=== PATIENT | female | born 1990 | race Caucasian/White ===

== ENCOUNTER 2021-07-19 15:14 | Outpatient (REF) | payer OTHER, SELFPAY ==
[2021-07-19 15:45] LABS: Hematocrit 39.7 % (37.0-47.0); Hemoglobin 13.4 g/dl (12.0-16.0); Mean Corpuscular HGB Conc 33.8 g/dl (31.0-35.0); Mean Corpuscular Hemoglobin 28.8 pg (27.0-33.0); Mean Corpuscular Volume 85.4 fL (80.0-98.0); Mean Platelet Volume 9.5 fL (9.4-12.3); Platelet Count 354 X10*3/uL (160-400); Red Blood Count 4.65 X10*6/uL (4.20-5.50); Red Cell Distribution Width 12.6 % (11.0-16.0); White Blood Count 11.4 X10*3/uL (4.8-10.8)
[2021-07-19 16:05] LABS: Estimated Average Glucose 94 mg/dL; Hemoglobin A1c % 4.9 %
[2021-07-19 16:06] LABS: Alanine Aminotransferase 15 U/L (0-31); Albumin Level 4.2 g/dL (3.5-5.0); Alkaline Phosphatase 69 U/L (39-117); Anion Gap 14 (12-20); Aspartate Amino Transferase 17 U/L (5-31); Bilirubin Total 0.4 mg/dL (0.0-1.0); Blood Urea Nitrogen 8 mg/dL (9-16); Calcium 9.2 mg/dL (8.4-10.2); Carbon Dioxide 23 mmol/L (22-29); Chloride 105 mmol/L (96-108); Cholesterol 258 mg/dL; Estimated Glomerular Filt Rate > 60; Glucose Fasting 87 mg/dL (60-99); HDL Cholesterol 79 mg/dL; LDL Cholesterol Calculated 147 mg/dl; Potassium 4.4 mmol/L (3.3-5.1); Sodium 138 mmol/L (135-145); Total Protein 7.2 g/dL (6.5-8.0); Triglycerides 161 mg/dL
[2021-07-19 16:27] LABS: TSH reflex Free T4 0.73 uIU/mL (0.32-4.0)
== END 2021-07-19 15:15 | disposition home or self-care (01) ==
LOC: HO.LAB 15:14
PROVIDERS: PCP Hospitalist; Visit Provider Hospitalist
DX: Z00.00 Encounter for general adult medical examination without abnormal findings (principal); F41.8 Other specified anxiety disorders; R51.9 Headache, unspecified; R53.83 Other fatigue; R73.01 Impaired fasting glucose
CPT/HCPCS: 36415; 80053; 80061; 83036; 84443; 85027

== ENCOUNTER 2022-01-03 12:35 | Outpatient (REF) | payer OTHER, SELFPAY ==
[2022-01-03 13:29] LABS: Hematocrit 37.9 % (37.0-47.0); Hemoglobin 12.6 g/dl (12.0-16.0); Mean Corpuscular HGB Conc 33.2 g/dl (31.0-35.0); Mean Corpuscular Hemoglobin 28.8 pg (27.0-33.0); Mean Corpuscular Volume 86.5 fL (80.0-98.0); Mean Platelet Volume 9.5 fL (9.4-12.3); Platelet Count 399 X10*3/uL (160-400); Red Blood Count 4.38 X10*6/uL (4.20-5.50); Red Cell Distribution Width 13.1 % (11.0-16.0); White Blood Count 9.2 X10*3/uL (4.8-10.8)
[2022-01-03 13:42] LABS: Alanine Aminotransferase 12 U/L (0-31); Alkaline Phosphatase 75 U/L (39-117); Anion Gap 14 (12-20); Aspartate Amino Transferase 15 U/L (5-31); Bilirubin Direct < 0.2 mg/dL (0.0-0.5); Bilirubin Total 0.5 mg/dL (0.0-1.0); Blood Urea Nitrogen 7 mg/dL (9-16); Calcium 9.4 mg/dL (8.4-10.2); Carbon Dioxide 23 mmol/L (22-29); Chloride 104 mmol/L (96-108); Estimated Glomerular Filt Rate > 60; Glucose Fasting 84 mg/dL (60-99); Potassium 4.5 mmol/L (3.3-5.1); Sodium 136 mmol/L (135-145); Total Protein 6.9 g/dL (6.5-8.0)
[2022-01-03 14:03] LABS: TSH reflex Free T4 0.69 uIU/mL (0.32-4.0)
== END 2022-01-03 12:36 | disposition home or self-care (01) ==
LOC: HO.LAB 12:35
PROVIDERS: PCP Hospitalist; Visit Provider Hospitalist
DX: Z00.00 Encounter for general adult medical examination without abnormal findings (principal); R53.83 Other fatigue
CPT/HCPCS: 36415; 80053; 80076; 82248; 84443; 85027

== ENCOUNTER 2023-10-14 10:54 | Outpatient (AMB) | payer OTHER, SELFPAY ==
[2023-10-14 10:58] VITALS: BP 124/76; PULSE 87; O2SAT 97; BMI 39.0
--- NOTE | 2023-10-14 10:58 | A.OFFPC_ITS ---
Vital Signs 10/14/23 10:58 Height 5 ft 2 in Weight 213 lb 2 oz BMI 39.0 BP 124/76 Blood Pressure Location Lt brachial Position Sitting Pulse 87 Pulse Source Pulse Oximeter Pulse Oximetry (%) 97 Oxygen Delivery Method Room Air Intake Visit Reasons: Transfer of care Allergies erythromycin base [From Erythrocin] Allergy (Intermediate, Verified 10/14/23 11:36) vomits Penicillins Allergy (Verified 10/14/23 11:36) vomitting Medication List - Last Reconciled 10/14/23 by ALONZO Metcalf citalopram 20 mg PO DAILY drospirenone-ethinyl estradiol 3-0.02 mg (SAM (28)) 1 tab PO DAILY Tobacco use date assessed: 10/14/23 Dental Screening Dental Screen Date: 10/14/23 Did you have a dental visit in the last 12 months?: Yes Did you have a dental problem in the last 6 months where you did not have access to dental care?: No Was dental information given to patient?: Patient has dentist HPI HPI Comments History of Present Illness Details 33-year-old female with major depressive disorder, generalized anxiety disorder, TMJ, allergic rhinitis, frequent headaches, obesity, vertigo s/p tubal bilat Family history Mom with breast cancer Father with esophageal cancer Health maintenance Colonoscopy Mammogram Pap smear [facility] Specialists Manager Mechanical my eye doctor and Dr. Shen ENT Counselor Here today worried about dx of vertigo. Started about 5 years ago Thought related to anxiety however on meds and vertigo has not improved. She was evaluated by an eye doctor in March of 2022. It was recommended an MRI be done of the brain to rule out MS based on the eye exam. Patient has not had this performed yet. In regards to MDD and ANGELA. Feels so much better. Not gone. No longer having panic attacks. Not active w/ counselor. Would like to see one. Is taking control to help control hormonal acne. She is status post tubal ligation so no chance of . She wonders if she can come off the as she does not really like it. Would like to start on spironolactone if possible. Admits PMDD of which the as was helping. [facility] Medical History (Updated 10/14/23 @ 17:04 by Sue L O'Maicol, HUMAN RESOURCES DIRECTOR-BC) HPV (human papilloma virus) infection Intractable headache Anxiety with depression Surgical History (Updated 10/14/23 @ 11:15 by Nissa Salamanca MA) History of salpingectomy (~08/2022) History of wisdom tooth extraction Family History (Updated 10/14/23 @ 11:19 by Nissa Salamanca MA) Mother High cholesterol Breast cancer Father Alcoholism Esophageal cancer Maternal Grandfather Hypertension High cholesterol Paternal Grandfather Hypertension Social History (Updated 10/14/23 @ 11:10 by Nissa Salamanca MA) Housing: House Alcohol intake: never Patient Tobacco Use Status: Former Tobacco user e-Cigarette/Vaping Use: Never Used Second Hand Smoke Exposure: No Substance Use Type: Marijuana service: No Current occupational status: employed 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 1. Little interest or pleasure in doing things: several days 2. Feeling down, depressed, or hopeless: several days 3. Trouble falling or staying asleep, or sleeping too much: not at all 4. Feeling tired or having little energy: nearly every day 5. Poor appetite or overeating: more than half the days 6. Feeling bad about yourself - or that you are a failure or have let yourself or your family down: not at all 7. Trouble concentrating on things, such as reading the newspaper or watching television: not at all 8. Moving or speaking so slowly that other people could have noticed. Or the opposite - being so fidgety or restless that you have been moving around a lot more than usual: not at all 9. Thoughts that you would be better off or of hurting yourself in some way: not at all Total score: 7 Depression Screening Interpretation: Positive Depression Screening Follow-up: Existing condition and Community Mental Health Worker F/U Depression Screening Done: Yes 39870 - PHQ-9 Billing: Yes Source: Developed by Drs. Rehan Lynne, Nasima Crabtree, Greg Delgado and colleagues, with an educational kavita from [employer]. Thrive Questionnaire Date Thrive assessed: 10/14/23 I am a: Patient What is your living situation today?: I have a steady place to live Within the past 12 months, did the food you bought not last and you didn't have the money to get more?: Never true Within the past 12 months, did you worry whether your food would run out before you got money to buy more?: Never true Do you have trouble paying for medicines?: No Do you have trouble getting transportation to medical appointments?: No Do you have trouble paying your heating and electricity bill?: No Do you have trouble taking care of your child, family member or friend?: No Do you have trouble with day-to-day activities such as bathing, preparing meals, shopping, managing finances, etc.?: No Are you currently unemployed and looking for a job?: No Are you interested in more education?: No Please select the resources that you would like help with: None Currently or been in a relationship where the following occur: no concerns reported THRIVE Score: 0 AUDIT C Alcohol Use Questionnaire (AUDIT-C) 1. How often do you have a drink containing alcohol?: Never 2. How many drinks containing alcohol do you have on a typical day when you are drinking?: 1 or 2 3. How often do you have six or more drinks on one occasion?: Never Total Score: 0 Score Reviewed/Action Taken: Yes ANGELA-7 AMB Questionnaire ANGELA-7 Date ANGELA - 7 assessed: 10/14/23 Feeling nervous, anxious, or on edge: 1 = Several days Not being able to stop or control worryin = Nearly every day Worrying too much about different things: 3 = Nearly every day Trouble relaxin = Several days Being so restless that it is hard to sit still: 0 = Not at all Becoming easily annoyed or irritable: 0 = Not at all Feeling afraid as if something awful might happen: 2 = More than half the days Total ANGELA-7 score (0-4 normal; 5-9 mild; 10-14 moderate; 15-21 severe): 10 Source: Developed by Drs. Rehan Lynne, Nasima Crabtree, Greg Delgado and colleagues, with an educational kavita from [employer]. ANGELA-7 Assessment Billing ANGELA-7 Assessment Tool: ANGELA-7 Assessment 12785 Review of Systems Const All systems reviewed & are unremarkable except as noted in HPI and below Physical exam (Primary Care) Vital Signs: Last Vital Signs Pulse 87 10/14/23 10:58 BP 124/76 10/14/23 10:58 Pulse Ox 97 10/14/23 10:58 Oxygen Delivery Method Room Air 10/14/23 10:58 BMI result Body Mass Index 39.0 Tobacco/Smoking Status: Tobacco use Status Tobacco use date assessed 10/14/23 10/14/23 11:01 Patient Tobacco Use Status Former Tobacco user 10/14/23 11:10 e-Cigarette/Vaping Use Never Used 10/14/23 11:10 PHQ-9: PHQ-9 Score PHQ-9: Total score 7 10/14/23 11:49 Depression Screening Interpretation: Positive Depression Screening Follow-up: Existing condition and Community Mental Health Worker F/U Thrive Assessment: Date of Thrive Assessment Date Thrive assessed 10/14/23 10/14/23 11:21 Currently or been in a relationship where the following occur: no concerns reported Const Other: Awake alert NAD Sclera and conjunctiva clear bilat, PERRLA, EOMI TM intact and clear bilat MMM, pharynx WNL RRR LS CTAB Assessment and Plan Assessment & Plan (1) Vertigo: Code(s): R42 - Dizziness and giddiness (2) Photophobia of both eyes: Code(s): H53.143 - Visual discomfort, bilateral (3) Intractable headache: Comment: MRI with and without contrast of the brain ordered today as recommended by Ophthalmology. Code(s): R51.9 - Headache, unspecified Qualifiers: Headache type: unspecified Headache chronicity pattern: chronic headache Qualified Code(s): R51.9 - Headache, unspecified; G89.29 - Other chronic pain (4) MDD (major depressive disorder), recurrent episode: Comment: Currently on Celexa 20 mg however positive PHQ in GED. The plan will be to have her start Celexa 30 mg daily. As she does have a history of PMDD I have told her she can increase Celexa to 40 mg 7 days before her period and continue this through her menstrual cycle. If she does not feel her PMD D symptoms warrant this and she should just continue the Celexa 30 mg daily. Nurse navigator referral to help establish care with a counselor Code(s): F33.9 - Major depressive disorder, recurrent, unspecified Qualifiers: Major depression episode severity: moderate Qualified Code(s): F33.1 - Major depressive disorder, recurrent, moderate (5) ANGELA (generalized anxiety disorder): Comment: Maintained on Celexa which will be increased from 20 mg to 30 mg daily today Code(s): F41.1 - Generalized anxiety disorder (6) Acne: Comment: Was being managed by as. We will start her on spironolactone 12.5 mg p.o. q.day take at HS. We will check labs today. Code(s): L70.9 - Acne, unspecified Qualifiers: Acne type: acne vulgaris Qualified Code(s): L70.0 - Acne vulgaris Plan I would like to see her back in 2-3 weeks to follow-up on all the above Total time spent caring for the patient today was 60 minutes. This includes time spent before the visit reviewing the chart, time spent during the visit, and time spent after the visit on documentation This note is constructed using voice recognition software. While every effort has been made to ensure accuracy in campaign advisor, still errors may have been included Sometimes, these errors may affect the content or meaning of the given sentence . Orders: Orders Comprehensive [place]. Panel Fast Today E66.9 - Obesity, unspecified, F41.8 - Other specified anxiety disorders, R51.9 - Headache, unspecified Lipid Panel Today E66.9 - Obesity, unspecified, F41.8 - Other specified anxiety disorders, R51.9 - Headache, unspecified TSH reflex Free T4 Today E66.9 - Obesity, unspecified, F41.8 - Other specified anxiety disorders, R51.9 - Headache, unspecified Microalbumin, Random (w Creat) Today E66.9 - Obesity, unspecified, F41.8 - Other specified anxiety disorders, R51.9 - Headache, unspecified Hemoglobin A1c Today E66.9 - Obesity, unspecified, F41.8 - Other specified anxiety disorders, R51.9 - Headache, unspecified MR head/brain wo/w con Today H53.143 - Visual discomfort, bilateral, R42 - Dizziness and giddiness, R51.9 - Headache, unspecified, R53.83 - Other fatigue Vitamin D 1,25 dihydroxy Today E66.9 - Obesity, unspecified, F41.8 - Other specified anxiety disorders, R51.9 - Headache, unspecified Referrals Nurse Navigator Referral F41.8 - Other specified anxiety disorders Medications: New spironolactone 12.5 mg (1/2 x 25 mg) PO DAILY 90 days 45 tabs 0RF spironolactone 12.5 mg (1/2 x 25 mg) PO DAILY 90 days 45 tabs 0RF Changed From citalopram 20 mg PO DAILY 90 tabs 1RF To citalopram Take two 20 mg tabs p.o. by mouth daily for a total dose of 40 mg per day 40 mg (2 x 20 mg) PO DAILY 90 tabs 1RF Discontinued drospirenone-ethinyl estradiol 3-0.02 mg (SAM (28)) Discontinued Reason: Doctor's Order 1 tab PO DAILY 28 tabs 0RF Coding Level of Care Code Est Pt Level 5 (50924) Diagnoses Vertigo R42 Photophobia of both eyes H53.143 Chronic intractable headache, unspecified headache type R51.9; G89.29 Headache type: unspecified Headache chronicity pattern: chronic headache Moderate episode of recurrent major depressive disorder F33.1 Major depression episode severity: moderate ANGELA (generalized anxiety disorder) F41.1 Acne vulgaris L70.0 Acne type: acne vulgaris Additional Codes ANGELA-7 Assessment Billing - ANGELA-7 Assessment Tool: ANGELA-7 Assessment [id number] ([id number])
== END 2023-10-14 12:14 | disposition home or self-care (01) ==
PROVIDERS: PCP Hospitalist; Visit Provider Nurse Practitioner Family
DX: R42 Dizziness and giddiness (principal); F33.1 Major depressive disorder, recurrent, moderate; F41.1 Generalized anxiety disorder; H53.143 Visual discomfort, bilateral; R51.9 Headache, unspecified; G89.29 Other chronic pain; L70.0 Acne vulgaris
CPT/HCPCS: 96127; 99215

== ENCOUNTER 2023-10-14 11:56 | Outpatient (REF) | payer OTHER, SELFPAY ==
[2023-10-14 16:01] LABS: Estimated Average Glucose 100 mg/dL; Hemoglobin A1c % 5.1 % (<6.0)
[2023-10-14 16:03] LABS: Microalbum/Creatinine Ratio Ur 3.4 ug/mg cr (<30)
[2023-10-14 16:26] LABS: Alanine Aminotransferase 9 U/L (0-31); Alkaline Phosphatase 79 U/L (39-117); Anion Gap 13 (12-20); Aspartate Amino Transferase 13 U/L (5-31); Bilirubin Total 0.3 mg/dL (0.0-1.0); Blood Urea Nitrogen 8 mg/dL (9-16); Calcium 9.3 mg/dL (8.4-10.2); Carbon Dioxide 22 mmol/L (22-29); Chloride 106 mmol/L (96-108); Cholesterol 234 mg/dL (<200); Estimated Glomerular Filt Rate > 60; Glucose Fasting 91 mg/dL (60-99); HDL Cholesterol 79 mg/dL (>40); LDL Cholesterol Calculated 131 mg/dL (<100); Potassium 4.2 mmol/L (3.3-5.1); Sodium 137 mmol/L (135-145); Total Protein 7.3 g/dL (6.5-8.0); Triglycerides 121 mg/dL (<150)
[2023-10-14 16:34] LABS: TSH reflex Free T4 0.87 uIU/mL (0.32-4.0)
[2023-10-18 01:09] LABS: VITAMIN D (1,25 OH) D3 72 pg/mL; Vit D (1,25-Dihydroxy) Total 72 pg/mL (18-72); Vitamin D (1,25 OH) D2 <8 pg/mL
== END 2023-10-14 11:57 | disposition home or self-care (01) ==
LOC: HO.WFDLDS 11:56
PROVIDERS: Visit Provider Nurse Practitioner Family
DX: R51.9 Headache, unspecified (principal); E66.9 Obesity, unspecified; F41.8 Other specified anxiety disorders
CPT/HCPCS: 36415; 80053; 80061; 82043; 82570; 82652; 83036; 84443

== ENCOUNTER 2023-11-05 16:34 | Outpatient (REF) | payer OTHER, SELFPAY ==
--- NOTE | ~2023-11-05 | MR_ITS ---
EXAMINATION: MR BRAIN WITHOUT AND WITH CONTRAST CLINICAL INFORMATION: Headaches. Rule out demyelinating disease. COMPARISON: None. TECHNIQUE: Multiplanar, multisequence imaging of the brain was performed before and after the intravenous administration of 10 mL of Gadavist. FINDINGS: No diffusion abnormalities are identified to suggest an acute infarct. The ventricles are normal in size. No mass effect or midline shift is seen. No brain parenchymal signal abnormality is noted. No extra-axial fluid collections are seen. The brainstem and cerebellum are normal. There is no abnormal parenchymal or leptomeningeal enhancement. The gradient refocused acquisition is normal. The craniovertebral junction, marrow signal, and midline structures are normal. The major intracranial flow voids at the level of the [place] are preserved. The dural venous sinus flow voids are maintained. The paranasal sinuses are well aerated. There is trace fluid in the dependent right mastoid air cells. MR/MR head/brain wo/w con IMPRESSION: Normal MRI of the brain. No acute process.
[2023-11-05] MEDS: gadobutroL 10 ML VIAL IVPUSH (17:27)
== END 2023-11-05 16:35 | disposition home or self-care (01) ==
LOC: HO.MRI 16:34
PROVIDERS: PCP Nurse Practitioner Family; Visit Provider Nurse Practitioner Family
DX: R51.9 Headache, unspecified (principal); R53.83 Other fatigue; R42 Dizziness and giddiness; H53.143 Visual discomfort, bilateral
CPT/HCPCS: 70553; A9585

== ENCOUNTER 2023-11-08 13:09 | Outpatient (AMB) | payer OTHER, SELFPAY ==
[2023-11-08 13:19] VITALS: BP 117/60; PULSE 85; O2SAT 97; BMI 39.2
--- NOTE | 2023-11-08 13:19 | MHC.PC.OV ---
Vital Signs 11/08/23 13:19 Height 5 ft 2 in Weight 214 lb 6 oz BMI 39.2 BP 117/60 Blood Pressure Location Rt brachial Position Sitting Pulse 85 Pulse Source Pulse Oximeter Pulse Oximetry (%) 97 Oxygen Delivery Method Room Air Intake Visit Reasons: fu headache, MDD, brain MRI Intake Note: Patient is here to follow up on headaches, brain MRI. Allergies erythromycin base [From Erythrocin] Allergy (Intermediate, Verified 11/08/23 13:33) vomits Penicillins Allergy (Verified 11/08/23 13:33) vomitting spironolactone Adverse Reaction (Mild, Verified 11/08/23 13:44) Dizziness Medication List - Last Reconciled 11/08/23 by Sue Hoover, [facility]- citalopram 40 mg (2 x 20 mg) PO DAILY drospirenone-ethinyl estradiol 3-0.02 mg (SAM (28)) 1 tab PO DAILY Tobacco use date assessed: 11/08/23 Dental Screening Dental Screen Date: 11/08/23 Did you have a dental visit in the last 12 months?: Yes Did you have a dental problem in the last 6 months where you did not have access to dental care?: No Was dental information given to patient?: Patient has dentist HPI HPI Comments History of Present Illness Details 33-year-old female with major depressive disorder, generalized anxiety disorder, TMJ, allergic rhinitis, frequent headaches, obesity Family history Mom with breast cancer Father with esophageal cancer Health maintenance Colonoscopy Mammogram Pap smear Specialists Supervisor Engraving my eye doctor and Dr. Shen ENT Counselor Here today for follow-up. At the last office visit an MRI was ordered of her brain with and without contrast to rule out MS based on an eye exam recommendation. The MRI of the brain came back within normal limits. In regards to her anxiety and depression she increase her Celexa from 20 mg daily to 30 mg daily and is taking as directed. Has not really noticed a great improvement in her mood. She did start spironolactone to help with her acne however this caused her to feel sick and dizzy. She stopped this and went back on her control. She did not need to increase her Celexa during her premenstrual state as the control helps her PMDD symptoms. Continues waiting on placement with a counselor at this time. Labs done 10/14/2023 reviewed with her today. All within normal limits. Otherwise she complains of Right groin pull, occured about 4-5 months ago. Denies overt injury. When going from sitting to standing has pain, takes a second to go away. Sometimes when walking. Otherwise does not bother. Pain stays localized. Describes as sharp. Denies swelling, rash or warmth. No prior work up for this. [facility] Medical History (Updated 11/08/23 @ 17:31 by Sue Hoover [facility]) HPV (human papilloma virus) infection Intractable headache Anxiety with depression Surgical History (Updated 10/14/23 @ 11:15 by Nissa Salamanca MA) History of salpingectomy (~08/2022) History of wisdom tooth extraction Family History (Updated 10/14/23 @ 11:19 by Nissa Salamanca MA) Mother High cholesterol Breast cancer Father Alcoholism Esophageal cancer Maternal Grandfather Hypertension High cholesterol Paternal Grandfather Hypertension Social History (Updated 10/14/23 @ 11:10 by Nissa Salamanca MA) Housing: House Alcohol intake: never Patient Tobacco Use Status: Former Tobacco user e-Cigarette/Vaping Use: Never Used Second Hand Smoke Exposure: No Substance Use Type: Marijuana service: No Current occupational status: employed 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 1. Little interest or pleasure in doing things: not at all 2. Feeling down, depressed, or hopeless: several days 3. Trouble falling or staying asleep, or sleeping too much: not at all 4. Feeling tired or having little energy: nearly every day 5. Poor appetite or overeating: not at all 6. Feeling bad about yourself - or that you are a failure or have let yourself or your family down: several days 7. Trouble concentrating on things, such as reading the newspaper or watching television: not at all 8. Moving or speaking so slowly that other people could have noticed. Or the opposite - being so fidgety or restless that you have been moving around a lot more than usual: not at all 9. Thoughts that you would be better off or of hurting yourself in some way: not at all Total score: 5 Depression Screening Interpretation: Positive Depression Screening Follow-up: Existing condition and Community Mental Health Worker F/U Depression Screening Done: Yes Source: Developed by Drs. Rehan Lynne, Nasima Crabtree, Greg Delgado and colleagues, with an educational kavita from [employer]. Thrive Questionnaire Date Thrive assessed: 10/14/23 Currently or been in a relationship where the following occur: no concerns reported THRIVE Score: 0 ANGELA-7 AMB Questionnaire ANGELA-7 Date ANGELA - 7 assessed: 11/08/23 Feeling nervous, anxious, or on edge: 1 = Several days Not being able to stop or control worryin = Nearly every day Worrying too much about different things: 3 = Nearly every day Trouble relaxin = Nearly every day Being so restless that it is hard to sit still: 0 = Not at all Becoming easily annoyed or irritable: 0 = Not at all Feeling afraid as if something awful might happen: 1 = Several days Total ANGELA-7 score (0-4 normal; 5-9 mild; 10-14 moderate; 15-21 severe): 11 Source: Developed by Drs. Rehan Lynne, Nasima Crabtree, Greg Delgado and colleagues, with an educational kavita from [employer]. Physical exam (Primary Care) Vital Signs: Last Vital Signs Pulse 85 11/08/23 13:19 BP 117/60 11/08/23 13:19 Pulse Ox 97 11/08/23 13:19 Oxygen Delivery Method Room Air 11/08/23 13:19 BMI result Body Mass Index 39.2 Tobacco/Smoking Status: Tobacco use Status Tobacco use date assessed 11/08/23 11/08/23 13:23 Patient Tobacco Use Status Former Tobacco user 11/08/23 13:20 e-Cigarette/Vaping Use Never Used 11/08/23 13:20 PHQ-9: PHQ-9 Score PHQ-9: Total score 5 11/08/23 13:46 Depression Screening Interpretation: Positive Depression Screening Follow-up: Existing condition and Community Mental Health Worker F/U Thrive Assessment: Date of Thrive Assessment Date Thrive assessed 10/14/23 11/08/23 13:20 Currently or been in a relationship where the following occur: no concerns reported Const Other: Awake alert NAD Sclera and conjunctiva clear bilat, PERRLA, EOMI TM intact and clear bilat MMM, RRR LS CTAB Pain over right iliopsoas muscle with flexion and extension of her right lower extremity otherwise neurovascularly intact Assessment and Plan Assessment & Plan (1) Strain of right iliopsoas muscle: Code(s): S76.811A - Strain of other specified muscles, fascia and tendons at thigh level, right thigh, initial encounter Qualifiers: Encounter type: initial encounter Qualified Code(s): S76.811A - Strain of other specified muscles, fascia and tendons at thigh level, right thigh, initial encounter Plan: Refer to PT for evaluation and treatment (2) ANGELA (generalized anxiety disorder): Comment: Maintained on Celexa 30 mg daily , referral for counseling in place. Follow up in 6 weeks Code(s): F41.1 - Generalized anxiety disorder (3) Acne: Comment: Did not tolerate spironolactone. Therefore she stopped and went back on her control pill. Code(s): L70.9 - Acne, unspecified Qualifiers: Acne type: acne vulgaris Qualified Code(s): L70.0 - Acne vulgaris (4) MDD (major depressive disorder), recurrent episode: Comment: Currently on Celexa 30 mg. We will bring her back in 6 weeks to see if this is helping titrate to effect. Counselor referral and process Code(s): F33.9 - Major depressive disorder, recurrent, unspecified Qualifiers: Major depression episode severity: moderate Qualified Code(s): F33.1 - Major depressive disorder, recurrent, moderate (5) Intractable headache: Comment: MRI with and without contrast of the brain ordered as recommended by Ophthalmology normal. Code(s): R51.9 - Headache, unspecified Qualifiers: Headache type: unspecified Headache chronicity pattern: chronic headache Qualified Code(s): R51.9 - Headache, unspecified; G89.29 - Other chronic pain Plan This note is constructed using voice recognition software. While every effort has been made to ensure accuracy in carpenter and joiner, still errors may have been included Sometimes, these errors may affect the content or meaning of the given sentence . Total time spent caring for the patient today was 45 minutes. This includes time spent before the visit reviewing the chart, time spent during the visit, and time spent after the visit on documentation Orders: Orders PT Evaluation and Treatment Today S76.350U - Strain of other specified muscles, fascia and tendons at thigh level, right thigh, initial encounter Patient Instructions: Return to office in 6 weeks to follow up on Celexa and mood Coding Level of Care Code Est Pt Level 5 (59700) Diagnoses Strain of right iliopsoas muscle, initial encounter S76.003Y Encounter type: initial encounter ANGELA (generalized anxiety disorder) F41.1 Acne vulgaris L70.0 Acne type: acne vulgaris Moderate episode of recurrent major depressive disorder F33.1 Major depression episode severity: moderate Chronic intractable headache, unspecified headache type R51.9; G89.29 Headache type: unspecified Headache chronicity pattern: chronic headache
== END 2023-11-08 13:51 | disposition home or self-care (01) ==
PROVIDERS: PCP Nurse Practitioner Family; Visit Provider Nurse Practitioner Family
DX: S76.811A Strain of other specified muscles, fascia and tendons at thigh level, right thigh, initial encounter (principal); F33.1 Major depressive disorder, recurrent, moderate; F41.1 Generalized anxiety disorder; L70.0 Acne vulgaris; R51.9 Headache, unspecified; G89.29 Other chronic pain
CPT/HCPCS: 99215

== ENCOUNTER 2023-12-16 12:17 | Outpatient (AMB) | payer OTHER, SELFPAY ==
[2023-12-16 12:24] VITALS: BP 120/60; PULSE 77; RESP 13; O2SAT 98; BMI 39.0
--- NOTE | 2023-12-16 12:24 | MHC.PC.OV ---
Vital Signs 12/16/23 12:24 Height 5 ft 2 in Weight 213 lb BMI 39.0 BP 120/60 Blood Pressure Location Lt brachial Position Sitting Respiration 13 Pulse 77 Pulse Source Pulse Oximeter Pulse Oximetry (%) 98 Oxygen Delivery Method Room Air Intake Visit Reasons: FU MDD Intake Note: Patient is here to follow up for MDD. Patient reports she has concerns she would like to discuss with the provider. Patient would like to request a prescription for Claratin as she takes this daily. Patient would also like to request a referral to dermatology. Field Adjuster Required: No Accompanied by: Self / Same As Patient Allergies erythromycin base [From Erythrocin] Allergy (Intermediate, Verified 12/16/23 12:28) vomits Penicillins Allergy (Verified 12/16/23 12:28) vomitting spironolactone Adverse Reaction (Mild, Verified 12/16/23 12:28) Dizziness Medication List - Last Reconciled 12/16/23 by Sue Hoover, [facility]- citalopram 40 mg (2 x 20 mg) PO DAILY drospirenone-ethinyl estradiol 3-0.02 mg (SAM (28)) 1 tab PO DAILY loratadine (Allergy Relief (loratadine)) 10 mg PO DAILY Tobacco use date assessed: 11/08/23 Dental Screening Dental Screen Date: 11/08/23 HPI HPI Comments History of Present Illness Details 33-year-old female with major depressive disorder, generalized anxiety disorder, TMJ, allergic rhinitis, frequent headaches, obesity Family history Mom with breast cancer Father with esophageal cancer Health maintenance Colonoscopy Mammogram Pap smear 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 Shen ENT Counselor Here today to fu In regard to chronic vertigo started 6 years ago, tx as vertigo including therapy w/ no relief. Feels from body and mind, like high all of the time, like brain is floating and detached from body, like 2 different people Everything feels foggy and surreal , like happening to someone else and not her Feels level of disconnect from reality Can even feel like someone else is speaking her words Forgets words a lot Startles a lot like seeing something in periphery Does feel dizzy and vertiginous at times but not always Thought related to ANGELA in past, stopped celexa at that time. Admits high anxiety, life long. Improved since starting celexa. 95% improvement. Told could be inner ear thing. Chronic popping of bilat ears, worse on R. Chronic tension in jaw. Saw ENT but offered no solutions. Sx are there all of the time. Worse when really hungry or too much caffeine. Started after a plane ride. She did get sick on the plane ride. Was fine before this. Has never had a sleep study MDD/ANGELA no improvement in sx with Celexa 30 mg. Increased to 40mg 2 days ago. Referred to counseling. Allergies - taking claritin daily. When she doesnt take it she breaks out in full body rash, with redness to palms of hands and soles of feet. When she scratches skin she breaks out in welts. This happened when she relocated from [place]. Has had allergy testing and is allergic to everything but wonders about this rash Has eye exam scheduled this month. [facility] Medical History (Updated 12/16/23 @ 15:35 by Sue Hoover, [facility]) HPV (human papilloma virus) infection Intractable headache Anxiety with depression Surgical History (Updated 10/14/23 @ 11:15 by Nissa Salamanca [facility]) History of salpingectomy (~08/2022) History of wisdom tooth extraction Family History (Updated 10/14/23 @ 11:19 by Nissa Salamanca CMA) Mother High cholesterol Breast cancer Father Alcoholism Esophageal cancer Maternal Grandfather Hypertension High cholesterol Paternal Grandfather Hypertension Social History (Updated 10/14/23 @ 11:10 by Nissa Salamanca CMA) Housing: House Alcohol intake: never Patient Tobacco Use Status: Former Tobacco user e-Cigarette/Vaping Use: Never Used Second Hand Smoke Exposure: No Substance Use Type: Marijuana service: No Current occupational status: employed 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 1. Little interest or pleasure in doing things: not at all 2. Feeling down, depressed, or hopeless: several days 3. Trouble falling or staying asleep, or sleeping too much: not at all 4. Feeling tired or having little energy: nearly every day 5. Poor appetite or overeating: not at all 6. Feeling bad about yourself - or that you are a failure or have let yourself or your family down: more than half the days 7. Trouble concentrating on things, such as reading the newspaper or watching television: not at all 8. Moving or speaking so slowly that other people could have noticed. Or the opposite - being so fidgety or restless that you have been moving around a lot more than usual: not at all 9. Thoughts that you would be better off or of hurting yourself in some way: not at all Total score: 6 Depression Screening Interpretation: Positive Depression Screening Done: Yes 64168 - PHQ-9 Billing: Yes Source: Developed by Drs. Rehan Lynne, Greg Campos and colleagues, with an educational kavita from [employer]. Thrive Questionnaire Date Thrive assessed: 10/14/23 ANGELA-7 AMB Questionnaire ANGELA-7 Date ANGELA - 7 assessed: 12/16/23 Feeling nervous, anxious, or on edge: 1 = Several days Not being able to stop or control worryin = More than half the days Worrying too much about different things: 2 = More than half the days Trouble relaxin = Not at all Being so restless that it is hard to sit still: 0 = Not at all Becoming easily annoyed or irritable: 0 = Not at all Feeling afraid as if something awful might happen: 1 = Several days Total ANGELA-7 score (0-4 normal; 5-9 mild; 10-14 moderate; 15-21 severe): 6 Source: Developed by Drs. Rehan Lynne, Greg Campos and colleagues, with an educational kavita from [employer]. ANGELA-7 Assessment Billing ANGELA-7 Assessment Tool: ANGELA-7 Assessment 30824 Review of Systems Const All systems reviewed & are unremarkable except as noted in HPI and below Physical exam (Primary Care) Vital Signs: Last Vital Signs Pulse 77 12/16/23 12:24 Resp 13 12/16/23 12:24 BP 120/60 12/16/23 12:24 Pulse Ox 98 12/16/23 12:24 Oxygen Delivery Method Room Air 12/16/23 12:24 BMI result Body Mass Index 39.0 Tobacco/Smoking Status: Tobacco use Status Tobacco use date assessed 11/08/23 12/16/23 12:30 Patient Tobacco Use Status Former Tobacco user 12/16/23 12:30 e-Cigarette/Vaping Use Never Used 12/16/23 12:30 PHQ-9: PHQ-9 Score PHQ-9: Total score 6 12/16/23 12:45 Depression Screening Interpretation: Positive Thrive Assessment: Date of Thrive Assessment Date Thrive assessed 10/14/23 12/16/23 12:30 Const Other: Awake alert NAD Sclera and conjunctiva clear bilat, PERRLA, EOMI TM intact and clear bilat MMM, RRR LS CTAB Assessment and Plan Assessment & Plan (1) Fatigue: Comment: check sleep study and add'l labs Code(s): R53.83 - Other fatigue Qualifiers: Fatigue type: chronic, unspecified Qualified Code(s): R53.82 - Chronic fatigue, unspecified (2) ANGELA (generalized anxiety disorder): Comment: Maintained on Celexa 30 mg daily , referral for counseling in place. no improvement. Increase celexa to 40mg QD , Follow up in 6 weeks Code(s): F41.1 - Generalized anxiety disorder (3) MDD (major depressive disorder), recurrent episode: Comment: Maintained on Celexa 30 mg daily , referral for counseling in place. no improvement. Increase celexa to 40mg QD , Follow up in 6 weeks Code(s): F33.9 - Major depressive disorder, recurrent, unspecified Qualifiers: Major depression episode severity: moderate Qualified Code(s): F33.1 - Major depressive disorder, recurrent, moderate (4) Vertigo: Comment: unsure of cause at this time. Has seen ENT and completed Vestibular therapy. MRI brain WNL Labs so far unrevealing Will check some add'l labs and a sleep study and bring her back to discuss findings If negative or normal, consider Neuro eval and tx. Code(s): R42 - Dizziness and giddiness Plan This note is constructed using voice recognition software. While every effort has been made to ensure accuracy in director regulatory agency, still errors may have been included Sometimes, these errors may affect the content or meaning of the given sentence . Total time spent caring for the patient today was 60 minutes. This includes time spent before the visit reviewing the chart, time spent during the visit, and time spent after the visit on documentation Orders: Orders Complete Blood Count Man Dif Today R21 - Rash and other nonspecific skin eruption, R42 - Dizziness and giddiness Vitamin B12 and Folate Today R21 - Rash and other nonspecific skin eruption, R42 - Dizziness and giddiness Vitamin B1 Today R21 - Rash and other nonspecific skin eruption, R42 - Dizziness and giddiness Vitamin B3 (Niacin) Today R21 - Rash and other nonspecific skin eruption, R42 - Dizziness and giddiness Vitamin B6 Today R21 - Rash and other nonspecific skin eruption, R42 - Dizziness and giddiness RT home sleep study Today R53.83 - Other fatigue Vitamin B2 (Riboflavin) Today R21 - Rash and other nonspecific skin eruption, R42 - Dizziness and giddiness Vitamin B5 (Pantothenic Acid) Today R21 - Rash and other nonspecific skin eruption, R42 - Dizziness and giddiness Histamine Plasma 12/17/24 R21 - Rash and other nonspecific skin eruption, R42 - Dizziness and giddiness Medications: New loratadine (Allergy Relief (loratadine)) 10 mg PO DAILY 90 tabs 1RF citalopram (Celexa) 40 mg PO DAILY 90 tabs 0RF Discontinued citalopram Take two 20 mg tabs p.o. by mouth daily for a total dose of 40 mg per day Discontinued Reason: Doctor's Order 40 mg (2 x 20 mg) PO DAILY 90 tabs 1RF Patient Instructions: RTO IN 6 WEEKS TO F/U ON LABS, VERTIGO, MDD AND SLEEP STUDY, SOONER IF NEEDED Coding Level of Care Code Est Pt Level 5 (54927) Diagnoses Chronic fatigue R53.82 Fatigue type: chronic, unspecified ANGELA (generalized anxiety disorder) F41.1 Moderate episode of recurrent major depressive disorder F33.1 Major depression episode severity: moderate Vertigo R42 Additional Codes ANGELA-7 Assessment Billing - ANGELA-7 Assessment Tool: ANGELA-7 Assessment [id number] ([id number])
== END 2023-12-16 13:59 | disposition home or self-care (01) ==
PROVIDERS: PCP Nurse Practitioner Family; Visit Provider Nurse Practitioner Family
DX: R53.82 Chronic fatigue, unspecified (principal); F41.1 Generalized anxiety disorder; F33.1 Major depressive disorder, recurrent, moderate; R42 Dizziness and giddiness
CPT/HCPCS: 96127; 99215; 99417

== ENCOUNTER 2023-12-24 13:35 | Outpatient (REF) | payer OTHER, SELFPAY ==
[2023-12-24 14:21] LABS: Baso%MD 0.4 %; Eos%MD 3.2 %; Hematocrit 36.7 % (37.0-47.0); Hemoglobin 12.2 g/dl (12.0-16.0); IG%MD 0.4 %; Lymph%MD 21.9 %; Mean Corpuscular HGB Conc 33.2 g/dl (31.0-35.0); Mean Corpuscular Hemoglobin 27.4 pg (27.0-33.0); Mean Corpuscular Volume 82.5 fL (80.0-98.0); Mean Platelet Volume 9.2 fL (9.4-12.3); Mono%MD 6.1 %; Platelet Count 341 X10*3/uL (160-400); Red Blood Count 4.45 X10*6/uL (4.20-5.50); Red Cell Distribution Width 13.1 % (11.0-16.0); White Blood Count 9.4 X10*3/uL (4.8-10.8)
[2023-12-24 14:47] LABS: Folate 6.9 ng/mL (> or = 4.0); Vitamin B12 273 pg/mL (200-900)
[2023-12-24 15:18] LABS: Band Neutrophils Percent 1 % (3-5); Basophils Abs Manual 0.1 X10*3/uL (0.0-0.2); Basophils Percent Manual 1 % (0-2); Eosinophils Absolute Manual 0.4 X10*3/uL (0.0-0.4); Eosinophils Percent Manual 4 % (0-4); Lymphocytes Absolute Manual 1.5 X10*3/uL (1.2-4.9); Lymphocytes Percent Manual 16 % (20-40); Monocytes Absolute Manual 0.4 X10*3/uL (0.1-1.2); Monocytes Percent Manual 4 % (2-11); Neutrophils Absolute Manual 7.1 X10*3/uL (2.0-8.3); Neutrophils Percent Manual 74 % (45-73)
[2023-12-24 15:20] LABS: Platelet Estimate NORMAL (NORMAL); Platelet Morphology Comment NORMAL; RBC Morphology NORMAL
[2023-12-28 10:14] LABS: Histamine Plasma 1.8 ng/mL (< OR = 1.8)
[2023-12-29 13:08] LABS: Vitamin B1 13 nmol/L (8-30)
[2023-12-30 16:13] LABS: Vitamin B6 3.2 ng/mL (2.1-21.7)
[2023-12-30 18:52] LABS: Nicotinamide 36 ng/mL; Vit B3 - Nicotinic Acid <20 ng/mL; Vitamin B2 (Riboflavin) 12.7 nmol/L (6.2-39.0); Vitamin B5 (Pantothenic Acid) <40 ng/mL (<275)
== END 2023-12-24 13:36 | disposition home or self-care (01) ==
LOC: HO.LAB 13:35
PROVIDERS: PCP Nurse Practitioner Family; Visit Provider Nurse Practitioner Family
DX: R21 Rash and other nonspecific skin eruption (principal); R42 Dizziness and giddiness
CPT/HCPCS: 36415; 82607; 82746; 83088; 84207; 84252; 84425; 84591; 85007; 85027

== ENCOUNTER → 2024-02-17 07:54 | Outpatient (REF) | payer OTHER, SELFPAY | LOC: HO.SL 07:54 | PROVIDERS: PCP Nurse Practitioner Family; Visit Provider Nurse Practitioner Family | DX: G47.10 Hypersomnia, unspecified (principal); R53.82 Chronic fatigue, unspecified; R06.83 Snoring | CPT/HCPCS: 95806 ==

== ENCOUNTER → 2024-02-17 08:14 | Outpatient (BNV) | payer OTHER, SELFPAY | PROVIDERS: PCP Nurse Practitioner Family; Visit Provider Internal Medicine | DX: R06.83 Snoring (principal); G47.10 Hypersomnia, unspecified | CPT/HCPCS: 95806 ==

== ENCOUNTER 2024-03-06 11:47 | Outpatient (AMB) | payer OTHER, SELFPAY ==
--- NOTE | 2024-03-06 11:52 | A.OFFPC_ITS ---
Vital Signs 03/06/24 11:56 Height 5 ft 2 in Weight 218 lb 8 oz BMI 40.0 BP 112/58 L Blood Pressure Location Rt brachial Position Sitting Respiration 14 Pulse 76 Pulse Source Pulse Oximeter Pulse Oximetry (%) 98 Oxygen Delivery Method Room Air Intake Visit Reasons: fu Vertigo, ANGELA, MDD, Labs & sleep study Intake Note: Follow up vertigo, anxiety, labs, and sleep study. Preform Machine Operator Required: No Is last menstrual period known: No Allergies erythromycin base [From Erythrocin] Allergy (Intermediate, Verified 03/06/24 11:55) vomits Penicillins Allergy (Verified 03/06/24 11:55) vomitting spironolactone Adverse Reaction (Mild, Verified 03/06/24 11:55) Dizziness Medication List - Last Reconciled 03/06/24 by Sue Hoover, [facility]- citalopram (Celexa) 40 mg PO DAILY drospirenone-ethinyl estradiol 3-0.02 mg (SAM (28)) 1 tab PO DAILY loratadine (Allergy Relief (loratadine)) 10 mg PO DAILY Tobacco use date assessed: 11/08/23 Dental Screening Dental Screen Date: 11/08/23 HPI HPI Comments History of Present Illness Details 33-year-old female with major depressive disorder, generalized anxiety disorder, TMJ, allergic rhinitis, frequent headaches, obesity 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 Shen ENT Counselor [facility] Pippa Henderson Here today to fu on chronic conditions MDD/ANGELA no improvement in sx with Celexa 40 mg. Active with counseling. Counseling has been very positive for her. Therapist discussed her physical symptoms potentially being psychosomatic. The following labs and sleep study were reviewed with her today: Labs 12/30/2023 show hematocrit 36.7, mean platelet volume 9.2, neutrophils 74, bands 1, lymphocytes 16 otherwise normal CBC, normal histamine level, normal B1, B2, nicotinic acid, nicotine amide, pantothenic acid, B6, B12 and folate 02/2024 Home sleep study inconclusive, re commend in lab sleep study. Exam Awake alert, oriented, pleasant and cooperative Maintains good eye contact, mood and affect appropriate, smiling and engaging Regular rate and rhythm Lung sounds clear to auscultation bilat Plan Order in-lab sleep study Continue Celexa 40 mg daily along with counseling Start BuSpar 7.5 mg 1 tab p.o. b.i.d.. Discussed okay to use p.r.n. dose in the afternoon. Patient does not think that she will need this as she has not been having any breakthrough panic attacks. Telehealth follow up in 6 weeks to determine the effectiveness of the buspirone and to discuss a sleep study results if they are back at that time. As always follow up sooner as needed. This note is constructed using voice recognition software. While every effort has been made to ensure accuracy in dryerman/woman, still errors may have been included Sometimes, these errors may affect the content or meaning of the given sentence . Total time spent caring for the patient today was 30 minutes. This includes time spent before the visit reviewing the chart, time spent during the visit, and time spent after the visit on documentation [facility] Medical History (Updated 03/06/24 @ 12:45 by Sue Hoover, [facility]) HPV (human papilloma virus) infection Intractable headache Anxiety with depression Surgical History (Updated 10/14/23 @ 11:15 by Nissa Salamanca [facility]) History of salpingectomy (~08/2022) History of wisdom tooth extraction Family History (Updated 10/14/23 @ 11:19 by Nissa Salamanca CMA) Mother High cholesterol Breast cancer Father Alcoholism Esophageal cancer Maternal Grandfather Hypertension High cholesterol Paternal Grandfather Hypertension Social History (Updated 10/14/23 @ 11:10 by Nissa Salamanca [facility]) Housing: House Alcohol intake: never Patient Tobacco Use Status: Former Tobacco user e-Cigarette/Vaping Use: Never Used Second Hand Smoke Exposure: No Substance Use Type: Marijuana service: No Current occupational status: employed 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 1. Little interest or pleasure in doing things: not at all 2. Feeling down, depressed, or hopeless: several days 3. Trouble falling or staying asleep, or sleeping too much: not at all 4. Feeling tired or having little energy: more than half the days 5. Poor appetite or overeating: not at all 6. Feeling bad about yourself - or that you are a failure or have let yourself or your family down: several days 7. Trouble concentrating on things, such as reading the newspaper or watching television: not at all 8. Moving or speaking so slowly that other people could have noticed. Or the opposite - being so fidgety or restless that you have been moving around a lot more than usual: not at all 9. Thoughts that you would be better off or of hurting yourself in some way: not at all Total score: 4 Source: Developed by Drs. Rehan Lynne, Nasima Crabtree, Greg Delgado and colleagues, with an educational kavita from [email or web address]. Thrive Questionnaire Date Thrive assessed: 10/14/23 ANGELA-7 AMB Questionnaire ANGELA-7 Date ANGELA - 7 assessed: 03/06/24 Feeling nervous, anxious, or on edge: 1 = Several days Not being able to stop or control worryin = Several days Worrying too much about different things: 1 = Several days Trouble relaxin = Several days Being so restless that it is hard to sit still: 0 = Not at all Becoming easily annoyed or irritable: 0 = Not at all Feeling afraid as if something awful might happen: 1 = Several days Total ANGELA-7 score (0-4 normal; 5-9 mild; 10-14 moderate; 15-21 severe): 5 Source: Developed by Drs. Rehan Lynne, Nasima Crabtree, Greg Delgado and colleagues, with an educational kavita from [email or web address]. ANGELA-7 Assessment Billing ANGELA-7 Assessment Tool: ANGELA-7 Assessment [id number] Physical exam (Primary Care) Vital Signs: Last Vital Signs Pulse 76 03/06/24 11:56 Resp 14 03/06/24 11:56 BP 112/58 L 03/06/24 11:56 Pulse Ox 98 03/06/24 11:56 Oxygen Delivery Method Room Air 03/06/24 11:56 BMI result Body Mass Index 40.0 Tobacco/Smoking Status: Tobacco use Status Tobacco use date assessed 11/08/23 03/06/24 11:54 Patient Tobacco Use Status Former Tobacco user 03/06/24 11:54 e-Cigarette/Vaping Use Never Used 03/06/24 11:54 PHQ-9: PHQ-9 Score PHQ-9: Total score 4 03/06/24 12:00 Thrive Assessment: Date of Thrive Assessment Date Thrive assessed 10/14/23 03/06/24 11:54 Assessment and Plan Assessment & Plan (1) ANGELA (generalized anxiety disorder): Code(s): F41.1 - Generalized anxiety disorder (2) MDD (major depressive disorder), recurrent episode: Code(s): F33.9 - Major depressive disorder, recurrent, unspecified Qualifiers: Major depression episode severity: moderate Qualified Code(s): F33.1 - Major depressive disorder, recurrent, moderate (3) Hypersomnia: Code(s): G47.10 - Hypersomnia, unspecified Orders: Orders RT PSG in-lab sleep study Today G47.10 - Hypersomnia, unspecified, R93.89 - Abnormal findings on diagnostic imaging of other specified body structures Medications: New buspirone 7.5 mg PO BID 60 tabs 1RF Refilled citalopram (Celexa) 40 mg PO DAILY 90 tabs 2RF Coding Level of Care Code Est Pt Level 4 (72044) Complex EM visit Add On G2211 Diagnoses ANGELA (generalized anxiety disorder) F41.1 Moderate episode of recurrent major depressive disorder F33.1 Major depression episode severity: moderate Hypersomnia G47.10 Additional Codes ANGELA-7 Assessment Billing - ANGELA-7 Assessment Tool: ANGELA-7 Assessment [id number] ([id number])
[2024-03-06 11:56] VITALS: BP 112/58; PULSE 76; RESP 14; O2SAT 98; BMI 40.0
== END 2024-03-06 12:34 | disposition home or self-care (01) ==
PROVIDERS: PCP Nurse Practitioner Family; Visit Provider Nurse Practitioner Family
DX: G47.10 Hypersomnia, unspecified (principal); F41.1 Generalized anxiety disorder; F33.1 Major depressive disorder, recurrent, moderate
CPT/HCPCS: 96127; 99214; G2211

== ENCOUNTER → 2024-03-30 20:30 | Outpatient (REF) | payer OTHER, SELFPAY | LOC: HO.SL 20:30 | PROVIDERS: Visit Provider Nurse Practitioner Family | DX: G47.10 Hypersomnia, unspecified (principal); R93.89 Abnormal findings on diagnostic imaging of other specified body structures | CPT/HCPCS: 95810 ==

== ENCOUNTER → 2024-04-06 15:43 | Outpatient (AMB) | payer OTHER, SELFPAY ==
--- NOTE | 2024-04-06 15:40 | A.OFFPC_ITS ---
Intake Visit Reasons: telehealth fu Early Apr Add buspar/ANGELA Intake Note: Medication follow up Allergies erythromycin base [From Erythrocin] Allergy (Intermediate, Verified 04/06/24 15:41) vomits Penicillins Allergy (Verified 04/06/24 15:41) vomitting spironolactone Adverse Reaction (Mild, Verified 04/06/24 15:41) Dizziness Medication List - Last Reconciled 04/06/24 by ALONZO Metcalf buspirone 7.5 mg PO BID citalopram (Celexa) 40 mg PO DAILY drospirenone-ethinyl estradiol 3-0.02 mg (SAM (28)) 1 tab PO DAILY loratadine (Allergy Relief (loratadine)) 10 mg PO DAILY Tobacco use date assessed: 11/08/23 Dental Screening Dental Screen Date: 11/08/23 HPI HPI Comments History of Present Illness Details 33-year-old female with major depressive disorder, generalized anxiety disorder, TMJ, allergic rhinitis, frequent headaches, obesity Telehealth visit today to follow up on start of BuSpar Since last office visit she has been taking the buspirone twice per day as directed. She states that it is going pretty good, her thoughts are quiet which she likes. She continues on the Celexa 40 mg and she also continues in counseling. She is happy with the results and would like to continue this medication at the same dosing. In regards to her sleep study, she did have the in-lab sleep study completed last Saturday, unfortunately I do not have a read available today to review with her. I did advise her that I will be out of the office, the results will be covered by another provider, if she has any questions or does not hear anything, advised to send a portal message or to place a phone call to follow up. Plan Follow up on in-lab sleep study - did have it done last Saturday night. Continue Celexa 40 mg daily along with counseling Continue BuSpar 7.5 mg 1 tab p.o. b.i.d., 90 day supply sent today. Telehealth follow up in 12 weeks to follow up on chronic conditions, sooner if needed. Message sent to front office staff to call her to arrange this visit. [facility] Medical History (Updated 04/06/24 @ 16:13 by ALONZO Metcalf) HPV (human papilloma virus) infection Intractable headache Anxiety with depression Surgical History (Updated 10/14/23 @ 11:15 by Nissa Salamanca CMA) History of salpingectomy (~08/2022) History of wisdom tooth extraction Family History (Updated 10/14/23 @ 11:19 by Nissa Salamanca CMA) Mother High cholesterol Breast cancer Father Alcoholism Esophageal cancer Maternal Grandfather Hypertension High cholesterol Paternal Grandfather Hypertension Social History (Updated 10/14/23 @ 11:10 by Nissa Salamanca CMA) Housing: House Alcohol intake: never Patient Tobacco Use Status: Former Tobacco user e-Cigarette/Vaping Use: Never Used Second Hand Smoke Exposure: No Substance Use Type: Marijuana service: No Current occupational status: employed 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 Rehan Lynne, Nasima Crabtree, Greg Delgado and colleagues, with an educational kavita from [employer]. Physical exam (Primary Care) Tobacco/Smoking Status: Tobacco use Status Tobacco use date assessed 11/08/23 04/06/24 15:42 Patient Tobacco Use Status Former Tobacco user 04/06/24 15:42 e-Cigarette/Vaping Use Never Used 04/06/24 15:42 Thrive Assessment: Date of Thrive Assessment Date Thrive assessed 10/14/23 04/06/24 15:42 Telehealth Telehealth Telehealth Platform: Telephone Location of provider rendering services: practice address Location of patient: other (Work in [place] ) Patient Identification confirmed using: Name, : Yes Telehealth method: voice only Patient verbally consented to treatment: Yes Patient verbally consented to billing insurance company: Yes Patient informed of any privacy concerns related to visit: Yes Minutes spent on Phone/Video with Pt.: 6 Assessment and Plan Assessment & Plan (1) ANGELA (generalized anxiety disorder): Code(s): F41.1 - Generalized anxiety disorder (2) MDD (major depressive disorder), recurrent episode: Code(s): F33.9 - Major depressive disorder, recurrent, unspecified Qualifiers: Major depression episode severity: moderate Qualified Code(s): F33.1 - Major depressive disorder, recurrent, moderate (3) Fatigue: Code(s): R53.83 - Other fatigue Qualifiers: Fatigue type: chronic, unspecified Qualified Code(s): R53.82 - Chronic fatigue, unspecified Medications: Changed From buspirone 7.5 mg PO BID 60 tabs 1RF To buspirone 7.5 mg PO BID 90 days 180 tabs 1RF Coding Level of Care Code Tele Est Pt Level 1 (06018) Diagnoses ANGELA (generalized anxiety disorder) F41.1 Moderate episode of recurrent major depressive disorder F33.1 Major depression episode severity: moderate Chronic fatigue R53.82 Fatigue type: chronic, unspecified
== END ==
LOC: HO.HMGFM 15:43
PROVIDERS: PCP Nurse Practitioner Family; Visit Provider Nurse Practitioner Family
DX: F41.1 Generalized anxiety disorder (principal); F33.1 Major depressive disorder, recurrent, moderate; R53.82 Chronic fatigue, unspecified
CPT/HCPCS: 99212

== ENCOUNTER 2024-07-07 12:13 | Outpatient (AMB) | payer OTHER, SELFPAY ==
--- NOTE | 2024-07-07 12:17 | A.OFFPC_ITS ---
Intake Visit Reasons: telehealth fu for MDD/ANGELA Allergies erythromycin base [From Erythrocin] Allergy (Intermediate, Verified 07/07/24 12:17) vomits Penicillins Allergy (Verified 07/07/24 12:17) vomitting spironolactone Adverse Reaction (Mild, Verified 07/07/24 12:17) Dizziness Medication List - Last Reconciled 07/07/24 by Sue Hoover, JAMAAL- buspirone 7.5 mg PO BID 90 days citalopram (Celexa) 40 mg PO DAILY drospirenone-ethinyl estradiol 3-0.02 mg (SAM (28)) 1 tab PO DAILY loratadine (Allergy Relief (loratadine)) 10 mg PO DAILY Tobacco use date assessed: 11/08/23 Dental Screening Dental Screen Date: 11/08/23 HPI HPI Comments 2 History of Present Illness Details 34-year-old female with major depressive disorder, generalized anxiety disorder, TMJ, allergic rhinitis, frequent headaches, obesity Telehealth visit today follow up on chronic conditions. Since last visit, she is working w/ [facility] Psychiatrist who increased her buspar to 10 mg TID. This has helped her mood. She cont in counseling. Remains on celexa 40mg. She did try wellbutrin but this made her very jittery, so this was stopped. Denies SI/HI. Her neuro sx remain the same, unchanged. Less frequent headaches. I reviewed w/ her sleep study results which show frequent PLMS and hardly any REM. She states she did not sleep well during this in lab study, however, does not sleep well at baseline. Never feels fully rested or like she is in a deep sleep, even in comfortable environments. Declined flu shot. Plan Start Lunesta 1mg take 30 min before bedtime to help REM sleep disorder. Titrate to effect. Telehealth follow up in 3 weeks, sooner if needed. Message sent to front office staff to call her to arrange this visit. Total time on this encounter is 15 minutes. [facility] Medical History (Updated 07/07/24 @ 16:55 by Sue Hoover, JAMAAL-KRYSTAL) HPV (human papilloma virus) infection Intractable headache Anxiety with depression Surgical History (Updated 10/14/23 @ 11:15 by Nissa Salamanca [facility]) History of salpingectomy (~08/2022) History of wisdom tooth extraction Family History (Updated 10/14/23 @ 11:19 by Nissa Salamanca CMA) Mother High cholesterol Breast cancer Father Alcoholism Esophageal cancer Maternal Grandfather Hypertension High cholesterol Paternal Grandfather Hypertension Social History (Updated 10/14/23 @ 11:10 by Nissa Salamanca CMA) Housing: House Alcohol intake: never Patient Tobacco Use Status: Former Tobacco user e-Cigarette/Vaping Use: Never Used Second Hand Smoke Exposure: No Substance Use Type: Marijuana service: No Current occupational status: employed 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 Rehan Lynne, Nasima Crabtree, Greg Delgado and colleagues, with an educational kavita from [employer]. Physical exam (Primary Care) Tobacco/Smoking Status: Tobacco use Status Tobacco use date assessed 11/08/23 07/07/24 12:17 Patient Tobacco Use Status Former Tobacco user 07/07/24 12:17 e-Cigarette/Vaping Use Never Used 07/07/24 12:17 Thrive Assessment: Date of Thrive Assessment Date Thrive assessed 10/14/23 07/07/24 12:17 Telehealth Telehealth Telehealth Platform: [facility] Location of provider rendering services: practice address Location of patient: address on file Patient Identification confirmed using: Name, : Yes Telehealth method: voice only Patient verbally consented to treatment: Yes Patient verbally consented to billing insurance company: Yes Patient informed of any privacy concerns related to visit: Yes Minutes spent on Phone/Video with Pt.: 11 Coding Level of Care Code Tele Est Pt Level 2 (22551) Complex EM visit Add On G2211 Diagnoses Sleep disorder G47.9 Hypersomnia G47.10 ANGELA (generalized anxiety disorder) F41.1 Moderate episode of recurrent major depressive disorder F33.1 Major depression episode severity: moderate Assessment & Plan Assessment & Plan (1) Sleep disorder: Code(s): G47.9 - Sleep disorder, unspecified Category: Medical Plan: . (2) Hypersomnia: Code(s): G47.10 - Hypersomnia, unspecified Category: Medical Plan: . (3) ANGELA (generalized anxiety disorder): Code(s): F41.1 - Generalized anxiety disorder Category: Medical Plan: . (4) MDD (major depressive disorder), recurrent episode: Code(s): F33.9 - Major depressive disorder, recurrent, unspecified Category: Medical Qualifiers: Major depression episode severity: moderate Qualified Code(s): F33.1 - Major depressive disorder, recurrent, moderate Plan: . Plan . Medications: New buspirone 10 mg PO TID 30 tabs 0RF eszopiclone (Lunesta) 1 mg PO BEDTIME 30 tabs 0RF Discontinued buspirone Discontinued Reason: Doctor's Order 7.5 mg PO BID 90 days 180 tabs 1RF
== END 2024-07-07 16:16 | disposition home or self-care (01) ==
LOC: HO.HMCFM 12:14
PROVIDERS: PCP Nurse Practitioner Family; Visit Provider Nurse Practitioner Family
DX: G47.9 Sleep disorder, unspecified (principal); G47.10 Hypersomnia, unspecified; F41.1 Generalized anxiety disorder; F33.1 Major depressive disorder, recurrent, moderate

== ENCOUNTER → 2024-07-07 12:13 | Outpatient (BNVA) | payer OTHER, SELFPAY | PROVIDERS: PCP Nurse Practitioner Family; Visit Provider Nurse Practitioner Family ==

== ENCOUNTER 2024-07-27 16:09 | Outpatient (AMB) | payer OTHER, SELFPAY ==
--- NOTE | 2024-07-27 16:11 | MHC.PC.OV ---
Intake Visit Reasons: FU Lunesta start Allergies erythromycin base [From Erythrocin] Allergy (Intermediate, Verified 07/27/24 16:11) vomits Penicillins Allergy (Verified 07/27/24 16:11) vomitting spironolactone Adverse Reaction (Mild, Verified 07/27/24 16:11) Dizziness Medication List - Last Reconciled 07/27/24 by Sue Hoover, [facility] buspirone 10 mg PO TID citalopram (Celexa) 40 mg PO DAILY drospirenone-ethinyl estradiol 3-0.02 mg (SAM (28)) 1 tab PO DAILY lamotrigine mg PO loratadine (Allergy Relief (loratadine)) 10 mg PO DAILY Tobacco use date assessed: 11/08/23 Dental Screening Dental Screen Date: 11/08/23 HPI HPI Comments History of Present Illness Details History of Present Illness The patient is a 34-year-old female presenting with issues related to anxiety, depression, and sleep disorder. She reported that her sleep was previously disrupted with Lunesta, noting that it did not provide restful sleep and caused frequent awakenings and nightmares. The patient had previously been on Buspirone, which was increased by her psychiatrist from 10 mg twice daily to three times daily, and was continued on celexa 40 mg. Recently, Lamotrigine was added to her treatment regimen for its potential benefits in managing her depression. The lamotrigine was introduced 10 days prior to the visit, and the patient is aware that it may take up to a month to observe the full effect. The patient aims to better address her anxiety and depression, which she believes are contributing factors to her sleep disturbances. She recently discontinued Lunesta to assess her response to the new medication regimen. Although she now experiences nightmares, her sleep pattern remains similar. The psychiatrist has advised incorporating one medication change at a time. Insurance issues are not currently affecting her medication access. Review of Systems - Neurologic: Reports nightmares; Reports disrupted sleep. - Psychiatric: Reports anxiety; Reports depression. Note: This physical exam was conducted in conjunction with the patient via our Telehealth platform. Patient was informed and verbally consented to the use of an ambient scribe for clinic note documentation during this visit. Discussion Notes I discussed with the patient the current management plan focusing on anxiety, depression, and sleep disorder. We reviewed the recent addition of Lamotrigine for depression, acknowledging the potential latency in therapeutic effect which may take up to a month. The patient was advised to remain on the current psychiatric medication regimen of Buspirone and celexa and to assess the impact of these medications before reintroducing Lunesta. I emphasized the benefits of introducing one new medication at a time to ensure clarity in assessing side effects and efficacy. The patient will continue regular follow-up with psychiatry and myself for ongoing management and medication evaluation. We agreed on an increase in Lunesta dosage to 2 mg as the next step, should she feel stable on Lamotrigine. I informed the patient to report any concerns using the patient portal and we discussed scheduling a physical exam in eight weeks to coincide with her annual health review. Patient Instructions - Continue Buspirone 10 mg thrice daily and celexa 40 mg as directed. - Observe for changes while adjusting Lamotrigine dose. - Consider reintroducing Lunesta at 2 mg when stable on current medications. - Follow up with the psychiatrist to evaluate the response to Lamotrigine. - Schedule an annual physical exam in eight weeks. - Report any issues or medication side effects via the patient portal. - Maintain consistent contact with the psychiatric provider for medication management. Total time spent caring for the patient today was 14 minutes. This includes time spent before the visit reviewing the chart, time spent during the visit, and time spent after the visit on documentation [facility] Medical History (Updated 07/07/24 @ 16:55 by Sue Hoover, [facility]) HPV (human papilloma virus) infection Intractable headache Anxiety with depression Surgical History (Updated 10/14/23 @ 11:15 by Nissa Salamanca CMA) History of salpingectomy (~08/2022) History of wisdom tooth extraction Family History (Updated 10/14/23 @ 11:19 by Nissa Salamanca CMA) Mother High cholesterol Breast cancer Father Alcoholism Esophageal cancer Maternal Grandfather Hypertension High cholesterol Paternal Grandfather Hypertension Social History (Updated 10/14/23 @ 11:10 by Nissa Salamanca CMA) Housing: House Alcohol intake: never Patient Tobacco Use Status: Former Tobacco user e-Cigarette/Vaping Use: Never Used Second Hand Smoke Exposure: No Substance Use Type: Marijuana service: No Current occupational status: employed 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 Rehan Lynne, Nasima Crabtree, Greg Delgado and colleagues, with an educational kavita from [employer]. Physical exam (Primary Care) Tobacco/Smoking Status: Tobacco use Status Tobacco use date assessed 11/08/23 07/07/24 12:17 Patient Tobacco Use Status Former Tobacco user 07/07/24 12:17 e-Cigarette/Vaping Use Never Used 07/07/24 12:17 Thrive Assessment: Date of Thrive Assessment Date Thrive assessed 10/14/23 07/07/24 12:17 Telehealth Telehealth Telehealth Platform: [facility] Location of provider rendering services: practice address Location of patient: address on file Patient Identification confirmed using: Name, : Yes Telehealth method: voice only Patient verbally consented to treatment: Yes Patient verbally consented to billing insurance company: Yes Patient informed of any privacy concerns related to visit: Yes Minutes spent on Phone/Video with Pt.: 10 Coding Level of Care Code Tele Est Pt Level 2 (55874) Complex EM visit Add On G2211 Diagnoses Sleep disorder G47.9 Hypersomnia G47.10 ANGELA (generalized anxiety disorder) F41.1 Moderate episode of recurrent major depressive disorder F33.1 Major depression episode severity: moderate Assessment & Plan Assessment & Plan (1) Sleep disorder: Code(s): G47.9 - Sleep disorder, unspecified Category: Medical (2) Hypersomnia: Code(s): G47.10 - Hypersomnia, unspecified Category: Medical (3) ANGELA (generalized anxiety disorder): Code(s): F41.1 - Generalized anxiety disorder Category: Medical (4) MDD (major depressive disorder), recurrent episode: Code(s): F33.9 - Major depressive disorder, recurrent, unspecified Category: Medical Qualifiers: Major depression episode severity: moderate Qualified Code(s): F33.1 - Major depressive disorder, recurrent, moderate Plan . Medications: New eszopiclone (Lunesta) 2 mg PO BEDTIME 30 tabs 1RF Discontinued eszopiclone (Lunesta) Discontinued Reason: Patient no longer taking 1 mg PO BEDTIME 30 tabs 0RF
== END 2024-07-27 16:21 | disposition home or self-care (01) ==
LOC: HO.HMCFM 16:09
PROVIDERS: PCP Nurse Practitioner Family; Visit Provider Nurse Practitioner Family
DX: G47.9 Sleep disorder, unspecified (principal); G47.10 Hypersomnia, unspecified; F41.1 Generalized anxiety disorder; F33.1 Major depressive disorder, recurrent, moderate

== ENCOUNTER 2024-10-27 16:15 | Outpatient (AMB) | payer OTHER, SELFPAY ==
--- NOTE | 2024-10-27 16:15 | MHC.PC.OV ---
Intake Visit Reasons: fmla Allergies erythromycin base [From Erythrocin] Allergy (Intermediate, Verified 10/27/24 16:16) vomits Penicillins Allergy (Verified 10/27/24 16:16) vomitting spironolactone Adverse Reaction (Mild, Verified 10/27/24 16:16) Dizziness Medication List - Last Reconciled 10/27/24 by Sue Hoover, [facility]- buspirone 10 mg PO TID citalopram (Celexa) 40 mg PO DAILY drospirenone-ethinyl estradiol 3-0.02 mg (SAM (28)) 1 tab PO DAILY eszopiclone (Lunesta) 2 mg PO BEDTIME lamotrigine mg PO loratadine (Allergy Relief (loratadine)) 10 mg PO DAILY Tobacco use date assessed: 10/27/24 Dental Screening Dental Screen Date: 10/27/24 Did you have a dental visit in the last 12 months?: Yes Did you have a dental problem in the last 6 months where you did not have access to dental care?: No Was dental information given to patient?: Patient has dentist HPI HPI Comments History of Present Illness Details History of Present Illness - The patient is a 34-year-old female presenting with a need for FMLA paperwork completion due to a right ankle fracture incurred on October 09 from a fall on ice, resulting in three broken bones. - Subsequent surgical intervention was carried out on October 15 at [facility]; procedures included the insertion of plates and screws. - She is non-weight bearing and relies on crutches, with a recommended recovery period of up to three months. - Occupational absence has been complete since the date of injury, pending reassessment on November 05. - Previous arrangements for the transfer of medical information from her Ortho provider for FMLA purposes have not been successful thus far. - Ortho recommends out of work for 3 months to complete PT and treatment. Assessment and Plan 1. Right Closed Ankle Fracture: The patient's right closed ankle fracture, treated surgically with internal fixation, requires continued [id number] rehabilitation. FMLA documentation is to be fulfilled to verify medical leave from employment, based on the surgeon's three-month recovery outlook. Monitoring and further evaluations will align with the upcoming medical re-assessment on November 05, enhancing the coordinated approach to her recovery. Documentation from her physical therapist's evaluations shall be integrated upon receipt to ensure a comprehensive management strategy. FMLA completed for cont absence 10/09-01/06/25 & will be emailed to her, per her request. Telehealth Attestation The clinical documentation for this visit, conducted via telehealth, was completed accurately based on verbal information exchanged during the session. The patient has been explained that this is an interactive (audio/video) telehealth encounter and what that consists of. The patient understands and wishes to proceed. [employer] platform was used. Total time spent caring for the patient today was 25 minutes. This includes time spent before the visit reviewing the chart, time spent during the visit, and time spent after the visit on documentation, reviewing laboratory results, diagnostic imaging, medications, performing a medically necessary evaluation, counseling on diagnoses, care coordination, ordering appropriate tests, ordering appropriate medications, review of tests performed by other providers, reporting test results with the patient, communication with other healthcare providers. [facility] Medical History (Updated 10/27/24 @ 16:25 [facility] Anxiety with depression HPV (human papilloma virus) infection Intractable headache Surgical History (Updated 10/27/24 @ 16:24 by ALONZO Metcalf) History of salpingectomy (~08/2022) History of wisdom tooth extraction Family History (Updated 10/14/23 @ 11:19 by Nissa Salamanca [facility]) Mother High cholesterol Breast cancer Father Alcoholism Esophageal cancer Maternal Grandfather Hypertension High cholesterol Paternal Grandfather Hypertension Social History (Updated 10/14/23 @ 11:10 by Nissa Salamanca [facility]) Housing: House Alcohol intake: never Patient Tobacco Use Status: Former Tobacco user e-Cigarette/Vaping Use: Never Used Second Hand Smoke Exposure: No Substance Use Type: Marijuana service: No Current occupational status: employed 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 Rehan Lynne, Nasima Crabtree, Greg Delgado and colleagues, with an educational kavita from [employer]. Physical exam (Primary Care) Tobacco/Smoking Status: Tobacco use Status Tobacco use date assessed 11/08/23 10/27/24 16:16 Patient Tobacco Use Status Former Tobacco user 10/27/24 16:16 e-Cigarette/Vaping Use Never Used 10/27/24 16:16 Thrive Assessment: Date of Thrive Assessment Date Thrive assessed 09/04/24 10/27/24 16:16 Telehealth Telehealth Telehealth Platform: [facility] Location of provider rendering services: practice address Location of patient: address on file Patient Identification confirmed using: Name, : Yes Telehealth method: video (pt was not able to access the link so it was changed to a voice call after a few failed attempts ) Patient verbally consented to treatment: Yes Patient verbally consented to billing insurance company: Yes Patient informed of any privacy concerns related to visit: Yes Minutes spent on Phone/Video with Pt.: 15 Coding Level of Care Code Tele Est Pt Level 4 (22283) Complex EM visit Add On G2211 Diagnoses Closed fracture of right ankle with routine healing, subsequent encounter S82.891D Encounter type: subsequent encounter Fracture healing: with routine healing S/P surgical manipulation of ankle joint Z98.890 Encounters for administrative purpose Z02.9 Assessment & Plan Assessment & Plan (1) Closed right ankle fracture: Code(s): S82.891A - Other fracture of right lower leg, initial encounter for closed fracture Category: Medical Qualifiers: Encounter type: subsequent encounter Fracture healing: with routine healing Qualified Code(s): S82.891D - Other fracture of right lower leg, subsequent encounter for closed fracture with routine healing (2) S/P surgical manipulation of ankle joint: Code(s): Z98.890 - Other specified postprocedural states Category: Surgical (3) Encounters for administrative purpose: Code(s): Z02.9 - Encounter for administrative examinations, unspecified Plan .
--- OUTSIDE RECORDS SUMMARY | 2024-10-27 19:41 | XMS_ITS | Referral Summary ---
Author Organization [facility] Address [address] [place] [address] Care Team Providers Care Warp Hanger Name Role Phone Patient, Has No Pcp Or Ref Primary Care Provider Unavailable Encounters Date Type Department Care Team Description 10/09/2024 11:44 AM EST - 10/10/2024 8:06 AM EST Emergency [facility] Emergency Department [address] [place] [id number] Aracelis Tinoco MD Sultan, Danielle A., DO Hardin, John W., MD Choros, Efstathia, MD Closed fracture of right ankle, initial encounter (Primary Dx) Discharge Disposition: Home or Self Care () 10/09/2024 2:10 PM EST Ancillary Procedure [facility] Emergency Department [address] [place] [id number] Aracelis Tinoco MD from Last 3 Months Allergies Active Allergy Reactions Criticality Noted Date Comments Erythromycin Nausea 10/09/2024 Penicillins Nausea 10/09/2024 Medications citalopram (CeleXA) 40 mg tablet Take 40 mg by mouth once a day. Active lamoTRIgine (LaMICtal) 100 mg tablet Take 150 mg by mouth once a day. Active loratadine (CLARITIN) 10 mg tablet Take 10 mg by mouth once a day. Active busPIRone (BUSPAR) 10 mg tablet Take 10 mg by mouth 3 times a day as needed (for anxiety). Active aspirin 81 mg EC tablet Take 1 tablet (81 mg total) by mouth 2 times a day for 14 days. 28 tablet 5 Active oxyCODONE IR (ROXICODONE) 5 mg tablet Take 1 tablet (5 mg total) by mouth every 4 hours as needed for breakthrough pain for up to 5 days. Max Daily Amount: 30 mg 20 tablet 5 10/14/19 25 Social History Tobacco Use Types Packs/Day Years Used Date Smoking Tobacco: Never Assessed Comments Unknown Sex and Gender Information Value Date Recorded Sex Assigned at Female 10/09/2024 11:43 AM EST Legal Sex Female 11:42 AM EST Gender Identity Not on file Sexual Orientation Not on file Last Filed Vital Signs Vital Sign Reading Time Taken Comments Blood Pressure 122/70 10/10/2024 8:05 AM EST Pulse 78 10/10/2024 8:05 AM EST Temperature 36.6 ??C (97.9 ??F) 10/10/2024 8:05 AM ES T Respiratory Rate 17 10/10/2024 8:05 AM EST Oxygen Saturation 97% 10/10/2024 8:05 AM EST Inhaled Oxygen Concentration - - Weight 108.9 kg (240 lb) 10/09/2024 11:48 AM EST Height 157.5 cm (5' 2 ) 10/09/2024 11:48 AM EST Body Mass Index 43.9 10/09/2024 11:48 AM EST Plan of Treatment Not on file Procedures * Due to [place] [employer] law, this organization might not be sharing negative HIV tests. Procedure Name Priority Date/Time Associated Diagnosis Comments CT LOWER EXTREMITY RIGHT WO CONTRAST STAT 10/09/2024 9:08 PM EST XR ANKLE 3+ VW RIGHT STAT 10/09/2024 4:25 PM EST XR ANKLE 3+ VW RIGHT STAT 10/09/2024 12:39 PM EST XR TIBIA FIBULA 2 VW RIGHT STAT 10/09/2024 12:39 PM EST XR FOOT 3+ VW RIGHT STAT 10/09/2024 1 2:38 PM EST from Last 3 Months Results * Due to [place] [employer] law, this organization might not be sharing negative HIV tests. * CT Lower Extremity Right WO Contrast (10/09/2024 9:08 PM EST) Anatomical Region Laterality Modality Lower Extremities, Femur Right Compute d Tomography 10/09/2024 9:54 PM EST Impressions 10/09/2024 10:01 PM EST Posterior/medial malleolus and distal fibula fractures. If this radiology report contains a blank impression section, it is an incomplete radiology report. ??Please contact the interpreting radiologist or applicable radiology division as soon as possible to obtain the completed interpretation. ? Workstation ID: [id number] Up-to-date CT equipment and radiation dose reduction techniques were employed. CTDIvol: 11.5 mGy. DLP: 627 mGy-cm. Narrative 10/09/2024 10:01 PM EST INDICATION: ??R ankle fx. Include Prox tibia through ankle/ foot TECHNIQUE: Volumetric CT of the right ankle was performed without intravenous contrast utilizing standard departmental protocol. COMPARISON: Radiographs, earlier same day FINDINGS: Trimalleolar ankle fracture: Nondisplaced posterior malleolus fracture. Nondisplaced medial malleolus fracture. Comminuted distal fibula diaphysis fracture. Moderate soft tissue swelling. No evidence of tendon entrapment. Resulting Agency Comment [id number] Procedure Note Raimundo Fong MD - 10/09/2024 INDICATION: R ankle fx. Include Prox tibia through ankle/ foot TECHNIQUE: Volumetric CT of the right ankle was performed withoutintravenous contrast utilizing standard departmental protocol. COMPARISON: Radiographs, earlier same day FINDINGS: Trimalleolar ankle fracture: Nondisplaced posterior malleolus fracture. Nondisplaced medial malleolus fracture. Comminuted distal fibula diaphysis fracture. Moderate soft tissue swelling. No evidence of tendon entrapment. IMPRESSION: Posterior/medial malleolus and distal fibula fractures. If this radiology report contains a blank impression section, it is anincomplete radiology report. Please contact the interpreting radiologistor applicable radiology division as soon as possible to obtain thecompleted interpretation. Workstation ID: [id number] Up-to-date CT equipment and radiation dose reduction techniques wereemployed. CTDIvol: 11.5 mGy. DLP: 627 mGy-cm. Aracelis Tinoco MD IMG CT PROCEDURES Final Result * X-Ray Ankle Right 3+ Views (10/09/2024 4:25 PM EST) Only the most recent of2 resultswithin the time period is included. Anatomical Region Laterality Modality Lower Extremities, Ankle Right Compute d Radiography 10/09/2024 5:04 PM EST Impressions 10/09/2024 5:05 PM EST Splint material limits fine osseous detail. Improved alignment of trimalleolar fracture. If this radiology report contains a blank impression section, it is an incomplete radiology report. ??Please contact the interpreting radiologist or applicable radiology division as soon as possible to obtain the completed interpretation. ? Workstation ID: [id number] Narrative 10/09/2024 5:05 PM EST COMPARISON: Right foot/ankle, earlier same day FINDINGS AND Resulting Agency Comment [id number] Procedure Note Raimundo Fong MD - 10/09/2024 COMPARISON: Right foot/ankle, earlier same day FINDINGS AND IMPRESSION: Splint material limits fine osseous detail. Improved alignment of trimalleolar fracture. If this radiology report contains a blank impression section, it is anincomplete radiology report. Please contact the interpreting radiologistor applicable radiology division as soon as possible to obtain thecompleted interpretation. Workstation ID: [id number] Aracelis Tinoco MD IMG XR PROCEDURES Final Result * XR Tibia Fibula 2 vw Right (10/09/2024 12:39 PM EST) Anatomical Region Laterality Modality Lower Extremities, Lower Leg Right Com puted Radiography 10/09/2024 12:4 4 PM EST Impressions 10/09/2024 12:47 PM EST Acute trimalleolar right ankle fractures with lateral subluxation of the talus, in keeping with stage IV Hernandez C injury. If this radiology report contains a blank impression section, it is an incomplete radiology report. ??Please contact the interpreting radiologist or applicable radiology division as soon as possible to obtain the completed interpretation. ? Workstation ID: [id number] Narrative 10/09/2024 12:47 PM EST COMPARISON: None FINDINGS: Acute comminuted fracture of the right distal fibular shaft with lateral angulation and full shaft width medial displacement (Hernandez C). ??Acute transverse avulsion fracture of the medial malleolus with widening of the medial tibiotalar joint space. ??Acute minimally displaced distal tibial posterior malleolus fracture without significant articular surface impaction. ??Overall fracture pattern is compatible with stage IV Hernandez C injury. No other acute displaced fracture or dislocation in the right tibia/fibular, ankle, or foot. ??Small dorsal and plantar calcaneal heel spurs. ??No radiopaque foreign body. Resulting Agency Comment [id number] Procedure Note Sumit Arguello, DO - 10/09/2024 COMPARISON: None FINDINGS: Acute comminuted fracture of the right distal fibular shaft with lateralangulation and full shaft width medial displacement (Hernandez C). Acutetransverse avulsion fracture of the medial malleolus with widening of themedial tibiotalar joint space. Acute minimally displaced distal tibialposterior malleolus fracture without significant articular surfaceimpaction. Overall fracture pattern is compatible with stage IV Hernandez Cinjury. No other acute displaced fracture or dislocation in the righttibia/fibular, ankle, or foot. Small dorsal and plantar calcaneal heelspurs. No radiopaque foreign body. IMPRESSION: Acute trimalleolar right ankle fractures with lateral subluxation of thetalus, in keeping with stage IV Hernandez C injury. If this radiology report contains a blank impression section, it is anincomplete radiology report. Please contact the interpreting radiologistor applicable radiology division as soon as possible to obtain thecompleted interpretation. Workstation ID: [id number] Aracelis Tinoco MD IMG XR PROCEDURES Final Result * XR Foot 3+ vw Right (10/09/2024 12:38 PM EST) Anatomical Region Laterality Modality Lower Extremities, Foot Right Computed Radiography 10/09/2024 12:4 4 PM EST Impressions 10/09/2024 12:47 PM EST Acute trimalleolar right ankle fractures with lateral subluxation of the talus, in keeping with stage IV Hernandez C injury. If this radiology report contains a blank impression section, it is an incomplete radiology report. ??Please contact the interpreting radiologist or applicable radiology division as soon as possible to obtain the completed interpretation. ? Workstation ID: [id number] Narrative 10/09/2024 12:47 PM EST COMPARISON: None FINDINGS: Acute comminuted fracture of the right distal fibular shaft with lateral angulation and full shaft width medial displacement (Hernandez C). ??Acute transverse avulsion fracture of the medial malleolus with widening of the medial tibiotalar joint space. ??Acute minimally displaced distal tibial posterior malleolus fracture without significant articular surface impaction. ??Overall fracture pattern is compatible with stage IV Hernandez C injury. No other acute displaced fracture or dislocation in the right tibia/fibular, ankle, or foot. ??Small dorsal and plantar calcaneal heel spurs. ??No radiopaque foreign body. Resulting Agency Comment [id number] Procedure Note Sumit Arguello, DO - 10/09/2024 COMPARISON: None FINDINGS: Acute comminuted fracture of the right distal fibular shaft with lateralangulation and full shaft width medial displacement (Hernandez C). Acutetransverse avulsion fracture of the medial malleolus with widening of themedial tibiotalar joint space. Acute minimally displaced distal tibialposterior malleolus fracture without significant articular surfaceimpaction. Overall fracture pattern is compatible with stage IV Hernandez Cinjury. No other acute displaced fracture or dislocation in the righttibia/fibular, ankle, or foot. Small dorsal and plantar calcaneal heelspurs. No radiopaque foreign body. IMPRESSION: Acute trimalleolar right ankle fractures with lateral subluxation of thetalus, in keeping with stage IV Hernandez C injury. If this radiology report contains a blank impression section, it is anincomplete radiology report. Please contact the interpreting radiologistor applicable radiology division as soon as possible to obtain thecompleted interpretation. Workstation ID: [id number] Aracelis Tinoco MD IMG XR PROCEDURES Final Result from Last 3 Months Insurance HS[employer] [place] [phone] Care Teams Warp Hanger Relationship Specialty Start Date End Date Patient, Has No Pcp Or Ref DO NOT EDIT THIS RECORD VIA PROVIDER ON THE FLY PCP - General Director Specialty 10/09/24
--- OUTSIDE RECORDS SUMMARY | 2024-10-27 19:41 | XMS_ITS | Encounter Summary ---
Author Organization [facility] Address [address] [place] [address] Care Team Providers Care Smoke Chaser Name Role Phone Patient, Has No Pcp Or Ref Primary Care Provider Unavailable Reason for Referral * Consultation (Routine) - Canceled Specialty Diagnoses / Procedures Referred By Gaston t Referred To Contact Diagnoses Trimalleolar fracture Swapna Greenberg DO [address] [place] [phone] Phone: tel: fax: Referral ID Status Reason Start Date Expiration Date V isits Requested Visits Authorized [id number] Canceled 10/09/2024 04/10/2026 6 6 Reason for Visit * Reason Comments Fall Ankle Pain Encounter Details Date Type Department Care Team (Late st Contact Info) Description 10/09/2024 11:44 AM EST - 10/10/2024 8:06 AM EST Emergency [facility] Emergency Department [address] [place] [address] Aracelis Tinoco MD [address] [place] [phone] Swapna Greenberg DO [address] [place] [phone] Isael Anand MD [address] [place] [phone] Yony Feldman MD [address] [place] [phone] Closed fracture of right ankle, initial encounter (Primary Dx) Discharge Disposition: Home or Self Care (01) Social History Tobacco Use Types Packs/Day Years Used Date Smoking Tobacco: Never Assessed Comments Unknown Sex and Gender Information Value Date Recorded Sex Assigned at Female 10/09/2024 11:43 AM EST Legal Sex Female 11:42 AM EST Gender Identity Not on file Sexual Orientation Not on file documented as of this encounter Last Filed Vital Signs Vital Sign Reading [...] Mass Index 43.9 10/09/2024 11:48 AM EST documented in this encounter Discharge Instructions * Discharge Instructions* Yony Feldman MD - 10/09/2024 2:27 PM EST You were seen in the ED today for ankle pain after a fall. We found that you have an ankle fracture. You were casted by orthopedic surgery. Please do not bear weight on this leg. Please keep you leg elevated and your cast dry. Please start taking aspirin, 81 mg, two times a day, until you follow up with the orthopedic doctors. This medication was sent to your pharmacy. Please follow up with orthopedics in their clinic next week. For pain control you can take Tylenol and ibuprofen. You can take them at the same time or alternate these medications. Please make sure you are careful as to what you are taking. You are prescribed a pain medication called oxycodone. This is considered a narcotic and can be addicting. Do not drinkalcohol or drive while taking it. If you are taking oxycodone take a stool softener as it may make you constipated. Take Tylenol and ibuprofen first and if those fail then you can take oxycodone. You need to ambulate with crutches. Be careful on stairs as you have an increased risk of falling. If at any time you develop worsening pain, numbness, weakness, chest pain, difficulty breathing, orany other new, changing or worsening symptoms, please return to the ED for repeat evaluation. * Attachments The following attachments cannot be sent through Care Everywhere. * Ankle Fracture (Guatemalan) documented in this encounter Medications at Time of Discharge aspirin 81 mg EC tablet Take 1 tablet (81 mg total) by mouth 2 times a day for 14 days. 28 tablet 10/09/2024 busPIRone (BUSPAR) 10 mg tablet Take 10 mg by mouth 3 times a day as needed (for anxiety). citalopram (CeleXA) 40 mg tablet Take 40 mg by mouth once a day. lamoTRIgine (LaMICtal) 100 mg tablet Take 150 mg by mouth once a day. loratadine (CLARITIN) 10 mg tablet Take 10 mg by mouth once a day. oxyCODONE IR (ROXICODONE) 5 mg tablet Take 1 tablet (5 mg total) by mouth every 4 hours as needed for breakthrough pain for up to 5 days. Max Daily Amount: 30 mg 20 tablet 10/09/2024 documented as of this encounter ED Notes * Swapna Greenberg DO - 10/09/2024 5:14 PM EST Xr,CT>ortho>dc Swapna Greenberg DO 10/09/24 1714 * Aracelis Tinoco MD - 10/09/2024 11:42 AM EST History HPI: Chief Complaint Patient presents with Fall Ankle Pain 34 yo F with no PMH presents with sudden onset RLE pain after slip and fall on ice. Obvious deformity. Splinted with a blanket by EMS prior to arrival. Received 200 mg of fentanyl prior to arrival. Continues to have significant pain. Reports intact sensation and is able to wiggle her toes. Patient is an extremis secondary to pain and very tearful. No injury elsewhere. 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 No past surgical history on file. No family history on file. Review of Systems Review of Systems Musculoskeletal: Positive for gait problem and joint swelling. Physical Exam Physical Exam ED Triage Vitals [10/09/24 1148] Temp Heart Rate Resp BP SpO2 36.6 ??C (97.9 ??F) 87 20 145/91 98 % Temp Source Heart Rate Source Patient Position BP Location Set FiO2 (O2%) Oral Pulse Oximeter Lying Right arm -- Physical Exam Vitals and nursing note reviewed. Constitutional: General: She is in acute distress. Appearance: Normal appearance. She is normal weight. HENT: Head: Normocephalic and atraumatic. Eyes: Extraocular Movements: Extraocular movements intact. Conjunctiva/sclera: Conjunctivae normal. Pulmonary: Effort: Pulmonary effort is normal. No respiratory distress. Musculoskeletal: General: Swelling, tenderness and deformity present. Cervical back: Normal range of motion and neck supple. Comments: Right ankle Neurological: General: No focal deficit present. Mental Status: She is alert. Mental status is at baseline. Psychiatric: Mood and Affect: Mood normal. Behavior: Behavior normal. Medical Decision Making and ED Course CT Lower Extremity Right WO Contrast Final Result Posterior/medial malleolus and distal fibula fractures. If this radiology report contains a blank impression section, it is an incomplete radiology report.Please contact the interpreting radiologist or applicable radiology division as soon as possible toobtain the completed interpretation. Workstation ID: [id number] Up-to-date CT equipment and radiation dose reduction techniques were employed. CTDIvol: 11.5 mGy. DLP: 627 mGy-cm. X-Ray Ankle Right 3+ Views Final Result Splint material limits fine osseous detail. Improved alignment of trimalleolar fracture. If this radiology report contains a blank impression section, it is an incomplete radiology report.Please contact the interpreting radiologist or applicable radiology division as soon as possible toobtain the completed interpretation. Workstation ID: [id number] XR Ankle 3+ vw Right Final Result Acute trimalleolar right ankle fractures with lateral subluxation of the talus, in keeping with stage IV Hernandez C injury. If this radiology report contains a blank impression section, it is an incomplete radiology report.Please contact the interpreting radiologist or applicable radiology division as soon as possible toobtain the completed interpretation. Workstation ID: [id number] XR Tibia Fibula 2 vw Right Final Result Acute trimalleolar right ankle fractures with lateral subluxation of the talus, in keeping with stage IV Hernandez C injury. If this radiology report contains a blank impression section, it is an incomplete radiology report.Please contact the interpreting radiologist or applicable radiology division as soon as possible toobtain the completed interpretation. Workstation ID: [id number] XR Foot 3+ vw Right Final Result Acute trimalleolar right ankle fractures with lateral subluxation of the talus, in keeping with stage IV Hernandez C injury. If this radiology report contains a blank impression section, it is an incomplete radiology report.Please contact the interpreting radiologist or applicable radiology division as soon as possible toobtain the completed interpretation. Workstation ID: [id number] MEM C-ARM Imaging ER (Results Pending) Assessment and Plan: 34-year-old female presents with a slip and fall on ice now with right lower extremity deformity at the ankle. Concern for likely fracture versus fracture dislocation. Pain poorly managed with fentanyl prior to arrival. Will give additional dose prior to transfer to x-ray imaging. Patient does have intact DP pulse, distal sensation and range of motion. Plan: - X-ray foot, ankle, tib-fib - Orthopedics consultation Amount and/or Complexity of Data Reviewed: Discussion with other providers: Care was discussed with the following providers: KENNEL OPERATOR (to review case and request evaluation). Current encounter data review: The following tests from this encounter were independently reviewed:x-ray, Imaging interpretation: Trimalleolar fracture ED Course as of 10/13/24 0829 SatOct 09, 2024 1158 Patient refusing blanket removal at this time. [LG] 1223 Patient no longer in extremis, plan for transport to x-ray [LG] 1304 Patient informed of fracture [LG] 1406 Discussed with orthopedics: will evaluate patient and give additional recommendations [LG] 1427 Patient resting comfortably. Discussed hCG testing given plan for C-arm and patient declined. [LG] 1600 Orthopedics requesting: XR, CT, NWB RLE in splint, keep clean/dry/intact. 81 mg ASA BID [LG] 1620 Received patient in sign out. Briefly presenting for ankle pain and found to have trimalleolarfx. S/p reduction and splinted by ortho. Currently pending post reduction xrays and Cts and final dispo. [DS] 1714 X-Ray Ankle Right 3+ Views IMPRESSION: Splint material limits fine osseous detail. Improved alignment of trimalleolar fracture. [DS] 1717 Ortho is okay to dc after CT scan. NWB to RLE in splint. Keep splint clean and dry. Ortho to arrange follow up. Advice start aspirin 81 mg BID for DVT ppx [DS] 1937 Pt signed out to Dr. Anand. [DS] Sat Oct 10, 2024 0045 Discussed case with ortho resident - they stated they do not admit non-op patients to their service, requested med admit [] 0111 Discussed with medicine, they feel patient better served on ortho service [] 0111 Ortho attending paged [] 0130 Ortho attending paged #2 [JH] 0158 Called ortho attending cell, left VM [JH] 0233 Discussed with ED AOC; agrees with current admission plan; would try TRAC contact - paged via TRAC [] ED Course User Index [DS] Swapna Greenberg, DO [] Isael Anand MD [LG] Aracelis Tinoco MD Agnes Paz : 1990 CSN: [id number] Aracelis Tinoco MD 10/13/24 0829 documented in this encounter Miscellaneous Notes * ED Continuation of Care - Yony Feldman MD - 10/10/2024 8:06 AM EST ED Continuation of Care 10/10/24 3AM Sign out from Dr. Anand MDM Patient is a 34-year-old female who after a fall with right lower extremity pain. Patient seen by orthopedics and splinted. Patient's initial plan was discharged home, however, her pain was severe and she was treated with additional pain medication. Patient pending admission to orthopedics. Patient was provided oral oxycodone. At the time of my evaluation in the morning patient reports her pain had improved. Nursing was able to work with patient and she was able to tolerate crutches without concern. At this time as her pain has improved with oral medications we will plan to discharge home. Discussed with patient to use aspirin twice daily for DVT prophylaxis. Prescribed short courseof oxycodone. Discussed precautions with using crutches. Discussed follow- up with orthopedics, return precautions, and discharged. ED Course as of 10/21/242015Oct 09, 2024 1158 Patient refusing blanket removal at this time. [LG] 1223 Patient no longer in extremis, plan for transport to x-ray [LG] 1304 Patient informed of fracture [LG] 1406 Discussed with orthopedics: will evaluate patient and give additional recommendations [LG] 1427 Patient resting comfortably. Discussed hCG testing given plan for C-arm and patient declined. [LG] 1600 Orthopedics requesting: XR, CT, NWB RLE in splint, keep clean/dry/intact. 81 mg ASA BID [LG] 1620 Received patient in sign out. Briefly presenting for ankle pain and found to have trimalleolarfx. S/p reduction and splinted by ortho. Currently pending post reduction xrays and Cts and final dispo. [DS] 1714 X-Ray Ankle Right 3+ Views IMPRESSION: Splint material limits fine osseous detail. Improved alignment of trimalleolar fracture. [DS] 1717 Ortho is okay to dc after CT scan. NWB to RLE in splint. Keep splint clean and dry. Ortho to arrange follow up. Advice start aspirin 81 mg BID for DVT ppx [DS] 1937 Pt signed out to Dr. Anand. [DS] Sat Oct 10, 2024 0045 Discussed case with ortho resident - they stated they do not admit non-op patients to their service, requested med admit [] 0111 Discussed with medicine, they feel patient better served on ortho service [] 0111 Ortho attending paged [] 0130 Ortho attending paged #2 [] 0158 Called ortho attending cell, left VM [JH] 0233 Discussed with ED AOC; agrees with current admission plan; would try TRAC contact - paged via TRAC [JH] ED Course User Index [DS] Swapna Greenberg, [JH] Isael Anand MD [LG] Aracelis Tinoco MD Agnes Jackson : 1990 CSN: [id number] * Consult to H&P - Julio Goodrich MD - 10/09/2024 7:57 PM EST ORTHOPEDIC SURGERY CONSULT NOTE CONSULTS Reason for Consultation: Right trimalleolar ankle fracture Date of Injury: 10/09 Mechanism of Injury: Slip on ice Diagnosis: Right trimalleolar ankle fracture History of Present Ilness: Agnes Jackson is a community ambulator 34 y.o. female with a PMH of depression, otherwise healthywho presents with right ankle pain and found to have a right trimalleolar ankle fracture in the emergency department. She was outside walking, when she slipped on ice. She noticed that her foot turned inward and she felt a crack or snap. She had immediate pain and swelling of the right lower extremity. She was not able to bear weight. Patient had some subjective numbness about her toes. Otherwisedenies paresthesias of the right lower extremity. She did not notice any blood at the time of the injury. Or cuts. Past Medical History: No past medical history on file. Depression Past Surgical History: No past surgical history on file. 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 Pre-injury ambulatory status: Community ambulator Living situation: Lives in [facility] with herself Patient contact: SisterElda [phone] Family History: Denies a family history of bleeding or clotting disorders Review of Systems: Negative except for what is stated in HPI Physical Exam: Temp: [36.6 ??C (97.9 ??F)] 36.6 ??C (97.9 ??F) Heart Rate: [72-87] 85 Resp: [18-20] 18 BP: (115-145)/(74-91) 115/74 SpO2: [98 %] 98 % Gen: NAD, awake and conversant CV: Palp peripheral pulses Pulm: NAW, symmetric chest rise Abd: Non-distended RLE Skin intact, there is swelling and deformity noted about the right ankle. Significant pain with motion at the right ankle. Firing TA/EHL/peroneals. Did not fire GS secondary to pain SILT DP/SP/T. She has subjective numbness about the webspaces of the toes but otherwise sensation is intact. Palp DP pulse Imaging: X-Ray Ankle Right 3+ Views Result Date: 10/09/2024 Splint material limits fine osseous detail. Improved alignment of trimalleolar fracture. If this radiology report contains a blank impression section, it is an incomplete radiology report. Please contact the interpreting radiologist or applicable radiology division as soon as possible to obtain the completed interpretation. Workstation ID: [id number] XR Foot 3+ vw Right, XR Ankle 3+ vw Right, XR Tibia Fibula 2 vw Right Result Date: 10/09/2024 Acute trimalleolar right ankle fractures with lateral subluxation of the talus, in keeping with stage IV Hernandez C injury. If this radiology report contains a blank impression section, it is an incomplete radiology report. Please contact the interpreting radiologist or applicable radiology division as soon as possible to obtain the completed interpretation. WorkstationID: [id number] Patient has a displaced right trimalleolar ankle fracture. There is subluxation on the lateral x-ray of the talus posteriorly. The fibula fracture is of a Hernandez C variety. There is medial clear spacewidening. Labs: None Procedure: Agnes Paz ([id number]) Pre/post procedure diagnosis: Right trimalleolar ankle fracture Procedure: Application of splint with mold. Close reduction. Lidocaine hematoma block Resident: Julio Goodrich MD PGY-1, Darryl Vasquez MD PGY 5 Anesthesia: Regional/local, as above Time out: Completed Specimen: None EBL: Minimal Complications: None Post-procedural exam: Unchanged/stable Assessment + Plan: Agnes Paz is a community ambulator 34 y.o. female who has PMH significant for depression, otherwise healthy who presents with a right trimalleolar ankle fracture. This is a closed injury. She was hematoma blocked and closed reduced placed in a posterior slab and U type splint with interval improvement in the alignment of her fracture. We will obtain a CT scan for preoperative planning. The patient may be discharged nonweightbearing to the right lower extremity in a splint and she should take aspirin 81 mg twice daily for DVT prophylaxis. She should follow-up in the foot and ankle clinicor orthopedic trauma clinic for possible operative planning. Plan: CT scan for preoperative planning. Weightbearing restrictions: Nonweightbearing right lower extremity Immobilization: Splint DVT PPx: Aspirin 81 mg twice daily Antibiotics: None from orthopedic perspective Disposition: Follow-up in foot and ankle or orthopedic trauma service clinic within the next week or so. Plan was discussed with Dr. Tena, who agrees. Julio Goodrich MD PGY-1 Department of Orthopedic [facility]: Page [phone] for Consults, 2221 for Inpatients [facility]: Page [phone] for Consults/Inpatients Cosigned by Ade Tena MD at 10/12/2024 7:59 PM EST Associated attestation - Ade Tena MD - 10/12/2024 7:59 PM EST I reviewed the case with the resident but did not see the patient. I agree with the assessment and plan as documented in the resident's note. * ED Continuation of Care - Swapna Greenberg DO - 10/09/2024 4:21 PM EST ED Continuation of Care 10/09/24 4:21 PM Sign out from Dr. Tinoco, See ED course. Amount and/or Complexity of Data Reviewed: Discussion with other providers: Care was discussed with the following providers: KENNEL OPERATOR (to review case and request evaluation). ED Course as of 10/09/241936Oct 09, 2024 1158 Patient refusing blanket removal at this time. [LG] 1223 Patient no longer in extremis, plan for transport to x-ray [LG] 1304 Patient informed of fracture [LG] 1406 Discussed with orthopedics: will evaluate patient and give additional recommendations [LG] 1427 Patient resting comfortably. Discussed hCG testing given plan for C-arm and patient declined. [LG] 1600 Orthopedics requesting: XR, CT, NWB RLE in splint, keep clean/dry/intact. 81 mg ASA BID [LG] 1620 Received patient in sign out. Briefly presenting for ankle pain and found to have trimalleolarfx. S/p reduction and splinted by ortho. Currently pending post reduction xrays and Cts and final dispo. [DS] 1714 X-Ray Ankle Right 3+ Views IMPRESSION: Splint material limits fine osseous detail. Improved alignment of trimalleolar fracture. [DS] 1717 Ortho is okay to dc after CT scan. NWB to RLE in splint. Keep splint clean and dry. Ortho to arrange follow up. Advice start aspirin 81 mg BID for DVT ppx [DS] 193 Pt signed out to Dr. Anand. [DS] ED Course User Index [DS] Swapna Greenberg DO [LG] MD Marquis Chaudharyinne Jackson : 1990 CSN: [id number] documented in this encounter Plan of Treatment Pending Results Name Type Priority Associated Diagnoses Date /Time MEM C-ARM Imaging ER Imaging STAT 03/2025 2:08 PM EST Scheduled Orders Name Type Priority Associated Diagnoses Orde r Schedule MEM C-ARM Imaging ER Imaging Routine Once for 1 Occurrences starting 10/09/2024 until 10/09/2024 Scheduled Referrals Name Type Priority Associated Diagnoses Order Schedule Ambulatory referral to Ortho - All Outpatient Referral Routine Expected: 10/09/2024, Expires: 04/08/2025 documented as of this encounter Procedures * Due to [place] state law, this organization might not be sharing [...] RIGHT STAT 10/09/2024 1 2:38 PM EST documented in this encounter Results * Due to [place] state law, this organization might not be sharing [...] obtain the completed interpretation. ? Workstation ID: [id number] Up-to-date CT equipment and radiation dose reduction [...] evidence of tendon entrapment. Resulting Agency Comment [id number] Procedure Note Raimundo Fong MD - 10/09/2024 [...] possible to obtain thecompleted interpretation. Workstation ID: [id number] Up-to-date CT equipment and radiation dose reduction techniques wereemployed. CTDIvol: 11.5 mGy. DLP: 627 mGy-cm. Aracelis Tinoco [place] [facility] [place] Final Result * X-Ray Ankle Right 3+ Views (10/09/2024 4:25 PM EST) Anatomical Region Laterality Modality Lower Extremities, Ankle [...] obtain the completed interpretation. ? Workstation ID: [id number] Narrative 10/09/2024 5:05 PM EST COMPARISON: Right foot/ankle, earlier same day FINDINGS AND Resulting Agency Comment [id number] Procedure Note Raimundo Fong MD - 10/09/2024 COMPARISON: Right foot/ankle, earlier same day FINDINGS AND IMPRESSION: Splint material limits fine osseous detail. Improved alignment of trimalleolar fracture. If this radiology report contains a blank impression section, it is anincomplete radiology report. Please contact the interpreting radiologistor applicable radiology division as soon as possible to obtain thecompleted interpretation. Workstation ID: [id number] Aracelis Tinoco MD IMG XR PROCEDURES Final Result * XR Ankle 3+ vw Right (10/09/2024 12:39 PM EST) Anatomical Region Laterality Modality Lower Extremities, Ankle Right Compute d Radiography 10/09/2024 12:4 4 PM EST Impressions [...] obtain the completed interpretation. ? Workstation ID: [id number] Narrative 10/09/2024 12:47 PM EST COMPARISON: None [...] ??No radiopaque foreign body. Resulting Agency Comment [id number] Procedure Note Sumit Arguello DO - 10/09/2024 COMPARISON: None FINDINGS: Acute [...] possible to obtain thecompleted interpretation. Workstation ID: [id number] Aracelis Tinoco MD IMG XR PROCEDURES Final [...] obtain the completed interpretation. ? Workstation ID: [id number] Narrative 10/09/2024 12:47 PM EST COMPARISON: None [...] ??No radiopaque foreign body. Resulting Agency Comment [id number] Procedure Note Sumit Arguello, DO - 10/09/2024 [...] possible to obtain thecompleted interpretation. Workstation ID: [id number] Aracelis Tinoco MD IMG XR PROCEDURES Final [...] obtain the completed interpretation. ? Workstation ID: [id number] Narrative 10/09/2024 12:47 PM EST COMPARISON: None [...] ??No radiopaque foreign body. Resulting Agency Comment [id number] Procedure Note Sumit ArguelloRuss, DO - 10/09/2024 COMPARISON: None FINDINGS: Acute [...] possible to obtain thecompleted interpretation. Workstation ID: [id number] Aracelis Tinoco MD IMG XR PROCEDURES Final Result documented in this encounter Visit Diagnoses Diagnosis Closed fracture of right ankle, initial encounter- Primary documented in this encounter Administered Medications Inactive Administered Medications - up to 3 most recent administrations Medication Order MAR Action Action Date Dose Rate Site acetaminophen (TYLENOL) tablet 975 mg 975 mg, oral, Once, On 10/10/24 at 0735, 1 dose Given 10/10/2024 7:38 AM EST 975 mg aspirin chewable tablet 81 mg 81 mg, oral, 2 times daily, First dose on Sat10/10/24 at 0900, Until Discontinued Given 10/10/2024 7:38 AM EST 81 mg fentaNYL (PF) injection 50 mcg 50 mcg, intravenous, Once, On Sat10/09/24 at 1145, 1 dose, Assess pain, sedation, and respiratory rate prior to each opioid administration. Given 10/09/2024 11:51 AM EST 50 mcg HYDROmorphone PF (DILAUDID) injection 0.2 mg 0.2 mg, intravenous, Once, On Sat10/09/24 at 1320, 1 dose, Assess pain, sedation, and respiratory rate prior to each opioid administration. Given 10/09/2024 1:21 PM EST 0.2 mg HYDROmorphone PF (DILAUDID) injection 0.5 mg 0.5 mg, intravenous, Once, On Sat10/09/24 at 1210, 1 dose, Assess pain, sedation, and respiratory rate prior to each opioid administration. Given 10/09/2024 12:14 PM EST 0.5 mg HYDROmorphone PF (DILAUDID) injection 0.5 mg 0.5 mg, intravenous, Once, On Sat10/09/24 at 1525, 1 dose, Assess pain, sedation, and respiratory rate prior to each opioid administration. Given 10/09/2024 3:22 PM EST 0.5 mg HYDROmorphone PF (DILAUDID) injection 0.5 mg 0.5 mg, intravenous, Once, On Sat10/10/24 at 0130, 1 dose, Assess pain, sedation, and respiratory rate prior to each opioid administration. Given 10/10/2024 2:04 AM EST 0.5 mg HYDROmorphone PF (DILAUDID) injection 0.5 mg 0.5 mg, intravenous, Once, On Sat10/10/24 at 0325, 1 dose, Assess pain, sedation, and respiratory rate prior to each opioid administration. Given 10/10/2024 3:26 AM EST 0.5 mg HYDROmorphone PF (DILAUDID) injection 1 mg 1 mg, intravenous, Once, On Sat10/09/24 at 2130, 1 dose, Assess pain, sedation, and respiratory rate prior to each opioid administration. Given 10/09/2024 9:33 PM EST 1 mg HYDROmorphone PF (DILAUDID) injection 1 mg 1 mg, intravenous, Once, On 10/10/24 at 0010, 1 dose, Assess pain, sedation, and respiratory rate prior to each opioid administration. Given 10/10/2024 12:59 AM EST 1 mg ketamine (KETALAR) 50 mg/5 mL (10 mg/mL) syringe 33 mg 33 mg (rounded from 32.67 mg = 0.3 mg/kg ? 108.9 kg), intravenous, Once, On Sat10/09/24 at 2225, 1 dose, Please mix in 50cc NS or D5 and run over 15 min thank you Given 10/09/2024 11:20 PM EST 33 mg lidocaine PF (XYLOCAINE) 1% (10 mg/mL) injection 200 mg 200 mg (20 mL), infiltration, Once, On Sat10/09/24 at 1410, 1 dose Given 10/09/2024 2:10 PM EST 200 mg Right Ankle ondansetron (ZOFRAN) injection 4 mg 4 mg, intravenous, Once, On Sat10/09/24 at 1920, 1 dose Given 10/09/2024 7:18 PM EST 4 mg oxyCODONE IR (ROXICODONE) tablet 5 mg 5 mg, oral, Once, On Sat10/09/24 at 1745, 1 dose, Assess pain, sedation, and respiratory rate prior to each opioid administration. Given 10/09/2024 5:52 PM EST 5 mg oxyCODONE IR (ROXICODONE) tablet 5 mg 5 mg, oral, Once, On 10/10/24 at 0535, 1 dose, Assess pain, sedation, and respiratory rate prior to each opioid administration. Given 10/10/2024 5:37 AM EST 5 mg documented in this encounter Active and Recently Administered Medications Times are shown in EST. Scheduled Medication Order 10/08/2024 10/09/2024 10/10/2024 acetaminophen (TYLENOL) tablet 975 mg (COMPLETED) 975 mg, oral, Once, On 10/10/24 at 0735, 1 dose 0738 (Given - Provid er: Jsesica Lujan RN) aspirin chewable tablet 81 mg 81 mg, oral, 2 times daily, First dose on 10/10/24 at 0900, Until Discontinued 0738 (Given - Provid er: Jessica Lujan RN) fentaNYL (PF) injection 50 mcg (COMPLETED) 50 mcg, intravenous, Once, On Sat10/09/24 at 1145, 1 dose, Assess pain, sedation, and respiratory rate prior to each opioid administration. 1151 (Given - Provider: Mahsa Estrada RN) HYDROmorphone PF (DILAUDID) injection 0.2 mg (COMPLETED) 0.2 mg, intravenous, Once, On Sat10/09/24 at 1320, 1 dose, Assess pain, sedation, and respiratory rate prior to each opioid administration. 1321 (Given - Provider: Mahsa Estrada RN) HYDROmorphone PF (DILAUDID) injection 0.5 mg (COMPLETED) 0.5 mg, intravenous, Once, On Sat10/09/24 at 1210, 1 dose, Assess pain, sedation, and respiratory rate prior to each opioid administration. 1214 (Given - Provider: Nancy Leavitt RN) HYDROmorphone PF (DILAUDID) injection 0.5 mg (COMPLETED) 0.5 mg, intravenous, Once, On Sat10/09/24 at 1525, 1 dose, Assess pain, sedation, and respiratory rate prior to each opioid administration. 1522 (Given - Provider: Mahsa Estrada RN) HYDROmorphone PF (DILAUDID) injection 0.5 mg (COMPLETED) 0.5 mg, intravenous, Once, On 10/10/24 at 0130, 1 dose, Assess pain, sedation, and respiratory rate prior to each opioid administration. 0204 (Given - Provid er: Zakiya Osullivan RN) HYDROmorphone PF (DILAUDID) injection 0.5 mg (COMPLETED) 0.5 mg, intravenous, Once, On 10/10/24 at 0325, 1 dose, Assess pain, sedation, and respiratory rate prior to each opioid administration. 0326 (Given - Provid er: Amy Weeks RN) HYDROmorphone PF (DILAUDID) injection 1 mg (COMPLETED) 1 mg, intravenous, Once, On Sat10/09/24 at 2130, 1 dose, Assess pain, sedation, and respiratory rate prior to each opioid administration. 2132 (Given - Provider: Zakiya Osullivan RN) HYDROmorphone PF (DILAUDID) injection 1 mg (COMPLETED) 1 mg, intravenous, Once, On 10/10/24 at 0010, 1 dose, Assess pain, sedation, and respiratory rate prior to each opioid administration. 0059 (Given - Provid er: Zakiya Osullivan RN) ketamine (KETALAR) 50 mg/5 mL (10 mg/mL) syringe 33 mg (COMPLETED) 33 mg (rounded from 32.67 mg = 0.3 mg/kg ? 108.9 kg), intravenous, Once, On Sat10/09/24 at 2225, 1 dose, Please mix in 50cc NS or D5 and run over 15 min thank you 2319 (Given - Provider: Zakiya Osullivan RN) lidocaine PF (XYLOCAINE) 1% (10 mg/mL) injection 200 mg (COMPLETED) 200 mg (20 mL), infiltration, Once, On Sat10/09/24 at 1410, 1 dose 1410 (Given - Provider: Mahsa Estrada RN - Comment: given by carlita GONZALEZ) ondansetron (ZOFRAN) injection 4 mg (COMPLETED) 4 mg, intravenous, Once, On Sat10/09/24 at 1920, 1 dose 1918 (Given - Provider: Mahsa Estrada, CHUCHO) oxyCODONE IR (ROXICODONE) tablet 5 mg (COMPLETED) 5 mg, oral, Once, On Sat10/09/24 at 1745, 1 dose, Assess pain, sedation, and respiratory rate prior to each opioid administration. 1752 (Given - Provider: Mahsa Estrada, CHUCHO) oxyCODONE IR (ROXICODONE) tablet 5 mg (COMPLETED) 5 mg, oral, Once, On 10/10/24 at 0535, 1 dose, Assess pain, sedation, and respiratory rate prior to each opioid administration. 0537 (Given - Provid er: Amy Weeks RN) documented in this encounter Care Teams Smoke Chaser Relationship Specialty Start Date End Date Patient, Has No Pcp Or Ref DO NOT EDIT THIS RECORD VIA PROVIDER ON THE FLY PCP - General Clutch Assembler 10/09/24 documented as of this encounter
--- OUTSIDE RECORDS SUMMARY | 2024-10-27 19:41 | XMS_ITS | Clinical Summary ---
Author Organization [facility] Address [address] [place] [address] Care Team Providers Care Rn Access Name Role Phone Pcp, No Primary Care Provider Unavailabl e Allergies Active Allergy Reactions Criticality Noted Date Comments Erythromycin GI Intolerance/Nause a/Vomiting,Nausea Only Low 01/31/2016 Penicillins GI Intolerance/Nause a/Vomiting,Nausea Only Low 01/31/2016 Medications Medication Sig Dispensed Refills Start Date End Date Status azithromycin (ZITHROMAX) 250 MG tabletIndications:Pha ryngitis Take 2 tablets by mouth on day 1 followed by 1 tablet by mouth daily on days 2 through 5. 6 tablet 0 01/31/2016 Active predniSONE (DELTASONE) 20 MG tabletIndications:Pha ryngitis Take 2 tablets (40 mg total) by mouth daily. With food. 4 tablet 0 01/31/2016 Active Social History Tobacco Use Types Packs/Day Years Used Date Smoking Tobacco: Never Alcohol Use Standard Drinks/Week Comments Yes 0 (1 standard drink = 0.6 oz pur e alcohol) Sex and Gender Information Value Date Recorded Sex Assigned at Not on file Gender Identity Not on file Sexual Orientation Not on file Last Filed Vital Signs Vital Sign Reading Time Taken Comments Blood Pressure 86/60 01/31/2016 10:13 AM EDT Pulse 76 01/31/2016 10:13 AM EDT Temperature 36.8 ??C (98.3 ??F) 01/31/2016 10:13 AM E DT Respiratory Rate 14 01/31/2016 10:13 AM EDT Oxygen Saturation - - Inhaled Oxygen Concentration - - Weight 61.2 kg (135 lb) 01/31/2016 10:13 AM EDT Height 152.4 cm (5') 04/09/2014 4:56 PM EDT Body Mass Index 26.37 04/09/2014 4:56 PM EDT Plan of Treatment Health Maintenance Due Date Last Done Comments Hepatitis C Virus Screening 1989 HIV Screening 2002 DTaP/Tdap/Td Vaccines (1 - Tdap) 2008 Hepatitis B Vaccines (1 of 3 - 19+ 3-dose series) 2008 Pap Smear (Ages 21-65) 2010 Influenza Vaccine 04/02/2024 COVID-19 Vaccine ( - 2023-2 5 season) 2024 HPV Vaccines Aged Out No longer eligi ble based on patient's age to complete this topic Pneumococcal Vaccine: Pediat trevor (0-5 Years) and At-Risk Patients (6 to 49 Years) Aged Out No longer eligible b ased on patient's age to complete this topic Care Teams Rn Access Relationship Specialty Start Date End Date Pcp, No PCP - General General Medicine 01/31/16
--- OUTSIDE RECORDS SUMMARY | 2024-10-27 19:41 | XMS_ITS | Encounter Summary ---
Author Organization [facility] Address [address] [place] [address] Care Team Providers Care Hotel Casino Floorperson Name Role Phone Patient, Has No Pcp Or Ref Primary Care Provider Unavailable Encounter Details Date Type Department Care Team (Late st Contact Info) Description 10/09/2024 2:10 PM EST Ancillary Procedure [facility] Emergency Department [address] [place] [address] Aracelis Tinoco MD [address] [place] [id number] Social History Tobacco Use Types Packs/Day Years Used Date Smoking Tobacco: Never Assessed Comments Unknown Sex and Gender Information Value Date Recorded Sex Assigned at Female 10/09/2024 11:43 AM EST Legal Sex Female 11:42 AM EST Gender Identity Not on file Sexual Orientation Not on file documented as of this encounter Plan of Treatment Pending Results Name Type Priority Associated Diagnoses Date /Time MEM C-ARM Imaging ER Imaging STAT 03/2025 2:08 PM EST documented as of this encounter Visit Diagnoses Not on filedocumented in this encounter Care Teams [employer] Floorperson Relationship Specialty Start Date End Date Patient, Has No Pcp Or Ref DO NOT EDIT THIS RECORD VIA PROVIDER ON THE FLY PCP - General Machine Hostler 10/09/24 documented as of this encounter
--- OUTSIDE RECORDS SUMMARY | 2024-10-27 19:41 | XMS_ITS | Clinical Summary ---
Author Organization [facility] [employer] [facility] Address [address] [place] [address] Care Team Providers Care [employer] Bar[employer] Assembly Cleaner Name Role Phone Pcp, No Primary Care Provider [phone] Allergies Active Allergy Reactions Criticality Noted Date Comments Amoxicillin 11/14/2020 Penicillins 11/14/2020 Medications No known medications Social History Tobacco Use Types Packs/Day Years Used Date Smoking Tobacco: Never Smokeless Tobacco: Never Comments Unknown Sex and Gender Information Value Date Recorded Sex Assigned at Not on file Legal Sex Female 5:56 PM EDT Gender Identity Not on file Sexual Orientation Not on file Plan of Treatment Health Maintenance Due Date Last Done Comments Depression: Screening Annual ly using PHQ-2/9 in Adults 18 yrs or above (or HM Modifier)([facility]) 2007 [facility] Screening Reminder: Elizabeth vera for all adults ([facility]) 2007 Tobacco Smoking Cessation: i n Adults excluding Women: Behavioral and Pharmacotherapy Interventions ([facility]) 2007 DTaP/Tdap/Td Vaccines ([facility]) (1 - Tdap) 2008 Lipid Screening: Once for Wo men aged 20 to 45 yrs ([facility]) 2009 Cervical Cancer: hrHPV alone or with cotesting Pap for Pts 30-65yrs screening every 5yrs ([facility]) 2010 Cervical Cancer Screenin 1-65 yrs of age (or Modifier) 11/03/2023 Cervical Cancer Screening: P ap every 3 yrs pts age 21-65 11/03/2023 11/02/2020 Cervical Cancer: Pap Screeni ng with Modifier timing ([facility]) 11/03/2023 11/02/2020 Flu Vaccination: Yearly for ages 18mos through 64 years (or Modifier)([facility]) 04/02/2024 COVID-19 Vaccine Screening: Initial Series and Booster Status ([facility]) (2023- season) 2024 Zoster/Shingles Vaccine Seri es Screening: Adults aged 18+ yrs (or HM Modifiers)([facility]) (1 of 2) 2039 Hepatitis C Virus Infection in Adolescents and Adults: Screening (or Modifier) ([facility]) Completed 11/02/2020 Pneumococcal Vaccination Scr eening: Pts 0-19 & 19-64 yrs of age ([facility]) Aged Out No longer eligible b ased on patient's age to complete this topic [employer] Not [place] [address] Care Teams [employer] Barrel Assembly Cleaner Relationship Specialty Start Date End Date Parish, Juliet PCP - General Family Medicine 11/14/20
--- OUTSIDE RECORDS SUMMARY | 2024-10-27 19:42 | XMS_ITS | Encounter Summary ---
Author Organization [facility] Address [address] [place], [place] [id number] Care Team Providers Care Distance Learning Program Coordinator Name Role Phone uSe Hoover NP Primary Care Provider [phone] Sue Hoover TASSEL CLIPPER Unavailable [phone] Reason for Referral * Amb Referral: Home Health (Routine) - Authorized Specialty Diagnoses / Procedures Referred By Gaston cortez Referred To Contact Home Health Services Diagnoses Closed fracture of right ankle, sequela Usman Huggins, ENIO [address] [id number] Phone: tel: fax: Referral ID Status Reason Start Date Expiration Date V isits Requested Visits Authorized [id number] Authorized 10/16/2024 01/09/2026 999 999 Scheduling Instructions FOR HOME HEALTH SERVICES, PLEASE HAVE THE FOLLOWING AVAILABLE AT THE TIME OF YOUR FIRST HOME VISIT: - All Medication Bottles *(in order for the medication to be reviewed for your education and safety. Medication errors are a significant factor in re-hospitalizations that we want to prevent.)* - Including non-prescription medications that you may not take every day - New prescription medications - Prescription Creams, Lotions, Eye Drops - Current Insurance Card - Any Health Care Proxy or Advanced Directive paperwork - Any assistive devices that you currently use such as cane, glasses and hearing aids if applicable - Any wound care supplies sent home with you from doctor? s office or hospital if applicable YOU WILL RECEIVE A CALL TO SET UP YOUR HOME HEALTH VISIT THAT MAY COME FROM AN ? UNKNOWN? TELEPHONE NUMBER FROM ONE OF OUR NURSES OR THERAPISTS. PLEASE HAVE PETS SECURED IN AN AREA AWAY FROM WHERE PATIENT WILL BE RECEIVING CARE. CALL OUR AGENCY IF YOU HAVE ANY QUESTIONS. Reason for Visit * Auth/Cert (Routine) Specialty Diagnoses / Procedures Referred By Gaston t Referred To Contact Diagnoses Closed fracture of right ankle, initial encounter Closed fracture of right ankle, initial encounter [S82.891A] Procedures [place] OPEN TX TRIMALLEOLAR ANKLE FX W/O FIXJ PST LIP ORIF ANKLE Lola Dawn MD [address] [place] [address] Phone: tel: fax: Referral ID Status Reason Start Date Expiration Date Visits Re quested Visits Authorized [id number] 1 1 Encounter Details Date Type Department Care Team (Latest Contact Info) Description 10/15/2024 12:41 PM EST - 10/19/2024 1:45 PM EST Hospital Encounter [facility] [address] [place] [id number] [place] [address] Closed fracture of right ankle, sequela (Primary Dx) Discharge Disposition: Home-Health Care Svc Social History Tobacco Use Types Packs/Day Years Used Date Smoking Tobacco: Former Cigarettes Smokeless Tobacco: Never Tobacco Cessation:Counseling Given: Not Answered Alcohol Use Standard Drinks/Week Comments Not Currently 0 (1 standard drink = 0.6 oz pur e alcohol) [facility] Utilities Answer Date Recorded In the past 12 months has [facility] [employer], oil, or water [employer] threatened to shut off services in your home? No 10/16/2024 Humiliation, Afraid, Rape, and Kick questionnair e Answer Date Recorded Within the last year, have y ou been afraid of your partner or ex-partner? No 10/16/2024 Emotionally Abused Not on file 10/16/2024 Physically Abused Not on file 10/16/2024 Sexually Abused Not on file 10/16/2024 Overall Financial Resource Strain (CARDIA) Answe r Date Recorded How hard is it for you to pa y for the very basics like food, housing, medical care, and heating? Not hard at all 10/16/2024 Hunger Vital Sign Answer Date Recorded Within the past 12 months, y ou worried that your food would run out before you got the money to buy more. Never true 10/16/19 25 Ran Out of Food in the Last Year Not on file 10/16/2024 PRAPARE - Transportation Answer Date Re corded In the past 12 months, has l ack of transportation kept you from medical appointments or from getting medications? No 10/03 In the past 12 months, has l ack of transportation kept you from meetings, work, or from getting things needed for daily living? No 10/16/2024 Housing Stability Vital Sign Answer Julio Cesar e Recorded In the last 12 months, was t here a time when you were not able to pay the mortgage or rent on time? No 10/16/2024 Number of Times Moved in the Last Year Not on fi le 10/16/2024 At any time in the past 12 m [facility], were you homeless or living in a correction (including now)? No 10/16/2024 Food Insecurity Answer Date Recorded Within the past 12 months, y ou worried that your food would run out before you got the money to buy more. Never true 10/16/19 25 Ran Out of Food in the Last Year Not on file 10/16/2024 Intimate Partner Violence Answer Date R ecorded Emotionally Abused Not on file 10/16/2024 Within the last year, have y ou been afraid of your partner or ex-partner? No 10/16/2024 Physically Abused Not on file 10/16/2024 Sexually Abused Not on file 10/16/2024 Housing Stability Answer Date Recorded Unstable Housing in the Last Year Not on file 10/16/2024 In the last 12 months, was t here a time when you were not able to pay the mortgage or rent on time? No 10/16/2024 [address] Lived in the Last Year Not on f ile 10/16/2024 AUDIT C Answer Date Recorded How often have you had a dri nk containing alcohol, in the past year? 0 10/16/2024 How many standard drinks con taining alcohol have you had on a typical day when you are drinking, in the past year? 0 0 10/16/2024 How often have you had six o r more drinks on one occasion, in the past year? 0 10/16/2024 Comments No Sex and Gender Information Value Date Recorded Sex Assigned at Female 10/14/2024 1:00 PM EST Legal Sex Female 8:22 AM EST Gender Identity Female 10/14/2024 1:16 PM EST Sexual Orientation Not on file documented as of this encounter Last Filed Vital Signs Vital Sign Reading Time Taken Comments Blood Pressure 111/73 10/19/2024 8:00 AM EST Pulse 76 10/19/2024 8:00 AM EST Temperature 36.9 ??C (98.5 ??F) 10/19/2024 8:00 AM ES T Respiratory Rate 16 10/19/2024 8:00 AM EST Oxygen Saturation 95% 10/19/2024 8:00 AM EST Inhaled Oxygen Concentration - - Weight 104 kg (230 lb) 10/14/2024 2:28 PM EST Height 157.5 cm (5' 2 ) 10/14/2024 2:28 PM EST Body Mass Index 42.07 10/14/2024 2:28 PM EST documented in this encounter Functional Status * Are you deaf or do you have serious difficulty hearing? Answer Date of Assessment Author No 10/15/2024 12:42 PM EST Martir Matthews * Are you blind or do you have serious difficulty seeing, even when wearing glasses? Answer Date of Assessment Author No 10/15/2024 12:42 PM EST Martir Matthews * Do you have serious difficulty walking or climbing stairs? Answer Date of Assessment Author Yes 10/15/2024 12:42 PM EST Martir Matthews * Do you have difficulty dressing or bathing? Answer Date of Assessment Author Yes 10/15/2024 12:42 PM EST Martir Matthews * Because of a physical, mental, or emotional condition, do you have difficulty doing errands alone such as visiting the doctor? Answer Date of Assessment Author No 10/15/2024 12:42 PM EST Martir Matthews documented as of this encounter Mental Status * Because of a physical, mental, or emotional condition, do you have serious difficulty concentrating, remembering, or making decisions? Answer Entry Date Author No 10/15/2024 12:42 PM EST Martir Matthews documented in this encounter Discharge Summaries * Usman Huggins NP - 10/18/2024 11:30 AM EST Images from the original note were not included. Department of Orthopedic Surgery Orthopaedic Discharge Summary Patient: Agnes Paz : 1990 CSN: [id number] Date Of Admission: 10/15/2024 Date Of Discharge: 10/19/2024 Attending Physician: Lola Dawn MD Service: Orthopaedic Surgery Primary Care Physician: Sue Hoover NP Code Status: Full Code Diagnosis: Discharge Diagnoses Diagnosis POA Closed fracture of right ankle Unknown Closed fracture of right ankle, sequela Not Applicable Morbid obesity with BMI of 40.0-44.9, adult (HCC) Not Applicable Substance use Unknown Former smoker Not Applicable Closed displaced trimalleolar fracture of right ankle, initial encounter Yes Resolved Diagnoses No resolved problems to display. Date of Procedure: 10/15/2024 Procedure(s) (LRB): ORIF RIGHT ANKLE (Right) Past Medical History[1] Past Surgical History[2] Social History[3] Allergies: Patient has no known allergies. Full Code History of Present Illness: This is a 34 y.o. female who sustained a right ankle fracture GLF on ice After evaluation and discussion of her treatment options with Dr Dawn, she was planned for surgeryon 10/15/2024 Hospital Course The patient was admitted to [facility] on 10/15/2024 under the care of Lola Dawn MD with a diagnosis Discharge Diagnoses Diagnosis POA Closed fracture of right ankle Unknown Closed fracture of right ankle, sequela Not Applicable Morbid obesity with BMI of 40.0-44.9, adult (HCC) Not Applicable Substance use Unknown Former smoker Not Applicable Closed displaced trimalleolar fracture of right ankle, initial encounter Yes Resolved Diagnoses No resolved problems to display. Pre operatively the patient was optimized for operative intervention. On 10/15/2024 the patient underwent Procedure(s) (LRB): ORIF RIGHT ANKLE (Right) with Lola Dawn MD. Agnes Paz tolerated the procedure without any complications or issues. Assessment & Plan Closed fracture of right ankle 34 y/o F w/ R trimalleolar ankle fracture, now s/p ORIF of R distal fibula, posterior malleolus, and R medial malleolus with Dr. Dawn performed on 10/15/24 Orthopaedic Post op Plan Weightbearing restrictions: NWB RLE Other Precautions: Elevation Brace/Immobilization: Cast/splint in place. Should be left in place and only be adjusted or removedby ortho team Anticoagulation Recommendations: Lower extremity fracture protocol = SC enoxaparin while admitted, switch to ASA 81mg bid x 28d on discharge Antibiotics plan: call center specialist to OR Sutures: N/A Dressing plan: Splint, remove POD14 for wound check X-ray plan: 2 weeks XR at first clinic visit Outpatient follow-up: Plan for outpatient clinic visit 2 weeks post-op Lovenox 40 mg QD was initiated for VTE prophylaxis and cefazolin continued x 24 hours for antibiotic therapy. Both pain and bowel regimens were started. Patient was made NWB to right lower extremity. OT/PT were consulted. She has progressed with assist of PT, and recommended for hospital discharge to rehab facility for continued therapy She has complained of 8/10 pain at times postop, with adjustments being made for improved pain management. Her pain is well-controlled on current pain regimen day of hospital discharge. On day of hospital discharge Agnes Paz was seen and evaluated by the orthopaedic surgery teamand is medically stable for discharge. Complexity Bundle Class 3 Obesity: Assessed - Last BMI 42.07 Plan for follow-up outpatient with primary care for obesity management Inpatient Consults: Consults obtained during hospitalization include case management, physical and occupational therapy. Recommendations were made for discharge to short term rehab. Orthopaedic Physical Exam: BP 111/73 (BP Location: Right arm, Patient Position: Lying) Pulse 76 Temp 98.5 ??F (36.9 ??C) (Oral) Resp 16 Ht 1.575 m (5' 2 ) Wt (!) 104 kg (230 lb) SpO2 95% BMI 42.07 kg/m?? Gen: Lying in bed, no apparent distress Lungs: Respirations even/unlabored Right lower extremity- Leg elevated on 2 pillows AO splint in place, c/d/I Capable of flexing/extending toes; limited due to block Sensation grossly present over exposed toes Well perfused toes, brisk capillary refill Future Appointments Date/Time Provider Department Center Visit Type 11/05/2024 11:30 AM Ryan Eng NP Department of Orthopedic Surgery ([address] [place] [address]) [facility] ESTABLISHED PATIENT- ORTHO 11/26/2024 1:30 PM Lola Dawn MD Department of Orthopedic Surgery ([address] [place] [address]) [facility] ESTABLISHED PATIENT- ORTHO DISCHARGE MEDICATIONS: Medication List STOP taking these medications Stop: aspirin 81 MG chewable tablet Replaced by: aspirin 81 MG EC tablet START taking these medications Start: acetaminophen 500 MG tablet Take 1 tablet (500 mg total) by mouth every 8 hours for 7 days. THEN take only as needed Commonly known as: TYLENOL EXTRA STRENGTH Start: aspirin 81 MG EC tablet Take 1 tablet (81 mg total) by mouth every morning & every evening for 28 days. For blood clot prevention post op Replaces: aspirin 81 MG chewable tablet Start: ibuprofen 600 MG tablet Take 1 tablet (600 mg total) by mouth every 8 hours as needed for pain for up to 14 days. Commonly known as: MOTRIN Start: methocarbamoL 500 MG tablet Take 1 tablet (500 mg total) by mouth 3 times a day as needed (muscle spasms) for up to 7 days. Commonly known as: ROBAXIN Start: oxyCODONE 5 MG immediate release tablet Take 1 tablet (5 mg total) by mouth every 6 hours as needed for pain for up to 7 days. Commonly known as: ROXICODONE Start: polyethylene glycol 17 gram packet Take 1 packet (17 g total) by mouth daily as needed (first line). Commonly known as: MIRALAX Start: sennosides 8.6 mg tablet Take 2 tablets (17.2 mg total) by mouth at bedtime. Commonly known as: SENOKOT CONTINUE taking these medications busPIRone 10 MG tablet Take 1 tablet (10 mg total) by mouth 3 times a day. Commonly known as: BUSPAR citalopram 40 MG tablet Take 1 tablet (40 mg total) by mouth daily. Commonly known as: CeleXA drospirenone-ethinyl estradioL 3-0.02 mg per tablet Take 1 tablet by mouth daily. Commonly known as: SAM lamoTRIgine 150 MG tablet Take 1 tablet (150 mg total) by mouth daily. Commonly known as: LaMICtal loratadine 10 mg tablet Take 1 tablet (10 mg total) by mouth daily. Commonly known as: CLARITIN ASK your doctor about these medications naloxone 4 mg/actuation Hooven nasal spray 1 spray (4 mg total) by Intranasal route once for 1 dose. as needed for opioid overdose. Give CPR and contact 911. May give 2nd dose 2-3 minutes later with the second device into the other nostril ifno or minimal response. Commonly known as: NARCAN Ask about: Should I take this medication? Where to Get Your Medications These medications were sent to [facility], [address] [place] [address], [address], [place] [id number] Hours: Mon-Fri 8:30AM-7:30PM;Sat-Sun 8:30AM-4:30PM aspirin 81 MG EC tablet ibuprofen 600 MG tablet naloxone 4 mg/actuation Hooven nasal spray oxyCODONE 5 MG immediate release tablet Information about where to get these medications is not yet available Ask your nurse or doctor about these medications acetaminophen 500 MG tablet methocarbamoL 500 MG tablet polyethylene glycol 17 gram packet sennosides 8.6 mg tablet Laboratory Data Results from last 7 days Lab Units 10/16/24 0611 10/15/24 1858 WBC K/uL 9.83 15.39* HEMOGLOBIN g/dL 11.1* 11.8* HEMATOCRIT % 34.0* 36.4 PLATELETS K/uL 358 376 Results from last 7 days Lab Units 10/16/24 0611 10/15/24 1858 SODIUM mmol/L 137 135 POTASSIUM mmol/L 4.2 4.3 CHLORIDE mmol/L 104 103 CO2 mmol/L 23* 21* BUN mg/dL 5* 6* CREATININE mg/dL 0.72 0.75 CALCIUM mg/dL 8.7 8.5 TOTAL PROTEIN g/dL 6.7 7.0 BILIRUBIN TOTAL mg/dL <0.3 <0.3 ALK PHOS U/L 70 78 ALT U/L 17 16 AST U/L 35 24 GLUCOSE mg/dL 120* 129* No results for input(s): INR in the last 72 hours. No data to display No results for input(s): POCGLU in the last 72 hours. DISCHARGE INSTRUCTIONS: Activity Instructions Weight-bearing restrictions Restricted weight-bearing extremity: Right Lower Extremity RLE: Non weight-bearing No Driving (specify) Until told otherwise by your provider You will need help with the following: Getting out of bed, Walking, Using the stairs, and Getting in and out of a chair Talk with your doctor at your follow-up visit about when you can go back to work. Other bathing instructions (specify) Keep your splint clean and dry at all times Aspirin 81 mg twice daily x 4 weeks- to hlp prevent blood clots Aspirin 81 mg twice daily x 4 weeks- to hlp prevent blood clots Discharge Disposition: Home-Health Care [facility] [6]Short term Rehab Discharge plan was discussed with patient & family who verbalized understanding. Educational materials were provided. A total of 30 minutes were spent in coordinating the discharge planning. Signed by: Usman Huggins NP 11:28 AM [1] Past Medical History: Diagnosis Date Anxiety Depression [2] Past Surgical History: Procedure Laterality Date ORIF ANKLE FRACTURE Right 10/15/2024 Surgeon: Lola Dawn MD; Location: [facility] OR; Service: Orthopaedics; Laterality: Right; [3] Social History Tobacco Use Smoking status: Former Types: Cigarettes Smokeless tobacco: Never Vaping Use Vaping status: Never Used Substance Use Topics Alcohol use: Not Currently Drug use: Not Currently Cosigned by Lola Dawn MD at 10/19/2024 5:59 PM EST * Anali Levy NP - 10/16/2024 5:00 PM EST Images from the original note were not included. Department of Orthopedic Surgery Orthopaedic Discharge Summary Patient: Agnes Paz : 1990 CSN: [id number] Date Of Admission: 10/15/2024 Date Of Discharge: 10/17/2024 Attending Physician: Lola Dawn MD Service: Orthopaedic Surgery Primary Care Physician: Sue Hoover NP Code Status: Full Code Diagnosis: Discharge Diagnoses Diagnosis POA Closed fracture of right ankle Unknown Closed fracture of right ankle, sequela Not Applicable Morbid obesity with BMI of 40.0-44.9, adult (HCC) Not Applicable Substance use Unknown Former smoker Not Applicable Closed displaced trimalleolar fracture of right ankle, initial encounter Yes Resolved Diagnoses No resolved problems to display. Date of Procedure: 10/15/2024 Procedure(s) (LRB): ORIF RIGHT ANKLE (Right) Past Medical History[1] Past Surgical History[2] Social History[3] Allergies: Patient has no known allergies. Full Code History of Present Illness: This is a 34 y.o. female who sustained a right ankle fracture GLF on ice After evaluation and discussion of her treatment options with Dr Dawn, she was planned for surgery on 10/15/2024 Hospital Course The patient was admitted to [facility] on 10/15/2024 under the care of Lola Dawn MD with a diagnosis Discharge Diagnoses Diagnosis POA Closed fracture of right ankle Unknown Closed fracture of right ankle, sequela Not Applicable Morbid obesity with BMI of 40.0-44.9, adult (HCC) Not Applicable Substance use Unknown Former smoker Not Applicable Closed displaced trimalleolar fracture of right ankle, initial encounter Yes Resolved Diagnoses No resolved problems to display. On 10/15/2024 the patient underwent Procedure(s) (LRB): ORIF RIGHT ANKLE (Right) with Lola Dawn MD. Agnes Paz tolerated the procedure without any complications or issues. Assessment & Plan Closed fracture of right ankle 34 y/o F w/ R trimalleolar ankle fracture, now s/p ORIF of R distal fibula, posterior malleolus, and R medial malleolus with Dr. Dawn performed on 10/15/24 Orthopaedic Recommendations: Weightbearing restrictions: NWB RLE Other Precautions: Elevation Brace/Immobilization: Cast/splint in place. Should be left in place and only be adjusted or removedby ortho team Anticoagulation Recommendations: Lower extremity fracture protocol = SC enoxaparin while admitted, switch to ASA 81mg bid x 28d on discharge Antibiotics plan: call center specialist to OR Sutures: N/A Dressing plan: Splint, remove POD14 for wound check X-ray plan: 2 weeks XR at first clinic visit Outpatient follow-up: Plan for outpatient clinic visit 2 weeks post-op Closed displaced trimalleolar fracture of right ankle, initial encounter Closed fracture of right ankle, sequela Lovenox 40 mg QD was initiated for VTE prophylaxis , with plan for ASA 81 bid x 4 weeks after discharge home and cefazolin continued x 24 hours for antibiotic therapy. Consults- PT/OT- NWB to the right lower extremity She has progressed with assist of PT, and has cleared for discharge home with VNA services She has complained of 8/10 pain at times postop, with adjustments being made for improved pain management. Her pain is well-controlled on current pain regimen day of hospital discharge. Complexity Bundle Class 3 Obesity: Assessed - Last BMI 42.07 Plan for follow-up outpatient with primary care for obesity management Inpatient Consults: Consults obtained during hospitalization include case management, physical and occupational therapy. Recommendations were made for discharge to home with VNA/PT services Per case management (Sujatha) today, patient was set up with VNA and patient understands she will be seen on Saturday by their services. Orthopaedic Physical Exam: BP 118/78 (BP Location: Right arm, Patient Position: Lying) Pulse 71 Temp 98 ??F (36.7 ??C) (Oral) Resp 18 Ht 1.575 m (5' 2 ) Wt (!) 104 kg (230 lb) SpO2 93% BMI 42.07 kg/m?? Gen: Lying in bed, no apparent distress Lungs: Respirations even/unlabored Right lower extremity- Leg elevated on 2 pillows AO splint in place, c/d/I Capable of flexing/extending toes; limited due to block Sensation grossly present over exposed toes Well perfused toes, brisk capillary refill Future Appointments Date/Time Provider Department Center Visit Type 11/05/2024 11:30 AM Ryan Eng NP Department of Orthopedic Surgery ([address] [place] [address]) [facility] ESTABLISHED PATIENT- ORTHO 11/26/2024 1:30 PM Lola Dawn MD Department of Orthopedic Surgery ([address] [place] [address]) [facility] ESTABLISHED PATIENT- ORTHO DISCHARGE MEDICATIONS: Medication List STOP taking these medications Stop: aspirin 81 MG chewable tablet Replaced by: aspirin 81 MG EC tablet START taking these medications Start: acetaminophen 500 MG tablet Take 1 tablet (500 mg total) by mouth every 8 hours for 14 days. Commonly known as: TYLENOL EXTRA STRENGTH Start: aspirin 81 MG EC tablet Take 1 tablet (81 mg total) by mouth every morning & every evening for 28 days. For blood clot prevention post op Replaces: aspirin 81 MG chewable tablet Notes to patient: Take with food to help prevent gastric upset Start: ibuprofen 600 MG tablet Take 1 tablet (600 mg total) by mouth every 8 hours as needed for pain for up to 14 days. Commonly known as: MOTRIN Start: methocarbamoL 500 MG tablet Take 1 tablet (500 mg total) by mouth 3 times a day as needed (muscle spasms) for up to 7 days. Commonly known as: ROBAXIN Start: naloxone 4 mg/actuation Hooven nasal spray 1 spray (4 mg total) by Intranasal route once for 1 dose. as needed for opioid overdose. Give CPR and contact 911. May give 2nd dose 2-3 minutes later with the second device into the other nostril ifno or minimal response. Commonly known as: NARCAN Start: oxyCODONE 5 MG immediate release tablet Take 1 tablet (5 mg total) by mouth every 6 hours as needed for pain for up to 7 days. Commonly known as: ROXICODONE Start: polyethylene glycol 17 gram packet Take 1 packet (17 g total) by mouth daily as needed (first line). Commonly known as: MIRALAX Start: sennosides 8.6 mg tablet Take 2 tablets (17.2 mg total) by mouth at bedtime. Commonly known as: SENOKOT CONTINUE taking these medications busPIRone 10 MG tablet Take 1 tablet (10 mg total) by mouth 3 times a day. Commonly known as: BUSPAR citalopram 40 MG tablet Take 1 tablet (40 mg total) by mouth daily. Commonly known as: CeleXA drospirenone-ethinyl estradioL 3-0.02 mg per tablet Take 1 tablet by mouth daily. Commonly known as: SAM lamoTRIgine 150 MG tablet Take 1 tablet (150 mg total) by mouth daily. Commonly known as: LaMICtal loratadine 10 mg tablet Take 1 tablet (10 mg total) by mouth daily. Commonly known as: CLARITIN Where to Get Your Medications These medications were sent to [facility], [address] [place], [place] [id number] Hours: Mon-Fri 8:30AM-7:30PM;Sat-Sun 8:30AM-4:30PM acetaminophen 500 MG tablet aspirin 81 MG EC tablet ibuprofen 600 MG tablet methocarbamoL 500 MG tablet naloxone 4 mg/actuation Hooven nasal spray oxyCODONE 5 MG immediate release tablet Information about where to get these medications is not yet available Ask your nurse or doctor about these medications polyethylene glycol 17 gram packet sennosides 8.6 mg tablet Laboratory Data Results from last 7 days Lab Units 10/16/24 0611 10/15/24 1858 WBC K/uL 9.83 15.39* HEMOGLOBIN g/dL 11.1* 11.8* HEMATOCRIT % 34.0* 36.4 PLATELETS K/uL 358 376 Results from last 7 days Lab Units 10/16/24 0611 10/15/24 1858 SODIUM mmol/L 137 135 POTASSIUM mmol/L 4.2 4.3 CHLORIDE mmol/L 104 103 CO2 mmol/L 23* 21* BUN mg/dL 5* 6* CREATININE mg/dL 0.72 0.75 CALCIUM mg/dL 8.7 8.5 TOTAL PROTEIN g/dL 6.7 7.0 BILIRUBIN TOTAL mg/dL <0.3 <0.3 ALK PHOS U/L 70 78 ALT U/L 17 16 AST U/L 35 24 GLUCOSE mg/dL 120* 129* No results for input(s): INR in the last 72 hours. No data to display No results for input(s): POCGLU in the last 72 hours. DISCHARGE INSTRUCTIONS: Activity Instructions Weight-bearing restrictions Restricted weight-bearing extremity: Right Lower Extremity RLE: Non weight-bearing Elevate your leg (above heart level) as much as possible No Driving (specify) Until told otherwise by your provider You will need help with the following: Getting out of bed, Walking, Using the stairs, and Getting in and out of a chair Talk with your doctor at your follow-up visit about when you can go back to work. Other bathing instructions (specify) Keep your splint clean and dry at all times Aspirin 81 mg twice daily x 4 weeks- to hlp prevent blood clots Discharge Disposition: Home-Health Care Svc [6]Home with PT Discharge plan was discussed with patient & family who verbalized understanding. Educational materials were provided. A total of 30 minutes were spent in coordinating the discharge planning. Signed by: Anali Levy NP 10:06 AM [1] Past Medical History: Diagnosis Date Anxiety Depression [2] Past Surgical History: Procedure Laterality Date ORIF ANKLE FRACTURE Right 10/15/2024 Surgeon: Lola Dawn MD; Location: [facility]; Service: Orthopaedics; Laterality: Right; [3] Social History Tobacco Use Smoking status: Former Types: Cigarettes Smokeless tobacco: Never Vaping Use Vaping status: Never Used Substance Use Topics Alcohol use: Not Currently Drug use: Not Currently Cosigned by Lola Dawn MD at 10/19/2024 5:59 PM EST documented in this encounter Discharge Instructions * Discharge Instr - Pt Ed Handouts* Raimundo Florez MD - 10/15/2024 2:08 PM EST Weightbearing status: non weight bearing right lower extremity Boot must be worn for all weightbearing (or any time your foot touches the ground) and sleep, but may be removed for rest. Elevate your right lower extrmity for 50 minutes every hour. Aspirin 81 mg (low strength) Take two tablets daily for six (6) weeks. Tylenol 500 mg (regular strength) Take 1-2 tablets Every 8 hours. Best taken with your prescribed pain medication. Do not exceed 3000mg per day. May take ibuprofen 600mg every 6 hours or 440mg naproxen every 12 hours if pain is not well controlled with pain tylenol and opiate based pain medicine. May take 5mg oxycodone every 6 hours for severe, break through pain * Discharge Instr-Facility, Services & DME* Clarissa Leyva RN - 10/17/2024 8:27 AM EST [facility], [address], [address], [place] [address] [phone] * Attachments The following attachments cannot be sent through Care Everywhere. * [facility]: PT INSTR AFTER GENERAL ANESTHESIA (SPANISH) * [facility] PT INSTR AFTER SURGERY AND REGIONAL ANESTHESIA (SPANISH) documented in this encounter Medications at Time of Discharge busPIRone (BUSPAR) 10 MG tablet Take 1 tablet (10 mg total) by mouth 3 times a day. citalopram (CeleXA) 40 MG tablet Take 1 tablet (40 mg total) by mouth daily. drospirenone-eth inyl estradioL (SAM) 3-0.02 mg per tablet Take 1 tablet by mouth daily. lamoTRIgine (LaMICtal) 150 MG tablet Take 1 tablet (150 mg total) by mouth daily. loratadine (CLARITIN) 10 mg tablet Take 1 tablet (10 mg total) by mouth daily. acetaminophen (TYLENOL EXTRA STRENGTH) 500 MG tablet Take 1 tablet (500 mg total) by mouth every 8 hours for 7 days. THEN take only as needed 10/18/2024 aspirin 81 MG EC tablet Take 1 tablet (81 mg total) by mouth every morning & every evening for 28 days. For blood clot prevention post op 56 tablet 10/15/2024 ibuprofen (MOTRIN) 600 MG tablet Take 1 tablet (600 mg total) by mouth every 8 hours as needed for pain for up to 14 days. 42 tablet 10/15/2024 3:32 PM EST 10/15/2024 5 oxyCODONE (ROXICODONE) 5 MG immediate release tablet Take 1 tablet (5 mg total) by mouth every 6 hours as needed for pain for up to 7 days. 30 tablet 10/15/2024 3:32 PM EST 10/15/2024 polyethylene glycol (MIRALAX) 17 gram packet Take 1 packet (17 g total) by mouth daily as needed (first line). 10/17/2024 sennosides (SENOKOT) 8.6 mg tablet Take 2 tablets (17.2 mg total) by mouth at bedtime. 10/17/2024 methocarbamoL (ROBAXIN) 500 MG tablet Take 1 tablet (500 mg total) by mouth 3 times a day as needed (muscle spasms) for up to 7 days. 21 tablet 10/19/2024 1:54 PM EST 10/19/2024 5 documented as of this encounter Progress Notes * Gaudencio Martinez MD - 10/19/2024 6:17 AM EST DAILY PROGRESS NOTE Diagnosis: R trimalleolar ankle fracture Date of Injury: 10/09/24 Mechanism: slip on ice Procedures: ORIF R ankle Subjective: Afebrile and vital signs stable. Pain moderately controlled. Worked with PT yesterday -rec rehab. CM placed referrals Objective: Vitals: 10/19/24 0800 BP: 111/73 Pulse: 76 Resp: 16 Temp: 98.5 ??F (36.9 ??C) SpO2: 95% Creatinine clearance cannot be calculated (Patient's most recent lab result is older than the maximum 3 days allowed.) Physical Exam: RLE AO splint in place, c/d/I Capable of flexing/extending toes; limited due to block Sensation grossly present over exposed toes; limited due to block Well perfused toes, brisk capillary refill Assessment & Plan Closed fracture of right ankle 34 y/o F w/ R trimalleolar ankle fracture, now s/p ORIF of R distal fibula, posterior malleolus, and R medial malleolus with Dr. Dawn performed on 10/15/24 - doing well post-operatively - difficulty controlling pain overnight, currently better Orthopaedic Recommendations: Weightbearing restrictions: NWB RLE Other Precautions: None Brace/Immobilization: Cast/splint in place. Should be left in place and only be adjusted or removedby ortho team Anticoagulation Recommendations: Lower extremity fracture protocol = SC enoxaparin while admitted, switch to ASA 81mg bid x 28d on discharge Antibiotics plan: call center specialist to OR Sutures: N/A Dressing plan: Splint, remove POD14 for wound check X-ray plan: 2 weeks XR at first clinic visit Outpatient follow-up: Plan for outpatient clinic visit 2 weeks post-op Please page assigned ortho team pager or if unable to contact please contact [phone] with any questions/concerns * Gaudencio Martinez MD - 10/18/2024 6:08 AM EST DAILY PROGRESS NOTE Diagnosis: R trimalleolar ankle fracture Date of Injury: 10/09/24 Mechanism: slip on ice Procedures: ORIF R ankle Subjective: Afebrile and vital signs stable. Pain moderately controlled. Worked with OT yesterday recommend home with PT vsv acute rehab - prefers home DC home Lighted headedness/Nausea with OT yesterday. Plan for possible DC today if clears. Objective: Vitals: 10/18/24 0230 BP: 127/74 Pulse: 77 Resp: 18 Temp: 98.5 ??F (36.9 ??C) SpO2: 99% Serum creatinine: 0.72 mg/dL 10/16/24 0611 Estimated creatinine clearance: 123.4 mL/min Physical Exam: RLE AO splint in place, c/d/I Capable of flexing/extending toes; limited due to block Sensation grossly present over exposed toes; limited due to block Well perfused toes, brisk capillary refill Assessment & Plan Closed fracture of right ankle 34 y/o F w/ R trimalleolar ankle fracture, now s/p ORIF of R distal fibula, posterior malleolus, and R medial malleolus with Dr. Dawn performed on 10/15/24 - doing well post-operatively - difficulty controlling pain overnight, currently better - disposition pending pain control. Likely can discharge today if does OK with PT/OT Orthopaedic Recommendations: Weightbearing restrictions: NWB RLE Other Precautions: None Brace/Immobilization: Cast/splint in place. Should be left in place and only be adjusted or removedby ortho team Anticoagulation Recommendations: Lower extremity fracture protocol = SC enoxaparin while admitted, switch to ASA 81mg bid x 28d on discharge Antibiotics plan: call center specialist to OR Sutures: N/A Dressing plan: Splint, remove POD14 for wound check X-ray plan: 2 weeks XR at first clinic visit Outpatient follow-up: Plan for outpatient clinic visit 2 weeks post-op Please page assigned ortho team pager or if unable to contact please contact [phone] with any questions/concerns * Karen Mulligan RN - 10/17/2024 6:53 PM EST Assumed care @0700. Pt A+Ox4. Pt OOB to commode with contact guard and rolling walker. RLE trace wrap and splint remain in place. +CSM -- pt states decreased sensation to 3-5th toes on R foot. Remains NWB. PRN pain medications given with + effect. For other assessments see flowsheets, and for meds given see OCT. Discharge order placed. When working with OT pt had episode of nausea/light headedness and sweating following ambulation. An hour had another episode with [employer] TECHNICIAN when getting to commode. PRN nausea medication given. TASSEL CLIPPER Johnsonnotified of events. No longer able to get a ride home. Discharge order discontinued. Call phelps within reach. Safety maintained. * Raimundo Florez MD - 10/17/2024 6:08 AM EST DAILY PROGRESS NOTE Diagnosis: R trimalleolar ankle fracture Date of Injury: 10/09/24 Mechanism: slip on ice Procedures: ORIF R ankle Subjective: Afebrile and vital signs stable. Pain moderately controlled. Worked with PT/OT yesterday recommend home with PT. Objective: Vitals: 10/17/24 0454 BP: 111/73 Pulse: 72 Resp: 18 Temp: 98.4 ??F (36.9 ??C) SpO2: 97% WBC/Hgb/Hct/Plts: 9.83/11.1/34.0/358 (10/16 610) BUN/Cr/glu/ALT/AST/amyl/lip: 5/0.72/--/17/35/--/-- (10/16 610) Serum creatinine: 0.72 mg/dL 10/16/24610 Estimated creatinine clearance: 123.4 mL/min Physical Exam: RLE AO splint in place, c/d/I Capable of flexing/extending toes; limited due to block Sensation grossly present over exposed toes; limited due to block Well perfused toes, brisk capillary refill Assessment & Plan Closed fracture of right ankle 34 y/o F w/ R trimalleolar ankle fracture, now s/p ORIF of R distal fibula, posterior malleolus, and R medial malleolus with Dr. Dawn performed on 10/15/24 - doing well post-operatively - difficulty controlling pain overnight, currently better - disposition pending pain control. Likely can discharge today Orthopaedic Recommendations: Weightbearing restrictions: NWB RLE Other Precautions: None Brace/Immobilization: Cast/splint in place. Should be left in place and only be adjusted or removedby ortho team Anticoagulation Recommendations: Lower extremity fracture protocol = SC enoxaparin while admitted, switch to ASA 81mg bid x 28d on discharge Antibiotics plan: call center specialist to OR Sutures: N/A Dressing plan: Splint, remove POD14 for wound check X-ray plan: 2 weeks XR at first clinic visit Outpatient follow-up: Plan for outpatient clinic visit 2 weeks post-op Please page assigned ortho team pager or if unable to contact please contact [phone] with any questions/concerns * Sujatha Doherty RN - 10/16/2024 2:32 PM EST Case Management - Progress Note Patient: Agnes Paz : 1990 Attending: Lola Dawn MD Admit Date: 10/15/2024 Inpatient Status Admit Date: N/A Primary Care Physician: Sue Hoover NP Case Management (CM) consult completed. CM reviewed admitting diagnosis, relevant co-morbidities and past medical and surgical history. Participated in Interdisciplinary care rounds. CM role reviewedwith patient/family. Participated in Interdisciplinary care rounds and discussed medical with the treatment team. Refer to additional information in the CM Care Coordination Admission Assessment. Action: CM spoke telephonically with the patient to discuss plan. CM introduced self/role. CM learned that this patient is completely independent at baseline. She has no history of VNA or rehab. She was seen by physical therapy and the recommendation is home PT. She is in agreement and states no agency preference. Referrals sent to agencies that service [place]. Anticipated D/C Plan: Home with services. Anticipate d/c Tuesday 10/17. Addendum: First 6 referrals declined. Referrals to 4 additional area VNAs. Await accepting agency 10/16/24 1948 Discharge Planning Lives with Alone In the last 12 months, was there a time when you were not able to pay the mortgage or rent on time?N Support Systems Family members Assistance Needed yes Contact Name ELLEN BRENNAN (Sister) Costumer (Mobile) Type of Residence Private residence Bathroom Shower/Tub Walk-in shower Bathroom Toilet Standard Bathroom Equipment Shower chair Bathroom Accessibility Accessible Do you have animals or pets at home? No Home Care Services [place] of prior post-acute care provider: no history of VNA or Rehab Patient preferences for discharge: Home with services Pre-op phone call completed N/A In the past 12 months, has lack of transportation kept you from medical appointments or from getting medications? no In the past 12 months, has lack of transportation kept you from meetings, work, or from getting things needed for daily living? No Does the patient need discharge transport arranged? No A list of [employer]'s and SNF's serving the appropriate geographic area was provided to the patient or their family upon the initial care coordination assessment. Yes Functional Equipment Functional Equipment None Sujatha Doherty RN Pager: [phone] 10/16/2024 * Raimundo Florez MD - 10/16/2024 5:41 AM EST DAILY PROGRESS NOTE Diagnosis: R trimalleolar ankle fracture Date of Injury: 10/09/24 Mechanism: slip on ice Procedures: ORIF R ankle Subjective: OR for the above procedure. Pain better controlled this AM, rated as 2/10 in severity. Voiding spontaneously. No complaints of nausea, emesis, fevers, or chills. Has not worked with PT/OTyet. Objective: Vitals: 10/16/24 0231 BP: 117/77 Pulse: 78 Resp: 18 Temp: 98 ??F (36.7 ??C) SpO2: 98% WBC/Hgb/Hct/Plts: 15.39/11.8/36.4/376 (10/15 1857) BUN/Cr/glu/ALT/AST/amyl/lip: 6/0.75/--/16/24/--/-- (10/15 1857) Serum creatinine: 0.75 mg/dL 10/15/241857 Estimated creatinine clearance: 118.5 mL/min Physical Exam: RLE AO splint in place, c/d/I Capable of flexing/extending toes; limited due to block Sensation grossly present over exposed toes; limited due to block Well perfused toes, brisk capillary refill Assessment & Plan Closed fracture of right ankle 34 y/o F w/ R trimalleolar ankle fracture, now s/p ORIF of R distal fibula, posterior malleolus, and R medial malleolus with Dr. Dawn performed on 10/15/24 - doing well post-operatively - difficulty controlling pain overnight, currently better - plan to work with PT/OT; disposition pending. Likely discharge home today Orthopaedic Recommendations: Weightbearing restrictions: NWB RLE Other Precautions: None Brace/Immobilization: Cast/splint in place. Should be left in place and only be adjusted or removedby ortho team Anticoagulation Recommendations: Lower extremity fracture protocol = SC enoxaparin while admitted, switch to ASA 81mg bid x 28d on discharge Antibiotics plan: call center specialist to OR Sutures: N/A Dressing plan: Splint, remove POD14 for wound check X-ray plan: 2 weeks XR at first clinic visit Outpatient follow-up: Plan for outpatient clinic visit 2 weeks post-op Closed displaced trimalleolar fracture of right ankle, initial encounter Please page assigned ortho team pager or if unable to contact please contact [phone] with any questions/concerns * Arleen York RN - 10/15/2024 6:32 PM EST Pt admitted from OR in 10/10 pain, crying, and sweating w/ bp slightly elevated. Ortho team at bedside and plan made w/ pt and pt's sister to stay over night for pain control. From OR pt denies any decreased sensation in RLE, able to move toes, +cms. Prn Dilaudid and Toradol administered w/ little effect. 1831: Dr. Jaffe at bedside to assess, made aware of all pain med specialist and time intervals- plan for IV robaxin and continue to administer dilaudid per orders as needed. Pt continues to report 10/10 pain, awake and alert POSS score 1, crying and sweating at this time. PIV reassess- infusing w/ IVF appropriately and has blood return, no concern for infiltration/ med not getting to pt at this time.RLE +cms, does not appear swollen at this time, elevated above level of heart w/ ice applied. [id number]: Faustinorainer completed- pt reporting pain 5 or 6/10. [id number]: Pt transfer to PACU 9 report given to CHUCHO Alvarado at bedside, upon transfer pt vss * Raimundo Florez MD - 10/15/2024 5:42 PM EST DAILY PROGRESS NOTE Diagnosis: R trimalleolar ankle fracture Date of Injury: 10/09/24 Mechanism: slip on ice Procedures: ORIF R ankle Subjective: OR for the above procedure. Pain moderately controlled in PACU. No complaints of nausea/emesis Objective: Vitals: 10/15/24 1733 BP: (!) 145/92 Pulse: (!) 95 Resp: 12 Temp: (!) 96.6 ??F (35.9 ??C) SpO2: 100% Creatinine clearance cannot be calculated (No successful lab value found.) Physical Exam: RLE AO splint in place, c/d/I Capable of flexing/extending toes; limited due to block Sensation grossly present over exposed toes; limited due to block Well perfused toes, brisk capillary refill Assessment & Plan Closed fracture of right ankle 34 y/o F w/ R trimalleolar ankle fracture, now s/p ORIF of R distal fibula, posterior malleolus, and R medial malleolus with Dr. Dawn performed on 10/15/24 Orthopaedic Recommendations: Weightbearing restrictions: NWB RLE Other Precautions: None Brace/Immobilization: Cast/splint in place. Should be left in place and only be adjusted or removedby ortho team Anticoagulation Recommendations: Lower extremity fracture protocol = SC enoxaparin while admitted, switch to ASA 81mg bid x 28d on discharge Antibiotics plan: call center specialist to OR Sutures: N/A Dressing plan: Splint, remove POD14 for wound check X-ray plan: 2 weeks XR at first clinic visit Outpatient follow-up: Plan for outpatient clinic visit 2 weeks post-op Please page assigned ortho team pager or if unable to contact please contact [phone] with any questions/concerns documented in this encounter H&P Notes * Raimundo Florez MD - 10/15/2024 1:37 PM EST ORTHOPAEDIC H&P NOTE Agnes Paz [id number] DATE: 10/15/2024 CONTACT: [phone] Time patient seen (for HD unstable pelvis, potential compartment syndrome, fracture/dislocations, or vascular compromise): 1:30 pm Diagnosis: R trimalleolar ankle fracture Date of Injury: 10/09/24 Mechanism: slip on ice Planned Procedures: ORIF R ankle Non orthopaedic injuries: none HISTORY OF PRESENT ILLNESS: 34 y.o. female w/ R trimalleolar ankle fracture s/p slip on ice on 10/09/24 Patient was walking outside when she slipped on ice and twisted her ankle. [place] a loud snap and subsequently had severe R ankle pain and inability to ambulate. Went to [facility] ER where she was diagnosed with R ankle fracture. Placed in splint and advised to follow-up outpatient. Denies any other symptoms or injuries. PMH: has a past medical history of Anxiety and Depression. PSH: has no past surgical history on file. MEDS: Medications Ordered Prior to Encounter[1] ALLERGY: Allergies[2] SH: Smoking: none, Alcohol: none, Illicits: recreational marijuana use, Occupation: works as [employer], Living situation: lives in [facility] alone, Functional status: independent PHYSICAL EXAM: RLE Skin intact, ecchymosis and edema Capable of flexing/extending the toes SPLT sural, saphenous, peroneal and tibial distributions Palpable DP General: Well appearing Cardiac: regular rhythm, no murmurs, rubs Pulmonary: equal breath signs bilaterally, no wheezing or rhonchi GI: no abdominal distension Vitals: 10/15/24 1316 BP: 121/68 Pulse: 88 Resp: (!) 21 Temp: 97.8 ??F (36.6 ??C) SpO2: 97% Creatinine clearance cannot be calculated (No successful lab value found.) IMAGING: X-rays obtained in the hospital were reviewed by me. They show R trimalleolar ankle fracture ASSESSMENT AND PLAN: 34 y.o. female w/ R trimalleolar ankle fracture s/p slip on ice on 10/09/24 Assessment & Plan Closed fracture of right ankle - OR today with Dr. Dawn Orthopaedic Recommendations: Weightbearing restrictions: NWB RLE Other Precautions: None Brace/Immobilization: Cast/splint in place. Should be left in place and only be adjusted or removedby ortho team Anticoagulation Recommendations: Lower extremity fracture protocol = SC enoxaparin while admitted, switch to ASA 81mg bid x 28d on discharge Antibiotics plan: call center specialist to OR Sutures: N/A Dressing plan: Splint, remove POD14 for wound check X-ray plan: 2 weeks XR at first clinic visit Outpatient follow-up: Plan for outpatient clinic visit 2 weeks post-op Please call the assigned Orthopaedic AP listed in treatment team (M-F 6 am to 6 pm) with any questions/concerns or if unable please page [phone] with any questions/concerns. [1] No current facility-administered medications on file prior to encounter. Current Outpatient Medications on File Prior to Encounter Medication Sig Dispense Refill aspirin 81 MG chewable tablet Chew 1 tablet (81 mg total) daily. Takes 2 tablets daily busPIRone (BUSPAR) 10 MG tablet Take 1 tablet (10 mg total) by mouth 3 times a day. citalopram (CeleXA) 40 MG tablet Take 1 tablet (40 mg total) by mouth daily. drospirenone-ethinyl estradioL (SAM) 3-0.02 mg per tablet Take 1 tablet by mouth daily. lamoTRIgine (LaMICtal) 150 MG tablet Take 1 tablet (150 mg total) by mouth daily. loratadine (CLARITIN) 10 mg tablet Take 1 tablet (10 mg total) by mouth daily. [2] No Known Allergies Cosigned by Lola Dawn MD at 10/15/2024 2:03 PM EST Associated attestation - Lola Dawn MD - 10/15/2024 2:03 PM EST I saw and evaluated the patient. I reviewed the resident/fellow???s notes on 10/15/2024 and agree with the findings and plan of care. Plan: Right ankle ORIF Signed: Lola Dawn MD 10/15/2024 documented in this encounter OR Notes * OR PreOp - Lola Bravo RN - 10/14/2024 2:40 PM EST Pre Op instructions- How to prepare for surgery booklet, Meds to be held reviewed via phone, patient verbalized understanding, Continue ASA per surgeon. Has ride home documented in this encounter Miscellaneous Notes * Plan of Care - Karen Mulligan RN - 10/19/2024 1:45 PM EST Assumed care @0700. Pt A+Ox4. Trace wrap and splint remain in place to RLE. + CSM - pt continues to state decreased sensation to 3-5th toes on R foot. Stand pivot to commode with minimal assistance/supervision. Pt continues to be NWB to RLE. LBM 10/15, pt declined miralax but all scheduled bowel medications given. Pt worked with PT/OT this AM - cleared for d/c home with PT. Per CM paperwork faxed to VNA. PRN pain medications given with + effect. For other assessments see flowsheets, and for meds given see MAR. Discharge order placed. PIV removed per order - tolerated well. Discharge paperwork reviewed with pt. All questions answered. Pt safely wheeled off unit with sister and all belongings @1345. * Plan of Care - Karen Mulligan RN - 10/19/2024 12:15 PM EST Problem: Pain - Adult Goal: Verbalizes/displays adequate comfort level or baseline comfort level Outcome: Adequate for Discharge Problem: Safety-Adult Goal: Free from fall injury Outcome: Adequate for Discharge Problem: Discharge Planning Goal: Discharge to home or other facility with appropriate resources Outcome: Adequate for Discharge Problem: Altered Nutrient Intake Goal: Nutrient intake appropriate for improving, restoring or maintaining nutritional needs Outcome: Adequate for Discharge Problem: Chronic Conditions and Co-morbidities Goal: Patient's chronic conditions and co-morbidity symptoms are monitored and maintained or improved Outcome: Adequate for Discharge Problem: Mobility Goal: Improve mobility to highest level of function Outcome: Adequate for Discharge Problem: Post operative care Goal: Post-operative patient will remain free of complications following surgery Outcome: Adequate for Discharge Problem: Knowledge Deficit Goal: Patient/family/caregiver demonstrates understanding of disease process, treatment plan, medications, and discharge instructions Outcome: Adequate for Discharge * Plan of Care - Anu Espinoza PT - 10/19/2024 12:10 PM EST Physical Therapy Progress Note Patient Name: Agnes Paz Patient Today's Date: 10/19/2024 Admission Date: 10/15/2024 Diagnosis:Closed fracture of right ankle, initial encounter [S82.891A] Closed displaced trimalleolar fracture of right ankle, initial encounter [S82.851A] Closed fracture of right ankle, sequela [S82.891S] Physical Therapy Discharge Recommendation:Home with PT, No acute skilled Physical Therapy needs; Physical Therapy signing off. RW issued. Activity Recommendation: Ambulate Independently Equipment Recommendation: Rolling Walker Acute Physical Therapy Plan: Pt is cleared for d/c home with PT and family support Reviewed: Medical Record, Allergies, and Medications Fall Risk Assessment: Low Precautions / Weight Bearing Right Lower Extremity: NWB, cast Fall Risk PPE Utilized During Session: Therapist Wearing: Surgical Mask, Gloves Cognition Orientation: to Person, Place, Time, and Situation Mood/Behavior: Appropriate, Cooperative, Pleasant Following Directions: Follows all directions without difficulty Communication Clear speech, able to make needs known Vision/Hearing No visual changes reported Systems Review Pain: 0/10 Scale: 5/10 Pain Location: right ankle Pain Frequency: Constant/Continuous Integumentary: Right leg cast Cardiopulmonary: Vital signs stable during PT session. Pt denied feeling lightheaded or dizzy. Balance: Static Sitting: Good Dynamic Sitting: Good Static Standing: Good, with Rolling walker Dynamic Standing: Good, with Rolling walker Functional Mobility Supine to Sit: Independent with HOB flat without bed features, multiple reps Sit to Supine: Independent with HOB flat without bed features, multiple reps Sit to Stand: Modified Noble from EOB, multiple reps Stand to Sit: Modified Noble to EOB, multiple reps Ambulation: Modified Noble, with Rolling Walker Ambulation Distance: 20 ft x2 Gait Pattern/Training: Steady, NWB R LE gait Stairs: Deferred- pt is unable to clear left foot high enough off floor to safely attempt stair training. Functional Tests [facility] 6 Clicks Mobility Short Form Turning from your back to your side while in a flat bed without using bedrails?: None Moving from lying on your back to sitting on the side of a flat bed without using bedrails?: None Moving to and from a bed to a chair (including a wheelchair)?: None Standing up from a chair using your arms (e.g. wheelchair or bedside chair)?: None Walking in hospital room?: None Climbing 3-5 steps with a railing?: Total [facility] Mobility Score: 21 [facility] Highest Level of Mobility Scale (JH-HLM) -HLM Daily Goal (Calculated): Walk 10 steps or more Assessment Pt seen for follow up PT session. Pt demonstrated Modified independent bed mobility, transfers and ambulation NWB R LE with RW. Pt is unable to clear left foot high enough off floor to safely practice stair training. Pt verbalized good understanding of technique for scooting up/down on buttocks. Ptdoes not require additional PT while in acute setting. Physical Therapy discharge recommendation ishome with PT and assist of family/friends/social support. Plan of Care Treatment Interventions: None Minimum Hospital Physical Therapy Frequency: Discharge PT - patient is safe to return home Education Provided Patient was educated via verbal instruction on role of PT, NWB R LE with walker, safety for sit to stand transfers with RW, technique to bump up stairs on buttock including going from floor to step stool to chair when at top of stairs, possibility of ambulance transport home which pt declined, recommendation of home PT and support of mother. Response to education:verbalized understanding. Pt verbalized that she feels confident going home today. Total Minutes: 23 Minutes Therapeutic Activity / Functional Trainin minutes Anu Espinoza PT Lic# [id number] * Plan of Care - Clarissa Leyva RN - 10/19/2024 11:26 AM EST Case Management - Progress Note Patient: Agnes Paz : 1990 Attending: Lola Dawn MD Admit Date: 10/15/2024 Inpatient Status Admit Date: N/A Primary Care Physician: Sue Hoover NP The patient will be discharged to Home with [facility] PT only. The plan was discussed with the patient and the patient . Transport arranged: Patient to transport via family transport Anticipated D/C Plan: Home with services [employer], [address], [address], [place] [address] Phone [phone] Fax [phone] Clarissa Leyva RN Pager: [phone] 10/19/2024 * Plan of Care - ELLIOTT Nassar/Kaden - 10/19/2024 10:23 AM EST Occupational Therapy Progress Note Patient Name: Agnes Paz Today's Date: 10/19/2024 Admission Date: 10/15/2024 Diagnosis: Closed fracture of right ankle, initial encounter [S82.891A] Closed displaced trimalleolar fracture of right ankle, initial encounter [S82.851A] Closed fracture of right ankle, sequela [S82.891S] Surgical Procedure: ORIF RIGHT ANKLE-fixation of the medial lateral and posterior malleolus Surgical Date: 10/15/2024 Occupational Therapy Recommendations No further acute OT needs, OT signing off Home with Support of Family / Friends Fall Risk Assessment Left in bed and Low Precautions / Weight Bearing Right Lower Extremity: NWB PPE Utilized During Session: Therapist Wearing: Mask, Gloves Pain Pain Score: 5 / 10 Pain Location: R ankle Cardiopulmonary Vital Signs Stable throughout treatment Vision/Hearing/Vestibular No visual changes reported Communication Clear speech, able to make needs known Cognition Orientation to Person, Place, Time, and Situation Mood / Behavior Appropriate, Cooperative, Pleasant, Alert Memory Intact Attention Able to safely multi-task Following Directions Follows all directions without difficulty Safety Awareness Full Awareness of Safety Precautions Full Awareness of Errors Made Full Awareness of Deficits Problem Solving Able to problem solve independently Perception Intact Self Care Grooming Independent, Standing at the Sink Verbal cues for RW placement and safety while standing at the sink, and to use the sink counter forbalance with good return demonstration while washing hands and face, and brushing teeth. Upper Body Dressing Independent, Seated [facility] gown and donning shirt Lower Body Dressing Independent, Seated Patient was educated on LB dressing sequence with good return demonstration donning pants. Toileting Independent, Toilet CM and hygiene after urinating Functional Mobility Rolling: Independent (HOB Flat without bed features) Supine to Sit: Independent (HOB Flat without bed features) Sit to Supine: Independent (HOB Flat without bed features) Sit to Stand: Independent from all surfaces Stand to Sit: Independent to all surfaces Instruction for hand placement and safety, to push off of seated surface and then reach for RW withgood follow through. Verbal cues to reach back for seated surface prior to sitting with good followthrough. Good eccentric control. Maintains NWB R LE throughout Toilet Transfer: Modified Noble, with Rolling Walker Instruction for hand placement, sequencing, and safety. Verbal cues for safe approach to toilet with good return demonstration. Ambulation: Modified Noble, with Rolling Walker Patient was educated on RW sequence and safety with good return demonstration. Patient maintains NWB RLE throughout session. Balance Static Sitting: Good Dynamic Sitting: Good Static Standing: Good, with Rolling walker Dynamic Standing: Good, with Rolling walker Functional Tests Putting on and taking off regular lower body clothing?: None Bathing (including washing, rinsing, drying)?: None Toileting, which includes toilet, bedpan or urinal?: None Putting on and taking off regular upper body clothing?: None Taking care of personal grooming such as brushing teeth?: None Eating meals?: None BU AM_PAC Score: 24 Assessment Agnes was seen for Occupational Therapy treatment session this date. She is now independent with all ADLs and modified independence with functional mobility using the RW. She reports her mother is flying in today and is able to stay with her as long as needed and she will assist with all IADLs. Educated patient on wearing sneaker on the L LE to increased height and make NWB a little easier on the R side. Also educated on using a backpack across front of RW frame to allow her to carry items from room to room. Agnes has no further acute Occupational Therapy needs. Recommend discharge home with family assistance when medically appropriate. Clinical Summary Functional Impairments Pain, Decreased ROM, Decreased strength, and Decreased balance Performance Deficits Home Management, Shopping, Driving, Working / Volunteering, and Community Engagement Prognostic Indicators Motivated, Good Family Support Rehab Potential Good Plan of Care Treatment Interventions ADL Training, Functional Mobility Training, Patient / Family Education OT Frequency Discharge OT - patient is safe to return home Total Skilled Minutes: 23 Self Care / Home Management: 23 [place] [id number] * Assessment & Plan Note - Gaudencio Martinez MD - 10/19/2024 8:18 AM ESTAssociated Problem(s): Closed fracture of right ankle 34 y/o F w/ R trimalleolar ankle fracture, now s/p ORIF of R distal fibula, posterior malleolus, and R medial malleolus with Dr. Dawn performed on 10/15/24 - doing well post-operatively - difficulty controlling pain overnight, currently better Orthopaedic Recommendations: Weightbearing restrictions: NWB RLE Other Precautions: None Brace/Immobilization: Cast/splint in place. Should be left in place and only be adjusted or removedby ortho team Anticoagulation Recommendations: Lower extremity fracture protocol = SC enoxaparin while admitted, switch to ASA 81mg bid x 28d on discharge Antibiotics plan: call center specialist to OR Sutures: N/A Dressing plan: Splint, remove POD14 for wound check X-ray plan: 2 weeks XR at first clinic visit Outpatient follow-up: Plan for outpatient clinic visit 2 weeks post-op * Plan of Care - Sujatha Hwang RN - 10/18/2024 12:30 PM EST Care Coordination - Discharge Planning Note Patient: Agnes Paz : 1990 Attending: Lola Dawn MD Admit Date: 10/15/2024 Inpatient Status Admit Date: N/A Primary Care Physician: Sue Hoover NP Record reviewed. Participated in Interdisciplinary care rounds and discussed medical readiness withthe treatment team. Expected Discharge Date: 10/18/2024 Action: PT re-evaluation recommending acute rehab. Patient medically clear CM met with patient, given a list of rehabs in [facility]. Referrals placed to all of them. Patient with [facility] [employer] for insurance and will need insurance authorization. CM encouraged patient to increase her activity throughout the day. Instead of getting up to bedsidecommode, ambulate to BR. Service/Anticipated D/C Plan: acute rehab when medically stable and when there is a bed offered, which is accepted by patient/family and authorized by the Insurer. Barriers: needs in-patient rehab Sujatha Hwang RN Pager: [phone]/18/2024 * Assessment & Plan Note - Usman Huggins NP - 10/18/2024 11:37 AM ESTAssociated Problem(s): Closed fracture of right ankle 34 y/o F w/ R trimalleolar ankle fracture, now s/p ORIF of R distal fibula, posterior malleolus, and R medial malleolus with Dr. Dawn performed on 10/15/24 Orthopaedic Post op Plan Weightbearing restrictions: NWB RLE Other Precautions: Elevation Brace/Immobilization: Cast/splint in place. Should be left in place and only be adjusted or removedby ortho team Anticoagulation Recommendations: Lower extremity fracture protocol = SC enoxaparin while admitted, switch to ASA 81mg bid x 28d on discharge Antibiotics plan: call center specialist to OR Sutures: N/A Dressing plan: Splint, remove POD14 for wound check X-ray plan: 2 weeks XR at first clinic visit Outpatient follow-up: Plan for outpatient clinic visit 2 weeks post-op * Plan of Care - Marianne Garcia PT - 10/18/2024 11:10 AM EST Physical Therapy Re-Evaluation Patient Name: Agnes Paz Patient Today's Date: 10/18/2024 Admission Date: 10/15/2024 Date of onset of symptoms: 10/15/24 Date treatment started: 10/16/24 Date plan established: 10/18/24 Diagnosis:Closed fracture of right ankle, initial encounter [S82.891A] Closed displaced trimalleolar fracture of right ankle, initial encounter [S82.851A] Closed fracture of right ankle, sequela [S82.891S] Date of Initial Evaluation: 10/15 Physical Therapy Discharge Recommendation:Rehabilitation Facility: Anticipate patient will be able to tolerate >3 hours of skilled therapy services daily post hospital discharge Activity Recommendation: OOB to Chair/Commode with Nursing Staff , Ambulate to bathroom with Nursing Staff , Ambulate 2-3x/day with Nursing Staff Equipment Recommendation: Rolling Walker Acute Physical Therapy Plan: progress mobility as able Reviewed: Medical Record, Allergies, and Medications Past Medical History[1] Past Surgical History[2] Fall Risk Assessment: High: Bed alarm activated, call phelps within patient reach, and nursing staff notified Precautions / Weight Bearing Right Lower Extremity: NWB, cast Fall Risk PPE Utilized During Session: Therapist Wearing: Surgical Mask, Gloves Cognition Orientation: to Person, Place, Time, and Situation Mood/Behavior: Appropriate, Cooperative, Pleasant Memory: Intact Attention: Attends to task Following Directions: Follows all directions without difficulty Safety Awareness: Full Awareness of Safety Precautions Communication Clear speech, able to make needs known Vision/Hearing No visual changes reported Systems Review Pain: 0/10 Scale: 5/10 Pain Location: RLE Cardiopulmonary: Dizzy throughout mobility 166/56 Balance: Static Sitting: Good Dynamic Sitting: Good Static Standing: Fair, with Upper Extremity Support, with Rolling walker Dynamic Standing: Fair, with Upper Extremity Support, with Rolling walker Functional Mobility Pt received in supine (S) supine to sit with HOB elevated and side rails, CGA for STS from EOB and from WC x 3 rounds, CGA gait with RW x 60' hop to gait with RW easily fatigued requiring seated restbreak, max A x2 for attempted hop to on single step unable to clear with BUE support on railings pthas only one railing and has no railings at top of stairs unable to attempt floor to stand transfers due to hospital policy with wooden stairs and splinter risk. Pt also unable to support body weightdue to decreased BUE strength with attempted hop to gait unable to clear on one foot with assist for RN and PT on each side only able to clear 3 inches compared to full step height lightheaded after gait training VSS throughout,CGA for SPT from WC to EOB with RW use (S) for sit to supine transfer Functional Tests [facility] 6 Clicks Mobility Short Form Turning from your back to your side while in a flat bed without using bedrails?: A little Moving from lying on your back to sitting on the side of a flat bed without using bedrails?: A little Moving to and from a bed to a chair (including a wheelchair)?: A little Standing up from a chair using your arms (e.g. wheelchair or bedside chair)?: A little Walking in hospital room?: A little Climbing 3-5 steps with a railing?: Total [facility] Mobility Score: 16 [facility] Highest Level of Mobility Scale (-HLM) -HLM Daily Goal (Calculated): Stand (1 or more minutes) Goals Patient will be independent with supine <-> sit in 4 visits. Patient will be independent with sit <-> machine fitter 4 visits. Patient will be independent with ambulating 100 ft with Rolling Walker in 4 visits. Patient will be supervision with ascending and descending 12 stairs in 4 visits. . Clinical Summary Impairments: Pain, Decreased Safety Awareness, Decreased ROM, Decreased Strength, Decreased Balance, Decreased Aerobic Capacity, Decreased ADL Status Functional Limitations: Bed Mobility , Transfers , Ambulation , Stair Negotiation, Safety / Judgment, Decreased Activity Tolerance/Deconditioned , Self Care/ADLs Prognostic Indicators: Motivated, Good Family Support, Multiple Comorbidities Rehab Potential: Excellent Assessment Patient is a 34 y.o. female admitted with w/ R trimalleolar ankle fracture, now s/p ORIF of R distal fibula, posterior malleolus, and R medial malleolus with Dr. Dawn performed on 10/15/24 . PT initially consulted on 10/16 and cleared for home DC. Pt was unable to clear single step with single rail upon initial evaluation reviewed bump up method however patient unable to perform floor to stand transfer due to BUE weakness upon reevaluation today. Pt unable to clear first step with assist from PT and RN assisting RLE and trunk. RN, CM, and TASSEL CLIPPER aware of updated recommendations at this time to progress gait, balance, endurance and stair training prior to DC home at a rehab facility. Will continue to improve mobility while in house and progress stair training to ensure safe DC to home when stable. Physical Therapy discharge recommendation is rehabilitation facility: anticipate patient will be able to tolerate >3 hours of skilled therapy services daily post hospital discharge. Pt unable toDC to home at this time for unable to safely get into home and has limited support upon DC to home Plan of Care Treatment Interventions: Bed Mobility, Transfer Training, Gait Training , Stair Negotiation, Balance Training, Breathing Exercises , Pain Management Strategies , ADL Training, Patient / Family Education, Equipment Evaluation/ Education, Strengthening / ROM Minimum Hospital Physical Therapy Frequency: 3-4x/week Today's Treatment PT reevaluation completed Education Provided Patient was/were educated via verbal instruction on mobility, safety, stair training, discharge options, role of PT and rehab recommendations . Response to education:verbalized understanding. Total Minutes: 45 Minutes Re-Evaluation: 25 minutes Therapeutic Activity / Functional Trainin minutes Marianne Garcia PT DPT License #[id number] [1] Past Medical History: Diagnosis Date Anxiety Depression [2] Past Surgical History: Procedure Laterality Date ORIF ANKLE FRACTURE Right 10/15/2024 Surgeon: Lola Dawn MD; Location: [facility] Main OR; Service: Orthopaedics; Laterality: Right; * Assessment & Plan Note - Gaudencio Martinez MD - 10/18/2024 6:11 AM ESTAssociated Problem(s): Closed fracture of right ankle 34 y/o F w/ R trimalleolar ankle fracture, now s/p ORIF of R distal fibula, posterior malleolus, and R medial malleolus with Dr. Dawn performed on 10/15/24 - doing well post-operatively - difficulty controlling pain overnight, currently better - disposition pending pain control. Likely can discharge today if does OK with PT/OT Orthopaedic Recommendations: Weightbearing restrictions: NWB RLE Other Precautions: None Brace/Immobilization: Cast/splint in place. Should be left in place and only be adjusted or removedby ortho team Anticoagulation Recommendations: Lower extremity fracture protocol = SC enoxaparin while admitted, switch to ASA 81mg bid x 28d on discharge Antibiotics plan: call center specialist to OR Sutures: N/A Dressing plan: Splint, remove POD14 for wound check X-ray plan: 2 weeks XR at first clinic visit Outpatient follow-up: Plan for outpatient clinic visit 2 weeks post-op * Plan of Care - Jose Garcia RN - 10/18/2024 6:02 AM EST Problem: Pain - Adult Goal: Verbalizes/displays adequate comfort level or baseline comfort level 10/18/2024 07 by Jose Garcia RN Outcome: Progressing 10/18/2024 07 by Jose Garcia RN Outcome: Progressing 10/18/2024 07 by Jose Garcia RN Outcome: Progressing Problem: Safety-Adult Goal: Free from fall injury 10/18/2024 07 by Jose Garcia RN Outcome: Progressing 10/18/2024 07 by Jose Garcia RN Outcome: Progressing 10/18/2024 07 by Jose Garcia RN Outcome: Progressing Problem: Discharge Planning Goal: Discharge to home or other facility with appropriate resources 10/18/2024 07 by Jose Garcia RN Outcome: Progressing 10/18/2024 07 by Jose Garcia RN Outcome: Progressing 10/18/2024700 by Jose Garcia RN Outcome: Progressing Problem: Altered Nutrient Intake Goal: Nutrient intake appropriate for improving, restoring or maintaining nutritional needs 10/18/2024701 by Jose Garcia RN Outcome: Progressing 10/18/2024700 by Jose Garcia RN Outcome: Progressing 10/18/2024700 by Jose Garcia RN Outcome: Progressing Problem: Chronic Conditions and Co-morbidities Goal: Patient's chronic conditions and co-morbidity symptoms are monitored and maintained or improved 10/18/2024701 by Jose Garcia RN Outcome: Progressing 10/18/2024700 by Jose Garcia RN Outcome: Progressing 10/18/2024700 by Jose Garcia RN Outcome: Progressing Problem: Mobility Goal: Improve mobility to highest level of function 10/18/2024701 by Jose Garcia RN Outcome: Progressing 10/18/2024700 by Jose Garcia RN Outcome: Progressing 10/18/2024700 by Jose Garcia RN Outcome: Progressing Problem: Post operative care Goal: Post-operative patient will remain free of complications following surgery 10/18/2024701 by Jose Garcia RN Outcome: Progressing 10/18/2024700 by Jose Garcia RN Outcome: Progressing 10/18/2024700 by Jose Garcia RN Outcome: Progressing Problem: Knowledge Deficit Goal: Patient/family/caregiver demonstrates understanding of disease process, treatment plan, medications, and discharge instructions 10/18/2024701 by Jose Garcia RN Outcome: Progressing 10/18/2024700 by Jose Gacria RN Outcome: Progressing 10/18/2024700 by Jose Garcia RN Outcome: Progressing * Plan of Care - Mary Ann Howell OT - 10/17/2024 11:15 AM EST Occupational Therapy Progress Note Patient Name: Agnes Paz Today's Date: 10/17/2024 Admission Date: 10/15/2024 Diagnosis: Closed fracture of right ankle, initial encounter [S82.891A] Closed displaced trimalleolar fracture of right ankle, initial encounter [S82.851A] Closed fracture of right ankle, sequela [S82.891S] Surgical Procedure: ORIF RIGHT ANKLE-fixation of the medial lateral and posterior malleolus Surgical Date: 10/15/2024 Occupational Therapy Recommendations Home with Support of Family / Friends vs acute rehab OOB to chair with nursing for meals Ambulate to bathroom with nursing Fall Risk Assessment High: Bed alarm activated, call phelps within patient reach, and nursing staff notified Precautions / Weight Bearing Fall Risk Right Lower Extremity: NWB PPE Utilized During Session: Therapist Wearing: Mask, Gloves Pain Pain Score: 7 / 10 Pain Location: RLE Cardiopulmonary Chair after Ambulation BP: 133/80 Chair after Ambulation HR: 114 Chair after Ambulation O2: 97% Room Air -pt appeared clammy and when asked if she felt okay, pt stated she felt light- headed and nauseous. Pt became sweaty and pt stated the back of her neck was wet with sweat-nsg notified Stand BP: 130/85 Stand HR: 119 Stand O2: 97% Room Air Supine BP: 119/71 Supine HR: 115 Supine O2: 97% Room Air -pt returned to supine for safety and reported continued nausea, sweatiness and light headed-pt provided with ice-water. Nsg aware Vision/Hearing/Vestibular No visual changes reported Communication Clear speech, able to make needs known Cognition Orientation to Person, Place, Time, and Situation Mood / Behavior Appropriate, Cooperative, Pleasant Anxious/teary regarding return to home without support Memory Intact Attention Able to safely multi-task Following Directions Follows all directions without difficulty Safety Awareness Full Awareness of Safety Precautions Full Awareness of Deficits Problem Solving Able to problem solve independently Perception Intact Self Care Grooming Set-up seated Sup stand at sink Lower Body Dressing Set-up nicole/doff sock seated EOB Toileting Supervision seated rosa hygiene care. Max posterior hygiene care-Pt reports difficulty at baseline reaching behind for posterior hygiene care and has ordered a bidet for home Pt ed on toilet want to assist with posterior hygiene care Sup manage margarito to clear for sitting on toilet Functional Mobility Supine to Sit: Modified Noble (HOB Flat without bed features) Sit to Supine: Modified Noble (HOB Flat without bed features) Sit to Stand: Supervision from EOB and from toilet with cues for HP Stand to Sit: Supervision to EOB and to toilet Toilet Transfer: Supervision with pt transitioning from RW to crutches at threshold of door to simulate home setting at pt reports her RW will not fit in her bathroom Ambulation: Supervision amb with RW around room -*pt became clammy, nauseous and light headed following amb/transfer-nsg notified Balance Static Sitting: Good Dynamic Sitting: Good Static Standing: Good Dynamic Standing: Good, with Rolling walker Functional Tests Putting on and taking off regular lower body clothing?: A Little Bathing (including washing, rinsing, drying)?: A Little Toileting, which includes toilet, bedpan or urinal?: A Little Putting on and taking off regular upper body clothing?: A Little Taking care of personal grooming such as brushing teeth?: A Little Eating meals?: None BU AM_PAC Score: 19 Assessment Pt greeted by OT and agreeable to participation in therapy session. Pt demonstrated good safety amb/transfers with RW within room while adhering to NWB to RLE. Pt practiced transfer into bathroom andcued to switch from RW use to crutches at threshold to bathroom as pt reports bathroom is not big enough to fit RW. Pt limited by feeling nauseous and light headed following transfer/amb. Pt appearedclammy and reported feeling sweaty. Pt's BP remained stable with HR increasing to 119 seated at EOB. At this time pt continues to require supervision functional mob/transfers with RW. It is recommended pt be d/c to home with support of family/friends (of note pt has 13 JADE and did not clear stairs with PT) to manage higher level ADL's including light meal prep. Pt will req RW basket for safe transfer of items within home setting. If pt is not able to get a carry into her home and have supervision/support/assist, it is recommended pt be d/c to rehab facility anticipating pt will tolerate > 3 hours daily therapy. *of note, pt's mother is flying in from [place] on Saturday to stay with pt. Pt reports her sister can transport her from hospital to home but cannot stay with her. Pt has 13 JADE and DID NOT clear stairs with PT Clinical Summary Functional Impairments Pain, Decreased ROM, Decreased strength, and Decreased aerobic capacity Performance Deficits Functional Mobility, Safety / Judgment, Activity Tolerance, Bathing, Dressing, Toileting, Grooming,Meal Preparation, Home Management, Shopping, Driving, Working / Volunteering, and Community Engagement Prognostic Indicators Motivated, Good Family Support Rehab Potential Good Plan of Care Treatment Interventions ADL Training, Functional Mobility Training, Patient / Family Education, Equipment Evaluation / Education OT Frequency Continue OT a minimum of 1x week Total Skilled Minutes: 40 Therapeutic Activity: 40 minutes Mary Ann Howell OT/L #[id number] * Plan of Care - Karen Mulligan RN - 10/17/2024 10:26 AM EST Problem: Pain - Adult Goal: Verbalizes/displays adequate comfort level or baseline comfort level Outcome: Progressing Problem: Safety-Adult Goal: Free from fall injury Outcome: Progressing Problem: Discharge Planning Goal: Discharge to home or other facility with appropriate resources Outcome: Progressing Problem: Altered Nutrient Intake Goal: Nutrient intake appropriate for improving, restoring or maintaining nutritional needs Outcome: Progressing Problem: Chronic Conditions and Co-morbidities Goal: Patient's chronic conditions and co-morbidity symptoms are monitored and maintained or improved Outcome: Progressing Problem: Mobility Goal: Improve mobility to highest level of function Outcome: Progressing Problem: Post operative care Goal: Post-operative patient will remain free of complications following surgery Outcome: Progressing Problem: Knowledge Deficit Goal: Patient/family/caregiver demonstrates understanding of disease process, treatment plan, medications, and discharge instructions Outcome: Progressing * Assessment & Plan Note - Anali Levy NP - 10/17/2024 10:09 AM EST Associated Problem(s): Closed fracture of right ankle 34 y/o F w/ R trimalleolar ankle fracture, now s/p ORIF of R distal fibula, posterior malleolus, and R medial malleolus with Dr. Dawn performed on 10/15/24 Orthopaedic Recommendations: Weightbearing restrictions: NWB RLE Other Precautions: Elevation Brace/Immobilization: Cast/splint in place. Should be left in place and only be adjusted or removedby ortho team Anticoagulation Recommendations: Lower extremity fracture protocol = SC enoxaparin while admitted, switch to ASA 81mg bid x 28d on discharge Antibiotics plan: call center specialist to OR Sutures: N/A Dressing plan: Splint, remove POD14 for wound check X-ray plan: 2 weeks XR at first clinic visit Outpatient follow-up: Plan for outpatient clinic visit 2 weeks post-op * Plan of Care - Sujatha Hwang RN - 10/17/2024 10:01 AM EST Care Coordination - Discharge Planning Note Patient: Agnes Paz : 1990 Attending: Lola Dawn MD Admit Date: 10/15/2024 Inpatient Status Admit Date: N/A Primary Care Physician: Sue Hoover NP The patient will be discharged to home with [facility] . Preference for discharge: Home with services The plan was discussed with the patient/family and they are in agreement with the plan. The discharge information was faxed/conveyed to the community provider. The MD and Nurse was alerted to the plan. Transport arranged: family Addendum barrier: needs PT re-evaluation Sujatha Hwang RN Pager: [phone] 10/17/2024 10:01 AM * Assessment & Plan Note - Raimundo Florez MD - 10/17/2024 8:00 AM EST Associated Problem(s): Closed fracture of right ankle 34 y/o F w/ R trimalleolar ankle fracture, now s/p ORIF of R distal fibula, posterior malleolus, and R medial malleolus with Dr. Dawn performed on 10/15/24 - doing well post-operatively - difficulty controlling pain overnight, currently better - disposition pending pain control. Likely can discharge today Orthopaedic Recommendations: Weightbearing restrictions: NWB RLE Other Precautions: None Brace/Immobilization: Cast/splint in place. Should be left in place and only be adjusted or removedby ortho team Anticoagulation Recommendations: Lower extremity fracture protocol = SC enoxaparin while admitted, switch to ASA 81mg bid x 28d on discharge Antibiotics plan: call center specialist to OR Sutures: N/A Dressing plan: Splint, remove POD14 for wound check X-ray plan: 2 weeks XR at first clinic visit Outpatient follow-up: Plan for outpatient clinic visit 2 weeks post-op * Plan of Care - Martina Wilson RN - 10/16/2024 5:49 PM EST Pt transferred to [facility] from PACU. AAOx4. VSS. LBM 10/15. 2 RN skin check complete. +CSM. 1A to commode w/ RW. Pt belongings at the bedside. Oriented to room and call phelps. All needs met at this time. * Plan of Care - Julio Segura RN - 10/16/2024 4:24 PM EST Assumed care at 0700.Pt's complaining of uncontroled pain throughout the night and this morning. Provider notified of the issue of right ankle pain, see MAR for new orders. Pain better controled thisafternoon. One incident of crying this afternoon. PRN and scheduled pain medication given with goodeffect. For full assessment see flowsheet. Problem: Pain - Adult Goal: Verbalizes/displays adequate comfort level or baseline comfort level Outcome: Progressing Problem: Safety-Adult Goal: Free from fall injury Outcome: Progressing Problem: Discharge Planning Goal: Discharge to home or other facility with appropriate resources Outcome: Progressing Problem: Altered Nutrient Intake Goal: Nutrient intake appropriate for improving, restoring or maintaining nutritional needs Outcome: Progressing Problem: Chronic Conditions and Co-morbidities Goal: Patient's chronic conditions and co-morbidity symptoms are monitored and maintained or improved Outcome: Progressing Problem: Mobility Goal: Improve mobility to highest level of function Outcome: Progressing Problem: Post operative care Goal: Post-operative patient will remain free of complications following surgery Outcome: Progressing Problem: Knowledge Deficit Goal: Patient/family/caregiver demonstrates understanding of disease process, treatment plan, medications, and discharge instructions Outcome: Progressing * Plan of Care - Anu Espinoza, PT - 10/16/2024 9:51 AM EST Physical Therapy Initial Evaluation Patient Name: Agnes Paz Patient Today's Date: 10/16/2024 Admission Date: 10/15/2024 Date of onset of symptoms: 10/15/24 Date treatment started: 10/16/24 Date plan established: 10/16/24 Diagnosis:Closed fracture of right ankle, initial encounter [S82.891A] Closed displaced trimalleolar fracture of right ankle, initial encounter [S82.851A] Closed fracture of right ankle, sequela [S82.171S] Physical Therapy Discharge Recommendation:Home with PT, No acute skilled Physical Therapy needs; Physical Therapy signing off. RW issued. Activity Recommendation: Ambulate with supervision of nursing staff while in acute setting to increase patient's confidence. Equipment Recommendation: Rolling Walker Acute Physical Therapy Plan: Pt is cleared for home with PT when medically ready for discharge. Reviewed: Medical Record, Allergies, and Medications Past Medical History[1] Past Surgical History[2] Fall Risk Assessment: High: chair reclined and lower extremities elevated, call phelps within patientreach and nursing staff notified. Pt verbalized good understanding to call for assist with all mobility. 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 Pt reports feeling unsteady on crutches with multiple near falls. Activities of Daily Living (ADLs): Independent Instrumental Activities of Daily Living (IADLs): Independent Cognition Orientation: to Person, Place, Time, and Situation Mood/Behavior: Appropriate, Cooperative, Pleasant Memory: Intact Attention: Attends to task Following Directions: Follows all directions without difficulty Safety Awareness: Full Awareness of Safety Precautions Communication Clear speech, able to make needs known Vision/Hearing No visual changes reported Systems Review Pain: 0/10 Scale: 7/10 Pain Location: right ankle Pain Frequency: With activity Integumentary: Right leg cast, PIV Cardiopulmonary: BP HR SpO2 Notes Supine 115/50 Seated 126/79 Initial lightheaded sensation After Mobility 131/79 Balance: Static Sitting: Good Dynamic Sitting: Good Static Standing: Good, with Rolling walker Dynamic Standing: Good, with Rolling walker Musculoskeletal: Lower Extremity Assessment: Right hip flexion and knee extension >3/5, ankle DF NT due to cast, pt able to wiggle toes Left hip flexion, knee extension and ankle DF >3/5 Functional Mobility Supine to Sit: Independent with HOB flat without bed features Sit to Stand: Modified Noble from EOB and from recliner Stand to Sit: Modified Noble to recliner Ambulation: Modified Noble, with Rolling Walker Ambulation Distance: 60 ft Gait Pattern/Training: Steady, NWB R LE pattern with RW. Pt reports feeling much more secure with RW compared to crutches Stairs: Pt unable to clear steps with rail and crutch Functional Tests BU AM-PAC 6 Clicks Mobility Short Form Turning from your back to your side while in a flat bed without using bedrails?: None Moving from lying on your back to sitting on the side of a flat bed without using bedrails?: None Moving to and from a bed to a chair (including a wheelchair)?: None Standing up from a chair using your arms (e.g. wheelchair or bedside chair)?: None Walking in hospital room?: None Climbing 3-5 steps with a railing?: Total BU AM-PAC Mobility Score: 21 [facility] Highest Level of Mobility Scale (JH-HLM) JH-HLM Daily Goal (Calculated): Walk 10 steps or more Patient's Goal: to decrease pain Clinical Summary Impairments: Pain, Decreased ROM, Decreased Strength, Decreased Balance Functional Limitations: None Prognostic Indicators: Motivated Rehab Potential: Good Assessment Patient is a 34 y.o. female admitted with right trimalleolar fracture after slipping on ice on 10/09.Pt is POD #1 right ankle ORIF. Physical Therapy consulted for functional mobility assessment and discharge planning. Patient's relevant medical history/co-morbidities and personal factors that affect the patient???s status include: age, lives alone, 12 exterior stairs, I ADL/IADL, I ambulation without device, works. Patient presents to physical therapy with the following impairments/activity limitations: Pain, Rom, strength, balance. Patient???s clinical presentation is stable and/or with uncomplicated characteristics. Pt demonstrated independent transfers and ambulation with RW and is cleared for d/c home. Physical Therapy discharge recommendation is home with PT. Complexity Level History: 3 or more personal factors and/or comorbidities Examination: addressing a total of 4 or more elements Clinical Presentation: stable and/or with uncomplicated characteristics Clinical Decision Making Low Complexity Evaluation was completed by a Physical Therapist using clinical judgment to determine the complexity of the evaluation based on the patient???s relevant past medical history and personal factors, examination of the body systems (using standardized test/measures) and the clinical presentation of the patient, based on the above assessment. Plan of Care Treatment Interventions: None Minimum Hospital Physical Therapy Frequency: Discharge PT - patient is safe to return home Today's Treatment Initial evaluation Education Provided Patient was educated via verbal instruction on role of PT, NWB R LE, safety with transfers and ambulation with RW, technique for scooting up/down stairs on buttock, use of IS and to perform 10x everyhour, to change position every 1-2 hours while awake, to have someone stay with her until her mother comes to stay with her early next week, home PT, no further PT needs while in acute setting, to continue to mobilize with nursing staff while remains in acute setting. Response to education:verbalized understanding. Total Minutes: 35 Minutes Low Complexity Level Evaluation: 20 minutes Therapeutic Activity / Functional Trainin minutes Anu Espinoza PT Lic# [id number] [1] Past Medical History: Diagnosis Date Anxiety Depression [2] Past Surgical History: Procedure Laterality Date ORIF ANKLE FRACTURE Right 10/15/2024 Preliminary Information: Surgeon: Lola Dawn MD; Location: [facility] Main OR; Service: Orthopaedics; Laterality: Right; * Plan of Care - Suyapa Barry OT - 10/16/2024 9:32 AM EST Occupational Therapy Initial Evaluation Patient Name: Agnes Paz Patient Today's Date: 10/16/2024 Admission Date: 10/15/2024 Date of onset of symptoms: 10/15/24 Date treatment started: 10/16/24 Date plan established: 10/16/24 Diagnosis: Closed fracture of right ankle, initial encounter [S82.891A] Closed displaced trimalleolar fracture of right ankle, initial encounter [S82.851A] Closed fracture of right ankle, sequela [S82.891S] Surgical Procedure: ORIF RIGHT ANKLE-fixation of the medial lateral and posterior malleolus Surgical Date: 10/15/2024 Reviewed: Medical Record, PMH, Allergies, and Medications Occupational Therapy Recommendations Home with OT Home with Support of Family / Friends OOB to chair with nursing for meals Ambulate to bathroom with nursing With RW with hop-ambulation Fall Risk Assessment High: Chair alarm activated, call phelps within patient reach and nursing staff notified and Left in recliner with feet up Precautions / Weight Bearing Fall Risk Right Lower Extremity: NWB in splint / cast, and recommend elevation on 2-3 pillows at rest PPE Utilized During Session: Therapist Wearing: Mask, Gloves Occupational Profile Lives With Alone Has Sister and Hit[id number]do in the area and states her Mother will be flying up from [place] to come stay with her ? 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, 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 Meaningful Activities No activities identified Patient's Goal for Therapy: To have less pain Pain Pain Score: 5 / 10 at rest in bed at start of session, 6 / 10 after mobility and self-care OOB Pain Location: Right ankle / lower leg Pain Type: Acute Pain Descriptors: Post-operative pain, Aching, Sore Cardiopulmonary 115/50 BP, 81 HR, 98% O2 RA - Supine at rest in bed at start of session 126/79 BP - Seated EOB 131/79 BP - Seated recliner chair after hop ambulation to bathroom with RW and self-care retraining Vision/Hearing/Vestibular No visual changes reported Wears glasses for distance / driving Hearing WNL Communication Clear speech, able to make needs known Cognition Orientation to Person, Place, Time, and Situation Mood / Behavior Appropriate, Cooperative, Pleasant, Alert, Anxious, Labile (tearful) Memory Intact Attention Attends to task Following Directions Follows all directions without difficulty Safety Awareness Full Awareness of Safety Precautions Full Awareness of Errors Made Full Awareness of Deficits Problem Solving Assistance required to generate / implement solutions Perception Intact Upper Extremity Assessment Right hand dominant Right UE Function WNL Left UE Function WNL Lower Extremity Assessment See Physical Therapy evaluation / notes for full lower extremity assessment. Self Care Feeding Independent, Chair Grooming Supervision, Standing at the Sink, with RW The patient was able to stand at sink with RW in front of her and maintain her Right LE NWB withoutLOB for hand hygiene tasks, with cues for posture and pacing Upper Body Dressing Set-up, Edge of Bed, Seated Lower Body Dressing Minimal Assistance, Edge of Bed The patient was able to doff/don her Left hospital sock seated at EOB. She is able to stand to RW with close S and perform CM tasks with min A in standing. She was also educated about seated level rock tech for CM tasks as an option when feeling fatigued or increased pain. She is needing min A for LB tasks at Right LE due to splint / cast and pain limiting. She was educated about options for clothing choices to facilitated with ease with LBD. She states she has been wearing nightgowns/dresses at home without underwear and will plan to do this again upon discharge. Toileting Supervision, Minimal Assistance, Toilet The patient was educated about safe tech and hand placement and Right LE positioning for toilet transfer without DME. She was able to perform with close S and mod vc's. She was able to perform seatedlevel hygiene at rosa area but is having difficulty with reach for hygiene at bottom in sitting andstanding, despite education about recommended strategies - due to poor reach given body habitus. She needed min A for standing level CM tasks at RW and was educated about rock tech with seated level task performance. She states she will plan to wear dresses without underwear upon discharge. She waseducated about recommendation to procure a bidet attachment to aid with hygiene at bottom which shewas open to, and also versa frame or grab bars or a commode for over toilet to aid with safety withtransfer Bathing The patient was educated about importance of keeping her incision dry and clean and not submerging.She was educated about recommendation to sit vs stand with washing tasks, and she reports she has ordered as shower chair. She has a sister and ehonihk-ya-exo who can help set this up in her home bathroom and her mother will be coming to stay with her on Tues Functional Mobility Supine to Sit: Independent (HOB Flat without bed features) Sit to Stand: Supervision, with RW with initial education in Right LE positioning, hand placement with good return from raised height EOB, from recliner, and from toilet Stand to Sit: Supervision, with RW with initial education in safe Right LE positioning, alignment, RW management, hand placement with good return to raised height EOB, to recliner, and to toilet Ambulation: Supervision, with Rolling Walker for hop-ambulation to/from bathroom in PACU with recliner chair follow, but with patient able to hop 60' with taking standing rest breaks every 15' with good carryover NWB Right LE and no overt LOB. Balance Static Sitting: Good Dynamic Sitting: Good Static Standing: Good, with Rolling walker Dynamic Standing: Good, with Rolling walker Functional Tests Putting on and taking off regular lower body clothing?: A Little Bathing (including washing, rinsing, drying)?: A Lot Toileting, which includes toilet, bedpan or urinal?: A Little Putting on and taking off regular upper body clothing?: A Little Taking care of personal grooming such as brushing teeth?: A Little Eating meals?: None BU AM_PAC Score: 18 Relevant Prior Medical History [Past Medical History] [Past Medical History] Diagnosis Date Anxiety Depression [Past Surgical History] [Past Surgical History] Procedure Laterality Date ORIF ANKLE FRACTURE Right 10/15/2024 Preliminary Information: Surgeon: Lola Dawn MD; Location: [facility] Main OR; Service: Orthopaedics; Laterality: Right; Assessment The patient is a 34 y.o. female referred to Occupational Therapy for functional deficits due to admitted with right trimalleolar fracture after slipping on ice on 10/09. Pt is POD #1 right ankle ORIF. NWB Right LE in splint/cast. Patient presents to Occupational Therapy with pain, decreased ROM, decreased strength, decreased balance, and decreased problem solving limiting independence with self care and mobility. Patient is currently below baseline with functional mobility, activity tolerance, bathing, dressing, toileting, grooming, meal preparation, home management, shopping, driving, working / volunteering, and community engagement. Patient will continue to benefit from Occupational Therapyto achieve the goals listed below and maximize function. Recommend discharge Home with OT Home with Support of Family / Friends OOB to chair with nursing for meals Ambulate to bathroom with nursing Ambulate with nursing 2-3 times / day outside of therapy when medically appropriate. Low Complexity Evaluation was completed based on patients occupational profile, relevant prior medical history, therapist's clinical judgment, standardized assessment(s), and findings of 3-5 performance deficits limiting function as noted in the above assessment. Goals Patient will be Modified Noble with toilet transfer in 7-10 days. Patient will be Modified Noble with CM/hygiene tasks associated with toileting in 7-10 days. Patient will be Modified Noble with LBD tasks using modified clothing and AE as indicated in7-10 days. Plan of Care Treatment Interventions ADL Training, Functional Mobility Training, Patient / Family Education, Equipment Evaluation / Education Prognostic Indicators Motivated, Good Response to Prior Therapy Rehab Potential Good OT Frequency Continue OT a minimum of 1x week Today's Treatment Patient educated regarding role of Occupational Therapy, safety with self-care, functional mobility, fall prevention measures and discharge planning/recommendations. Patient was educated regarding her Right LE precautions, weight bearing, benefit of early mobilization and participation in self-careand positioning/elevation for edema and pain management. She was educated regarding AE/DME which may be beneficial to have during her recovery: RW, Commode or grab bar/versa frame bars at toilet, bidet, shower chair, LHAE. She initiated safety retraining with mobility and self-care with one-person a ssist using a RW - see above for status and cues needed. Her mother will be flying up from [place] to stay with her but is not due to arrive until Saturday. She does have a sister and ipctxal-tv-[id number] in [facility]. Her sister and caakevx-fi-ppw have been assisting her with bumping up/down her stairs on her bottom and some IADLs since her accident. She is instructed to call for staff assist with out of bedactivities. Updated nursing staff regarding patient's functional level. Total Skilled Minutes: 35 Evaluation: 15 minutes Therapeutic Activity: 20 minutes Billing Completed: Yes Suyapa Barry OT, [id number] * Assessment & Plan Note - Raimundo Florez MD - 10/16/2024 7:36 AM EST Associated Problem(s): Closed fracture of right ankle 34 y/o F w/ R trimalleolar ankle fracture, now s/p ORIF of R distal fibula, posterior malleolus, and R medial malleolus with Dr. Dawn performed on 10/15/24 - doing well post-operatively - difficulty controlling pain overnight, currently better - plan to work with PT/OT; disposition pending. Likely discharge home today Orthopaedic Recommendations: Weightbearing restrictions: NWB RLE Other Precautions: None Brace/Immobilization: Cast/splint in place. Should be left in place and only be adjusted or removedby ortho team Anticoagulation Recommendations: Lower extremity fracture protocol = SC enoxaparin while admitted, switch to ASA 81mg bid x 28d on discharge Antibiotics plan: call center specialist to OR Sutures: N/A Dressing plan: Splint, remove POD14 for wound check X-ray plan: 2 weeks XR at first clinic visit Outpatient follow-up: Plan for outpatient clinic visit 2 weeks post-op * Plan of Care - Luisito Izaguirre RN - 10/15/2024 10:29 PM EST Assumed care overnight .VSS pt alert x4 states severe right ankle pain .See MAR for medications administered.Covering provider contacted multiple times and additional doses of oxycodone ordered and given.Pt able to rest for periods of time.Right leg remains in cast and trace wrap elevated+CSM.Pt tolerates diet no n/v good oral intake.Voids using bedpan w/o difficulty .Assesment per flow sheets. Problem: Pain - Adult Goal: Verbalizes/displays adequate comfort level or baseline comfort level Outcome: Progressing Problem: Safety-Adult Goal: Free from fall injury Outcome: Progressing Problem: Discharge Planning Goal: Discharge to home or other facility with appropriate resources Outcome: Progressing Problem: Altered Nutrient Intake Goal: Nutrient intake appropriate for improving, restoring or maintaining nutritional needs Outcome: Progressing Problem: Chronic Conditions and Co-morbidities Goal: Patient's chronic conditions and co-morbidity symptoms are monitored and maintained or improved Outcome: Progressing Problem: Mobility Goal: Improve mobility to highest level of function Outcome: Progressing Problem: Post operative care Goal: Post-operative patient will remain free of complications following surgery Outcome: Progressing Problem: Knowledge Deficit Goal: Patient/family/caregiver demonstrates understanding of disease process, treatment plan, medications, and discharge instructions Outcome: Progressing * Assessment & Plan Note - Raimundo Florez MD - 10/15/2024 6:07 PM EST Associated Problem(s): Closed fracture of right ankle 34 y/o F w/ R trimalleolar ankle fracture, now s/p ORIF of R distal fibula, posterior malleolus, and R medial malleolus with Dr. Dawn performed on 10/15/24 Orthopaedic Recommendations: Weightbearing restrictions: NWB RLE Other Precautions: None Brace/Immobilization: Cast/splint in place. Should be left in place and only be adjusted or removedby ortho team Anticoagulation Recommendations: Lower extremity fracture protocol = SC enoxaparin while admitted, switch to ASA 81mg bid x 28d on discharge Antibiotics plan: call center specialist to OR Sutures: N/A Dressing plan: Splint, remove POD14 for wound check X-ray plan: 2 weeks XR at first clinic visit Outpatient follow-up: Plan for outpatient clinic visit 2 weeks post-op * Op Note - Lola Dawn MD - 10/15/2024 2:57 PM EST Patient: Agnes Paz Date of : 1990 Age: 34 y.o. Sex: female Date of Procedure: 10/15/2024 Preoperative Diagnosis: Pre-Op Diagnosis Codes: * Closed fracture of right ankle, initial encounter [S82.891A] Trimalleolar ankle fracture Postoperative Diagnosis: * No post-op diagnosis entered * Trimalleolar ankle fracture Procedure: Right ORIF RIGHT ANKLE-fixation of the medial lateral and posterior malleolus Surgeon: Surgeons and Role: * Lola Dawn MD - Primary Estimated Blood Loss: 50 mL Specimens: No specimens collected Condition: stable Complications: None Anesthesia Type: No Preference Anesthesiologist: Salinas Ewing MD; Mahsa Berry MD Student Nurse Rn Psychiatric: Jani Patino Tourniquet: Total Tourniquet Time Documented: Thigh (Right) - 130 minutes Total: Thigh (Right) - 130 minutes Surgical Implants: No. Used Inv. Item Sound Designer Implant Name Model No. Lot No. Serial No. LRB Action 1 CORTEX SCREW 2.7MM T8 L22MM ([id number]) [employer] - DIV [employer] (WD) CORTEX SCREW 2.7MM T8 L22MM ([id number]) - [id number] NA Right Implanted 1 SCREW CORTEX 3.5X20 000389 ([id number]) [employer] - DIV [employer] () SCREW CORTEX 3.5X20 [id number] ([id number]) - [id number] NA Right Implanted 1 PANGEA SMALL FRAGMENT 3.5 LOCKING SCREW X 18MM ([id number]) [employer] - DIV [employer]() PANGEA SMALL FRAGMENT 3.5 LOCKING SCREW X 18MM ([id number]) - [id number] NA Right Implanted 1 SCREW 3.5X18MM CORTEX TI AXSOS ([id number]) [employer] - DIV [employer] () SCREW 3.5X18MM CORTEX TI [employer] ([id number]) - [id number] NA Right Implanted 1 SCREW 3.5X14MM CORTEX TI [employer] ([id number]) [employer] - DIV [employer] () SCREW 3.5X14MM CORTEX TI [employer] ([id number]) - [id number] NA Right Implanted 1 SCREW BONE LOCKING NON STERILE T8 PANGEA 2.7X14MM ([id number]) [employer] - DIV [employer] () SCREW BONE LOCKING NON STERILE T8 PANGEA 2.7X14MM ([id number]) - [id number] NA Right Implanted 1 LOCKING SCREW 2.7MM T8 L16MM ([id number]) [employer] - DIV [employer] () LOCKING SCREW 2.7MM T8 L16MM ([id number]) - [id number] NA Right Implanted 1 DISTAL POSTEROLATERAL FIBULA PLATE R 2.7/3.5MM 123MM/7 HOLES ([id number]) [employer] () DISTAL POSTEROLATERAL FIBULA PLATE R 2.7/3.5MM 123MM/7 HOLES ([id number]) - [id number] NA Right Implanted 2 SCREW 42MM 4MM CNN NS BN ASNS LF ([id number]) [employer] - DIV [employer] () SCREW 42MM 4MM [employer] NS BN ASNS LF ([id number]) - [id number] NA Right Implanted 1 CORTEX SCREW 2.7MM T8 L18MM ([id number]) [employer] - DIV [employer] () CORTEX SCREW 2.7MM T8 L18MM ([id number]) - [id number] NA Right Implanted 1 ASNIS JANES SCREW 4.0X46 TI ([id number]) [employer] - DIV [employer] (WD) ASNIS JANES SCREW 4.0X46 TI ([id number]) - [id number] NA Right Implanted Surgical Findings: Severely comminuted fracture distal fibula Minimally displaced posterior malleolus fracture Minimally displaced medial malleolus fracture Surgical Indications: Agnes Paz is a 34 y.o. female who sustained a mechanical fall on ice. Exam and Diagnostics are consistent with unstable posterior malleolus fracture. Treatment options were discussed with the patient including continuation of nonoperative management versus the above mentioned surgical procedure. We went over the risks and benefits to this procedure as well as the recovery time and the patient wished to proceed. Surgical Procedure: The patient was identified in the preoperative holding area. The site was confirmed. Informed consent was obtained. A popliteal block was performed by the anesthesia service in the preoperative holding area. The patient was brought to the operating room, made comfortable under general anesthesia. She was then carefully placed in the lateral decubitus position using a beanbag for stabilization. All bony prominences were well-padded and an axillary roll was placed. She was then prepped and drapedin usual sterile manner followed by a surgical timeout confirming patient's site and antibiotic administration. Then, a thigh tourniquet was inflated to 275 mmHg. A posterior lateral approach to the ankle was made. An incision was made along the posterior aspectof the fibula with the center of the incision at the apex of the fracture. Once the skin was incised careful blunt dissection was used to identify the peroneal fascia. It was opened posterior to the peroneal tendons. The peroneal muscles and tendons were reflected anteriorly and the posterior aspect of the fibula was inspected. A peterson elevator was used to clear the posterior lateral aspect of the fibula. The fracture was highly comminuted and more than 5 pieces. The shaft however was intact. A pointed reduction clamp was utilized to control the butterfly pieces and reduce the fracture. A Nada Pangia posterior lateral fibular plate was selected. Care was taken to make sure 3 screw holes were proximal to the fracture. It was carefully placed onto the posterior lateral aspect of the fibula and secured with K wires. Image was checked with AP and lateral plane to confirm satisfactory plate location. It was then secured to the proximal aspect of the fibula with three 3.5 millimeter screws. 1 of those being a locking screw. It was then attached to the distal aspect of the plate with a cortical screw with excellent purchase. Several more screw holes were filled with locking screws. Image was taken multiple times to confirm satisfactory fracture reduction of the fibula. Due to the splintered fragmented nature with the multiple fragmentary pieces 0 Vicryl was used for cerclagearound the fibula to contain the butterfly fragments. After the fibula was stabilized attention was turned to the posterior malleolus. Through the same incision the posterior tibia was inspected. The fracture was identified by small amount of hematoma but it was not displaced. AP and lateral images were obtained to confirm a well reduced posterior malleolus fracture. As it was nondisplaced and the periosteum was intact, I chose to secure it with two 4 mm cannulated screws. Guidewires were placed measured and overdrilled. image was confirmed used to confirm K wire location and two 4.0 cannulated screws were placed with excellent purchase. The ankle was then taken through a stress test and the syndesmosis was stable however there is a valgus opening due to the small medial malleoli are piece. I chose to stabilize this and for collicular fragment with a 4 mm cannulated screw. A guidewire was placed percutaneously to stabilize the medial malleolus fracture fragment. Once the guidewire was well aligned, a 4.0 millimeter screw was placed with excellent purchase. Final images were obtained to confirm satisfactory stable reduction. Final irrigation was performed, The fascia was closed with 0 Vicryl. The subcutaneous closure was performed with 2-0 Vicryl and 3-0 Monocryl and skin closure was performed with 3-0 nylon. A dry sterile dressing was then applied. The patient was placed into posterior and U copiously padded splint, awoken from anesthesia, and brought to the recovery room in stable condition. Plan: Postoperatively, the patient will be nonweightbearing and use a splint for immobilization purposes,be under strict elevation precautions; will be on aspirin for DVT prophylaxis and will follow up in2 weeks' time for removal of sutures. Immobilization will consist of short leg cast and activity level will be nonweightbearing. At 6 weeks she may be advanced into progressive weightbearing range ofmotion exercises and use of a tall walker boot. Lola Dawn MD * Brief Op Note - Raimundo Florez MD - 10/15/2024 2:57 PM EST Brief Operative Procedure Note Patient: Agnes Paz Date of : 1990 Age: 34 y.o. Sex: female Date of Procedure: 10/15/2024 Diagnoses: Pre-Op Diagnosis Codes: * Closed fracture of right ankle, initial encounter [S82.891A] Post-Op Diagnosis Codes: * Closed fracture of right ankle, initial encounter [S82.891A] Procedure: Procedure(s): ORIF ANKLE Surgeon: Surgeons and Role: * Lola Dawn MD - Primary LHS Assist: Inset Cutter: Seema Mercer RN Scrub Person: Ranjan Levi CST Anesthesia Type: Block, General Findings: same as post op diagnosis Intra-Operative Fluids: Blood Loss: 100 cc Anesthesia Encounters Anesthesia Encounter - Episode ID [id number] Intraprocedure I/O Totals None Blood Transfusion: none Specimens: No specimens collected Drains: none Implants: * No implants in log * Complications: None Condition: good Signed by: Raimundo Florez MD * Assessment & Plan Note - Raimundo Florez MD - 10/15/2024 1:58 PM EST Associated Problem(s): Closed fracture of right ankle - OR today with Dr. Dawn Orthopaedic Recommendations: Weightbearing restrictions: NWB RLE Other Precautions: None Brace/Immobilization: Cast/splint in place. Should be left in place and only be adjusted or removedby ortho team Anticoagulation Recommendations: Lower extremity fracture protocol = SC enoxaparin while admitted, switch to ASA 81mg bid x 28d on discharge Antibiotics plan: call center specialist to OR Sutures: N/A Dressing plan: Splint, remove POD14 for wound check X-ray plan: 2 weeks XR at first clinic visit Outpatient follow-up: Plan for outpatient clinic visit 2 weeks post-op documented in this encounter Plan of Treatment Upcoming Encounters Date Type Department Care Team (Late st Contact Info) Description 11/05/2024 11:30 AM EST Office Visit Department of Orthopedic Surgery ([address] [place] [address]) [address] [place] [address], [address] [place] [id number] Ryan Eng, ENIO [address] [facility] [place] [address] 11/26/2024 1:30 PM EDT Office Visit Department of Orthopedic Surgery ([address] [place] [address]) [address] [place] [id number] Lola Dawn MD [address] [place] [address] Scheduled Referrals Name Type Priority Associated Diagnoses Order Schedule Ambulatory Referral to Home Health Outpatient Referral Routine Closed fracture of right ankle, sequela Ordered: 10/19/2024 documented as of this encounter Procedures Procedure Name Priority Date/Time Associated Diagnosis Comments CBC Routine 10/16/2024 6:11 AM EST COMPREHENSIVE METABOLIC PANEL Routine 10/16/2024 6:11 AM EST CBC STAT 10/15/2024 6:58 PM EST COMPREHENSIVE METABOLIC PANEL STAT 10/15/2024 6:58 PM EST FL MORE THAN 1 HOUR Routine 10/15/2024 5 :53 PM EST [place] OPEN TX TRIMALLEOLAR ANKLE FX W/O FIXJ PST LIP 10/15/2024 1:52 PM EST Closed fracture of right ankle, initial encounter US ANESTHESIA POINT OF CARE ULTRASOUND Routine 10/15/2024 1:41 PM EST POCI HCG, URINE Routine 10/15/2024 1:07 PM EST documented in this encounter Results * (ABNORMAL) Comprehensive Metabolic Panel (10/16/2024 6:11 AM EST) Sodium 137 135 - 146 mmol/L [address] 10/16/2024 7:16 AM [facility] Potassium 4.2 3.4 - 5.2 mmol/L [address] 10/16/2024 7:16 AM [facility] Comment:Plasma sample Chloride 104 98 - 110 mmol/L [address] 10/16/2024 7:16 AM [facility] Total CO2/Bicarbonate 23(L) 24 - 32 mmol/L [address] 10/16/2024 7:16 AM [facility] Anion Gap 10 2 - 15 mmol/L [address] 10/16/2024 7:16 AM [facility] BUN 5(L) 7 - 24 mg/dL [address] 10/16/2024 7:16 AM [facility] Creatinine, Blood 0.72 0.50 - 1.10 mg/dL [address] 10/16/2024 7:16 AM [facility] Glucose, Blood 120(H) 70 - 118 mg/dL [address] 10/16/2024 7:16 AM [facility] Calcium 8.7 8.5 - 10.5 mg/dL [address] 10/16/2024 7:16 AM [facility] Total Protein 6.7 6.2 - 8.2 g/dL [address] 10/16/2024 7:16 AM [facility] Albumin, Blood 3.2(L) 3.4 - 5.2 g/dL [address] 10/16/2024 7:16 AM [facility] Globulin Result 3.5 2.0 - 4.0 g/dL [address] 10/16/2024 7:16 AM [facility] AST (SGOT) 35 11 - 40 U/L [address] 10/16/2024 7:16 AM [facility] ALT (SGPT) 17 4 - 35 U/L [address] 10/16/2024 7:16 AM [facility] Alkaline Phosphatase 70 30 - 115 U/L [address] 10/16/2024 7:16 AM [facility] Total Bilirubin <0.3 0.0 - 1.2 mg/dL [facility] [id number] 10/16/2024 7:16 AM [facility] Estimated GFR(CKD-EPI) 108 >=60 mL/min/BS A [facility] [id number] 10/16/2024 7:16 AM [facility] Comment:This Cr-based equati on underestimates GFR in patients with increased muscle mass. Order CYSTATIN C WITH GFR ESTIMATE, [id number], if additional evaluation of renal function is needed. Blood PERIPHERAL BLOOD SPECIMEN / Unknown Venipuncture / Unknown 10/16/2024 6:11 AM EST 10/16/2024 7:16 AM EST Lola Dawn MD LAB [place]OD [place] [address] * (ABNORMAL) CBC (10/16/2024 6:11 AM EST) WBC 9.83 4.00 - 11.00 K/uL 10/16/2024 6:46 AM [facility] RBC 4.01(L) 4.10 - 5.10 M/uL 10/16/2024 6:46 AM [facility] Hemoglobin 11.1(L) 12.0 - 15.3 g/dL 10/16/2024 6:46 AM [facility] Hematocrit 34.0(L) 36.0 - 45.0 % 10/16/2024 6:46 AM [facility] MCV 85 80 - 96 fL 10/16/2024 6:46 AM [facility] RDW 14.0 11.6 - 14.6 % 10/16/2024 6:46 AM [facility] Platelet Count 358 150 - 450 K/uL 10/16/2024 6:46 AM [facility] Blood PERIPHERAL BLOOD SPECIMEN / Unknown Venipuncture / Unknown 10/16/2024 6:11 AM EST 10/16/2024 6:28 AM EST Lola Dawn MD LAB BLOOD ORDERABLES Final Resu lt [facility] [address] [place] [address] * (ABNORMAL) Comprehensive Metabolic Panel (10/15/2024 6:58 PM EST) Sodium 135 135 - 146 mmol/L [address] 10/15/2024 7:25 PM [facility] Potassium 4.3 3.4 - 5.2 mmol/L [address] 10/15/2024 7:25 PM [facility] Comment:Plasma sample Chloride 103 98 - 110 mmol/L [address] 10/15/2024 7:25 PM [facility] Total CO2/Bicarbonate 21(L) 24 - 32 mmol/L [address] 10/15/2024 7:25 PM [facility] Anion Gap 11 2 - 15 mmol/L [address] 10/15/2024 7:25 PM [facility] BUN 6(L) 7 - 24 mg/dL [address] 10/15/2024 7:25 PM [facility] Creatinine, Blood 0.75 0.50 - 1.10 mg/dL [address] 10/15/2024 7:25 PM [facility] Glucose, Blood 129(H) 70 - 118 mg/dL [address] 10/15/2024 7:25 PM [facility] Calcium 8.5 8.5 - 10.5 mg/dL [address] 10/15/2024 7:25 PM [facility] Total Protein 7.0 6.2 - 8.2 g/dL [address] 10/15/2024 7:25 PM [facility] Albumin, Blood 3.3(L) 3.4 - 5.2 g/dL [address] 10/15/2024 7:25 PM [facility] Globulin Result 3.7 2.0 - 4.0 g/dL [address] 10/15/2024 7:25 PM [facility] AST (SGOT) 24 11 - 40 U/L [address] 10/15/2024 7:25 PM [facility] ALT (SGPT) 16 4 - 35 U/L [address] 10/15/2024 7:25 PM [facility] Alkaline Phosphatase 78 30 - 115 U/L [facility] [id number] 10/15/2024 7:25 PM [facility] Total Bilirubin <0.3 0.0 - 1.2 mg/dL [facility] [id number] 10/15/2024 7:25 PM [facility] Estimated GFR(CKD-EPI) 103 >=60 mL/min/BS A [facility] [id number] 10/15/2024 7:25 PM [facility] Comment:This Cr-based equati on underestimates GFR in patients with increased muscle mass. Order CYSTATIN C WITH GFR ESTIMATE, [id number], if additional evaluation of renal function is needed. Blood PERIPHERAL BLOOD SPECIMEN / Unknown Venipuncture / Unknown 10/15/2024 6:58 PM EST 10/15/2024 7:00 PM EST us Lola Dawn MD LAB BLOOD ORDERABLES Final Resu lt Performing Organization Address City/State/[place] Co de Phone Number [place] [phone] * (ABNORMAL) CBC (10/15/2024 6:58 PM EST) WBC 15.39(H) 4.00 - 11.00 K/uL 10/15/2024 7:03 PM [facility] RBC 4.31 4.10 - 5.10 M/uL 10/15/2024 7:03 PM [facility] Hemoglobin 11.8(L) 12.0 - 15.3 g/dL 10/15/2024 7:03 PM [facility] Hematocrit 36.4 36.0 - 45.0 % 10/15/2024 7:03 PM [facility] MCV 85 80 - 96 fL 10/15/2024 7:03 PM [facility] RDW 13.7 11.6 - 14.6 % 10/15/2024 7:03 PM [facility] Platelet Count 376 150 - 450 K/uL 10/15/2024 7:03 PM [facility] Blood PERIPHERAL BLOOD SPECIMEN / Unknown Venipuncture / Unknown 10/15/2024 6:58 PM EST 10/15/2024 7:00 PM EST Lola Dawn MD LAB BLOOD ORDERABLES Final Resu lt Performing Organization Address [facility]/[place] [address] * [place] More Than 1 Hour (10/15/2024 5:53 PM EST) Narrative SYSTEMGENERATED, DOCUMENTATION - 10/15/2024 5:53 PM EST This is a non-reportable study used for image storage. ??It has been automatically finalized and does not contain a result. ?? us Lola Dawn MD IMG FLUOROSCOPY ORDERABLES Viktoria l Result * US Anesthesia Point Of Care Ultrasound (10/15/2024 1:41 PM EST) Narrative SYSTEMGENERATED, DOCUMENTATION - 10/15/2024 1:41 PM EST This is a non-reportable study used for image storage. ??It has been automatically finalized and does not contain a result. ?? Mahsa Berry MD IMG US ORDERABLES Final R esult * POCT HCG, urine (10/15/2024 1:07 PM EST) POC HCG, UR NEG NEG, Invalid 10/15/2024 1:10 PM EST [facility] Urine 10/15/2024 1:07 PM EST 10/15/2024 1:10 PM EST Lola Dawn MD POCT ORDERABLES - DEVICE Final Result Performing Organization Address City/[facility]/[place] [address] documented in this encounter Visit Diagnoses Diagnosis Closed fracture of right ankle, sequela Closed fracture of right ankle, sequela Morbid obesity with BMI of 40.0-44.9, adult (HCC) Substance use Former smoker Personal history of tobacco use, presenting hazards to health Closed displaced trimalleolar fracture of right ankle, initial encounter documented in this encounter Admitting Diagnoses Diagnosis Closed fracture of right ankle Closed displaced trimalleolar fracture of right ankle, initial encounter Closed fracture of right ankle, sequela documented in this encounter Administered Medications Inactive Administered Medications - up to 3 most recent administrations Medication Order MAR Action Action Date Dose Rate Site acetaminophen (TYLENOL) 650 mg/20.3 mL solution 975 mg 975 mg, Oral, Every 8 hours scheduled, First dose on Sat10/16/24 at 0000, Until Discontinued, Recovery & Floor acetaminophen (TYLENOL) tablet 975 mg 975 mg, Oral, Every 8 hours scheduled, First dose on Sat10/16/24 at 0000, Until Discontinued, Recovery [facility] Floor Given 10/19/2024 8:28 AM EST 975 mg Given 10/18/2024 11:42 PM EST 975 mg Given 10/18/2024 4:05 PM EST 975 mg bisacodyl (DULCOLAX) EC tablet 10 mg 10 mg, Oral, Daily PRN, Starting on Reshma 10/15/24 at 2027, Until Sat10/19/24 at 1545, constipation, 3rd line; Give 12 hours after magnesium hydroxide for unrelieved constipation bisacodyl (DULCOLAX) suppository 10 mg 10 mg, Rectal, Daily PRN, Starting on Reshma 10/15/24 at 2027, Until Sat10/19/24 at 1545, constipation, To be used if patient NOT tolerating PO busPIRone (BUSPAR) tablet 10 mg 10 mg, Oral, 3 times daily, First dose on Sat10/15/24 at 2200, Until Discontinued Given 10/19/2024 8:28 AM EST 10 mg Given 10/18/2024 10:20 PM EST 10 mg Given 10/18/2024 4:05 PM EST 10 mg ceFAZolin (ANCEF) IVPB 1 g (premix) 1 g, Intravenous, Administer over 30 Minutes, Every 8 hours, First dose on Reshma 10/15/24 at 2200, For 2 doses, Recovery & Floor, Time next antibiotic dose 8 hours from the time of the last pre-op or intra-op dose., Indication: Other, Specify: Surgical Prophylaxis New Bag 10/16/2024 6:26 AM EST 1 g 100 mL/hr New Bag 10/15/2024 9:27 PM EST 1 g 100 mL/hr citalopram (CeleXA) tablet 40 mg 40 mg, Oral, Daily, First dose on Sat10/16/24 at 0900, Until Discontinued Given 10/19/2024 8:29 AM EST 40 mg Given 10/18/2024 9:29 AM EST 40 mg Given 10/17/2024 8:55 AM EST 40 mg cyclobenzaprine (FLEXERIL) tablet 10 mg 10 mg, Oral, Once as needed, 1 dose, Starting on Sat10/18/24 at 2131, Until Sat10/18/24 at 2220, muscle spasms Given 10/18/2024 10:20 PM EST 10 mg diazePAM (VALIUM) tablet 2 mg 2 mg, Oral, Once, 1 dose, On Sat10/15/24 at 2330 Given 10/15/2024 10:39 PM EST 2 mg docusate sodium (COLACE) capsule 100 mg 100 mg, Oral, 2 times daily, First dose on Sat10/19/24 at 0930, Until Discontinued Given 10/19/2024 10:20 AM EST 100 mg enoxaparin (LOVENOX) injection 40 mg 40 mg, Subcutaneous, Every 24 hours scheduled, First dose on Sat10/16/24 at 0900, Until Discontinued Given 10/19/2024 8:29 AM EST 40 mg Given 10/18/2024 9:29 AM EST 40 mg Given 10/17/2024 9:03 AM EST 40 mg gabapentin (NEURONTIN) capsule 100 mg 100 mg, Oral, 3 times daily, First dose on Sat10/15/24 at 2200, Until Discontinued, Recovery & Floor Given 10/19/2024 8:29 AM EST 100 mg Given 10/18/2024 10:20 PM EST 100 mg Given 10/18/2024 4:05 PM EST 100 mg HYDROmorphone (PF) (DILAUDID) injection 0.2 mg 0.2 mg, Intravenous, Every 5 min PRN, Starting on Sat10/15/24 at 1655, Until Sat10/15/24 at 2023, moderate (4-6) pain, Recovery (only) Given 10/15/2024 6:33 PM EST 0.2 mg Given 10/15/2024 6:27 PM EST 0.2 mg Given 10/15/2024 6:19 PM EST 0.2 mg HYDROmorphone (PF) (DILAUDID) injection 0.2 mg 0.2 mg, Intravenous, Every 3 hours PRN, Starting on Sat10/16/24 at 1007, Until Sat10/16/24 at 1531, breakthrough pain Given 10/16/2024 12:02 PM EST 0.2 mg HYDROmorphone (PF) (DILAUDID) injection 0.2 mg 0.2 mg, Intravenous, Every 3 hours PRN, Starting on Sat10/16/24 at 1531, Until Sat10/16/24 at 1625, breakthrough pain Given 10/16/2024 3:34 PM EST 0.2 mg HYDROmorphone (PF) (DILAUDID) injection 0.2 mg 0.2 mg, Intravenous, Every 3 hours PRN, Starting on Sat10/16/24 at 1625, Until Sat10/19/24 at 1545, breakthrough pain Given 10/18/2024 11:46 PM EST 0.2 mg Given 10/18/2024 8:38 PM EST 0.2 mg Given 10/18/2024 2:36 AM EST 0.2 mg HYDROmorphone (PF) (DILAUDID) injection 0.5 mg 0.5 mg, Intravenous, Every 5 min PRN, Starting on Sat10/15/24 at 1655, Until Sat10/15/24 at 2023, severe (7-10) pain, Recovery (only) Given 10/15/2024 6:47 PM EST 0.5 mg Given 10/15/2024 5:41 PM EST 0.5 mg ketorolac (TORADOL) injection 15 mg 15 mg, Intravenous, Once, On Sat10/15/24 at 1900, For 1 dose, Recovery & Floor Given 10/15/2024 6:04 PM EST 15 mg ketorolac (TORADOL) injection 15 mg 15 mg, Intravenous, Once, On Sat10/16/24 at 0330, For 1 dose, Recovery & Floor Given 10/16/2024 2:43 AM EST 15 mg ketorolac (TORADOL) injection 15 mg 15 mg, Intravenous, Every 6 hours, First dose on Sat10/16/24 at 1700, For 4 doses Given 10/17/2024 11:25 AM EST 15 mg Given 10/17/2024 6:01 AM EST 15 mg Given 10/16/2024 10:48 PM EST 15 mg lamoTRIgine (LaMICtal) tablet 150 mg 150 mg, Oral, Daily, First dose on Sat10/16/24 at 0900, Until Discontinued Given 10/19/2024 8:28 AM EST 150 mg Given 10/18/2024 9:29 AM EST 150 mg Given 10/17/2024 8:55 AM EST 150 mg loratadine (CLARITIN) tablet 10 mg 10 mg, Oral, Daily, First dose on Sat10/16/24 at 0900, Until Discontinued Given 10/19/2024 8:28 AM EST 10 mg Given 10/18/2024 9:29 AM EST 10 mg Given 10/17/2024 8:55 AM EST 10 mg magnesium hydroxide (MILK OF MAGNESIA) 400 mg/5 mL suspension 30 mL 30 mL, Oral, Daily PRN, Starting on Reshma 10/15/24 at 2028, Until Sat10/19/24 at 1545, constipation, Give 12 hours after polyethylene glycol for unrelieved constipation methocarbamoL (ROBAXIN) 1,000 mg in sodium chloride 0.9% (NS) 50 mL IVPB 1,000 mg, Intravenous, Administer over 10 Minutes, Once, On Reshma 10/15/24 at 1930, For 1 dose, Not to exceed 300 mg/min. Patient should be recumbent during and for 10-15 minutes following IV administration. 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 Acute Pain Service: Yes New Bag 10/15/2024 7:12 PM EST 1,000 mg 360 mL/ hr methocarbamoL (ROBAXIN) tablet 500 mg 500 mg, Oral, 4 times daily, First dose on Sat10/16/24 at 1400, Until Discontinued Given 10/19/2024 1:19 PM EST 500 mg Given 10/19/2024 8:28 AM EST 500 mg Given 10/18/2024 10:20 PM EST 500 mg ondansetron (ZOFRAN) injection 4 mg 4 mg, Intravenous, Every 8 hours PRN, nausea, vomiting, if NOT tolerating PO, Starting on Reshma 10/15/24 at 1907, Recovery & Floor ondansetron (ZOFRAN-ODT) disintegrating tablet 4 mg 4 mg, Oral, Every 8 hours PRN, Starting on Sat10/15/24 at 1907, Until Sat10/19/24 at 1545, nausea, vomiting, if tolerating PO, Recovery & Floor Given 10/18/2024 1:16 PM EST 4 mg Given 10/17/2024 1:19 PM EST 4 mg oxyCODONE (ROXICODONE) tablet 10 mg 10 mg, Oral, Every 4 hours PRN, Starting on Sat10/15/24 at 1907, Until Sat10/16/24 at 1623, severe (7-10) pain, Recovery & Floor Given 10/16/2024 2:28 PM EST 1 0 mg Given 10/16/2024 10:20 AM EST 10 mg Given 10/16/2024 6:30 AM EST 10 mg oxyCODONE (ROXICODONE) tablet 10 mg 10 mg, Oral, Once, 1 dose, On Sat10/15/24 at 2200 Given 10/15/2024 9:25 PM EST 10 mg oxyCODONE (ROXICODONE) tablet 10 mg 10 mg, Oral, Every 3 hours PRN, Starting on Sat10/16/24 at 1623, Until Sat10/19/24 at 1545, severe (7-10) pain Given 10/19/2024 11:39 AM EST 10 mg Given 10/19/2024 8:29 AM EST 10 mg Given 10/19/2024 5:23 AM EST 10 mg oxyCODONE (ROXICODONE) tablet 5 mg 5 mg, Oral, Once, 1 dose, On Sat10/15/24 at 2330 Given 10/15/2024 10:39 PM EST 5 mg oxyCODONE (ROXICODONE) tablet 5 mg 5 mg, Oral, Every 3 hours PRN, Starting on Sat10/16/24 at 1623, Until Sat10/19/24 at 1545, moderate (4-6) pain Given 10/18/2024 4:05 PM EST 5 mg Given 10/17/2024 8:56 AM EST 5 mg Given 10/17/2024 4:55 AM EST 5 mg polyethylene glycol (MIRALAX) packet 17 g 17 g, Oral, Daily PRN, Starting on Reshma 10/15/24 at 2028, Until 10/19/24 at 1545, constipation, first line sennosides (SENOKOT) tablet 17.2 mg 17.2 mg, Oral, At bedtime, First dose on Reshma 10/15/24 at 2100, Until Discontinued, Recovery & Floor Given 10/18/2024 9:08 PM EST 17.2 mg Given 10/17/2024 8:26 PM EST 17.2 mg Given 10/16/2024 9:49 PM EST 17.2 mg documented in this encounter Active and Recently Administered Medications Times are shown in EST. Scheduled Medication Order 10/17/2024 10/18/2024 10/19/2024 acetaminophen (TYLENOL) 650 mg/20.3 mL solution 975 mg(Linked Group 1) 975 mg, Oral, Every 8 hours scheduled, First dose on 10/16/24 at 0000, Until Discontinued, Recovery & Floor 0014 (See Alternative - Provider: Kiersten Pisano RN)0854 (See Alternative - Provider: Karen Mulligan RN)1520 (See Alternative - Provider: Karen Mulligan RN)2342 (See Alternative - Provider: Jose Garcia RN) 0754 (See Alternative - Provider: Karen Mulligan RN)1605 (See Alternative - Provider: Karen Mulligan RN)2342 (See Alternative - Provider: Katie Hamilton, CHUCHO) 0828 (See Alternative - Provider: Karen Mulligan RN) acetaminophen (TYLENOL) tablet 975 mg(Linked Group 1) 975 mg, Oral, Every 8 hours scheduled, First dose on Sat10/16/24 at 0000, Until Discontinued, Recovery & Floor 0014 (Given - Provider: Kiersten Pisano RN)0854 (Given - Provider: Karen Mulligan RN)1520 (Given - Provider: Karen Mulligan RN)2342 (Given - Provider: Jose Garcia RN) 0754 (Given - Provider: Karen Mulligan RN)1605 (Given - Provider: Karen Mulligan RN)2342 (Given - Provider: Katie Hamilton RN) 0828 (Given - Provider: Karen Mulligan RN) busPIRone (BUSPAR) tablet 10 mg 10 mg, Oral, 3 times daily, First dose on Sat10/15/24 at 2200, Until Discontinued 0855 (Given - Provider: Karen Mulligan RN)1520 (Given - Provider: Karen Mulligan RN)2228 (Given - Provider: Jose Garcia RN) 0929 (Given - Provider: Karen Mulligan RN)1605 (Given - Provider: Karen Mulligan RN)2220 (Given - Provider: Tonia Solares RN) 0828 (Given - Provider: Karen Mulligan RN) citalopram (CeleXA) tablet 40 mg 40 mg, Oral, Daily, First dose on Sat10/16/24 at 0900, Until Discontinued 0855 (Given - Provider: Karen Mulligan RN) 0929 (Given - Provider: Karen Mulligan RN) 0829 (Given - Provider: Karen Mulligan RN) docusate sodium (COLACE) capsule 100 mg 100 mg, Oral, 2 times daily, First dose on Sat10/19/24 at 0930, Until Discontinued 1020 (Given - Provider: Karen Mulligan RN) enoxaparin (LOVENOX) injection 40 mg 40 mg, Subcutaneous, Every 24 hours scheduled, First dose on Sat10/16/24 at 0900, Until Discontinued 0903 (Given - Provider: Karen Mulligan RN) 0929 (Given - Provider: Karen Mulligan RN) 0829 (Given - Provider: Karen Mulligan RN) gabapentin (NEURONTIN) capsule 100 mg 100 mg, Oral, 3 times daily, First dose on Sat10/15/24 at 2200, Until Discontinued, Recovery & Floor 0855 (Given - Provider: Karen Mulligan RN)1520 (Given - Provider: Karen Mulligan RN)2228 (Given - Provider: Jose Garcia RN) 0929 (Given - Provider: Karen Mulligan RN)1605 (Given - Provider: Karen Mulligan RN)2220 (Given - Provider: Tonia Solares RN) 0829 (Given - Provider: Karen Mulligan RN) ketorolac (TORADOL) injection 15 mg (COMPLETED) 15 mg, Intravenous, Every 6 hours, First dose on Sat10/16/24 at 1700, For 4 doses 0601 (Given - Provider: Kiersten Pisano RN)1125 (Given - Provider: Karen Mulligan RN) lamoTRIgine (LaMICtal) tablet 150 mg 150 mg, Oral, Daily, First dose on Sat10/16/24 at 0900, Until Discontinued 0855 (Given - Provider: Karen Mulligan RN) 0929 (Given - Provider: Karen Mulligan RN) 0828 (Given - Provider: Karen Mulligan RN) loratadine (CLARITIN) tablet 10 mg 10 mg, Oral, Daily, First dose on Sat10/16/24 at 0900, Until Discontinued 0855 (Given - Provider: Karen Mulligan RN) 0929 (Given - Provider: Karen Mulligan RN) 0828 (Given - Provider: Karen Mulligan RN) methocarbamoL (ROBAXIN) tablet 500 mg 500 mg, Oral, 4 times daily, First dose on Sat10/16/24 at 1400, Until Discontinued 0854 (Given - Provider: Karen Mulligan RN)1320 (Given - Provider: Karen Mulligan RN)1700 (Given - Provider: Karen Mulligan RN)2228 (Given - Provider: Jose Garcia RN) 0929 (Given - Provider: Karen Mulligan RN)1316 (Given - Provider: Karen Mulligan RN)1902 (Given - Provider: Karen Mulligan RN)2220 (Given - Provider: Tonia Solares RN) 0828 (Given - Provider: Karen Mulligan RN)1319 (Given - Provider: Karen Mulligan RN) sennosides (SENOKOT) tablet 17.2 mg 17.2 mg, Oral, At bedtime, First dose on Reshma 10/15/24 at 2100, Until Discontinued, Recovery & Floor 2025 (Given - Provider: Jose Garcia RN) 2108 (Given - Provider: Tonia Solares, CHUCHO) Continuous Medication Order 10/17/2024 10/18/2024 10/19/2024 0.9% sodium chloride (NS) infusion at 75 mL/hr, Intravenous, Continuous, Starting on Reshma 10/15/24 at 2100, Recovery & Floor, Discontinue once oral intake greater than or equal to 400mL in 8 hours. PRN Medication Order 10/17/2024 10/18/2024 10/19/2024 bisacodyl (DULCOLAX) EC tablet 10 mg(Linked Group 2) 10 mg, Oral, Daily PRN, Starting on Reshma 10/15/24 at 2027, Until 10/19/24 at 1545, constipation, 3rd line; Give 12 hours after magnesium hydroxide for unrelieved constipation bisacodyl (DULCOLAX) suppository 10 mg(Linked Group 2) 10 mg, Rectal, Daily PRN, Starting on Reshma 10/15/24 at 2027, Until Sat10/19/24 at 1545, constipation, To be used if patient NOT tolerating PO cyclobenzaprine (FLEXERIL) tablet 10 mg (COMPLETED) 10 mg, Oral, Once as needed, 1 dose, Starting on 10/18/24 at 2131, Until Sat10/18/24 at 2220, muscle spasms 2220 (Given - Provider: Tonia Solares, CHUCHO) HYDROmorphone (PF) (DILAUDID) injection 0.2 mg 0.2 mg, Intravenous, Every 3 hours PRN, Starting on Sat10/16/24 at 1625, Until Sat10/19/24 at 1545, breakthrough pain 0003 (Given - Provider: Kiersten Pisano RN)1854 (Given - Provider: Karen Mulligan, CHUCHO)2228 (Given - Provider: Jose Garcia RN) 023 (Given - Provider: Jose Garcia RN)2037 (Given - Provider: Katie Hamilton, CHUCHO)234 (Given - Provider: Katie Hamilton, CHUCHO) magnesium hydroxide (MILK OF MAGNESIA) 400 mg/5 mL suspension 30 mL(Linked Group 2) 30 mL, Oral, Daily PRN, Starting on Reshma 10/15/24 at 2028, Until 10/19/24 at 1545, constipation, Give 12 hours after polyethylene glycol for unrelieved constipation naloxone (NARCAN) 0.04 mg in sodium chloride 0.9% (NS) (PF) 1 mL syringe 0.04 mg, Intravenous, Every 1 min PRN, 20 doses, Starting on Reshma 10/15/24 at 2027, Until 10/19/24 at 1545, opioid reversal, respiratory depression, RR less than 8, RASS less than or equal to -3, Recovery & Floor ondansetron (ZOFRAN) injection 4 mg(Linked Group 3) 4 mg, Intravenous, Every 8 hours PRN, nausea, vomiting, if NOT tolerating PO, Starting on Reshma 10/15/24 at 1907, Recovery & Floor 1319 (See Alternative - Provider: Karen Mulligan RN) 1316 (See Alternative - Provider: Karen Mulligan RN) ondansetron (ZOFRAN-ODT) disintegrating tablet 4 mg(Linked Group 3) 4 mg, Oral, Every 8 hours PRN, Starting on Reshma 10/15/24 at 1907, Until 10/19/24 at 1545, nausea, vomiting, if tolerating PO, Recovery & Floor 1319 (Given - Provider: Karen Mulligan RN) 1316 (Given - Provider: Karen Mulligan RN) oxyCODONE (ROXICODONE) tablet 10 mg 10 mg, Oral, Every 3 hours PRN, Starting on Sat10/16/24 at 1623, Until Sat10/19/24 at 1545, severe (7-10) pain 1320 (Given - Provider: Karen Mulligan RN)1700 (Given - Provider: Karen Mulligan, CHUCHO)2026 (Given - Provider: Jose Garcia, CHUCHO)2344 (Given - Provider: Jose Garcia, CHUCHO) 0423 (Given - Provider: Jose Garcia, RN)0754 (Given - Provider: Karen Mulligan RN)1139 (Given - Provider: Karen Mulligan RN)1902 (Given - Provider: Karen Mulligan RN)3434 (Given - Provider: Tonia Solares RN) 0215 (Given - Provider: Katie Hamilton, RN)0523 (Given - Provider: Katie Hamilton, RN)0829 (Given - Provider: Karen Mulligan, CHUCHO)1139 (Given - Provider: Karen Mulligan RN) oxyCODONE (ROXICODONE) tablet 5 mg 5 mg, Oral, Every 3 hours PRN, Starting on Sat10/16/24 at 1623, Until Sat10/19/24 at 1545, moderate (4-6) pain 0127 (Given - Provider: Kiersten Pisano, CHUCHO)0455 (Given - Provider: Kiersten Pisano RN)0856 (Given - Provider: Karen Mulligan RN) 1605 (Given - Provider: Karen Mulligan RN) polyethylene glycol (MIRALAX) packet 17 g(Linked Group 2) 17 g, Oral, Daily PRN, Starting on Sat10/15/24 at 2027, Until Sat10/19/24 at 1545, constipation, first line Linked Groups Order Group 1: acetaminophen (TYLENOL) tablet 975 mgJump to med 975 mg, Oral, Every 8 hours scheduled, First dose on Sat10/16/24 at 0000, Until Discontinued, Recovery & Floor Or acetaminophen (TYLENOL) 650 mg/20.3 mL solution 975 mgJump to med 975 mg, Oral, Every 8 hours scheduled, First dose on Sat10/16/24 at 0000, Until Discontinued, Recovery & Floor Group 2: polyethylene glycol (MIRALAX) packet 17 gJump to med 17 g, Oral, Daily PRN, Starting on Sat10/15/24 at 2027, Until Sat10/19/24 at 1545, constipation, first line Or magnesium hydroxide (MILK OF MAGNESIA) 400 mg/5 mL suspension 30 mLJump to med 30 mL, Oral, Daily PRN, Starting on Sat10/15/24 at 2027, Until Sat10/19/24 at 1545, constipation, Give 12 hours after polyethylene glycol for unrelieved constipation Or bisacodyl (DULCOLAX) EC tablet 10 mgJump to med 10 mg, Oral, Daily PRN, Starting on Sat10/15/24 at 202, Until Sat10/19/24 at 1545, constipation, 3rd line; Give 12 hours after magnesium hydroxide for unrelieved constipation Or bisacodyl (DULCOLAX) suppository 10 mgJump to med 10 mg, Rectal, Daily PRN, Starting on Reshma 10/15/24 at 202, Until Sat10/19/24 at 1545, constipation, To be used if patient NOT tolerating PO Group 3: ondansetron (ZOFRAN) injection 4 mgJump to med 4 mg, Intravenous, Every 8 hours PRN, nausea, vomiting, if NOT tolerating PO, Starting on Reshma 10/15/24 at 1907, Recovery & Floor Or ondansetron (ZOFRAN-ODT) disintegrating tablet 4 mgJump to med 4 mg, Oral, Every 8 hours PRN, Starting on Reshma 10/15/24 at 1907, Until Sat10/19/24 at 1545, nausea, vomiting, if tolerating PO, Recovery & Floor documented in this encounter Care Teams Distance Learning Program Coordinator Relationship Specialty Start Date End Date Sue Hoover NP [address] [place] [address] [phone] PCP - General Nurse Practitioner 10/14/24 Sue Hoover NP [address] [place] [address] [phone] PCP - Insurance Assigned PCP 10/14/24 documented as of this encounter
--- OUTSIDE RECORDS SUMMARY | 2024-10-27 19:42 | XMS_ITS | Encounter Summary ---
Author Organization [facility] Address [address] [place] [id number] Care Team Providers Care Manager Ed Name Role Phone Sue Hoover NP Primary Care Provider [phone] Sue Hoover [employer]DER Unavailable [phone] Encounter Details Date Type Department Care Team (Late st Contact Info) Description 10/22/2024 Orders Only Outpatient Physical Therapy [address] [place] [address] Lola Dawn MD [address] [place] [address] Closed fracture of right ankle, initial encounter (Primary Dx) Social History Tobacco Use Types Packs/Day Years Used Date Smoking Tobacco: Former Cigarettes Smokeless Tobacco: Never Alcohol Use Standard Drinks/Week Comments Not Currently 0 (1 standard drink = 0.6 oz pur e alcohol) [facility] Utilities Answer Date Recorded In the past 12 months has [facility] [employer], oil, or water [employer] threatened to shut off services in your [...] any time in the past [address] [facility], were you homeless or living in a usp (including now)? No 10/16/2024 Food Insecurity Answer [...] on file documented as of this encounter Functional Status * Are you deaf or do you have serious difficulty hearing? Answer Date of Assessment Author No 10/15/2024 12:42 PM EST Byron Martir * Are you blind or do you have serious difficulty seeing, even when wearing glasses? Answer Date of Assessment Author No 10/15/2024 12:42 PM EST Byron Martir * Do you have serious difficulty walking or climbing stairs? Answer Date of Assessment Author Yes 10/15/2024 12:42 PM EST Byron Martir * Do you have difficulty dressing or bathing? Answer Date of Assessment Author Yes 10/15/2024 12:42 PM EST Byrno Martir * Because of a physical, mental, or emotional condition, do you have difficulty doing errands alone such as visiting the doctor? Answer Date of Assessment Author No 10/15/2024 12:42 PM EST Byron Martir documented as of this encounter Mental Status * Because of a physical, mental, or emotional condition, do you have serious difficulty concentrating, remembering, or making decisions? Answer Entry Date Author No 10/15/2024 12:42 PM PEPPER Matthews Martir documented in this encounter Plan of Treatment Upcoming Encounters Date Type Department Care Team (Late st Contact Info) Description 11/05/2024 11:30 AM EST Office Visit Department of Orthopedic Surgery ([address] [place] [address]) [address] [place] [phone] Ryan Eng NP [address] [place] [phone] 11/26/2024 1:30 PM EDT Office Visit Department of Orthopedic Surgery ([address] [place] [address]) [address] [place] [id number] Lola Dawn MD [address] [place] [address] documented as of this encounter Visit Diagnoses Diagnosis Closed fracture of right ankle, initial encounter- Primary documented in this encounter Care Teams Manager Ed Relationship Specialty Start Date End Date Sue Hoover [employer] [address] [place] [phone] PCP - General Nurse Practitioner 10/14/24 Sue Hoover [employer] [address] [place] [phone] PCP - Insurance Assigned PCP 10/14/24 documented as of this encounter
--- OUTSIDE RECORDS SUMMARY | 2024-10-27 19:42 | XMS_ITS | Encounter Summary ---
Author Organization Jennifer Barrett [facility] Address [address] [id number] Care Team Providers Care Basketballs And Footballs Reverser Name Role Phone Sue Hoover NP Primary Care Provider [phone] Sue Hoover TRAY SERVER Unavailable [phone] Reason for Visit * Auth/Cert (Routine) Specialty Diagnoses / Procedures Referred By Contac t Referred To Contact Diagnoses Closed fracture of right ankle, initial encounter Closed fracture of right ankle, initial encounter [S82.891A] Procedures [place] OPEN TX TRIMALLEOLAR ANKLE FX W/O FIXJ PST LIP ORIF ANKLE Lola Dawn MD [address] [place] [address] Phone: tel: fax: Referral ID Status Reason Start Date Expiration Date Visits Re quested Visits Authorized [id number] 1 1 Encounter Details Date Type Department Care Team (Late st Contact Info) Description 10/15/2024 2:03 PM EST - 10/15/2024 5:28 PM EST Surgery [facility] [address] [address] Lola Dawn MD [address] [place] [id number] ORIF RIGHT ANKLE Surgery Details Date/Time Status Location OR Service Patient Class Case Class Case Type Trauma Case? 10/15/2024 2:03 PM Posted [facility] Main OR B OR 11 Orthopaedics Outpatient Surgery/Proc edure A - Emergency; Immediate Yes Panel 1 Procedure LRB Anes Op Region Wound Class Comments ORIF RIGHT ANKLE Right No Preference Ankle Class I - Clean Surgeon Surgeon Role Service Panel Lola Dawn MD Primary Orthopaedics 1 documented in this encounter Social History Tobacco Use Types Packs/Day Years Used Date Smoking Tobacco: Former Cigarettes Smokeless Tobacco: Never Tobacco Cessation:Counseling Given: Not Answered Alcohol Use Standard Drinks/Week Comments Not Currently 0 (1 standard drink = 0.6 oz pur e alcohol) [facility] Utilities Answer Date Recorded In the past 12 months has th e electric, gas, oil, or water company threatened to shut off services in your [...] any time in the past 12 m [facility], were you homeless or living in a nursing home (including now)? No 10/16/2024 Food Insecurity Answer [...] Sign Reading Time Taken Comments Blood Pressure 121/68 10/15/2024 1:16 PM EST Pulse 88 10/15/2024 1:16 PM EST Temperature 36.6 ??C (97.8 ??F) 10/15/2024 1:16 PM ES T Respiratory Rate 21 10/15/2024 1:16 PM EST Oxygen Saturation 97% 10/15/2024 1:16 PM EST Inhaled Oxygen Concentration - - Weight 104 kg (230 lb) 10/14/2024 2:28 PM EST Height 157.5 cm (5' 2 ) 10/14/2024 2:28 PM EST Body Mass Index 42.07 10/14/2024 2:28 PM EST documented in this encounter Functional Status * Are you deaf or do you have serious difficulty hearing? Answer Date of Assessment Author No 10/15/2024 12:42 PM PEPPER Matthews Martir * Are you blind or do [...] 10/15/2024 12:42 PM EST Byron Martir * Because of a physical, mental, or emotional condition, do you have difficulty doing errands alone such as visiting the doctor? Answer Date of Assessment Author No 10/15/2024 12:42 PM PEPPER Matthews Martir documented as of this encounter Mental Status * Because of a physical, mental, or emotional condition, do you have serious difficulty concentrating, remembering, or making decisions? Answer Entry Date Author No 10/15/2024 12:42 PM Martir Billy documented in this encounter Discharge Summaries * Usman Huggins NP - 10/18/2024 11:30 AM EST Images from the original note were not included. Department of Orthopedic Surgery Orthopaedic Discharge Summary Patient: Agnes Paz : 1990 CSN: [id number] Date Of Admission: 10/15/2024 Date Of Discharge: [...] Hospital Course The patient was admitted to [facility] on 10/15/2024 under the care of Lola [...] 28d on discharge Antibiotics plan: call center agent to OR Sutures: N/A Dressing plan: Splint, [...] hospital discharge. On day of hospital discharge Agnesabhinav Paz was seen and evaluated by the [...] Ryan Eng NP Department of Orthopedic Surgery ([address] [place] [address]) [facility] ESTABLISHED PATIENT- ORTHO 11/26/2024 1:30 PM Lola Dawn MD Department of Orthopedic Surgery ([address] [place] [address]) [facility] ESTABLISHED PATIENT- ORTHO DISCHARGE MEDICATIONS: Medication List [...] doctor about these medications naloxone 4 mg/actuation [place] nasal spray 1 spray (4 mg total) [...] Your Medications These medications were sent to [facility], [address] [place], [place] [id number] Hours: Mon-Fri 8:30AM-7:30PM;Sat-Sun 8:30AM-4:30PM aspirin 81 MG EC tablet ibuprofen 600 MG tablet naloxone 4 mg/actuation [place] nasal spray oxyCODONE 5 MG immediate release [...] prevent blood clots Discharge Disposition: Home-Health Care [facility] [6]Short term Rehab Discharge plan was discussed with patient & family who verbalized understanding. Educational materials were provided. A total of 30 minutes were spent in coordinating the discharge planning. Signed by: Usman Huggins NP 11:28 AM [1] Past Medical History: Diagnosis Date Anxiety Depression [2] Past Surgical History: Procedure Laterality Date ORIF ANKLE FRACTURE Right 10/15/2024 Surgeon: Lola Dawn MD; Location: [facility] Main OR; Service: Orthopaedics; Laterality: Right; [3] [...] Summary Patient: Agnes Paz : 1990 CSN: [id number] Date Of Admission: 10/15/2024 Date Of Discharge: [...] Hospital Course The patient was admitted to [facility] on 10/15/2024 under the care of Lola [...] 28d on discharge Antibiotics plan: call center agent to OR Sutures: N/A Dressing plan: Splint, [...] Ryan Eng NP Department of Orthopedic Surgery ([address] [place] [address]) [facility] ESTABLISHED PATIENT- ORTHO 11/26/2024 1:30 PM Lola Dawn MD Department of Orthopedic Surgery ([address] [place] [address]) [facility] ESTABLISHED PATIENT- ORTHO DISCHARGE MEDICATIONS: Medication List [...] known as: ROBAXIN Start: naloxone 4 mg/actuation [place] nasal spray 1 spray (4 mg total) [...] Your Medications These medications were sent to [facility], [address] [place] [address], [address] [address] Hours: Mon-Fri 8:30AM-7:30PM;Sat-Sun 8:30AM-4:30PM acetaminophen 500 MG tablet aspirin 81 MG EC tablet ibuprofen 600 MG tablet methocarbamoL 500 MG tablet naloxone 4 mg/actuation [place] nasal spray oxyCODONE 5 MG immediate release [...] Right 10/15/2024 Surgeon: Lola Dawn MD; Location: [facility] Main OR; Service: Orthopaedics; Laterality: Right; [3] Social History Tobacco Use Smoking status: Former Types: Cigarettes Smokeless tobacco: Never Vaping Use Vaping status: Never Used Substance Use Topics Alcohol use: Not Currently Drug use: Not Currently Cosigned by Lola Dawn MD at 10/19/2024 5:59 PM EST documented in this encounter Discharge Instructions * Discharge Instr - Pt Ed Handouts* Raiumndo Florez MD - 10/15/2024 2:08 PM EST [...] Leyva RN - 10/17/2024 8:27 AM EST [employer] [address], [facility] [address] [address] [phone] [phone] * Attachments The following attachments cannot be sent through Care Everywhere. * [facility]: PT INSTR AFTER GENERAL ANESTHESIA ([place]) * [facility]: PT INSTR AFTER SURGERY AND REGIONAL ANESTHESIA ([place]) documented in this encounter Medications at Time [...] 28d on discharge Antibiotics plan: call center agent to OR Sutures: N/A Dressing plan: Splint, remove POD14 for wound check X-ray plan: 2 weeks XR at first clinic visit Outpatient follow-up: Plan for outpatient clinic visit 2 weeks post-op Please page assigned ortho team pager or if unable to contact please contact [phone] with any questions/concerns * Gaudencio Martinez MD [...] 28d on discharge Antibiotics plan: call center agent to OR Sutures: N/A Dressing plan: Splint, remove POD14 for wound check X-ray plan: 2 weeks XR at first clinic visit Outpatient follow-up: Plan for outpatient clinic visit 2 weeks post-op Please page assigned ortho team pager or if unable to contact please contact [phone] with any questions/concerns * Karen Mulligan RN [...] meds given see MAR. Discharge order placed. When working with OT pt had episode of nausea/light headedness and sweating following ambulation. An hour had another episode with DIESEL ENGINE TESTER when getting to commode. PRN nausea medication given. TRAY SERVER [place] of events. No longer able to [...] 28d on discharge Antibiotics plan: call center agent to OR Sutures: N/A Dressing plan: Splint, remove POD14 for wound check X-ray plan: 2 weeks XR at first clinic visit Outpatient follow-up: Plan for outpatient clinic visit 2 weeks post-op Please page assigned ortho team pager or if unable to contact please contact [phone] with any questions/concerns * Sujatha Doherty RN [...] preference. Referrals sent to agencies that service [place]. Anticipated D/C Plan: Home with services. Anticipate d/c Tuesday 10/17. Addendum: First 6 referrals declined. Referrals to 4 additional area VNAs. Await accepting agency 10/16/24 7732 Discharge Planning Lives with Alone In the last 12 months, was there a time when you were not able to pay the mortgage or rent on time?N Support Systems Family members Assistance Needed yes Contact Name ELLEN BRENNAN (Sister) Glass Engraver (Mobile) Type of Residence Private residence Bathroom Shower/Tub Walk-in shower Bathroom Toilet Standard Bathroom Equipment Shower chair Bathroom Accessibility Accessible Do you have animals or pets at home? No Home Care Services Scurry of prior post-acute care provider: no history [...] discharge transport arranged? No A list of OVERHAULER BUS TRUCK's and SNF's serving the appropriate geographic area was provided to the patient or their family upon the initial care coordination assessment. Yes Functional Equipment Functional Equipment None Sujatha Doherty RN Pager: [phone] 10/16/2024 * Raimundo Florez MD - 10/16/2024 [...] 28d on discharge Antibiotics plan: call center agent to OR Sutures: N/A Dressing plan: Splint, remove POD14 for wound check X-ray plan: 2 weeks XR at first clinic visit Outpatient follow-up: Plan for outpatient clinic visit 2 weeks post-op Closed displaced trimalleolar fracture of right ankle, initial encounter Please page assigned ortho team pager or if unable to contact please contact [phone] with any questions/concerns * Arleen York RN [...] to assess, made aware of all pain medical affairs leader and time intervals- plan for IV robaxin [...] above level of heart w/ ice applied. [id number]: Robaxin completed- pt reporting pain 5 or 6/10. [id number]: Pt transfer to PACU 9 report given [...] 28d on discharge Antibiotics plan: call center agent to OR Sutures: N/A Dressing plan: Splint, remove POD14 for wound check X-ray plan: 2 weeks XR at first clinic visit Outpatient follow-up: Plan for outpatient clinic visit 2 weeks post-op Please page assigned ortho team pager or if unable to contact please contact [phone] with any questions/concerns documented in this encounter H&P Notes * Raimundo Florez MD - 10/15/2024 1:37 PM EST ORTHOPAEDIC H&P NOTE Agnes Paz [id number] DATE: 10/15/2024 CONTACT: [phone] Time patient seen (for HD unstable pelvis, [...] slipped on ice and twisted her ankle. [place] a loud snap and subsequently had severe R ankle pain and inability to ambulate. Went to [facility] ER where she was diagnosed with R ankle fracture. Placed in splint and advised to follow-up outpatient. Denies any other symptoms or injuries. PMH: has a past medical history of Anxiety and Depression. PSH: has no past surgical history on file. MEDS: Medications Ordered Prior to Encounter[1] ALLERGY: Allergies[2] SH: Smoking: none, Alcohol: none, Illicits: recreational marijuana use, Occupation: works as [employer], Living situation: lives in [facility] alone, Functional status: independent PHYSICAL EXAM: RLE [...] 28d on discharge Antibiotics plan: call center agent to OR Sutures: N/A Dressing plan: Splint, remove POD14 for wound check X-ray plan: 2 weeks XR at first clinic visit Outpatient follow-up: Plan for outpatient clinic visit 2 weeks post-op Please call the assigned Orthopaedic AP listed in treatment team (M-F 6 am to 6 pm) with any questions/concerns or if unable please page [phone] with any questions/concerns. [1] No current facility-administered [...] off unit with sister and all belongings @6192. * Plan of Care - Karen Mulligan [...] features, multiple reps Sit to Stand: Modified Drummond from EOB, multiple reps Stand to Sit: Modified [place] to EOB, multiple reps Ambulation: Modified [place], with Rolling Walker Ambulation Distance: 20 ft x2 Gait Pattern/Training: Steady, NWB R LE gait Stairs: Deferred- pt is unable to clear left foot high enough off floor to safely attempt stair training. Functional Tests BU AM-PAC 6 Clicks Mobility [...] railing?: Total BU AM-PAC Mobility Score: 21 [facility] Highest Level of Mobility Scale (JH-HLM) [...] Minutes Therapeutic Activity / Functional Trainin minutes nAu Espinoza PT Lic# [id number] * Plan of Care - Clarissa Leyva [...] transport Anticipated D/C Plan: Home with services [employer] [address], [address], [place] [address] Phone [phone] Fax [phone] Clarissa Leyva RN Pager: [phone] 10/19/2024 * Plan of Care - Karen Zhang, OTR/L - 10/19/2024 10:23 AM EST Occupational Therapy Progress Note Patient Name: Agnes Pza Today's Date: 10/19/2024 Admission Date: 10/15/2024 Diagnosis: [...] brushing teeth. Upper Body Dressing Independent, Seated [place] hospital gown and donning shirt Lower Body Dressing [...] NWB R LE throughout Toilet Transfer: Modified [place], with Rolling Walker Instruction for hand placement, sequencing, and safety. Verbal cues for safe approach to toilet with good return demonstration. Ambulation: Modified [place], with Rolling Walker Patient was educated on [...] Home Management: 23 [place] [id number] * Assessment & Plan Note - Gaudencio [...] 28d on discharge Antibiotics plan: call center agent to OR Sutures: N/A Dressing plan: Splint, [...] patient, given a list of rehabs in [facility]. Referrals placed to all of them. Patient [...] 28d on discharge Antibiotics plan: call center agent to OR Sutures: N/A Dressing plan: Splint, remove POD14 for wound check X-ray plan: 2 weeks XR at first clinic visit Outpatient follow-up: Plan for outpatient clinic visit 2 weeks post-op * Plan of Care - Marianne Garcia PT - 10/18/2024 11:10 AM EST Physical Therapy Re-Evaluation Patient Name: Agnse Paz Patient Today's Date: 10/18/2024 Admission Date: [...] for sit to supine transfer Functional Tests BU AM-PAC 6 Clicks Mobility [...] a railing?: Total BU AM-PAC Mobility Score: 16 [facility] Highest Level of Mobility Scale (-HLM) -[facility] Daily Goal (Calculated): Stand (1 or more minutes) Goals Patient will be independent with supine <-> sit in 4 visits. Patient will be independent with sit <-> cut lace machine operator 4 visits. Patient will be independent with [...] assisting RLE and trunk. RN, CM, and TRAY SERVER aware of updated recommendations at this time [...] Trainin minutes Marianne Garcia PT DPT License #[id number] [1] Past Medical History: Diagnosis Date Anxiety Depression [2] Past Surgical History: Procedure Laterality Date ORIF ANKLE FRACTURE Right 10/15/2024 Surgeon: Lola Dawn MD; Location: [facility] OR; Service: Orthopaedics; Laterality: Right; * Assessment [...] 28d on discharge Antibiotics plan: call center agent to OR Sutures: N/A Dressing plan: Splint, remove POD14 for wound check X-ray plan: 2 weeks XR at first clinic visit Outpatient follow-up: Plan for outpatient clinic visit 2 weeks post-op * Plan of Care - Jose Garcia RN - 10/18/2024 6:02 AM EST Problem: Pain - Adult Goal: Verbalizes/displays adequate comfort level or baseline comfort level 10/18/2024701 by Jose Garcia RN Outcome: Progressing 10/18/2024700 by Jose Garcia RN Outcome: Progressing 10/18/2024700 by Jose Garcia RN Outcome: Progressing Problem: Safety-Adult Goal: Free from fall injury 10/18/2024701 by Jose Garcia RN Outcome: Progressing 10/18/2024700 by Jose Garcia RN Outcome: Progressing 10/18/2024700 by Jose Garcia RN Outcome: Progressing Problem: Discharge Planning Goal: Discharge to home or other facility with appropriate resources 10/18/2024701 by Jose Garcia RN Outcome: Progressing [...] 10/18/2024701 by Jose Garcia RN Outcome: Progressing 10/18/2024 07 by Jose Garcia RN Outcome: Progressing 10/18/2024 07 by Jose Garcia RN Outcome: Progressing Problem: Post operative care Goal: Post-operative patient will remain free of complications following surgery 10/18/2024 07 by Jose Garcia RN Outcome: Progressing 10/18/2024 07 by Jose Garcia RN Outcome: Progressing 10/18/2024 07 by Jose Garcia RN Outcome: Progressing Problem: Knowledge Deficit Goal: Patient/family/caregiver demonstrates understanding of disease process, treatment plan, medications, and discharge instructions 10/18/2024 07 by Jose Garcia RN Outcome: [...] [S82.851A] Closed fracture of right ankle, sequela [S82.151S] Surgical Procedure: ORIF RIGHT ANKLE-fixation of the [...] toilet Functional Mobility Supine to Sit: Modified Drummond (HOB Flat without bed features) Sit to Supine: Modified [place] (HOB Flat without bed features) Sit to [...] note, pt's mother is flying in from [place] on Saturday to stay with pt. Pt [...] 28d on discharge Antibiotics plan: call center agent to OR Sutures: N/A Dressing plan: Splint, [...] patient will be discharged to home with [facility] services . Preference for discharge: Home with services The plan was discussed with the patient/family and they are in agreement with the plan. The discharge information was faxed/conveyed to the community provider. The MD and Nurse was alerted to the plan. Transport arranged: family Addendum barrier: needs PT re-evaluation Sujatha Hwang RN Pager: [phone]/17/2024 10:01 AM * Assessment & Plan Note [...] 28d on discharge Antibiotics plan: call center agent to OR Sutures: N/A Dressing plan: Splint, remove POD14 for wound check X-ray plan: 2 weeks XR at first clinic visit Outpatient follow-up: Plan for outpatient clinic visit 2 weeks post-op * Plan of Care - Martina Wilson RN - 10/16/2024 5:49 PM EST Pt transferred to 7C10 from PACU. AAOx4. VSS. LBM 10/15. 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 Pt reports feeling much more secure with RW compared to crutches Stairs: Pt unable to clear steps with rail and crutch Functional Tests [facility] 6 Clicks Mobility Short Form Turning from [...] Climbing 3-5 steps with a railing?: Total [facility] Mobility Score: 21 [facility] Highest Level of Mobility Scale (JH-HLM) [...] Functional Trainin minutes Anu Espinoza PT Lic# [id number] [1] Past Medical History: Diagnosis Date Anxiety Depression [2] Past Surgical History: Procedure Laterality Date ORIF ANKLE FRACTURE Right 10/15/2024 Preliminary Information: Surgeon: Lola Dawn MD; Location: [facility]; Service: Orthopaedics; Laterality: Right; * Plan of [...] trimalleolar fracture of right ankle, initial encounter [S82.381A] Closed fracture of right ankle, sequela [S82.331S] Surgical Procedure: ORIF RIGHT ANKLE-fixation of the [...] Profile Lives With Alone Has Sister and Dtomvgb[place]mp-qzr in the area and states her Mother will be flying up from [place] to come stay with her ? 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 She has a sister and uyxejsy-km-vgf who can help set this up in [...] Preliminary Information: Surgeon: Lola Dawn MD; Location: [facility] OR; Service: Orthopaedics; Laterality: Right; Assessment The [...] above assessment. Goals Patient will be Modified Drummond with toilet transfer in 7-10 days. Patient will be Modified [place] with CM/hygiene tasks associated with toileting in 7-10 days. Patient will be Modified [place] with LBD tasks using modified clothing and [...] Her mother will be flying up from [place] to stay with her but is not due to arrive until Saturday. She does have a sister and ndqpcru-kl-mli in [facility]. Her sister and gyvzwhw-hv-nax have been assisting her with bumping up/down her stairs on her bottom and some IADLs since her accident. She is instructed to call for staff assist with out of bedactivities. Updated nursing staff regarding patient's functional level. Total Skilled Minutes: 35 Evaluation: 15 minutes Therapeutic Activity: 20 minutes Billing Completed: Yes Suyapa Barry OT, [id number] * Assessment & Plan Note - Ramiundo Florez MD - 10/16/2024 7:36 AM EST [...] 28d on discharge Antibiotics plan: call center agent to OR Sutures: N/A Dressing plan: Splint, [...] 28d on discharge Antibiotics plan: call center agent to OR Sutures: N/A Dressing plan: Splint, [...] Closed fracture of right ankle, initial encounter [R64.037K] Trimalleolar ankle fracture Postoperative Diagnosis: * No post-op diagnosis entered * Trimalleolar ankle fracture Procedure: Right ORIF RIGHT ANKLE-fixation of the medial lateral and posterior malleolus Surgeon: Surgeons and Role: * Lola Dawn MD - Primary Estimated Blood Loss: 50 mL Specimens: No specimens collected Condition: stable Complications: None Anesthesia Type: No Preference Anesthesiologist: Salinas Ewing MD; Mahsa Berry MD Student Nurse Finishing Room Supervisor: Jani Patino Tourniquet: Total Tourniquet Time Documented: Thigh (Right) - 130 minutes Total: Thigh (Right) - 130 minutes Surgical Implants: No. Used Inv. Item Software Quality Specialist Implant Name Model No. Lot No. Serial No. LRB Action 1 CORTEX SCREW 2.7MM T8 L22MM ([id number]) [employer] - DIV [employer] (WD) CORTEX SCREW 2.7MM T8 L22MM ([id number]) - [id number] NA Right Implanted 1 SCREW CORTEX 3.5X20 [id number] ([id number]) [employer] - DIV [employer] (WD) SCREW CORTEX 3.5X20 573623 ([id number]) - [id number] NA Right Implanted 1 PANGEA SMALL FRAGMENT 3.5 LOCKING SCREW X 18MM ([id number]) [employer] - DIV [employer](WD) PANGEA SMALL FRAGMENT 3.5 LOCKING SCREW X 18MM ([id number]) - [id number] NA Right Implanted 1 SCREW 3.5X18MM CORTEX TI AXSOS ([id number]) [employer] - DIV [employer] MAGAL[employer] (WD) SCREW 3.5X18MM CORTEX TI AXSOS ([id number]) - [id number] NA Right Implanted 1 SCREW 3.5X14MM CORTEX TI AXSOS ([id number]) [employer] - DIV [employer] MAG[employer] (WD) SCREW 3.5X14MM CORTEX TI AXSOS ([id number]) - [id number] NA Right Implanted 1 SCREW BONE LOCKING NON STERILE T8 PANGEA 2.7X14MM ([id number]) [employer] - DIV [employer] () SCREW BONE LOCKING NON STERILE T8 PANGEA 2.7X14MM ([id number]) - [id number] NA Right Implanted 1 LOCKING SCREW 2.7MM T8 L16MM ([id number]) [employer] - DIV [employer] (WD) LOCKING SCREW 2.7MM T8 L16MM ([id number]) - [id number] NA Right Implanted 1 DISTAL POSTEROLATERAL FIBULA PLATE R 2.7/3.5MM 123MM/7 HOLES ([id number]) [employer] (WD) DISTAL POSTEROLATERAL FIBULA PLATE R 2.7/3.5MM 123MM/7 HOLES ([id number]) - [id number] NA Right Implanted 2 SCREW 42MM 4MM CNN NS BN ASNS LF ([id number]) [employer] - DIV [employer] (WD) SCREW 42MM 4MM CNN NS BN ASNS LF ([id number]) - [id number] NA Right Implanted 1 CORTEX SCREW 2.7MM T8 L18MM ([id number]) [employer] - DIV [employer] (WD) CORTEX SCREW 2.7MM T8 L18MM ([id number]) - [id number] NA Right Implanted 1 ASNIS JANES SCREW 4.0X46 TI ([id number]) [employer] - DIV VIRIDIANA MAGALY (WD) ASNIS JANES SCREW 4.0X46 TI ([id number]) - [id number] Right Implanted Surgical Findings: Severely comminuted [...] to clear the posterior lateral aspect of thefibula. The fracture was highly comminuted and more than 5 pieces. The shaft however was intact. A pointed reduction clamp was utilized to control the butterfly pieces and reduce the fracture. A Sumner Pangia posterior lateral fibular plate was selected. [...] Lola Dawn MD - Primary LHS Assist: Nurse Leader: Seema Mercer RN Scrub Person: Ranjan Levi CST Anesthesia Type: Block, General Findings: same as post op diagnosis Intra-Operative Fluids: Blood Loss: 100 cc Anesthesia Encounters Anesthesia Encounter - Episode ID [id number] Intraprocedure I/O Totals None Blood Transfusion: none [...] 28d on discharge Antibiotics plan: call center agent to OR Sutures: N/A Dressing plan: Splint, remove POD14 for wound check X-ray plan: 2 weeks XR at first clinic visit Outpatient follow-up: Plan for outpatient clinic visit 2 weeks post-op documented in this encounter Plan of Treatment Upcoming Encounters Date Type Department Care Team (Late st Contact Info) Description 11/05/2024 11:30 AM EST Office Visit Department of Orthopedic Surgery ([address] [place] [address]) [address] [place] [phone] Ryan Eng, TRAY SERVER [address] [facility] [address] 11/26/2024 1:30 PM EDT Office Visit Department of Orthopedic Surgery ([address] [place] [address]) [address] [place] [phone] Lola Dawn MD [address] [place] [address] Scheduled Referrals Name Type Priority Associated Diagnoses [...] HOUR Routine 10/15/2024 5 :53 PM EST [place] OPEN TX TRIMALLEOLAR ANKLE FX W/O FIXJ PST LIP 10/15/2024 1:52 PM EST Closed fracture of right ankle, initial encounter US ANESTHESIA POINT OF CARE ULTRASOUND Routine 10/15/2024 1:41 PM EST POCI HCG, URINE Routine 10/15/2024 1:07 PM EST documented in this encounter Results * (ABNORMAL) Comprehensive Metabolic Panel (10/16/2024 6:11 AM EST) Sodium 137 135 - 146 mmol/L [address] 10/16/2024 7:16 AM [facility] Potassium 4.2 3.4 - 5.2 mmol/L [address] 10/16/2024 7:16 AM [facility] Comment:Plasma sample Chloride 104 98 - 110 mmol/L [address] 10/16/2024 7:16 AM [facility] Total CO2/Bicarbonate 23(L) 24 - 32 mmol/L [address] 10/16/2024 7:16 AM [facility] Anion Gap 10 2 - 15 mmol/L [address] 10/16/2024 7:16 AM [facility] BUN 5(L) 7 - 24 mg/dL [address] 10/16/2024 7:16 AM [facility] Creatinine, Blood 0.72 0.50 - 1.10 mg/dL [address] 10/16/2024 7:16 AM [facility] Glucose, Blood 120(H) 70 - 118 mg/dL [address] 10/16/2024 7:16 AM [facility] Calcium 8.7 8.5 - 10.5 mg/dL [address] 10/16/2024 7:16 AM [facility] Total Protein 6.7 6.2 - 8.2 g/dL [address] 10/16/2024 7:16 AM [facility] Albumin, Blood 3.2(L) 3.4 - 5.2 g/dL [address] 10/16/2024 7:16 AM [facility] Globulin Result 3.5 2.0 - 4.0 g/dL [address] 10/16/2024 7:16 AM [facility] AST (SGOT) 35 11 - 40 U/L [address] 10/16/2024 7:16 AM [facility] ALT (SGPT) 17 4 - 35 U/L [address] 10/16/2024 7:16 AM [facility] Alkaline Phosphatase 70 30 - 115 U/L [address] 10/16/2024 7:16 AM [facility] Total Bilirubin <0.3 0.0 - 1.2 mg/dL [address] 10/16/2024 7:16 AM [facility] Estimated GFR(CKD-EPI) 108 >=60 mL/min/BS A [address] 10/16/2024 7:16 AM [facility] Comment:This Cr-based equati on underestimates GFR in patients with increased muscle mass. Order CYSTATIN C WITH GFR ESTIMATE, [id number], if additional evaluation of renal function is needed. Blood PERIPHERAL BLOOD SPECIMEN / Unknown Venipuncture / Unknown 10/16/2024 6:11 AM EST 10/16/2024 7:16 AM EST us Lola Dawn MD LAB BLOOD ORDERABLES Final Resu lt [address] [address] * (ABNORMAL) CBC (10/16/2024 6:11 AM EST) WBC 9.83 4.00 - 11.00 K/uL 10/16/2024 6:46 AM [facility] RBC 4.01(L) 4.10 - 5.10 M/uL 10/16/2024 6:46 AM [facility] Hemoglobin 11.1(L) 12.0 - 15.3 g/dL 10/16/2024 6:46 AM [facility] Hematocrit 34.0(L) 36.0 - 45.0 % 10/16/2024 6:46 AM [facility] MCV 85 80 - 96 fL 10/16/2024 6:46 AM [facility] RDW 14.0 11.6 - 14.6 % 10/16/2024 6:46 AM [facility] Platelet Count 358 150 - 450 K/uL 10/16/2024 6:46 AM [facility] Blood PERIPHERAL BLOOD SPECIMEN / Unknown Venipuncture / Unknown 10/16/2024 6:11 AM EST 10/16/2024 6:28 AM EST us Lola Dawn MD LAB BLOOD [place] [address] * (ABNORMAL) Comprehensive Metabolic Panel (10/15/2024 6:58 PM EST) Sodium 135 135 - 146 mmol/L [address] 10/15/2024 7:25 PM [facility] Potassium 4.3 3.4 - 5.2 mmol/L [address] 10/15/2024 7:25 PM [facility] Comment:Plasma sample Chloride 103 98 - 110 mmol/L [address] 10/15/2024 7:25 PM [facility] Total CO2/Bicarbonate 21(L) 24 - 32 mmol/L [address] 10/15/2024 7:25 PM [facility] Anion Gap 11 2 - 15 mmol/L [address] 10/15/2024 7:25 PM [facility] BUN 6(L) 7 - 24 mg/dL [address] 10/15/2024 7:25 PM [facility] Creatinine, Blood 0.75 0.50 - 1.10 mg/dL [address] 10/15/2024 7:25 PM [facility] Glucose, Blood 129(H) 70 - 118 mg/dL [address] 10/15/2024 7:25 PM [facility] Calcium 8.5 8.5 - 10.5 mg/dL [address] 10/15/2024 7:25 PM [facility] Total Protein 7.0 6.2 - 8.2 g/dL [address] 10/15/2024 7:25 PM [facility] Albumin, Blood 3.3(L) 3.4 - 5.2 g/dL [address] 10/15/2024 7:25 PM [facility] Globulin Result 3.7 2.0 - 4.0 g/dL [address] 10/15/2024 7:25 PM [facility] AST (SGOT) 24 11 - 40 U/L [address] 10/15/2024 7:25 PM [facility] ALT (SGPT) 16 4 - 35 U/L [address] 10/15/2024 7:25 PM [facility] Alkaline Phosphatase 78 30 - 115 U/L [address] 10/15/2024 7:25 PM [facility] Total Bilirubin <0.3 0.0 - 1.2 mg/dL [address] 10/15/2024 7:25 PM [facility] Estimated GFR(CKD-EPI) 103 >=60 mL/min/BS A [address] 10/15/2024 7:25 PM [facility] Comment:This Cr-based equati on underestimates GFR in patients with increased muscle mass. Order CYSTATIN C WITH GFR ESTIMATE, [id number], if additional evaluation of renal function is needed. Blood PERIPHERAL BLOOD SPECIMEN / Unknown Venipuncture / Unknown 10/15/2024 6:58 PM EST 10/15/2024 7:00 PM EST us Lola Dawn MD LAB BLOOD ORDERABLES Final Resu lt [place] [id number] * (ABNORMAL) CBC (10/15/2024 6:58 PM EST) WBC 15.39(H) 4.00 - 11.00 K/uL 10/15/2024 7:03 PM [facility] RBC 4.31 4.10 - 5.10 M/uL 10/15/2024 7:03 PM [facility] Hemoglobin 11.8(L) 12.0 - 15.3 g/dL 10/15/2024 7:03 PM [facility] Hematocrit 36.4 36.0 - 45.0 % 10/15/2024 7:03 PM [facility] MCV 85 80 - 96 fL 10/15/2024 7:03 PM [facility] RDW 13.7 11.6 - 14.6 % 10/15/2024 7:03 PM [facility] Platelet Count 376 150 - 450 K/uL 10/15/2024 7:03 PM [facility] Blood PERIPHERAL BLOOD SPECIMEN / Unknown Venipuncture / Unknown 10/15/2024 6:58 PM EST 10/15/2024 7:00 PM EST us Lola Dawn MD LAB BLOOD ORDERABLES Final Resu lt Performing Organization Address City/State/[facility] Co de Phone Number [place] [phone] * [place] More Than 1 Hour (10/15/2024 [...] contain a result. ?? Mahsa Berry MD [facility] US ORDERABLES Final R esult * POCT HCG, urine (10/15/2024 1:07 PM EST) POC HCG, UR NEG NEG, Invalid 10/15/2024 1:10 PM EST [facility] Urine 10/15/2024 1:07 PM EST 10/15/2024 1:10 PM EST Lola Dawn MD POCT ORDERABLES - [place] [address] documented in this encounter Visit Diagnoses Diagnosis Closed fracture of right ankle- Primary Closed fracture of right ankle, sequela Morbid obesity with BMI of 40.0-44.9, adult (HCC) Substance use Former smoker Personal history of tobacco use, presenting hazards to health Closed fracture of right ankle, initial encounter documented [...] at 2028, Until 10/19/24 at 1545, constipation, 3rd line; Give 12 hours after magnesium hydroxide for unrelieved constipation bisacodyl (DULCOLAX) suppository 10 mg 10 mg, Rectal, Daily PRN, Starting on Reshma 10/15/24 at 2028, Until 10/19/24 at 1545, constipation, To be used if patient NOT tolerating PO busPIRone (BUSPAR) tablet 10 mg 10 mg, Oral, 3 times daily, First dose on Reshma 10/15/24 at 2200, Until Discontinued Given 10/19/2024 8:28 [...] 2 mg, Oral, Once, 1 dose, On Reshma 10/15/24 at 2330 Given 10/15/2024 10:39 PM EST 2 mg docusate sodium (COLACE) capsule 100 mg 100 mg, Oral, 2 times daily, First dose on 10/19/24 at 0930, Until Discontinued Given 10/19/2024 10:20 [...] Oral, 3 times daily, First dose on Reshma 10/15/24 at 2200, Until Discontinued, Recovery & Floor [...] Oral, Daily PRN, Starting on Sat10/15/24 at 2028, Until 10/19/24 at 1545, constipation, [...] Oral, Every 4 hours PRN, Starting on Reshma 10/15/24 at 1907, Until Sat10/16/24 at 1623, severe (7-10) pain, Recovery & Floor Given 10/16/2024 2:28 PM EST 1 0 mg Given 10/16/2024 10:20 AM EST 10 mg Given 10/16/2024 6:30 AM EST 10 mg oxyCODONE (ROXICODONE) tablet 10 mg 10 mg, Oral, Once, 1 dose, On Reshma 10/15/24 at 2200 Given 10/15/2024 9:25 PM EST [...] Oral, Daily PRN, Starting on Sat10/15/24 at 2028, Until Sat10/19/24 at 1545, constipation, first line sennosides (SENOKOT) tablet 17.2 mg 17.2 mg, Oral, At bedtime, First dose on Sat10/15/24 at 2100, Until Discontinued, Recovery & Floor [...] Floor 0014 (See Alternative - Provider: Kiersten iPsano RN)0854 (See Alternative - Provider: Karen Mulligan RN)1520 (See Alternative - Provider: Karen Mulligan RN)2342 (See Alternative - Provider: Jose Garcia RN) 0754 (See Alternative - Provider: Karen Mulligan RN)1605 (See Alternative - Provider: Karen Mulligan RN)2342 (See Alternative - Provider: Katie Hamilton RN) 0828 (See Alternative - Provider: Karen Mulligan [...] Oral, 3 times daily, First dose on Reshma 10/15/24 at 2200, Until Discontinued, Recovery & Floor [...] Until Discontinued 0854 (Given - Provider: Karen Mulligan, CHUCHO)1320 (Given - Provider: Karen Mulligan RN)1700 (Given - Provider: Karen Mulligan RN)2228 (Given - Provider: Jose Garcia RN) 0929 (Given - Provider: Karen Mulligan, RN)1316 (Given - Provider: Karen Mulligan RN)1902 (Given - Provider: Karen Mulligan RN)2220 (Given - Provider: Tonia Solares, CHUCHO) 0828 (Given - Provider: Karen Mulligan, CHUCHO)1319 (Given - Provider: Karen Mulligan RN) sennosides (SENOKOT) tablet 17.2 mg 17.2 mg, Oral, At bedtime, First dose on Reshma 10/15/24 at 2100, Until Discontinued, Recovery & Floor 2025 (Given - Provider: Jose Garcia RN) 210 (Given - Provider: Tonia Solares, CHUHCO) Continuous Medication Order 10/17/2024 10/18/2024 10/19/2024 0.9% [...] dose, Starting on 10/18/24 at 2131, Until 10/18/24 at 2220, muscle spasms 2220 (Given - Provider: Tonia Solares, CHUCHO) HYDROmorphone (PF) (DILAUDID) injection 0.2 mg 0.2 mg, Intravenous, Every 3 hours PRN, Starting on Sat10/16/24 at 1625, Until Sat10/19/24 at 1545, breakthrough pain 0003 (Given - Provider: Kiersten Pisano, CHUCHO)1854 (Given - Provider: Karen Mulligan, CHUCHO)2228 (Given - Provider: Jose Garcia, CHUCHO) 0236 (Given - Provider: Jose Garcia, CHUCHO)2037 (Given - Provider: Katie Hamilton, CHUCHO)2346 (Given - Provider: Katie Hamilton, CHUCHO) magnesium hydroxide (MILK OF MAGNESIA) 400 mg/5 mL suspension 30 mL(Linked Group 2) 30 mL, Oral, Daily PRN, Starting on Reshma 10/15/24 at 202, Until Sat10/19/24 at 1545, constipation, Give 12 hours after polyethylene glycol for unrelieved constipation naloxone (NARCAN) 0.04 mg in sodium chloride 0.9% (NS) (PF) 1 mL syringe 0.04 mg, Intravenous, Every 1 min PRN, 20 doses, Starting on Reshma 10/15/24 at 2027, Until Sat10/19/24 at 1545, opioid reversal, respiratory depression, RR less than 8, RASS less than or equal to -3, Recovery & Floor ondansetron (ZOFRAN) injection 4 mg(Linked Group 3) 4 mg, Intravenous, Every 8 hours PRN, nausea, vomiting, if NOT tolerating PO, Starting on Reshma 10/15/24 at 1907, Recovery & Floor 1319 (See Alternative - Provider: Karen Mulligan, CHUCHO) 1316 (See Alternative - Provider: Karen Mulligan, CHUCHO) ondansetron (ZOFRAN-ODT) disintegrating tablet 4 mg(Linked Group 3) 4 mg, Oral, Every 8 hours PRN, Starting on Reshma 10/15/24 at 1907, Until Sat10/19/24 at 1545, nausea, vomiting, if tolerating PO, Recovery & Floor 1319 (Given - Provider: Karen Mulligan, CHUCHO) 1316 (Given - Provider: Karen Mulligan RN) oxyCODONE (ROXICODONE) tablet 10 mg 10 mg, Oral, Every 3 hours PRN, Starting on Sat10/16/24 at 1623, Until Sat10/19/24 at 1545, severe (7-10) pain 1320 (Given - Provider: Karen Mulligan RN)1700 (Given - Provider: Karen Mulligan RN)2026 (Given - Provider: Jose Garcia, CHUCHO)2344 (Given - Provider: Jose Garcia, CHUCHO) 0423 (Given - Provider: Jose Garcia RN)0754 (Given - Provider: Karen Mulligan RN)1139 (Given - Provider: Karen Mulligan RN)1902 (Given - Provider: Karen Mulligan RN)2219 (Given - Provider: Tonia Solares RN) 0215 (Given - Provider: Katie Hamilton, CHUCHO)0523 (Given - Provider: Katie Hamilton, RN)0829 (Given - Provider: Karen Mulligan RN)1139 (Given - Provider: Karen Mulligan RN) oxyCODONE (ROXICODONE) tablet 5 mg 5 mg, Oral, Every 3 hours PRN, Starting on Sat10/16/24 at 1623, Until Sat10/19/24 at 1545, moderate (4-6) pain 0127 (Given - Provider: Kiersten Piasno, CHUCHO)0455 (Given - Provider: Kiersten Pisano, RN)0856 (Given - Provider: Karen Mulligan, CHUCHO) 1605 (Given - Provider: Karen Mulligan, CHUCHO) polyethylene glycol (MIRALAX) packet 17 g(Linked Group 2) 17 g, Oral, Daily PRN, Starting on Reshma 10/15/24 at 2028, Until Sat10/19/24 at 1545, constipation, first line [...] 10 mg, Rectal, Daily PRN, Starting on Sat10/15/24 at 2027, Until Sat10/19/24 at 1545, constipation, To be used if patient NOT tolerating PO Group 3: ondansetron (ZOFRAN) injection 4 mgJump to med 4 mg, Intravenous, Every 8 hours PRN, nausea, vomiting, if NOT tolerating PO, Starting on Sat10/15/24 at 1907, Recovery & Floor Or ondansetron (ZOFRAN-ODT) disintegrating tablet 4 mgJump to med 4 mg, Oral, Every 8 hours PRN, Starting on Sat10/15/24 at 1907, Until Sat10/19/24 at 1545, nausea, vomiting, if tolerating PO, Recovery & Floor documented in this encounter Care Teams Basketballs And Footballs Reverser Relationship Specialty Start Date End Date Sue Hoover NP [address] [place] [address] [phone] PCP - General Nurse Practitioner 10/14/24 Sue Hoover NP [address] [place] [address] [phone] PCP - Insurance Assigned PCP 10/14/24 documented as of this encounter
--- OUTSIDE RECORDS SUMMARY | 2024-10-27 19:42 | XMS_ITS | Clinical Summary ---
Author Organization [facility] Address [address] [place] [address] Care Team Providers Care Registered Travel Nurse Name Role Phone Patient, Has No Pcp Or Ref Primary Care Provider Unavailable Allergies Active Allergy Reactions Criticality Noted Date [...] 30 mg 20 tablet 5 10/14/19 25 Encounters Date Type Department Care Team Description 10/09/2024 2:10 PM EST Ancillary Procedure [facility] Emergency Department [address] [place] [phone] Aracelis Tinoco MD 10/09/2024 11:44 AM EST - 10/10/2024 8:06 AM EST Emergency [facility] Emergency Department [address] [place] [address] Aracelis Tinoco MD Sultan, Danielle A., DO Hardin, John W., MD Choros, Efstathia, MD Closed fracture of right ankle, initial encounter (Primary Dx) Discharge Disposition: Home or Self Care (01) from Last 3 Months Social History Tobacco Use Types Packs/Day Years [...] 10/09/2024 11:48 AM EST Plan of Treatment Health Maintenance Due Date Last Done Comments Cervical Cancer Screening 1989 HIV Screening 1989 HPV and Pap Smear 1989 Pap Smear 1989 Varicella Vaccines (1 of 2 - 13+ 2-dose series) 2002 Hepatitis B Vaccines (1 of 3 - 19+ 3-dose series) 2008 DTaP,Tdap,and Td Vaccines (1 - Tdap) 2011 COVID-19 Vaccine ( - 2023-2 5 season) 2024 Influenza Vaccine (#1) 2024 Alcohol/Substance Use Screening 09/02/2024 Depression Screening and Follow-Up 09/02/2024 Social Drivers of Health Elizabeth ual Screening 09/02/2024 RSV Vaccine (60+ years old a nd patients) (1 - 1-dose 75+ series) 2064 Hepatitis C Screening Completed 03/24/2024 Pneumococcal Vaccine: Pediat trevor (0-5 Years) and At-Risk Patients (6-50 Years) Aged Out No longer eligible b ased on patient's age to complete this topic Procedures * Due to [place] i[employer] law, this organization might not be sharing [...] Last 3 Months Results * Due to [place] i[employer] law, this organization might not be sharing [...] obtain the completed interpretation. ? Workstation ID: [id number] Up-to-date CT equipment and radiation dose reduction [...] evidence of tendon entrapment. Resulting Agency Comment [id number] Procedure Note Raimundo Fong MD - 10/09/2024 [...] possible to obtain thecompleted interpretation. Workstation ID: [id number] Up-to-date CT equipment and radiation dose reduction techniques wereemployed. CTDIvol: 11.5 mGy. DLP: 627 mGy-cm. Aracelis Tinoco MD [facility] CT PROCEDURES Final Result * X-Ray Ankle [...] obtain the completed interpretation. ? Workstation ID: [id number] Narrative 10/09/2024 5:05 PM EST COMPARISON: Right foot/ankle, earlier same day FINDINGS AND Resulting Agency Comment [id number] Procedure Note Raimundo Fong MD - 10/09/2024 COMPARISON: Right foot/ankle, earlier same day FINDINGS AND IMPRESSION: Splint material limits fine osseous detail. Improved alignment of trimalleolar fracture. If this radiology report contains a blank impression section, it is anincomplete radiology report. Please contact the interpreting radiologistor applicable radiology division as soon as possible to obtain thecompleted interpretation. Workstation ID: [id number] us Aracelis Tinoco MD IMG XR PROCEDURES [...] obtain the completed interpretation. ? Workstation ID: [id number] Narrative 10/09/2024 12:47 PM EST COMPARISON: None [...] ??No radiopaque foreign body. Resulting Agency Comment [id number] Procedure Note Sumit Arguello, DO - 10/09/2024 [...] possible to obtain thecompleted interpretation. Workstation ID: [id number] us Aracelis Tinoco MD IMG XR PROCEDURES [...] obtain the completed interpretation. ? Workstation ID: [id number] Narrative 10/09/2024 12:47 PM EST COMPARISON: None [...] ??No radiopaque foreign body. Resulting Agency Comment [id number] Procedure Note TristanprabhaSumit rodriguezRuss, DO - 10/09/2024 COMPARISON: None FINDINGS: Acute [...] possible to obtain thecompleted interpretation. Workstation ID: [id number] Aracelis Tinoco MD IMG XR PROCEDURES Final Result from Last 3 Months Insurance HSNO/FREE [employer] MEDICA[employer] Care Teams Registered Travel Nurse Relationship Specialty Start Date End Date Patient, Has No Pcp Or Ref DO NOT EDIT THIS RECORD VIA PROVIDER ON THE FLY PCP - General Obstetrics Gynecology Physician 10/09/24
--- OUTSIDE RECORDS SUMMARY | 2024-10-27 19:42 | XMS_ITS | Encounter Summary ---
Author Organization [facility] Address [address] [place] [address] Care Team Providers Care Trade Economist Name Role Phone Sue Hoover NP Primary Care Provider [phone] Sue Hoover FILTERING MACHINE TENDER Unavailable [phone] Encounter Details Date Type Department Care Team (Latest Contact Info) Description 10/15/2024 Travel Social History Tobacco Use Types Packs/Day Years Used Date Smoking Tobacco: Former Cigarettes Smokeless Tobacco: Never Alcohol Use Standard Drinks/Week Comments Not Currently 0 (1 standard drink = 0.6 oz pur e alcohol) [facility] Utilities Answer Date Recorded In the past 12 months has e electric, gas, oil, or water company [...] any time in the past 12 m [facility], were you homeless or living in a residential (including now)? No 10/16/2024 Food Insecurity Answer [...] EST Office Visit Department of Orthopedic Surgery ([address] [place] [address]) [address] [place] [phone] Ryan Eng NP [address] [place] [address] [place] [address] 11/26/2024 1:30 PM EDT Office Visit Department of Orthopedic Surgery ([address] [place] [address]) [address] [place] [phone] Lola Dawn MD [address] [place] [phone] documented as of this encounter Visit Diagnoses Not on filedocumented in this encounter Care Teams Trade Economist Relationship Specialty Start Date End Date Sue Hoover FILTERING MACHINE TENDER [address] [place] [phone] PCP - General Nurse Practitioner 10/14/24 Sue Hoover NP [address] [place] [phone] PCP - Insurance Assigned PCP 10/14/24 documented as of this encounter
--- OUTSIDE RECORDS SUMMARY | 2024-10-27 19:42 | XMS_ITS | Encounter Summary ---
Author Organization [facility] Address [address] [place] [address] Care Team Providers Care Strap Machine Operator Name Role Phone Sue Hoover NP Primary Care Provider [phone] Sue Hoover COUNTY DEMONSTRATOR Unavailable [phone] Encounter Details Date Type Department Care Team (Latest Contact Info) Description 10/14/2024 Travel Social History Tobacco Use Types Packs/Day Years Used Date Smoking Tobacco: Former Cigarettes Smokeless Tobacco: Never Alcohol Use Standard Drinks/Week Comments Not Currently 0 (1 standard drink = 0.6 oz pur e alcohol) Comments Unknown Sex and Gender Information Value Date Recorded Sex Assigned at Female 10/14/2024 1:00 PM EST Legal Sex Female 8:22 AM EST Gender Identity Female 10/14/2024 1:16 PM EST Sexual Orientation Not on file documented as of this encounter Plan of Treatment Upcoming Encounters Date Type Department Care Team (Late st Contact Info) Description 11/05/2024 11:30 AM EST Office Visit Department of Orthopedic Surgery ([address] [place] [address]) [address] [place] [phone] Ryan Eng, COUNTY DEMONSTRATOR [address] [place] [address] 11/26/2024 1:30 PM EDT Office Visit Department of Orthopedic Surgery ([address] [place] [address]) [address] [place] [phone] Lola Dawn MD [address] [place] [phone] documented as of this encounter Visit Diagnoses Not on filedocumented in this encounter Care Teams Strap Machine Operator Relationship Specialty Start Date End Date Sue Hoover NP [address] [place] [phone] PCP - General Nurse Practitioner 10/14/24 Sue Hoover NP [address] [place] [phone] PCP - Insurance Assigned PCP 10/14/24 documented as of this encounter
--- OUTSIDE RECORDS SUMMARY | 2024-10-27 19:42 | XMS_ITS | Clinical Summary ---
Author Organization [facility] Address [phone] [facility] [place] [address] Care Team Providers Care Diabetes Nurse Name Role Phone Sue Hoover NP Primary Care Provider Allergies Active Allergy Reactions Criticality Noted Date Comments Erythromycin Nausea And Vomiting,Nausea Only Low Penicillins Nausea And Vomiting,Nausea Only Low Medications Medication Sig Dispensed Refills Start Date End Date Status citalopram (CELEXA) 40 MG tablet Take 40 mg by mouth every morning. 03/06/2024 Active loratadine (CLARITIN) 10 mg tablet Take 10 mg by mouth daily. 12/18/2023 Active busPIRone (BUSPAR) 7.5 MG tablet Take 7.5 mg by mouth 2 (two) times a day. 03/06/2024 Active drospirenone-ethinyl estradioL (DANE, 28,) 3-0.02 mg per tabletIndications:Or al contraceptive pill surveillance Take 1 tablet by mouth daily. Skip placebo for therapeutic amenorrhea. 84 tablet 3 03/24/2024 Active Active Problems Problem Noted Date Diagnosed Date Acne 06/18/2022 Overview (06/18/2022): Pt reports hx of acne, lessened with ocps/Sam but still has some bothersome sx. Assessment & Plan (11/26/2022 5:11 PM EDT): Neha will continue with ocps to treat acne as this is only effective treatment she has found; she is aware of risks. Assessment & Plan (06/18/2022 9:13 AM EDT): We discussed choices including discussing other acne treatment options with PCP/compliance representative, trying a different ocp such as Aviane. We reviewed that a different pill may or may not lessen sx as she is having some resolution with Sam and there is no clear/definitive choice that would be better. She will consider and call if opts to change ocp. PMDD (premenstrual dysphoric disorder) Overview (06/18/2022): Pt reports hx of PMDD, lessened with ocps/SAM but still has some sx Assessment & Plan (11/26/2022 5:12 PM EDT): Neha will continue with ocps to treat acne and PMDD. Assessment & Plan (06/18/2022 9:15 AM EDT): We discussed other treatment options, including following up with PCP or therapist/prescriber regarding possible SSRI etc or trying a different low dose, monophasic ocp such as Aviane. We reviewed that there is no clear choice for another ocp since she is having some resolution with Sam and it is a common treatment option. She will call if opts to change ocps. ASCUS with positive high risk HPV cervical 11/10 Overview (03/24/2024): At outside institution 2019 and prior Pap 10/2020 at [facility]: ASCUS, HPV negative 10/2021 nl/HPV negative Plan: repeat in 2024 Assessment & Plan (11/26/2022 5:12 PM EDT): We reviewed pap/HPV hx and plan to repeat cotesting in 2024. Assessment & Plan (11/06/2021 4:22 PM EST): We discussed pt report of abnormal pap hx; we do not have complete records. We reviewed pap 10/2020 ASCUS/neg HPV. If both pap and HPV negative today, can repeat cotesting in three years. If abnormal, fol pending results. Resolved Problems Problem Noted Date Diagnosed Date Resolved Date Request for sterilization 07/08/2022 Overview (07/08/2022): [facility] form signed 07/05/22 Assessment & Plan (07/08/2022 8:18 AM EST): We reviewed the surgical procedure for permanent sterilization (laparoscopic bilateral salpingectomy). Discussed that this procedure is irreversible, associated risks include bleeding, infection, damage to surrounding structures (uterus, ovaries), and regret. We discussed concurrent risk reduction for ovarian cancer with removal of both fallopian tubes. We reviewed alternatives including LARC (IUD, Nexplanon) and continuation of OCPs. Neha is sure in her decision to proceed with sterilization, no life circumstances will change her mind. Case request submitted. Immunizations Name Administration Dates Next Due HPV9 05/25/2022,01/22/2022,11/20/2021 Family History Medical History Relation Comments Esophageal cancer Father Breast cancer Mother Relation Status Comments Father Mother Alive breast cancer ag e 65 Sister Alive Social History Tobacco Use Types Packs/Day Years Used Date Smoking Tobacco: Former Cigarettes Q uit: 2013 Smokeless Tobacco: Never Tobacco Cessation:Counseling Given: Not Answered Alcohol Use Standard Drinks/Week Comments Never 0 (1 standard drink = 0.6 oz pur e alcohol) Education Answer Date Recorded Are you interested in more education? Not on adama e 12/28/2022 Are you concerned about learning? Not on file 12/28/2022 No 12/28/2022 No 12/28/2022 Digital Access Answer Date Recorded No 01/26/2023 No 01/26/2023 Reliable internet access at home? Not on file 01/26/2023 Device with a working camera? Not on file Sex and Gender Information Value Date Recorded Sex Assigned at Not on file Gender Identity Not on file Sexual Orientation Not on file Last Filed Vital Signs Vital Sign Reading Time Taken Comments Blood Pressure 116/72 03/24/2024 1:48 PM EDT Pulse 69 08/09/2022 12:45 PM EST Temperature 36.6 ??C (97.9 ??F) 08/09/2022 12:[address] Respiratory Rate 15 08/09/2022 12:45 PM EST Oxygen Saturation 98% 08/09/2022 2:00 PM EST Inhaled Oxygen Concentration - - Weight 97.6 kg (215 lb 2.7 oz) 03/24/2024 1:48 P M EDT Height 157.5 cm (5' 2 ) 03/24/2024 1:48 PM EDT Body Mass Index 39.35 03/24/2024 1:48 PM EDT Plan of Treatment Health Maintenance Due Date Last Done Comments Adult Td,Tdap Booster 1989 DEPRESSION SCREENING 2001 SMOKING Hx and SMOKELESS TOBACCO SCREENING 2002 HEPATITIS B SCREENING 2007 HEPATITIS B VACCINES (1 of 3 - 19+ 3-dose series) 2008 INFLUENZA VACCINE (#1) 2024 COVID-19 VACCINE ( season) 2024 07/18/2022, 08/29/2021, 12/29/2020, Additional history exists SCREENING FOR DIABETES 2024 PAP SMEAR 11/06/2024 11/06/2021, 11/02/2020 HEPATITIS C SCREENING Completed 03/24/2024, 021 HIV ONE-TIME SCREENING (18-65 YEARS) Completed 03/24/2024 HEPATITIS A VACCINES Aged Out No long er eligible based on patient's age to complete this topic HIB VACCINES Aged Out No longer eligi ble based on patient's age to complete this topic MENINGOCOCCAL VACCINES (ACWY) Aged Out No longer eligible based on patient's age to complete this topic PNEUMOCOCCAL VACCINES (0-49 years) Aged Out No longer eligible based on patient's age to complete this topic Medical Devices Not on file Procedures Procedure Name Priority Date/Time Associated Diagnosis Comments HEPATITIS C ANTIBODY, QUALITATIVE Routine 03/24/2024 2:10 PM EDT Screen for sexually transmitted diseases PAP TEST Routine 11/06/2021 12:00 AM EST from Last 3 Months or Most Recently Relevant to Health Maintenance Results * Hepatitis C antibody, qualitative (03/24/2024 2:10 PM EDT) HCV NON-REACTIV E NON-REACTI VE [facility] Blood 03/24/2024 2:10 PM EDT 03/24/2024 2:14 PM EDT Suyapa York MD LAB BLOOD ORDERABLES [address] [address] * Pap Smear (11/06/2021 12:00 AM EST) 11/06/2021 11/07/2021 8:4 3 AM EST Narrative SEE NARRATIVE - 11/13/2021 10:05 AM EDT [address] [address] Drupal Programmer: Adrianna Bishop MD ?? [employer] Cytology Report FINAL DIAGNOSIS A. ??PAP SMEAR (SUREPATH) CE: SPECIMEN ADEQUACY: Satisfactory for evaluation; transformation zone present. INTERPRETATION: NEGATIVE FOR INTRAEPITHELIAL LESION OR MALIGNANCY. Reactive changes. Electronically Signed Out By: ??MD Heather Devlin CT(ASCP) By his/her signature above, the pathologist listed as making the Final Diagnosis certifies that he/she has personally reviewed this case and confirmed or corrected the diagnosis. The Pap test is a screening test primarily for squamous cancers and precursors and has associated false-negative and false-positive results. ??New technologies such as liquid-based preparations may decrease but will not eliminate all false-negative results. ??Regular sampling and follow-up of unexplained clinical signs and symptoms are recommended to minimize false negative results. PROCEDURES/ADDENDA HPV Testing (Requested) Ordered Date: 11/07/2021 ? A. PAP SMEAR (SUREPATH) CE: ??Human Papilloma Virus Test Negative for high-risk human papillomavirus types 16, 18, 45 and the Other high risk probe set (Includes 31, 33, 35, 39, 51, 52, 56, 58, 59, 66, 68) by [employer] HR-HPV analysis. Clinical correlation is advised. This HPV test was performed at [facility], [address] [place] [address]. This test has been FDA approved for SurePath cervical cytology specimens. The accuracy and precision of this test for all other specimen sources has been verified in the Cytopathology Laboratory of the [facility] and has not been cleared or approved by the U.S. Food and Drug Administration. Clinical correlation is advised. ? CLINICAL HISTORY Date of Last Menstrual Period: ??Not Provided Menstrual History: ??Unknown Infection History: ??HPV Other Clinical Conditions: ??Screening Pap Abnormal PAP at Other Lab Abnormal PAP: ASCUS, 2020 SPECIMEN SOURCE A: PAP SMEAR (SUREPATH) CE Patient Name: ??NEHA RDZ : ??1990 (Age: 31) Sex: ??F Institution: ??[facility] Location: ??[facility] Date of Collection: ??11/06/2021 Date of Reported: ??11/09/2021 17:11 Results to: Elba Kerns MSN, BS Elba Kerns [employer] CYTOLOGY ORDERABLES SEE NARRATIVE from Last 3 Months or Most Recently Relevant to Health Maintenance Marquis Rdzinne Personal/Famil y Self [address] [place] [address] [place], Neha Personal/Famil y Self [address] [place] [place] [address] [place], Neha Personal/Famil y Self [address] [place] [place] [address] [place], Neha Personal/Famil y Self 1990 [address] [place] [address] [place], Neha Personal/Famil y Self [address] [place] [place] [address] [place], Neha Personal/Famil y Self 1990 [address] [place] [place] [address] [place], Neha Personal/Famil y Self [address] [place] [address] [place], Neha Personal/Famil y Self [address] [place] [address] Advance Directives * Full Code (Latest Code Status on File) Date Activated Date Inactivated Comments 08/09/2022 9:51 AM Question Answer Comments Code Status Confirmed With: Patient Care Teams Diabetes Nurse Relationship Specialty Start Date End Date Sue Hoover NP [address] [place] [phone] [email or web address] PCP - General Nurse Practitioner 10/14/24 Additional Source Comments The information contained in this document represents components of the legal health record. It is not the complete legal health record.[facility]
--- OUTSIDE RECORDS SUMMARY | 2024-10-27 19:42 | XMS_ITS | Encounter Summary ---
Author Organization [facility] Address [phone] [facility] [place] [address] Care Team Providers Care Vp Genetic Name Role Phone Karma Huggins PERFORMANCE IMPROVEMENT DIRECTOR Primary Care Provider Sue Hoover PERFORMANCE IMPROVEMENT DIRECTOR Primary Care Provider Encounter Details Date Type Department Care Team ([facility] st Contact Info) Description 08/09/2022 Procedure Pass OR Admitting Dept - Virtual Department [address] [place] [id number] Social History Tobacco Use Types Packs/Day Years Used Date Smoking Tobacco: Former Cigarettes Q uit: 2013 Smokeless Tobacco: Never Alcohol Use Standard Drinks/Week Comments Never 0 (1 standard drink = 0.6 oz pur e alcohol) Sex and Gender Information Value Date Recorded Sex Assigned at Not on file Gender Identity Not on file Sexual Orientation Not on file documented as of this encounter Plan of Treatment Not on file documented as of this encounter Visit Diagnoses Not on filedocumented in this encounter Care Teams Vp Genetic Relationship Specialty Start Date End Date Karma Huggins NP PCP - General Family Medicine 11/06/21 10/13/24 Sue Hoover NP [address] [place] [phone] [email or web address] PCP - General Nurse Practitioner 10/14/24 documented as of this encounter Additional Source Comments The information contained in this document represents components of the legal health record. It is not the complete legal health record.[facility]
--- OUTSIDE RECORDS SUMMARY | 2024-10-27 19:42 | XMS_ITS | Clinical Summary ---
Author Organization Jennifer Barrett [facility] Address [address] [place] [address] Care Team Providers Care Information Systems Security Manager Name Role Phone Sue Hoover NP Primary Care Provider [phone] Sue Hoover NP Unavailable [phone] Allergies No known active allergies Medications busPIRone (BUSPAR) 10 MG tablet Take 1 tablet (10 mg total) by mouth 3 times a day. Active citalopram (CeleXA) 40 MG tablet Take 1 tablet (40 mg total) by mouth daily. Active lamoTRIgine (LaMICtal) 150 MG tablet Take 1 tablet (150 mg total) by mouth daily. Active drospirenone-e thinyl estradioL (SAM) 3-0.02 mg per tablet Take 1 tablet by mouth daily. Active loratadine (CLARITIN) 10 mg tablet Take 1 tablet (10 mg total) by mouth daily. Active ibuprofen (MOTRIN) 600 MG tablet Take 1 tablet (600 mg total) by mouth every 8 hours as needed for pain for up to 14 days. 42 tablet 5 3:32 PM EST 10/15/19 25 025 Active oxyCODONE (ROXICODONE) 5 MG immediate release tablet Take 1 tablet (5 mg total) by mouth every 6 hours as needed for pain for up to 7 days. 30 tablet 5 3:32 PM EST 10/15/19 25 Active aspirin 81 MG EC tablet Take 1 tablet (81 mg total) by mouth every morning & every evening for 28 days. For blood clot prevention post op 56 tablet 10/15/19 25 03/13/2 025 Active sennosides (SENOKOT) 8.6 mg tablet Take 2 tablets (17.2 mg total) by mouth at bedtime. 10/17/19 Active polyethylene glycol (MIRALAX) 17 gram packet Take 1 packet (17 g total) by mouth daily as needed (first line). 10/17/19 Active acetaminophen (TYLENOL EXTRA STRENGTH) 500 MG tablet Take 1 tablet (500 mg total) by mouth every 8 hours for 7 days. THEN take only as needed 10/18/19 Active aspirin 81 MG chewable tablet Chew 1 tablet (81 mg total) daily. Takes 2 tablets daily Discontinued(St op taking at Discharge) acetaminophen (TYLENOL EXTRA STRENGTH) 500 MG tablet Take 1 tablet (500 mg total) by mouth every 8 hours for 14 days. 42 tablet 5 3:32 PM EST 10/15/19 Discontinued methocarbamoL (ROBAXIN) 500 MG tablet Take 1 tablet (500 mg total) by mouth 3 times a day as needed (muscle spasms) for up to 7 days. 20 tablet 10/17/19 Discontinued naloxone (NARCAN) 4 mg/actuation Santa Claus nasal spray 1 spray (4 mg total) by Intranasal route once for 1 dose. as needed for opioid overdose. Give CPR and contact 911. May give 2nd dose 2-3 minutes later with the second device into the other nostril if no or minimal response. 2 each 10/17/19 25 methocarbamoL (ROBAXIN) 500 MG tablet Take 1 tablet (500 mg total) by mouth 3 times a day as needed (muscle spasms) for up to 7 days. 10/18/19 025 Discontinued methocarbamoL (ROBAXIN) 500 MG tablet Take 1 tablet (500 mg total) by mouth 3 times a day as needed (muscle spasms) for up to 7 days. 21 tablet 5 1:54 PM EST 10/19/19 25 025 Active Problems Problem Noted Date Diagnosed Date Closed fracture of right ankle, sequela 10/16/19 Morbid obesity with BMI of 40.0-44.9, adult 10/03 Substance use 10/15/2024 Former smoker 10/15/2024 Closed displaced trimalleola r fracture of right ankle, initial encounter 10/15/2024 Closed fracture of right ankle 10/14/2024 Assessment & Plan (10/19/2024 8:18 AM EST): 34 y/o F w/ R trimalleolar ankle fracture, now s/p ORIF of R distal fibula, posterior malleolus, and R medial malleolus with Dr. Dawn performed on 10/15/24 - doing well post-operatively - difficulty controlling pain overnight, currently better Orthopaedic Recommendations: Weightbearing restrictions: NWB RLE Other Precautions: None Brace/Immobilization: Cast/splint in place. Should be left in place and only be adjusted or removed by ortho team Anticoagulation Recommendations: Lower extremity fracture protocol = SC enoxaparin while admitted, switch to ASA 81mg bid x 28d on discharge Antibiotics plan: machine lead burner to OR Sutures: N/A Dressing plan: Splint, remove POD14 for wound check X-ray plan: 2 weeks XR at first clinic visit Outpatient follow-up: Plan for outpatient clinic visit 2 weeks post-op Assessment & Plan (10/19/2024 11:28 AM EST): 34 y/o F w/ R trimalleolar ankle fracture, now s/p ORIF of R distal fibula, posterior malleolus, and R medial malleolus with Dr. Dawn performed on 10/15/24 Orthopaedic Post op Plan Weightbearing restrictions: NWB RLE Other Precautions: Elevation Brace/Immobilization: Cast/splint in place. Should be left in place and only be adjusted or removed by ortho team Anticoagulation Recommendations: Lower extremity fracture protocol = SC enoxaparin while admitted, switch to ASA 81mg bid x 28d on discharge Antibiotics plan: machine lead burner to OR Sutures: N/A Dressing plan: Splint, remove POD14 for wound check X-ray plan: 2 weeks XR at first clinic visit Outpatient follow-up: Plan for outpatient clinic visit 2 weeks post-op Assessment & Plan (10/18/2024 6:11 AM EST): 34 y/o F w/ R trimalleolar ankle [...] in place and only be adjusted or removed by ortho team Anticoagulation Recommendations: Lower extremity fracture protocol = SC enoxaparin while admitted, switch to ASA 81mg bid x 28d on discharge Antibiotics plan: machine lead burner to OR Sutures: N/A Dressing plan: Splint, remove POD14 for wound check X-ray plan: 2 weeks XR at first clinic visit Outpatient follow-up: Plan for outpatient clinic visit 2 weeks post-op Assessment & Plan (10/17/2024 8:00 AM EST): 34 y/o F w/ R trimalleolar ankle [...] in place and only be adjusted or removed by ortho team Anticoagulation Recommendations: Lower extremity fracture protocol = SC enoxaparin while admitted, switch to ASA 81mg bid x 28d on discharge Antibiotics plan: machine lead burner to OR Sutures: N/A Dressing plan: Splint, remove POD14 for wound check X-ray plan: 2 weeks XR at first clinic visit Outpatient follow-up: Plan for outpatient clinic visit 2 weeks post-op Assessment & Plan (10/17/2024 10:09 AM EST): 34 y/o F w/ R trimalleolar ankle fracture, now s/p ORIF of R distal fibula, posterior malleolus, and R medial malleolus with Dr. Dawn performed on 10/15/24 Orthopaedic Recommendations: Weightbearing restrictions: NWB RLE Other Precautions: Elevation Brace/Immobilization: Cast/splint in place. Should be left in place and only be adjusted or removed by ortho team Anticoagulation Recommendations: Lower extremity fracture protocol = SC enoxaparin while admitted, switch to ASA 81mg bid x 28d on discharge Antibiotics plan: machine lead burner to OR Sutures: N/A Dressing plan: Splint, remove POD14 for wound check X-ray plan: 2 weeks XR at first clinic visit Outpatient follow-up: Plan for outpatient clinic visit 2 weeks post-op Assessment & Plan (10/16/2024 7:36 AM EST): 34 y/o F w/ R trimalleolar ankle [...] in place and only be adjusted or removed by ortho team Anticoagulation Recommendations: Lower extremity fracture protocol = SC enoxaparin while admitted, switch to ASA 81mg bid x 28d on discharge Antibiotics plan: machine lead burner to OR Sutures: N/A Dressing plan: Splint, remove POD14 for wound check X-ray plan: 2 weeks XR at first clinic visit Outpatient follow-up: Plan for outpatient clinic visit 2 weeks post-op Assessment & Plan (10/15/2024 6:07 PM EST): 34 y/o F w/ R trimalleolar ankle fracture, now s/p ORIF of R distal fibula, posterior malleolus, and R medial malleolus with Dr. Dawn performed on 10/15/24 Orthopaedic Recommendations: Weightbearing restrictions: NWB RLE Other Precautions: None Brace/Immobilization: Cast/splint in place. Should be left in place and only be adjusted or removed by ortho team Anticoagulation Recommendations: Lower extremity fracture protocol = SC enoxaparin while admitted, switch to ASA 81mg bid x 28d on discharge Antibiotics plan: machine lead burner to OR Sutures: N/A Dressing plan: Splint, remove POD14 for wound check X-ray plan: 2 weeks XR at first clinic visit Outpatient follow-up: Plan for outpatient clinic visit 2 weeks post-op Assessment & Plan (10/15/2024 1:58 PM EST): - OR today with Dr. Dawn Orthopaedic Recommendations: Weightbearing restrictions: NWB RLE Other Precautions: None Brace/Immobilization: Cast/splint in place. Should be left in place and only be adjusted or removed by ortho team Anticoagulation Recommendations: Lower extremity fracture protocol = SC enoxaparin while admitted, switch to ASA 81mg bid x 28d on discharge Antibiotics plan: machine lead burner to OR Sutures: N/A Dressing plan: Splint, remove POD14 for wound check X-ray plan: 2 weeks XR at first clinic visit Outpatient follow-up: Plan for outpatient clinic visit 2 weeks post-op Encounters Date Type Department Care Team Description 10/22/2024 Orders Only Outpatient Physical Therapy [address] [place] [id number] Lola Dawn MD Closed fracture of right ankle, initial encounter (Primary Dx) 10/15/2024 2:03 PM EST - 10/15/2024 5:28 PM EST Surgery [facility] [address] [place] [address] Lola Dawn MD ORIF RIGHT ANKLE 10/15/2024 1:59 PM EST Anesthesia Event [facility] [address] [place] [id number] Mahsa Berry MD [place], [place] 10/15/2024 12:41 PM EST - 10/19/2024 1:45 PM EST Hospital Encounter [facility] [address] [place] [id number] Lola Dawn MD Closed fracture of right ankle, sequela (Primary Dx) Discharge Disposition: Home-Health Care [facility] 10/15/2024 Travel 10/14/2024 Travel 10/14/2024 Orders Only Department of Orthopedic Surgery ([address] [place] [address]) [address] [place] [address], [address] [place] [address] Cindy Herr MD Closed fracture of right ankle, initial encounter (Primary Dx) from Last 3 Months Social History Tobacco Use Types Packs/Day Years Used Date Smoking Tobacco: Former Cigarettes Smokeless Tobacco: Never Tobacco Cessation:Counseling Given: Not Answered Alcohol Use Standard Drinks/Week Comments Not Currently 0 (1 standard drink = 0.6 oz pur e alcohol) [facility] Utilities Answer Date Recorded In the [...] any time in the past 12 m [facility], were you homeless or living in a [...] PM EST Sexual Orientation Not on file Last Filed [...] Mass Index 42.07 10/14/2024 2:28 PM EST Plan of Treatment Upcoming Encounters Date Type Department Care Team (Late st Contact Info) Description 11/05/2024 11:30 AM EST Office Visit Department of Orthopedic Surgery ([address] [place] [address] [place], [address] [place] [address] Ryan Eng, ENIO [address] [facility] [place] [address] 11/26/2024 1:30 PM EDT Office Visit Department of Orthopedic Surgery ([address] [place] [address]) [address] [facility], [address] [place] [address] Lola Dawn MD [address] [place] [address] Health Maintenance Due Date Last Done Comments Depression Screening 1993 Hepatitis C Screening 2007 DTaP,Tdap,and Td Vaccines (1 - Tdap) 2008 Pap Smear 2010 Cervical Cancer Screening 2019 HPV/Cotest 2019 COVID-19 Vaccine (2023-2 5 season) 2024 Influenza Vaccine (#1) 2024 Blood Pressure 10/19/2025 10/19/2024 Meningococcal Vaccines Aged Out No lo nger eligible based on patient's age to complete this topic Pneumococcal Vaccine: Pediat rics (0 to 5 Years) and At-Risk Patients (6 to 64 Years) Aged Out No longer eligi ble based on patient's age to complete this topic Medical Devices Implanted Type Area Product Delivery Specialist Device Identifier Shelf Expiration Date Model / Serial / Lot Distal Posterolateral Fibula Plate R 2.7/3.5mm 123mm/7 Holes ([id number]) - [id number] Implanted:Qty: 1 on 10/15/2024 by Lola Dawn MD at [facility] Bone plates Right: Ankle [employer] (WD) 10/15/2025 [id number] / / NA Cortex Screw 2.7mm T8 L22mm ([id number]) - [id number] Implanted:Qty: 1 on 10/15/2024 by Lola Dawn MD at [facility] Bone screws or pegs Right: Ankle [employer] - DIV [employer] MAGAL[employer] (WD) 10/15/2025 [id number] / / NA Asnis Adi Screw 4.0x46 Ti ([id number]) - [id number] Implanted:Qty: 1 on 10/15/2024 by Lola Dawn MD at [facility] Bone screws or pegs Right: Ankle [employer] - DIV [employer] () 10/15/2025 [id number] / / NA Screw Cortex 3.5x20 [id number] ([id number]) - [id number] Implanted:Qty: 1 on 10/15/2024 by Lola Dawn MD at [facility] Bone screws or pegs Right: Ankle [employer] - DIV [employer] () 10/15/2025 [id number] / / NA Pangea Small Fragment 3.5 Locking Screw X 18mm ([id number]) - [id number] Implanted:Qty: 1 on 10/15/2024 by Lola Dawn MD at [facility] Bone screws or pegs Right: Ankle [employer] - DIV [employer] () 10/15/2025 [id number] / / NA Screw 3.5x18mm Cortex Ti Axsos ([id number]) - [id number] Implanted:Qty: 1 on 10/15/2024 by Lola Dawn MD at [facility] Bone screws or pegs Right: Ankle [employer] - DIV [employer]AL[employer] () 10/15/2025 [id number] / / NA Screw 3.5x14mm Cortex Ti Axsos ([id number]) - [id number] Implanted:Qty: 1 on 10/15/2024 by Lola Dawn MD at [facility] Bone screws or pegs Right: Ankle [employer] - DIV [employer] () 10/15/2025 [id number] / / NA Screw Bone Locking Non Sterile T8 Pangea 2.7x14mm ([id number]) - [id number] Implanted:Qty: 1 on 10/15/2024 by Lola Dawn MD at [facility] Bone screws or pegs Right: Ankle [employer] - DIV [employer] MAG[employer] (WD) 10/15/2025 [id number] / / NA Locking Screw 2.7mm T8 L16mm ([id number]) - [id number] Implanted:Qty: 1 on 10/15/2024 by Lola Dawn MD at [facility] Bone screws or pegs Right: Ankle [employer] - DIV [employer] () 10/15/2025 [id number] / / NA Screw 42mm 4mm Cnn Ns Bn Asns Lf ([id number]) - [id number] Implanted:Qty: 2 on 10/15/2024 by Lola Dawn MD at [facility] Bone screws or pegs Right: Ankle [employer] - DIV [employer] () 10/15/2025 [id number] / / NA Cortex Screw 2.7mm T8 L18mm ([id number]) - [id number] Implanted:Qty: 1 on 10/15/2024 by Lola Dawn MD at [facility] Bone screws or pegs Right: Ankle [employer] - DIV [employer] () 10/15/2025 [id number] / / NA Procedures Procedure Name Priority Date/Time Associated Diagnosis Comments COMPREHENSIVE METABOLIC PANEL Routine 10/16/2024 6:11 AM EST CBC Routine 10/16/2024 6:11 AM EST COMPREHENSIVE METABOLIC PANEL STAT 10/15/2024 6:58 PM EST CBC STAT 10/15/2024 6:58 PM EST FL MORE THAN 1 HOUR Routine 10/15/2024 5 :53 PM EST ANESTHESIA INTUBATION Routine 10/15/2024 2:26 PM EST ANESTHESIA PERIPHERAL IV LINE Routine 10/15/2024 2:01 PM EST LH AN SCIATIC BLOCK SINGLE SHOT Routine 10/15/2024 2:00 PM EST LH AN FEMORAL NERVE SINGLE SHOT Routine 10/15/2024 2:00 PM EST CA OPEN TX TRIMALLEOLAR ANKLE FX W/O FIXJ PST LIP 10/15/2024 1:52 PM EST Closed fracture of right ankle, initial encounter US ANESTHESIA POINT OF CARE ULTRASOUND Routine 10/15/2024 1:41 PM EST POCI HCG, URINE Routine 10/15/2024 1:[address] LOWER EXTREMITY OUTSIDE STUDY 10/09/2024 9:08 PM EST XR ANKLE OUTSIDE STUDY 4:09 PM EST XR FOOT OUTSIDE STUDY 10/09/2024 12:30 PM EST XR TIBIA/FIBULA OUTSIDE STUDY 10/09/2024 12:29 PM EST XR ANKLE OUTSIDE STUDY 12:24 PM EST from Last 3 Months Results * (ABNORMAL) CBC (10/16/2024 6:11 AM EST) Only the most recent of2 resultswithin the time period is included. WBC 9.83 4.00 - 11.00 K/uL 10/16/2024 6:46 AM [facility] RBC 4.01(L) 4.10 - 5.10 M/uL 10/16/2024 6:46 AM [facility] Hemoglobin 11.1(L) 12.0 - 15.3 g/dL 10/16/2024 6:46 AM [facility] Hematocrit 34.0(L) 36.0 - 45.0 % 10/16/2024 6:46 AM [facility] MCV 85 80 - 96 fL 10/16/2024 6:46 AM [facility] RDW 14.0 11.6 - 14.6 % 10/16/2024 6:46 AM [facility] Platelet Count 358 150 - 450 K/uL 10/16/2024 6:46 AM [facility] Blood PERIPHERAL BLOOD SPECIMEN / Unknown Venipuncture / Unknown 10/16/2024 6:11 AM EST 10/16/2024 6:28 AM EST us Lola Dawn MD LAB BLOOD ORDERABLES Final Resu lt [place] [id number] * (ABNORMAL) Comprehensive Metabolic Panel (10/16/2024 6:11 AM EST) Only the most recent of2 resultswithin the time period is included. Sodium 137 135 - 146 mmol/L [address] 10/16/2024 7:16 AM [facility] Potassium 4.2 3.4 - 5.2 mmol/L [address] 10/16/2024 7:16 AM [facility] Comment:Plasma sample Chloride 104 98 - 110 mmol/L [address] 10/16/2024 7:16 AM [facility] Total CO2/Bicarbonate 23(L) 24 - 32 mmol/L [address] 10/16/2024 7:16 AM [facility] Anion Gap 10 2 - 15 mmol/L [address] 10/16/2024 7:16 AM [facility] BUN 5(L) 7 - 24 mg/dL [address] 10/16/2024 7:16 AM [facility] Creatinine, Blood 0.72 0.50 - 1.10 mg/dL [address] 10/16/2024 7:16 AM [facility] Glucose, Blood 120(H) 70 - 118 mg/dL [address] 10/16/2024 7:16 AM [facility] Calcium 8.7 8.5 - 10.5 mg/dL [address] 10/16/2024 7:16 AM [facility] Total Protein 6.7 6.2 - 8.2 g/dL [address] 10/16/2024 7:16 AM [facility] Albumin, Blood 3.2(L) 3.4 - 5.2 g/dL [address] 10/16/2024 7:16 AM [facility] Globulin Result 3.5 2.0 - 4.0 g/dL [address] 10/16/2024 7:16 AM [facility] AST (SGOT) 35 11 - 40 U/L [address] 10/16/2024 7:16 AM [facility] ALT (SGPT) 17 4 - 35 U/L [address] 10/16/2024 7:16 AM [facility] Alkaline Phosphatase 70 30 - 115 U/L [address] 10/16/2024 7:16 AM [facility] Total Bilirubin <0.3 0.0 - 1.2 mg/dL [address] 10/16/2024 7:16 AM [facility] Estimated GFR(CKD-EPI) 108 >=60 mL/min/BS A [address] 10/16/2024 7:16 AM [facility] Comment:This Cr-based equati on underestimates GFR in patients with increased muscle mass. Order CYSTATIN C WITH GFR ESTIMATE, [id number], if additional evaluation of renal function is needed. Blood PERIPHERAL BLOOD SPECIMEN / Unknown Venipuncture / Unknown 10/16/2024 6:11 AM EST 10/16/2024 7:16 AM EST Result [facility] Lola Dawn MD LAB BLOOD ORDERAB[place] [address] * FL More Than 1 Hour (10/15/2024 5:53 PM EST) Narrative SYSTEMGENERATED, DOCUMENTATION - 10/15/2024 5:53 PM EST This is a non-reportable study used for image storage. ??It has been automatically finalized and does not contain a result. ?? us Lola Dawn MD IMG FLUOROSCOPY ORDERABLES Viktoria l Result * AN ELECTIVE ENDOTRACHEAL AIRWAY (10/15/2024 2:26 PM EST) Narrative Mahsa Berry MD - 10/15/2024 2:26 PM EST Jani Lens ? 10/15/2024 ??2:46 PM Airway Date/Time: 10/15/2024 2:26 PM Urgency: elective General Information and Staff Patient location during procedure: OR Performed by: Mahsa Berry MD Authorized by: Mahsa Berry MD ?? Indications and Patient Condition Indications for airway management: anesthesia Preoxygenated: yes Patient position: sniffing MILS maintained throughout Mask difficulty assessment: 2 - ventilated by mask with airway adjunct Airway Adjunct: oral airway Final Airway Details Final airway type: endotracheal airway Successful airway: ETT Cuffed: yes Successful intubation technique: direct laryngoscopy Facilitating devices/methods: intubating stylet and cricoid pressure Endotracheal tube insertion site: oral Blade: Justen Blade size: #3 ETT size (mm): 7.0 Cormack-Lehane Classification: grade IIb - view of arytenoids or posterior of glottis only Placement verified by: chest auscultation and capnometry minimum occlusive pressure Cuff volume (mL): 9 Measured from: teeth ETT to teeth (cm): 19 Number of attempts at approach: 1 Dentition unchanged us Mahsa Berry MD RESPIRATORY CARE ORDERABL ES Final Result * AN BLOCK PROCEDURE FOR NEW LDA (10/15/2024 2:01 PM EST) Narrative Mahsa Berry MD - 10/15/2024 2:01 PM EST Mahsa Berry MD ? 10/15/2024 ??2:11 PM Peripheral IV Placement Date/Time: 10/15/2024 2:01 PM Performed by: Mahsa Berry MD Authorized by: Mahsa Berry MD ?? Placement Needle size: 22 G Laterality: right Location: forearm Site prep: chlorhexidine us Mahsa Berry MD [place] ANESTHESIA Final Res ult * LH AN FEMORAL NERVE SINGLE SHOT, LH AN SCIATIC BLOCK SINGLE SHOT (10/15/2024 2:00 PM EST) Narrative Mahsa Berry MD - 10/15/2024 2:00 PM EST Jani Lens ? 10/15/2024 ??2:52 PM Peripheral Block Start time: 10/15/2024 2:00 PM End time: 10/15/2024 2:20 PM Reason for block: at surgeon's request and post-op pain management Staffing Performed by: Mahsa Berry MD Authorized by: Mahsa Berry MD ?? Preanesthetic Checklist Completed: patient identified, IV checked, site marked, risks and benefits discussed, surgical consent, monitors and equipment checked, pre-op evaluation, timeout performed and hand hygiene performed Peripheral Block Patient position: sitting Prep: ChloraPrep Patient monitoring: blood pressure, SpO2 and EKG Block type: popliteal and adductor canal Laterality: right Injection technique: single-shot Guidance: ultrasound guided Needle Needle type: nerve block needle Needle gauge: 25 G Needle length: 80 mm Needle localization: ultrasound guidance Medications Administered ROPivacaine (PF) (NAROPIN) 0.2 % injection - Regional 40 mL - 10/15/2024 2:00:00 PM Assessment Injection assessment: negative aspiration for heme, no paresthesia on injection, incremental injection and local spread visualized on ultrasound Heart rate change: no us Mahsa Berry MD [place] ANESTHESIA Final Res ult * US Anesthesia Point Of Care Ultrasound (10/15/2024 1:41 PM EST) Narrative SYSTEMGENERATED, DOCUMENTATION - 10/15/2024 1:41 PM EST This is a non-reportable study used for image storage. ??It has been automatically finalized and does not contain a result. ?? us Mahsa Berry MD IMG US ORDERABLES Final R esult * POCT HCG, urine (10/15/2024 1:07 PM EST) POC HCG, UR NEG NEG, Invalid 10/15/2024 1:10 PM EST [facility] Urine 10/15/2024 1:07 PM EST 10/15/2024 1:10 PM EST us Lola Dawn MD POCT ORDERABLES - [place] [address] * CT Lower Extremity Outside Study (10/09/2024 9:08 PM EST) Anatomical Region Laterality Modality Computed Tomogra phy 10/13/2024 3:51 PM EST Narrative 10/13/2024 3:51 PM EST This is a non-reportable study used for image storage. It has been automatically finalized and does not contain a result. Procedure Note System, Provider Not In - 10/13/2024 This is a non-reportable study used for image storage. It has beenautomatically finalized and does not contain a result. us Provider Not In System IMG CT ORDERABLES Final R esult * XR Ankle Outside Study (10/09/2024 4:09 PM EST) Only the most recent of2 resultswithin the time period is included. Anatomical Region Laterality Modality Radiographic Gia ging 10/13/2024 3:51 PM EST Narrative 10/13/2024 3:51 PM EST This is a non-reportable study used for image storage. It has been automatically finalized and does not contain a result. Procedure Note System, Provider Not In - 10/13/2024 This is a non-reportable study used for image storage. It has beenautomatically finalized and does not contain a result. us Provider Not In System IMG DIAGNOSTIC IMAGING OR DERABLES Final Result * XR Foot Outside Study (10/09/2024 12:30 PM EST) Anatomical Region Laterality Modality Radiographic Gia ging 10/13/2024 3:51 PM EST Narrative 10/13/2024 3:51 PM EST This is a non-reportable study used for image storage. It has been automatically finalized and does not contain a result. Procedure Note System, Provider Not In - 10/13/2024 This is a non-reportable study used for image storage. It has beenautomatically finalized and does not contain a result. us Provider Not In System IMG DIAGNOSTIC IMAGING OR DERABLES Final Result * XR Tibia Fibula Outside Study (10/09/2024 12:29 PM EST) Anatomical Region Laterality Modality Radiographic Gia ging 10/13/2024 3:51 PM EST Narrative 10/13/2024 3:51 PM EST This is a non-reportable study used for image storage. It has been automatically finalized and does not contain a result. Procedure Note System, Provider Not In - 10/13/2024 This is a non-reportable study used for image storage. It has beenautomatically finalized and does not contain a result. us Provider Not In System IMG DIAGNOSTIC IMAGING OR DERABLES Final Result from Last 3 Months Insurance [employer] [id number] [place] [employer] Advance Directives * Full Code (Latest Code Status on File) Date Activated Date Inactivated Comments 10/15/2024 5:58 PM Question Answer Comments Discussed with/per: Patient Care Teams Information Systems Security Manager Relationship Specialty Start Date End Date Sue Hoover NP [address] [place] [phone] PCP - General Nurse Practitioner 10/14/24 Sue Hoover NP [address] [place] [phone] PCP - Insurance Assigned PCP 10/14/24
--- OUTSIDE RECORDS SUMMARY | 2024-10-27 19:42 | XMS_ITS | Encounter Summary ---
Author Organization [facility] Address [address] [id number] Care Team Providers Care Director Of Spa And Guest Experience Name Role Phone Sue Hoover NP Primary Care Provider [phone] Sue Hoover DOCUMENT IMPROVEMENT SPECIALIST Unavailable [phone] Reason for Visit * Auth/Cert (Routine) Specialty Diagnoses / Procedures Referred By Contac t Referred To Contact Diagnoses Closed fracture of right ankle, initial encounter Closed fracture of right ankle, initial encounter [S82.891A] Procedures [place] OPEN TX TRIMALLEOLAR ANKLE FX W/O FIXJ PST LIP ORIF ANKLE Lola Dawn MD [address] [place] [address] Phone: tel: fax: Referral ID Status Reason Start Date Expiration Date Visits Re quested Visits Authorized [id number] 1 1 Encounter Details Date Type Department Care Team (Late st Contact Info) Description 10/15/2024 1:59 PM EST Anesthesia Event [facility] [address] [place] [address] Mahsa Berry MD [address] [place] [address] Jani Patino Anesthesia Record Procedure Summary Procedure Name Responsible Anesthesiologist Anesthesia Start Time Anesthesia Stop Time ORIF RIGHT ANKLE (Right: Ankle) Mahsa Berry MD 10/15/24 1359 10/15/24 1733 Events Date Time Event Comment 10/15/2024 1311 1359 An Start 1412 In Room 1412 An Start Data 1421 Pre-Induction Eval o Airway equipment available o Alarms activated o Initial vital signs recorded o Comprehensive patient reevaluation immediately before administering anesthesia 1424 An Induction 1426 An Intubation 1430 Anesthesia Ready 1457 An Tourn Inflated 1457 Proc Start 1646 Procedure Closing 1717 Proc Fin 1728 An Extubation 1730 an stop data 1731 Out of Room 1733 Handoff to Receiving 1733 An Stop Meds Name Total midazolam (VERSED) injection 1 mg/mL 6 m g fentaNYL (SUBLIMAZE) (PF) injection 50 m cg/mL 200 mcg lidocaine (XYLOCAINE) injection 2% 100 m g propofol (DIPRIVAN) 300 mg rocuronium (ZEMURON) injection 10 mg/mL 80 mg HYDROmorphone (DILAUDID) injection 2 mg/ mL 1.5 mg ondansetron (ZOFRAN) injection 2 mg/mL 4 mg dexAMETHasone (DECADRON) injection 4 mg/ mL 4 mg sugammadex (BRIDION) injection 100 mg/mL 200 mg ceFAZolin (ANCEF) 2 g in dextrose (iso-o s) IVPB 2 g ROPivacaine (PF) (NAROPIN) 0.2 % injecti on 40 mL magnesium sulfate injection 500 mg/mL 2 g labetalol (TRANDATE) injection 5 mg/mL 5 mg acetaminophen (OFIRMEV) infusion 10 mg/m L 1,000 mg lactated ringers infusion 0 mL * Agents Name Inspired Sevo O2 N2O Air Sevo ETCO2 Inspired O2 (FiO2) * Blood No blood administrations on file. Lines, Drains, and Airways Type Details Placement Removal Wound 10/15/24; 1530; Inci celio; Ankle; Right; xeroform and splint 10/15/24 1530 by Seema Mercer RN Peripheral IV Placement Date: 10/03 11/24; Placement Time: 1401 (created via procedure documentation); Catheter Size: 22 G; Orientation: Right; Location: Forearm; Site Prep: Chlorhexidine; Removal Date: 10/16/24; Removal Time: 312; Removal Reason: Occluded 10/15/24 1401 by Mahsa Berry MD 10/16/24 031 by Elizabeth Hurd RN ETT Placement Date: 10/03 11/24; Placement Time: 1426 (created via procedure documentation); Mask Ventilation: Ventilated by mask with oral airway (2); Technique: Direct laryngoscopy; Type: ETT; Laryngoscope: Mac; Blade Size: 3; Location: Oral; Insertion Attempts: 1; Placement Verification: End tidal CO2, Auscultation; Removal Date: 10/15/24; Removal Time: 172710/15/24 1426 by Mahsa Berry MD 10/15/24 1728 by Jani Patino documented in this encounter Social History Tobacco Use Types Packs/Day Years Used Date Smoking Tobacco: Former Cigarettes Smokeless Tobacco: Never Alcohol Use Standard Drinks/Week Comments Not Currently 0 (1 standard drink = 0.6 oz pur e alcohol) [facility] Utilities Answer Date Recorded In the past [...] any time in the past 12 m [facility], were you homeless or living in a prison (including now)? No 10/16/2024 Food Insecurity Answer [...] on file documented as of this encounter Mental Status * Because of a physical, mental, or emotional condition, do you have serious difficulty concentrating, remembering, or making decisions? Answer Entry Date Author No 10/15/2024 12:42 PM EST Martir Matthews documented in this encounter OR Notes * Anesthesia Postprocedure Evaluation - Yann Jaffe MD - 10/15/2024 7:44 PM EST Patient: Agnes Paz Procedure Summary Date: 10/15/24 Room / Location: [facility] Main OR Anesthesia Start: 1359 Anesthesia Stop: Procedure: ORIF RIGHT ANKLE (Right: Ankle) Diagnosis: Closed fracture of right ankle, initial encounter (Closed fracture of right ankle, initial encounter [S82.891W]) Surgeons: Lola Dawn MD Responsible Provider: Mahsa Berry MD Anesthesia Type: general, block ASA Status: 2 Anesthesia Type: general, block Vitals Value Taken Time BP 128/67 10/15/241930 Temp 36.2 ??C 10/15/24 1745 Pulse 80 10/15/241942 Resp 18 10/15/241942 SpO2 96 % 10/15/241942 Vitals shown include unfiled device data. Anesthesia Post Evaluation Patient participation: complete - patient participated Level of consciousness: awake and alert Pain management: adequate Airway patency: adequate Cardiovascular status: hemodynamically stable Respiratory status: acceptable Hydration status: adequate Postoperative nausea/vomiting: none * Anesthesia Procedure Notes - Jani Lens - 10/15/2024 2:49 PM ESTAssociated Order(s): Peripheral Block Peripheral Block Start time: 10/15/2024 2:00 PM End time: 10/15/2024 2:20 PM Reason for block: at surgeon's request and post-op pain management Staffing Performed by: Mahsa Berry MD Authorized by: Mahsa Berry MD Preanesthetic Checklist Completed: patient identified, IV checked, [...] visualized on ultrasound Heart rate change: no Cosigned by Mahsa Berry MD at 10/15/2024 4:34 PM EST * Anesthesia Procedure Notes - Jani Patino - 10/15/2024 2:46 PM ESTAssociated Order(s): Airway Airway Date/Time: 10/15/2024 2:26 PM Urgency: elective General Information and Staff Patient location during procedure: OR Performed by: Mahsa Berry MD Authorized by: Mahsa Berry MD Indications and Patient Condition Indications for airway [...] of attempts at approach: 1 Dentition unchanged Cosigned by Mahsa Berry MD at 10/15/2024 4:34 PM EST * Anesthesia Procedure Notes - Mahsa Berry MD - 10/15/2024 2:11 PM EST Associated Order(s): Peripheral IV Placement Peripheral IV Placement Date/Time: 10/15/2024 2:01 PM Performed by: Mahsa Berry MD Authorized by: Mahsa Berry MD Placement Needle size: 22 G Laterality: right Location: forearm Site prep: chlorhexidine * Anesthesia Preprocedure Evaluation - Mahsa Berry MD - 10/15/2024 1:07 PM EST Patient: Agnes Paz Procedure Information Date/Time: 10/15/24 1403 Procedure: ORIF ANKLE (Right: Ankle) Location: [facility] 11 / [facility] Main OR Surgeons: Lola Dawn MD Relevant Problems ANESTHESIA (within normal limits) ENDO (+) Morbid obesity with BMI of 40.0-44.9, adult (HCC) PULMONARY (+) Former smoker PSYCH marijuana (+) Substance use Clinical information reviewed: Physical Exam Airway Mallampati: III Cardiovascular Dental -none loose Pulmonary Ht 1.575 m (5' 2 ) Wt (!) 104 kg (230 lb) BMI 42.07 kg/m?? No results found for: WBC , HGB , HCT , PLT , GLU , NA , K , CL , CO2 , BUN , CREATININE , POCGLU , PT , INR , HCGQUANT , POCHCGUR , POCHCGU , ABORH Active Orders There are no active orders of the following types: Blood Bank. Anesthesia Plan ASA 2 Anesthesia Type: general and block Anesthetic plan and risks discussed with patient. documented in this encounter Plan of Treatment Upcoming Encounters Date Type Department Care Team (Late st Contact Info) Description 11/05/2024 11:30 AM EST Office Visit Department of Orthopedic Surgery ([address] [place] [address]) [address] [place] [id number] Ryan Eng, ENIO [address] [place] [address] 11/26/2024 1:30 PM EDT Office Visit Department of Orthopedic Surgery ([address] [place] [address]) [address] [place] [id number] Lola Dawn MD [address] [place] [address] documented as of this encounter Procedures Procedure Name Priority Date/Time Associated Diagnosis Comments ANESTHESIA INTUBATION Routine 10/15/2024 2:26 PM EST ANESTHESIA PERIPHERAL IV LINE Routine 10/15/2024 2:01 PM EST LH AN SCIATIC BLOCK SINGLE SHOT Routine 10/15/2024 2:00 PM EST LH AN FEMORAL NERVE SINGLE SHOT Routine 10/15/2024 2:00 PM EST documented in this encounter Results * AN ELECTIVE ENDOTRACHEAL AIRWAY (10/15/2024 2:26 [...] Site prep: chlorhexidine us Mahsa Berry MD [place] ANESTHESIA Final Res ult * LH AN [...] rate change: no us Mahsa Berry MD [place] ANESTHESIA Final Res ult documented in this encounter Visit Diagnoses Not on filedocumented in this encounter Administered Medications Inactive Administered Medications - up to 3 most recent administrations Medication Order MAR Action Action Date Dose Rate Site acetaminophen (OFIRMEV) 10 mg/mL IV Intravenous, Administer over 15 Minutes, As needed, Starting on Reshma 10/15/24 at 1623, Anesthesia Intraprocedure, Routine Given 10/15/2024 4:23 PM EST 1,000 mg ceFAZolin (ANCEF) 2 g in dextrose (iso-os) IVPB 2 g, Intravenous, Administer over 30 Minutes, it senior analyst to OR, First dose on Reshma 10/15/24 at 1400, For 1 dose, Preprocedure, To be administered by the anesthesia care team within 1 hour of incision., Indication: Other, Specify: rosa op prophylaxisIndications:Prophylax is Given 10/15/2024 2:37 PM EST 2 g dexAMETHasone (DECADRON) injection Intravenous, As needed, Starting on Reshma 10/15/24 at 1432, Until Reshma 10/15/24 at 1944, Anesthesia Intraprocedure Given 10/15/2024 2:32 PM EST 4 mg fentaNYL (PF) 50 mcg/mL injection Intravenous, As needed, Starting on Reshma 10/15/24 at 1409, Until Reshma 10/15/24 at 1944, Anesthesia Intraprocedure Given 10/15/2024 2:24 PM EST 100 mcg Given 10/15/2024 2:09 PM EST 50 mcg Given 10/15/2024 2:08 PM EST 50 mcg HYDROmorphone (DILAUDID) injection Intravenous, As needed, Starting on Reshma 10/15/24 at 1504, Until Reshma 10/15/24 at 1944, Anesthesia Intraprocedure Given 10/15/2024 4:20 PM EST 0.5 mg Given 10/15/2024 3:04 PM EST 1 mg labetaloL (TRANDATE) injection Intravenous, As needed, Starting on Reshma 10/15/24 at 1606, Until Reshma 10/15/24 at 1944, Anesthesia Intraprocedure Given 10/15/2024 4:03 PM EST 5 mg lactated ringers (LR) BOLUS Intravenous, Continuous PRN, Starting on Reshma 10/15/24 at 1404, Anesthesia Intraprocedure, Routine, Administer over 1 Hours New Bag 10/15/2024 2:04 PM EST lidocaine 20 mg/mL (2 %) injection Intravenous, As needed, Starting on Reshma 10/15/24 at 1424, Until Reshma 10/15/24 at 1944, Anesthesia Intraprocedure Given 10/15/2024 2:24 PM EST 100 mg magnesium sulfate 500 mg/mL (50 %) injection Intravenous, As needed, Starting on Reshma 10/15/24 at 1553, Until Reshma 10/15/24 at 1944, Anesthesia Intraprocedure Given 10/15/2024 3:53 PM EST 2 g midazolam (VERSED) injection Intravenous, As needed, Starting on Reshma 10/15/24 at 1411, Until Reshma 10/15/24 at 1944, Anesthesia Intraprocedure Given 10/15/2024 2:11 PM EST 2 mg Given 10/15/2024 2:08 PM EST 2 mg Given 10/15/2024 2:06 PM EST 2 mg ondansetron (ZOFRAN) injection Intravenous, As needed, Starting on Reshma 10/15/24 at 1650, Until Reshma 10/15/24 at 1944, Anesthesia Intraprocedure Given 10/15/2024 4:50 PM EST 4 mg propofoL (DIPRIVAN) 10 mg/mL infusion Intravenous, As needed, Starting on Reshma 10/15/24 at 1424, Anesthesia Intraprocedure Given 10/15/2024 5:00 PM EST 5 0 mg Given 10/15/2024 4:55 PM EST 50 mg Given 10/15/2024 2:24 PM EST 200 mg rocuronium (ZEMURON) injection Intravenous, As needed, Starting on Reshma 10/15/24 at 1424, Until Reshma 10/15/24 at 1944, Anesthesia Intraprocedure Given 10/15/2024 4:06 PM EST 20 mg Given 10/15/2024 2:24 PM EST 60 mg ROPivacaine (PF) (NAROPIN) 0.2 % injection Regional, Starting on Reshma 10/15/24 at 1400, Until Reshma 10/15/24 at 1400, Anesthesia Intraprocedure Given 10/15/2024 2:00 PM EST 40 mL sugammadex (BRIDION) 100 mg/mL injection Intravenous, As needed, Starting on Reshma 10/15/24 at 1721, Until Reshma 10/15/24 at 1944, Anesthesia Intraprocedure Given 10/15/2024 5:21 PM EST 200 mg documented in this encounter Care Teams Director Of Spa And Guest Experience Relationship Specialty Start Date End Date Sue Hoover NP [address] [place] [phone] PCP - General Nurse Practitioner 10/14/24 Sue Hoover NP [address] [place] [phone] PCP - Insurance Assigned PCP 10/14/24 documented as of this encounter
--- OUTSIDE RECORDS SUMMARY | 2024-10-27 19:42 | XMS_ITS | Encounter Summary ---
Author Organization [facility] Address [address] [place] [address] Care Team Providers Care Bedspread Cutter Name Role Phone Sue Hoover NP Primary Care Provider [phone] Sue Hoover NP Unavailable [phone] Encounter Details Date Type Department Care Team (Late st Contact Info) Description 10/14/2024 Orders Only Department of Orthopedic Surgery ([address] [place] [address]) [address] [place] [address], [address] [place] [address] Cindy Herr MD [address] [place] [address] Closed fracture of right ankle, initial encounter (Primary Dx) Social History Tobacco Use Types Packs/Day Years Used Date Smoking Tobacco: Former Cigarettes Smokeless Tobacco: Never Alcohol Use Standard Drinks/Week Comments Not Currently 0 (1 standard drink = 0.6 oz pur e alcohol) [facility] Utilities Answer Date Recorded In the past 12 months has e [employer], gas, oil, or water [employer] threatened to shut off services in your [...] any time in the past 12 m [facility], were you homeless or living in [...] in the past year? 0 10/16/2024 Comments Unknown Sex and Gender Information Value [...] EST Office Visit Department of Orthopedic Surgery ([address] [place] [address]) [address] [place] [phone] Ryan Eng, ENIO [address] [facility] [place] [address] 11/26/2024 1:30 PM EDT Office Visit Department of Orthopedic Surgery ([address] [place] [address]) [address] [place] [phone] Lola Dawn MD [address] [place] [address] documented as of this encounter Visit Diagnoses Diagnosis Closed fracture of right ankle, initial encounter- Primary documented in this encounter Care Teams Bedspread Cutter Relationship Specialty Start Date End Date Sue Hoover NP [address] [place] [phone] PCP - General Nurse Practitioner 10/14/24 Sue Hoover NP [address] [place] [phone] PCP - Insurance Assigned PCP 10/14/24 documented as of this encounter
== END 2024-10-27 17:05 | disposition home or self-care (01) ==
LOC: HO.HMCFM 16:15
PROVIDERS: PCP Nurse Practitioner Family; Visit Provider Nurse Practitioner Family
DX: S82.891D Other fracture of right lower leg, subsequent encounter for closed fracture with routine healing (principal); Z98.890 Other specified postprocedural states

== ENCOUNTER 2025-02-15 09:50 | Outpatient (AMB) | payer OTHER, SELFPAY ==
--- NOTE | 2025-02-15 09:53 | MHC.PC.OV ---
Vital Signs 02/15/25 10:02 Height 5 ft 2 in Weight 226 lb 4 oz BMI 41.4 BP 132/72 Blood Pressure Location Lt brachial Position Sitting Respiration 13 Pulse 90 Pulse Source Pulse Oximeter Temp 97.6 F Temp Source Oral Pulse Oximetry (%) 97 Oxygen Delivery Method Room Air Intake Visit Reasons: Annual pe Intake Note: CPE. Patient also want to talk about weight management. Return Checker Required: No Allergies erythromycin base [From Erythrocin] Allergy (Intermediate, Verified 02/15/25 10:05) vomits Penicillins Allergy (Verified 02/15/25 10:05) vomitting spironolactone Adverse Reaction (Mild, Verified 02/15/25 10:05) Dizziness Medication List - Last Reconciled 02/15/25 by JAMAAL Metcalf- clonazepam (Klonopin) 1 mg PO DAILY PRN drospirenone-ethinyl estradiol 3-0.02 mg (SAM (28)) 1 tab PO DAILY lamotrigine 100 mg PO DAILY loratadine (Allergy Relief (loratadine)) 10 mg PO DAILY paroxetine HCl (Paxil) 30 mg PO DAILY Tobacco use date assessed: 02/15/25 Dental Screening Dental Screen Date: 02/15/25 Did you have a dental visit in the last 12 months?: Yes Did you have a dental problem in the last 6 months where you did not have access to dental care?: No Was dental information given to patient?: Patient has dentist HPI HPI Comments History of Present Illness Details 34-year-old female with major depressive disorder, generalized anxiety disorder, TMJ, allergic rhinitis, frequent headaches, obesity, family hx breast ca (Mom), HLD s/p R ankle surgery 2024 Family history Mom with breast cancer Father with esophageal cancer Health maintenance Tdap declined Pap smear 03/2024, this was done 22 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 Shen ENT new referral placed today to [facility] area Counselor [facility] Pippa Pagan prescriber Derm - annual appts History of Present Illness - The patient is a 34-year-old female presenting for CPE and chronic dz mgmt - with mental health disorders, specifically major depressive disorder and generalized anxiety disorder. Reports major depressive disorder and generalized anxiety disorder. Currently undergoing TMS and taking Klonopin as needed, lamotrigine 100 mg daily, and paroxetine 30 mg daily. Reports having suicidal thoughts since medication change and difficulty contacting psychiatrist. - Reports exacerbation of depression symptoms post-medication change to paroxetine from Celexa, and discontinuation of buspirone due to tinnitus. - Currently undergoing TMS treatment, commencing roughly two weeks ago, and reports lack of noticeable improvement. - Reports seasonal allergies managed with loratadine. - Uses control (Sam) for menstrual and acne control. - Recently underwent R ankle surgery following fracture. - Experiences sleep disturbances, potentially linked to depression, sleeping a lot, feeling tired. Family History - Mother with a history of breast cancer, onset in the 60s, non-genetic. Social History - Engaged in therapy and psychiatric management for major depressive disorder and generalized anxiety disorder. - Concerns about opportune psychiatric intervention due to psychiatrist's unavailability. - No current significant exercise routine or specific dietary details discussed. - Queries low-interest lethargy, possibly linked to depression. Health Maintenance - Interest in mammogram and other age-appropriate screenings due to family history. - Last Pap smear performed in March, normal results noted. - No record of recent tetanus vaccination, consented to update during this visit but then said no when MA went in to admin - Plans to update all labs to include cholesterol, diabetes screening, and thyroid function due to weight concerns. - Recent rnfa visit completed, maintaining general dermatological health. - Regular eye check-ups acknowledged. Review of Systems - Psychiatric: Reports exacerbation of depressive symptoms and generalized anxiety. Experiencing suicidal thoughts. - Neurological: Reports episodes of vertigo and dizziness. Experiences tinnitus. - Respiratory: Denies any ongoing symptoms. - Cardiovascular: Denies any ongoing symptoms. - Gastrointestinal: Denies any ongoing symptoms. - Musculoskeletal: Reports recent ankle fracture, history of surgery. - Dermatological: Concerns with acne, managed by control. - ENT: Reports ongoing issues with clogged ears, interest in seeing a new ENT specialist. - Allergic/Immunologic: Reports experiencing seasonal allergies. - Endocrinological: Denies known symptoms or concerns. Physical Exam General: Well developed, well nourished, in no acute distress. Appears stated age. Head: Normocephalic, atraumatic. Eyes: Pupils are equal, round and reactive to light and accommodation. Conjunctivae are clear. Vision grossly normal. Ears: TMs clear AU, EACS WNL. Nose: Patent, without discharge. Neck: Supple, no adenopathy or thyromegaly. Breast: Edu on SBE. Patient inquires about mammograms and is informed they start at age 40 unless there is a change in family history. Lungs: Clear to auscultation bilaterally. No rales, rhonchi or wheeze noted. Good air flow in all barron. Heart: Regular rate and rhythm. No murmurs, click, rubs or gallops are noted. Abdomen: Bowel sounds present in all quadrants. The abdomen is soft, nontender, with no masses or organomegaly noted. No hernias are noted. : Deferred. Reviewed GORDON & recommendations for routine STRATEGIC PLANNER. Patient has had a Pap smear in the past year. Pulses: Peripheral pulses are equal and palpable bilaterally. Extremities: No clubbing, cyanosis nor edema is noted. Patient reports pain in the ankle area. Neurologic: Gait and station normal. Cranial Nerves 2-12 intact. Motor strength grossly symmetrical and intact. No sensory loss. Balance normal. Skin: No rashes, ulcers, or lesions noted. Turgor is good. Skin color is good. Hair and nails are without abnormalities. Psych: Normal eye contact, affect and mood appropriate, and normal interactions. Patient is alert and appropriate to context. Results see below Discussion Notes We discussed management strategies for major depressive disorder and generalized anxiety disorder, reviewing her current medication regimen. The patient expressed concern about the exacerbation of depressive symptoms following the recent switch to paroxetine. We highlighted the expectation of improvement with ongoing Transcranial Magnetic Stimulation (TMS) and emphasized the need for safety given suicidal thoughts. We discussed follow-up care with her therapist and emphasized the importance of accessing crisis intervention if required. Coordination with her psychiatric provider and potential engagement with outpatient mental health services were recommended. We further advised on age-appropriate health screenings, and the patient consented to update her tetanus vaccination and complete recommended labs, contingent on current concerns, including weight management. We provided resources for outpatient mental health services and committed to contacting the psychiatric office to advocate for timely care. Assessment and Plan 19 minutes spent on phone: Sujatha Hawthorne I called [facility] [place], , Spoke to Dr Kaleb Cooper and gave info. Advised there is no sooner appt; no other provider can change her meds; she was advised to go to [facility] after her therapist reached out. Next appt 03/18/[address] Brody; appt w/ therapist this week. Plan is to see if there is avail appt with Dr Pagan; Counselor to recommend and asst w/ [facility]. 1. Major Depressive Disorder/ANGELA/SI - Continue TMS, monitor paroxetine effects, use crisis resources if needed. I asked she go to [facility] in [place] after visit w/ me 2. Seasonal Allergies - Continue loratadine therapy. 3. Acne and Menstrual Regulation - Continue oral contraceptive Sam. 4. Tinnitus - Monitor symptomatology without active change. 5. Preventive Care - Declined tetanus vaccine, obtain lab assessments, review mammogram timing based on average risk factors. 6. HLD: Refer to wt mgmt, To reduce low-density lipoprotein (LDL) cholesterol, you can try making lifestyle changes to your diet, exercise, and other habits: Eat a heart-healthy diet Limit saturated and trans fats, and eat more foods with healthy fats, like nuts, seeds, and unsaturated oils. You can also try eating more soluble fiber, which can help reduce the amount of cholesterol your body absorbs. Foods high in soluble fiber include whole grains, fruits, and legumes. Exercise regularly Aim for at least 150 minutes of exercise per week, such as walking, swimming, or cycling. Maintain a healthy weight Losing weight can help lower LDL cholesterol, especially if you are overweight or obese. Manage stress Chronic stress can raise LDL cholesterol, so try to find healthy ways to manage it. Quit smoking Smoking can raise cholesterol and increase the risk of serious health problems. Get enough sleep Aim for 7 to 9 hours of sleep per night. You should also limit foods with cholesterol, which are found in animal products like liver, egg yolks, and whole milk dairy products. Patient Instructions - Take loratadine 10 mg once daily for allergy symptoms. - Continue paroxetine and report any side effects to psychiatrist. - Utilize crisis resources for suicidal thoughts. - Perform all lab tests as discussed. - Attend scheduled therapy sessions. - Call the provided clinic number if depression symptoms worsen. - RTO 1 year CPE Consent Patient was informed and verbally consented to the use of an ambient scribe for clinic note documentation during this visit. An additional 45 minutes was spent addressing the problem(s) noted at todays visit. This includes time spent before the visit reviewing the chart, time spent during the visit, and time spent after the visit on documentation reviewing laboratory results, diagnostic imaging, medications, performing a medically necessary evaluation, counseling on diagnoses, care coordination, ordering appropriate tests, ordering appropriate medications, review of tests performed by other providers, reporting test results with the patient, communication with other healthcare providers. [facility] Medical History (Updated 02/15/25 @ 17:27 [facility] Anxiety with depression Closed right ankle fracture HPV (human papilloma virus) infection Intractable headache Surgical History (Updated 02/15/25 @ 10:06 by JAMAAL MetcalfKRYSTAL) History of salpingectomy (~08/2022) History of wisdom tooth extraction S/P surgical manipulation of ankle joint (~12/2024) Family History (Updated 10/14/23 @ 11:19 by Nissa Salamanca [facility]) Mother High cholesterol Breast cancer Father Alcoholism Esophageal cancer Maternal Grandfather Hypertension High cholesterol Paternal Grandfather Hypertension Social History (Updated 10/14/23 @ 11:10 by Nissa Salamanca [facility]) Housing: House Alcohol intake: never Patient Tobacco Use Status: Former Tobacco user e-Cigarette/Vaping Use: Never Used Second Hand Smoke Exposure: No Substance Use Type: Marijuana service: No Current occupational status: employed 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 1. Little interest or pleasure in doing things: nearly every day 2. Feeling down, depressed, or hopeless: nearly every day 3. Trouble falling or staying asleep, or sleeping too much: nearly every day 4. Feeling tired or having little energy: nearly every day 5. Poor appetite or overeating: more than half the days 6. Feeling bad about yourself - or that you are a failure or have let yourself or your family down: nearly every day 7. Trouble concentrating on things, such as reading the newspaper or watching television: not at all 8. Moving or speaking so slowly that other people could have noticed. Or the opposite - being so fidgety or restless that you have been moving around a lot more than usual: not at all 9. Thoughts that you would be better off or of hurting yourself in some way: nearly every day Total score: 20 Depression Screening Interpretation: Positive Depression Screening Follow-up: Existing condition and In treatment Depression Screening Done: Yes 88219 - PHQ-9 Billing: Yes Source: Developed by Drs. Rehan Lynne, Nasima Crabtree, Greg Delgado and colleagues, with an educational kavita from [employer]. Thrive Questionnaire Date Thrive assessed: 02/15/25 I am a: Patient What is your living situation today?: I have a steady place to live Within the past 12 months, did the food you bought not last and you didn't have the money to get more?: I choose not to answer this question Within the past 12 months, did you worry whether your food would run out before you got money to buy more?: I choose not to answer this question Do you have trouble paying for medicines?: No Do you have trouble getting transportation to medical appointments?: No Do you have trouble paying your heating and electricity bill?: No Do you have trouble taking care of your child, family member or friend?: No Do you have trouble with day-to-day activities such as bathing, preparing meals, shopping, managing finances, etc.?: I choose not to answer this question Are you currently unemployed and looking for a job?: No Are you interested in more education?: No Please select the resources that you would like help with: None Currently or been in a relationship where the following occur: No concerns reported THRIVE Score: 0 AUDIT C Alcohol Use Questionnaire (AUDIT-C) 1. How often do you have a drink containing alcohol?: Never 3. How often do you have six or more drinks on one occasion?: Never Total Score: 0 Score Reviewed/Action Taken: Yes ANGELA-7 AMB Questionnaire ANGELA-7 Date ANGELA - 7 assessed: 02/15/25 Feeling nervous, anxious, or on edge: 0 = Not at all Not being able to stop or control worryin = Not at all Worrying too much about different things: 0 = Not at all Trouble relaxin = Not at all Being so restless that it is hard to sit still: 0 = Not at all Becoming easily annoyed or irritable: 0 = Not at all Feeling afraid as if something awful might happen: 0 = Not at all Total ANGELA-7 score (0-4 normal; 5-9 mild; 10-14 moderate; 15-21 severe): 0 Source: Developed by Drs. Rehan Lynne, Nasima Crabtree, Greg Delgado and colleagues, with an educational kavita from [employer]. ANGELA-7 Assessment Billing ANGELA-7 Assessment Tool: ANGELA-7 Assessment 82547 Physical exam (Primary Care) Vital Signs: Last Vital Signs Temp 97.6 F 02/15/25 10:02 Pulse 90 02/15/25 10:02 Resp 13 02/15/25 10:02 BP 132/72 02/15/25 10:02 Pulse Ox 97 02/15/25 10:02 Oxygen Delivery Method Room Air 02/15/25 10:02 BMI result Body Mass Index 41.4 BMI Assessment/Plan discussion: High BMI High, discussed plan: lifestyle Tobacco/Smoking Status: Tobacco use Status Tobacco use date assessed 02/15/25 02/15/25 09:58 Patient Tobacco Use Status Former Tobacco user 02/15/25 09:54 e-Cigarette/Vaping Use Never Used 02/15/25 09:54 PHQ-9: PHQ-9 Score PHQ-9: Total score 20 02/15/25 15:19 Depression Screening Interpretation: Positive Depression Screening Follow-up: Existing condition and In treatment Thrive Assessment: Date of Thrive Assessment Date Thrive assessed 02/15/25 02/15/25 09:54 Currently or been in a relationship where the following occur: No concerns reported Results Reviewed Results Reviewed: Hi Cholesterol is high, otherwise labs look good. I talked to Dr Manuel office. They are going to try to find a sooner appointment for you (no promises.) She recommend [facility] and asked your counselor to review this with you at your next visit and assist in setting up these services. Sue Laboratory Result Units Range Interpretation Provider Comments White Blood Count 10.0 X10*3/uL (4.8-10.8) Red Blood Count 4.69 X10*6/uL (4.20-5.50) Hemoglobin 13.2 g/dl (12.0-16.0) Hematocrit 38.4 % (37.0-47.0) Mean Corpuscular Volume 81.9 fL (80.0-98.0) Mean Corpuscular Hemoglobin 28.1 pg (27.0-33.0) Mean Corpuscular Hemoglobin Concent 34.4 g/dl (31.0-35.0) Red Cell Distribution Width 13.2 % (11.0-16.0) Platelet Count 414 X10*3/uL (160-400) High Mean Platelet Volume 9.7 fL (9.4-12.3) Nucleated RBC Absolute Count (auto) 0.000 X10*3/uL (0.0-0.012) Nucleated Red Blood Cells % (auto) 0.0 /100WBC (0.0-0.2) Sodium Level 141 mmol/L (135-145) Potassium Level 3.9 mmol/L (3.3-5.1) Chloride Level 107 mmol/L (96-108) Carbon Dioxide Level 23 mmol/L (22-29) Anion Gap 15 (12-20) Blood Urea Nitrogen 9 mg/dL (9-16) Creatinine 0.70 mg/dL (0.5-1.4) Estimated Creatinine Clearance Calc Not Reportable Estimat Glomerular Filtration Rate > 60 Random Glucose 134 mg/dL (60-115) High Estimated Average Glucose 105 mg/dL Hemoglobin A1c Percent 5.3 % (<6.0) Calcium Level 10.0 mg/dL (8.4-10.2) Delta Ferritin 52 ng/mL (10-122) Total Bilirubin 0.1 mg/dL (0.0-1.0) Aspartate Amino Transf (AST/SGOT) 28 U/L (5-31) Alanine Aminotransferase (ALT/SGPT) 14 U/L (0-31) Alkaline Phosphatase 93 U/L (39-117) Total Protein 7.4 g/dL (6.5-8.0) Albumin 4.2 g/dL (3.5-5.0) Triglycerides Level 304 mg/dL (<150) High Cholesterol Level 247 mg/dL (<200) High LDL Cholesterol, Calculated 121 mg/dL (<100) High HDL Cholesterol 66 mg/dL (>40) Vitamin B12 Level 248 pg/mL (200-900) 25-Hydroxy Vitamin D Total 42.9 ng/mL (>30) Folate 7.5 ng/mL (> or = 4.0) Thyroid Stimulating Hormone (TSH) 1.68 uIU/mL (0.32-4.0) Urine Creatinine 165.30 mg/dL Urine Microalbumin 6.0 mg/L Urine Microalbumin/Creatinine Ratio 3.6 ug/mg cr (<30) Coding Level of Care Code Est Pt Level 5 (15087) Est Pt Prev Care 18-39y(47240) Diagnoses Encounter for general adult medical examination with abnormal findings Z00.01 ANGELA (generalized anxiety disorder) F41.1 Moderate episode of recurrent major depressive disorder F33.1 Major depression episode severity: moderate Dislocation of temporomandibular joint, subsequent encounter S03.00XD Encounter type: subsequent encounter Sleep disorder G47.9 Obesity, morbid, BMI 40.0-49.9 E66.01 Family history of breast cancer in mother Z80.3 Family history of esophageal cancer Z80.0 Vertigo R42 Dysfunction of both eustachian tubes H69.93 Laterality: bilateral Elevated fasting blood sugar R73.01 Tetanus, diphtheria, and acellular pertussis (Tdap) vaccination declined Z28.21 Suicidal ideation R45.851 Chronic fatigue R53.82 Fatigue type: chronic, unspecified Hypersomnia G47.10 Mixed hyperlipidemia E78.2 Hyperlipidemia type: mixed hyperlipidemia Additional Codes ANGELA-7 Assessment Billing - ANGELA-7 Assessment Tool: ANGELA-7 Assessment 37698 ([id number]) PHQ-9 - 13551 - PHQ-9 Billing: Yes ([id number]) Assessment & Plan Assessment & Plan (1) Encounter for general adult medical examination with abnormal findings: Code(s): Z00.01 - Encounter for general adult medical examination with abnormal findings (2) ANGELA (generalized anxiety disorder): Code(s): F41.1 - Generalized anxiety disorder Category: Medical (3) MDD (major depressive disorder), recurrent episode: Comment: UNDERGOING TMS TREATMENT [facility] Code(s): F33.9 - Major depressive disorder, recurrent, unspecified Category: Medical Qualifiers: Major depression episode severity: moderate Qualified Code(s): F33.1 - Major depressive disorder, recurrent, moderate (4) TMJ (dislocation of temporomandibular joint): Code(s): S03.00XA - Dislocation of jaw, unspecified side, initial encounter Category: Medical Qualifiers: Encounter type: subsequent encounter Qualified Code(s): S03.00XD - Dislocation of jaw, unspecified side, subsequent encounter (5) Sleep disorder: Code(s): G47.9 - Sleep disorder, unspecified Category: Medical (6) Obesity, morbid, BMI 40.0-49.9: Code(s): E66.01 - Morbid (severe) obesity due to excess calories Category: Medical (7) Family history of breast cancer in mother: Code(s): Z80.3 - Family history of malignant neoplasm of breast Category: Medical (8) Family history of esophageal cancer: Comment: DAD Code(s): Z80.0 - Family history of malignant neoplasm of digestive organs Category: Medical (9) Vertigo: Comment: unsure of cause at this time. Has seen ENT and completed Vestibular therapy. MRI brain WNL Labs so far unrevealing negative sleep study ent referral Code(s): R42 - Dizziness and giddiness Category: Medical (10) ETD (eustachian tube dysfunction): Code(s): H69.90 - Unspecified Eustachian tube disorder, unspecified ear Category: Medical Qualifiers: Laterality: bilateral Qualified Code(s): H69.93 - Unspecified Eustachian tube disorder, bilateral (11) Elevated fasting blood sugar: Code(s): R73.01 - Impaired fasting glucose Category: Medical (12) Tetanus, diphtheria, and acellular pertussis (Tdap) vaccination declined: Code(s): Z28.21 - Immunization not carried out because of patient refusal Category: Medical (13) Suicidal ideation: Code(s): R45.851 - Suicidal ideations Category: Medical (14) Fatigue: Code(s): R53.83 - Other fatigue Category: Medical Qualifiers: Fatigue type: chronic, unspecified Qualified Code(s): R53.82 - Chronic fatigue, unspecified (15) Hypersomnia: Code(s): G47.10 - Hypersomnia, unspecified Category: Medical (16) HLD (hyperlipidemia): Code(s): E78.5 - Hyperlipidemia, unspecified Category: Medical Qualifiers: Hyperlipidemia type: mixed hyperlipidemia Qualified Code(s): E78.2 - Mixed hyperlipidemia Plan . Orders: Orders Complete Blood Count no Diff Today E66.01 - Morbid (severe) obesity due to excess calories, F33.1 - Major depressive disorder, recurrent, moderate, R73.01 - Impaired fasting glucose Ferritin Today E66.01 - Morbid (severe) obesity due to excess calories, F33.1 - Major depressive disorder, recurrent, moderate, R73.01 - Impaired fasting glucose Lipid Panel Today E66.01 - Morbid (severe) obesity due to excess calories, F33.1 - Major depressive disorder, recurrent, moderate, R73.01 - Impaired fasting glucose Microalbumin, Random (w Creat) Today E66.01 - Morbid (severe) obesity due to excess calories, F33.1 - Major depressive disorder, recurrent, moderate, R73.01 - Impaired fasting glucose Vitamin B12 and Folate Today E66.01 - Morbid (severe) obesity due to excess calories, F33.1 - Major depressive disorder, recurrent, moderate, R73.01 - Impaired fasting glucose Vitamin D 25-OH Total Today E66.01 - Morbid (severe) obesity due to excess calories, F33.1 - Major depressive disorder, recurrent, moderate, R73.01 - Impaired fasting glucose Comprehensive Met. Panel Today E66.01 - Morbid (severe) obesity due to excess calories, F33.1 - Major depressive disorder, recurrent, moderate, R73.01 - Impaired fasting glucose Hemoglobin A1c Today E66.01 - Morbid (severe) obesity due to excess calories, F33.1 - Major depressive disorder, recurrent, moderate, R73.01 - Impaired fasting glucose TSH reflex Free T4 Today E66.01 - Morbid (severe) obesity due to excess calories, F33.1 - Major depressive disorder, recurrent, moderate, R73.01 - Impaired fasting glucose Referrals Ear/Nose/Throat Referral H69.90 - Unspecified Eustachian tube disorder, unspecified ear, R42 - Dizziness and giddiness, S03.00XA - Dislocation of jaw, unspecified side, initial encounter Medical Weight Management Referral E66.01 - Morbid (severe) obesity due to excess calories Patient Instructions: National Suicide and Crisis Lifeline: Available 24 hours a day, 7 days a week, 365 days a year Dial 988 with any telephone to speak to someone immediately [address] [address] , Walk ins [facility] (Mental / Behavioral health therapist: [address] [place] [address] [facility]: [address] [place] [phone] Open from 10am - 12pm (walk ins welcome) [facility] Crisis Services: [address] [place] [address] Walk in hours from 10am - 12pm Behavioral health Network: [address] [place] [address] [place] [phone] Saturday through Saturday 8am - 8pm Saturday and Saturday 9am - 5pm Crisis Hotlines Suicide prevention, domestic violence, and other crisis hotlines for youth, young adults, and their friends and families. [facility] Safeline: The [facility] Safeline helps youth who have run away, are thinking about running away, or who already ran away but are ready to come home. Parents and guardians can also contact the hotline if they are worried about their child running away or if their child has already left home. The hotline is available 24 hours a day, seven days a week. Youth, parents, and guardians can also use the online chat feature on the [employer]'s website to ask for help and get support, or can send a text to [facility]. [facility] National Suicide Prevention Lifeline: The National Suicide Prevention Lifeline is a network of local crisis centers that are available 25/03 to provide support for youth and adults who are in any kind of emotional crisis. In addition to the main hotline number listed above, there are several other numbers to call depending on your needs: Samoan Language: Deaf and Hard of [phone] Veterans: Disaster Distress: Anyone can also use their online chat feature on their website. National Suicide Prevention Lifeline [facility] Helpline: The [facility] Helpline is available to anyone in [place] who is need of emotional support. Anyone can call or text the helpline to receive help from specially trained volunteers. [place] high school and college students can also get online support through the [employer]_ program. For high school students, volunteers ages 15-18 are available Saturday- from 6-9PM. For college students, [employer]_ is available Saturday-Saturday from 5-9PM. The [employer] - The [employer] is a 25/03 crisis intervention and suicide prevention hotline for LGBTQ youth. Youth can also text Marquez to for support, or use the online chat feature on the [employer]'s website. [employer] is available Saturday-Saturday between 3-10PM. [employer] is available seven days a week between 3-10PM. SafeLink: SafeLink is for anyone who is being affected by domestic violence or dating violence. Volunteers at [employer] speak Slovak and Samoan, and [employer] also has a service that can provide translation in more than 130 languages. TTY: Health screenings for women You should visit your health care provider from time to time, even if you are healthy. The purpose of these visits is to: Screen for medical issues Assess your risk for future medical problems Encourage a healthy lifestyle Update vaccinations and other preventive care services Help you get to know your provider in case of an illness Information Even if you feel fine, you should still see your provider for regular checkups. These visits can help you avoid problems in the future. For example, the only way to find out if you have high blood pressure is to have it checked regularly. High blood sugar and high cholesterol levels also may not have any symptoms in the early stages. A simple blood test can check for these conditions. There are specific times when you should see your provider or receive specific health screenings. The [place] Preventive Services Task Force publishes a list of recommended screenings. Below are screening guidelines for women ages 18 to 39. BLOOD PRESSURE SCREENING Your blood pressure should be checked at least once every 3 to 5 years if: Your blood pressure is in the normal range (top number less than 120 mm Hg and bottom number less than 80 mm Hg) You don't have risk factors for high blood pressure Ask your provider if you need your blood pressure checked more often if: The top number is 120 to 129 mm Hg or the bottom number is 70 to 79 mm Hg You have diabetes, heart disease, kidney problems, are overweight, or have certain other health conditions You have a first-degree relative with high blood pressure You are Black You had high blood pressure during a If the top number is 130 mm Hg or greater or the bottom number is 80 mm Hg or greater, this is considered stage 1 hypertension. Schedule an appointment with your provider to learn how you can reduce your blood pressure. Watch for blood pressure screenings in your area. Ask your provider if you can stop in to have your blood pressure checked. BREAST CANCER SCREENING Experts do not agree about the benefits of breast self-exams in finding breast cancer or saving lives. Talk to your provider about what is best for you. A screening mammogram is not recommended for most women under age 40. Your provider may discuss and recommend mammograms, MRI scans, or ultrasounds if you have an increased risk for breast cancer, such as: A mother or sister who had breast cancer at a young age (most often starting screening earlier than the age the close relative was diagnosed) You carry a high-risk genetic marker CERVICAL CANCER SCREENING Cervical cancer screening should start at age 21 years unless your provider advises otherwise. After the first test: Women ages 21 through 29 should have a Pap test every 3 years. Exoprts do not agree on whether HPV testing is recommended for this age group. Women ages 30 through 65 should be screened with either a Pap test every 3 years or the HPV test every 5 years or both tests every 5 years (called cotesting ). Women who have been treated for precancer (cervical dysplasia) should continue to have Pap tests for 20 years after treatment or until age 65, whichever is longer. If you have had your uterus and cervix removed (total hysterectomy), and you have not been diagnosed with cervical cancer or precancer (high grade cervical neoplasia), you do not need cervical cancer screening. CHOLESTEROL SCREENING Cholesterol screening should begin at: Age 45 for women with no known risk factors for coronary heart disease Age 20 for women with known risk factors for coronary heart disease Repeat cholesterol screening should take place: Every 5 years for women with normal cholesterol levels More often if changes occur in lifestyle (including weight gain and diet) More often if you have diabetes, heart disease, kidney problems, or certain other conditions DIABETES SCREENING You should be screened for diabetes starting at age 35 and then repeated every 3 years if you have no risk factors for diabetes. Screening may need to start earlier and be repeated more often if you have other risk factors for diabetes, such as: You have a first degree relative with diabetes. You are overweight or have obesity. You have high blood pressure, prediabetes, or a history of heart disease. Screening for diabetes should be done if you are planning to become and you are overweight and have other risk factors such as high blood pressure. DENTAL EXAM Go to the dentist once or twice every year for an exam and cleaning. Your dentist will evaluate if you need more frequent visits. EYE EXAM Have an eye exam every 5 to 10 years before age 40. If you have vision problems, have an eye exam every 2 years or more often if recommended by your provider. You should have an eye exam that includes an examination of your retina (back of your eye) at least every year if you have diabetes. IMMUNIZATIONS Commonly needed vaccines include: Flu shot: get one every year. COVID-19 vaccine: ask your provider what is best for you. Tetanus-diphtheria and acellular pertussis (Tdap) vaccine: have one at or after age 19 as one of your tetanus-diphtheria vaccines if you did not receive it as an adolescent. Tetanus-diphtheria: have a booster (or Tdap) every 10 years. Varicella vaccine: receive 2 doses if you never had chickenpox or the varicella vaccine. Hepatitis B vaccine: receive 2, 3, or 4 doses, depending on your exact circumstances. Measles, mumps, and rubella (MMR) vaccine: receive 1 to 2 doses if you are not already immune to MMR. Your provider can tell you if you are immune. Ask your provider about the human papillomavirus (HPV) vaccine if: You have not received the HPV vaccine in the past You have not completed the full vaccine series (you should catch up on this shot) Ask your provider if you should receive other immunizations if you have certain health problems that increase your risk for some diseases such as pneumonia. INFECTIOUS DISEASE SCREENING Women who are sexually active should be screened for chlamydia and gonorrhea up until age 25. Women 25 years and older should be screened for chlamydia and gonorrhea if at high risk. Screening for hepatitis C: All adults ages 18 to 79 should get a one-time test for hepatitis C. people should be screened at every . Screening for human immunodeficiency virus (HIV): All people ages 15 to 65 should get a one-time test for HIV. Depending on your lifestyle and medical history, you may also need to be screened for infections such as syphilis and HIV, as well as other infections. PHYSICAL EXAM All adults should visit their provider from time to time, even if they are healthy. The purpose of these visits is to: Screen for disease Assess your risk of future medical problems Encourage a healthy lifestyle Update your vaccinations and other preventive care services Maintain a relationship with a provider in case of an illness Your height, weight, and BMI should be checked at every exam. During your exam, your provider may ask you about: Depression and anxiety Diet and exercise Alcohol and tobacco use Safety issues, such as using seat belts, smoke detectors, and intimate partner violence Your medicines and risk for interactions SKIN SELF-EXAM Your provider may check your skin for signs of skin cancer, especially if you're at high risk, such as if you: Have had skin cancer before Have close relatives with skin cancer Have a weakened immune system OTHER SCREENING Talk with your provider about colon cancer screening if you have a strong family history of colon cancer or polyps, or if you have had inflammatory bowel disease or polyps yourself. Routine bone density screening of women under 40 is not recommended.
[2025-02-15 10:02] VITALS: BP 132/72; PULSE 90; RESP 13; TEMP 36.4; O2SAT 97; BMI 41.4
--- OUTSIDE RECORDS SUMMARY | 2025-02-15 10:53 | XMS_ITS | Referral Summary ---
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
== END 2025-02-15 10:38 | disposition home or self-care (01) ==
LOC: HO.HMCFM 09:51
PROVIDERS: PCP Nurse Practitioner Family; Visit Provider Nurse Practitioner Family
DX: Z00.01 Encounter for general adult medical examination with abnormal findings (principal); F33.1 Major depressive disorder, recurrent, moderate; E66.01 Morbid (severe) obesity due to excess calories; Z68.41 Body mass index [BMI] 40.0-44.9, adult; G47.9 Sleep disorder, unspecified; F41.1 Generalized anxiety disorder; S03.00XD Dislocation of jaw, unspecified side, subsequent encounter; Z80.3 Family history of malignant neoplasm of breast; Z80.0 Family history of malignant neoplasm of digestive organs; R42 Dizziness and giddiness; H69.93 Unspecified Eustachian tube disorder, bilateral; R73.01 Impaired fasting glucose

== ENCOUNTER → 2025-02-15 09:50 | Outpatient (BNVA) | payer OTHER, SELFPAY | PROVIDERS: PCP Nurse Practitioner Family; Visit Provider Nurse Practitioner Family | DX: Z00.01 Encounter for general adult medical examination with abnormal findings (principal); F41.1 Generalized anxiety disorder; M26.609 Unspecified temporomandibular joint disorder, unspecified side; J30.9 Allergic rhinitis, unspecified; R51.9 Headache, unspecified; E66.9 Obesity, unspecified; E78.5 Hyperlipidemia, unspecified; L70.9 Acne, unspecified; H93.19 Tinnitus, unspecified ear; F33.1 Major depressive disorder, recurrent, moderate; G47.9 Sleep disorder, unspecified; E66.01 Morbid (severe) obesity due to excess calories; R42 Dizziness and giddiness; H69.93 Unspecified Eustachian tube disorder, bilateral; R73.01 Impaired fasting glucose; R45.851 Suicidal ideations; G47.10 Hypersomnia, unspecified; S03.00XD Dislocation of jaw, unspecified side, subsequent encounter; E78.2 Mixed hyperlipidemia; Z28.21 Immunization not carried out because of patient refusal; Z80.0 Family history of malignant neoplasm of digestive organs; Z80.3 Family history of malignant neoplasm of breast; X58.XXXD Exposure to other specified factors, subsequent encounter | CPT/HCPCS: 96127; 99212; 99395 ==

== ENCOUNTER 2025-02-15 11:20 | Outpatient (REF) | payer OTHER, SELFPAY ==
[2025-02-15 14:12] LABS: Hematocrit 38.4 % (37.0-47.0); Hemoglobin 13.2 g/dl (12.0-16.0); Mean Corpuscular HGB Conc 34.4 g/dl (31.0-35.0); Mean Corpuscular Hemoglobin 28.1 pg (27.0-33.0); Mean Corpuscular Volume 81.9 fL (80.0-98.0); Mean Platelet Volume 9.7 fL (9.4-12.3); Platelet Count 414 X10*3/uL (160-400); Red Blood Count 4.69 X10*6/uL (4.20-5.50); Red Cell Distribution Width 13.2 % (11.0-16.0)
[2025-02-15 14:22] LABS: Estimated Average Glucose 105 mg/dL; Hemoglobin A1c % 5.3 % (<6.0); Total Hemoglobin (HGBA1C) 3509.0436 umol/L
[2025-02-15 14:31] LABS: Alanine Aminotransferase 14 U/L (0-31); Albumin Level 4.2 g/dL (3.5-5.0); Alkaline Phosphatase 93 U/L (39-117); Anion Gap 15 (12-20); Aspartate Amino Transferase 28 U/L (5-31); Bilirubin Total 0.1 mg/dL (0.0-1.0); Blood Urea Nitrogen 9 mg/dL (9-16); Carbon Dioxide 23 mmol/L (22-29); Chloride 107 mmol/L (96-108); Cholesterol 247 mg/dL (<200); Estimated Glomerular Filt Rate > 60; Glucose Random 134 mg/dL (60-115); HDL Cholesterol 66 mg/dL (>40); LDL Cholesterol Calculated 121 mg/dL (<100); Potassium 3.9 mmol/L (3.3-5.1); Sodium 141 mmol/L (135-145); Total Protein 7.4 g/dL (6.5-8.0); Triglycerides 304 mg/dL (<150)
[2025-02-15 14:49] LABS: Ferritin 52 ng/mL (10-122); TSH reflex Free T4 1.68 uIU/mL (0.32-4.0); Vitamin D 25-OH Total 42.9 ng/mL (>30)
[2025-02-15 14:55] LABS: Microalbum/Creatinine Ratio Ur 3.6 ug/mg cr (<30)
[2025-02-15 14:56] LABS: Folate 7.5 ng/mL (> or = 4.0); Vitamin B12 248 pg/mL (200-900)
== END 2025-02-15 11:21 | disposition home or self-care (01) ==
LOC: HO.WFDLDS 11:20
PROVIDERS: Visit Provider Nurse Practitioner Family
DX: R73.01 Impaired fasting glucose (principal); F33.1 Major depressive disorder, recurrent, moderate; E66.01 Morbid (severe) obesity due to excess calories
CPT/HCPCS: 36415; 80053; 80061; 82043; 82306; 82570; 82607; 82728; 82746; 83036; 84443; 85027